=== PATIENT | male | born 1945 | race Caucasian/White ===

== ENCOUNTER 2016-11-16 17:42 | Inpatient (IN) | payer MEDICARE, BC ==
[~2016-11-16] VITALS: Ht 185.4 cm; Wt 127.5 kg
[~2016-11-16 17:42] MED LIST: ACET-73 PO; ALLO100T PO; ASPI81TA31 PO; ATOR10TA PO; BUME2TAB4 PO; CALC0.253 PO; CARV25TA2 PO; COLC0.6T69 PO; CYCL5TAB PO; DILT180C66 PO; DUTA0.5C PO; FLUT1DIS28 INH; FOLI0.8T2 PO; FOLI1TAB16 PO; GLIM2TAB2 PO; GLUC100017 PO; HYDR-548 PO; IPRATROPIUM 0.02% INH; METO2.5T2 PO; NAFT40GE TP; PANT40TA4 PO; POLY17PO4 PO; PRIM50TA PO; PROCRIT INJECTION INJ; TAMS0.4C34 PO; TUMERIC PO; UBID10CA4 PO; VIT1TABL46 PO; WARF5TAB77 PO; X VIATE 40% TOP; ZOLP10TA6 PO
[2016-11-16] MEDS ORDERED: SENN-92 PO (18:43)
[2016-11-16] MEDS ORDERED: DOXY-182 PO (18:43)
[2016-11-16] MEDS ORDERED: POTA8TAB8 PO (18:43)
[2016-11-16] MEDS ORDERED: HYDR473S4 PO (18:43)
[2016-11-16] MEDS ORDERED: ACET-1467 PO (18:43)
[2016-11-16] MEDS ORDERED: FUROSEMIDE 20 MG/2 ML VIAL IVP ONE (20:00)
[2016-11-16] MEDS ORDERED: IV NORMAL SALINE 500 ML BAG IV ONE (20:00)
--- NOTE | 2016-11-16 20:09 | NUR ---
Urine Spec. to lab
[2016-11-16] MEDS ORDERED: FUROSEMIDE 40 MG/4 ML VIAL ONE (20:31)
[2016-11-16 20:39] LABS: *BILIRUBIN,URIN NEGATIVE (NEGATIVE); *BLOOD, URINE NEGATIVE (NEGATIVE); *CLARITY,URINE CLEAR (CLEAR); *COLOR,URINE YELLOW (YELLOW); *KETONES,URINE NEGATIVE (NEGATIVE); *PROTEIN,URINE 2+ (NEGATIVE); *UROBILINOGEN,URINE 0.2 E.U./dl (NORMAL); LEUKOCYTE ESTERASE ,URINE NEGATIVE (NEGATIVE); NITRITE, URINE NEGATIVE (NEGATIVE); PH,URINE 5.5 (5.0-8.0); UGLUCOSE NEGATIVE (NEGATIVE)
[2016-11-16 20:41] LABS: BACTERIA,URINE NONE SEEN /HPF (NONE SEEN); RBC,URINE 0-3 /HPF (0-3); SQUAMOUS EPITHELIAL CELL,UR NONE SEEN /HPF (NONE SEEN); WBC,URINE 0-3 /HPF (0-3)
[2016-11-16 20:56] LABS: BASOPHILS # (AUTO) 0.1 K/uL (0.0-0.2); BASOPHILS % (AUTO) 0.7 % (0.0-2.0); EOSINOPHILS # (AUTO) 0.2 K/uL (0.0-0.7); EOSINOPHILS % (AUTO) 1.9 % (0.0-7.0); MEAN CORPUSCULAR HEMOGLOBIN 34.2 uug (27.0-31.0); MEAN CORPUSCULAR HGB CONC 34 g/dL (32.0-37.0); MEAN CORPUSCULAR VOLUME 99.9 fL (82.0-92.0); MONOCYTES # (AUTO) 1.1 K/uL (0.1-1.30); MONOCYTES % (AUTO) 9.3 % (0.0-11.0); NEUTROPHILS # (AUTO) 9.8 K/uL (1.8-8.9); NEUTROPHILS % (AUTO) 80.1 % (38.5-71.5); PLATELET COUNT (AUTO) 207 K/uL (150-450); RED CELL DISTRIBUTION WIDTH 15.5 % (11.5-14.5); WHITE BLOOD COUNT (AUTO) 12.2 K/uL (4.0-11.2)
[2016-11-16 21:08] LABS: TROPONIN I < 0.017 ng/mL (0.00-0.056)
[2016-11-16 21:11] LABS: LACTIC ACID 1.3 mmol/L (0.4-2.0)
[2016-11-16 21:13] LABS: ALBUMIN 3.2 g/dL (3.4-5.0); BILIRUBIN,DIRECT 0.3 mg/dL (0.0-0.2); BILIRUBIN,TOTAL 0.6 mg/dL (0.2-1.0); CALCIUM 10.3 mg/dL (8.5-10.1); POTASSIUM 3.4 mmol/L (3.5-5.1); TOTAL PROTEIN, SERUM 8.5 g/dL (6.4-8.2)
[2016-11-16] MEDS ORDERED: NITROGLYCERIN OINT 1 GM PACKET TP ONE ×2 (21:45→21:47)
--- NOTE | 2016-11-16 22:00 | NUR ---
Pt. admitted to TELE, under care of Dr. Patel. Belongs List completed.
[2016-11-16 22:30] VITALS: BP 134/87
[2016-11-17] MEDS ORDERED: ZOLPIDEM 5 MG TABLET ONE (00:50)
[2016-11-17] MEDS: ZOLPIDEM 5 MG TABLET PO PRN (01:31)
[2016-11-17 04:00] VITALS: BP 133/74
[2016-11-17 06:53] LABS: BASOPHILS % (AUTO) 0.3 % (0.0-2.0); EOSINOPHILS # (AUTO) 0.3 K/uL (0.0-0.7); EOSINOPHILS % (AUTO) 2.6 % (0.0-7.0); HEMATOCRIT 33.3 % (40.0-50.0); HEMOGLOBIN 11.1 g/dL (14.0-18.0); LYMPHOCYTES # (AUTO) 1.3 K/uL (0.8-4.8); LYMPHOCYTES % (AUTO) 10.3 % (20.5-51.5); MEAN CORPUSCULAR HEMOGLOBIN 32.3 uug (27.0-31.0); MEAN CORPUSCULAR HGB CONC 33 g/dL (32.0-37.0); MEAN CORPUSCULAR VOLUME 97.5 fL (82.0-92.0); MONOCYTES % (AUTO) 7.8 % (0.0-11.0); NEUTROPHILS # (AUTO) 10.3 K/uL (1.8-8.9); PLATELET COUNT (AUTO) 213 K/uL (150-450); RED BLOOD CELL COUNT(AUTO) 3.42 MIL/uL (4.70-6.10); RED CELL DISTRIBUTION WIDTH 15.4 % (11.5-14.5); WHITE BLOOD COUNT (AUTO) 12.9 K/uL (4.0-11.2)
[2016-11-17 07:04] LABS: CALCIUM 10.5 mg/dL (8.5-10.1)
[2016-11-17 07:19] LABS: CREATININE 3.7 mg/dL (0.6-1.3)
[2016-11-17 08:12] LABS: MAGNESIUM 2.2 mg/dL (1.8-2.4); PHOSPHOROUS 3.2 mg/dL (2.5-4.9)
[2016-11-17 11:56] VITALS: BP 124/73
[2016-11-17 15:57] VITALS: BP 128/75
[2016-11-17] MEDS ORDERED: GUAIFENESIN/DEXTROMETHORPHAN 5 ML UDC PO PRN (16:45)
[2016-11-17] MEDS ORDERED: SENNOSIDES/DOCUSATE SODIUM TABLET PO SCH (17:00)
[2016-11-17] MEDS ORDERED: MISCELLANEOUS MED XX PRN ×2 (17:00)
[2016-11-17] MEDS ORDERED: ACETAMINOPHEN ES 500 MG TABLET PO PRN (17:00)
[2016-11-17] MEDS ORDERED: ZOLPIDEM 5 MG TABLET PO PRN (17:00)
[2016-11-17] MEDS ORDERED: HYDROCODONE BIT/HOMATROPINE 5 ML UDC PO PRN (17:00)
[2016-11-17] MEDS: FOLIC ACID 1 MG TABLET PO SCH (18:16)
[2016-11-17] MEDS: BUMETANIDE 1 MG TABLET PO SCH (18:16)
[2016-11-17] MEDS: GLIMEPIRIDE 2 MG TABLET PO SCH (18:16)
[2016-11-17] MEDS: METOLAZONE 5 MG TABLET PO SCH (18:36)
[2016-11-17] MEDS ORDERED: DOCU-25 PO (18:47)
[2016-11-17 19:00] VITALS: BP 103/63
[2016-11-17] MEDS ORDERED: DILTIAZEM 90 MG ×2 (19:01→19:03)
[2016-11-17] MEDS ORDERED: DILT90TA10 PO (19:06)
[2016-11-17] MEDS: DOXYCYCLINE HYCLATE 100 MG TABLET PO SCH (21:18)
[2016-11-17] MEDS: DOCUSATE SODIUM 100 MG CAPSULE PO SCH (21:19)
[2016-11-17] MEDS: TAMSULOSIN HCL 0.4 MG CAP.SR.24H PO SCH (21:19)
[2016-11-17] MEDS: ATORVASTATIN 10 MG TABLET PO SCH (21:19)
[2016-11-17] MEDS: PRIMIDONE 50 MG TABLET PO SCH (21:19)
[2016-11-17] MEDS: DUTASTERIDE 0.5 MG CAPSULE PO SCH (21:20)
[2016-11-17] MEDS: NUTRISOURCE FIBER 4 GM PACKET PO SCH (21:25)
[2016-11-17 23:40] VITALS: BP 103/71
[2016-11-18 04:00] VITALS: BP 120/73
--- NOTE | 2016-11-18 07:45 | NUR ---
Awake, alert, oriented x 3, on moderate high back rest, Bipap removed. Noted urine incontinence. Assisted to commode, with large soft BM. Sponge bath given. Transferred to chair, breakfast served
[2016-11-18] MEDS: BUMETANIDE 1 MG TABLET PO SCH ×2 (08:58→17:16)
[2016-11-18] MEDS: GLIMEPIRIDE 2 MG TABLET PO SCH ×2 (08:58→17:16)
[2016-11-18] MEDS: DOCUSATE SODIUM 100 MG CAPSULE PO SCH ×2 (08:59→20:44)
[2016-11-18] MEDS: FOLIC ACID 1 MG TABLET PO SCH ×2 (08:59→17:16)
[2016-11-18] MEDS: POTASSIUM CHLORIDE 8 MEQ CAPSULE.SA PO SCH ×3 (08:59→17:16)
[2016-11-18] MEDS: FOLIC ACID/VITAMIN B COMP W-C TABLET PO SCH (08:59)
[2016-11-18] MEDS: MIRALAX 17 GM POWD.PACK PO SCH (08:59)
[2016-11-18] MEDS: PANTOPRAZOLE SODIUM 40 MG TABLET.DR PO SCH (09:00)
[2016-11-18] MEDS ORDERED: METOLAZONE 2.5 MG TABLET PO SCH (09:00)
[2016-11-18] MEDS ORDERED: DOCUSATE SODIUM 100 MG CAPSULE PO SCH (09:00)
[2016-11-18] MEDS: NUTRISOURCE FIBER 4 GM PACKET PO SCH ×2 (09:00→20:46)
[2016-11-18] MEDS ORDERED: WARFARIN SODIUM 5 MG TABLET PO SCH (09:00)
[2016-11-18] MEDS: DOXYCYCLINE HYCLATE 100 MG TABLET PO SCH ×2 (09:01→20:45)
[2016-11-18] MEDS: ALLOPURINOL 100 MG TABLET PO SCH (09:02)
[2016-11-18 09:24] LABS: BASOPHILS % (AUTO) 0.3 % (0.0-2.0); EOSINOPHILS # (AUTO) 0.6 K/uL (0.0-0.7); EOSINOPHILS % (AUTO) 4.8 % (0.0-7.0); HEMATOCRIT 30.2 % (40.0-50.0); HEMOGLOBIN 10.6 g/dL (14.0-18.0); LYMPHOCYTES # (AUTO) 1.4 K/uL (0.8-4.8); LYMPHOCYTES % (AUTO) 11.4 % (20.5-51.5); MEAN CORPUSCULAR HEMOGLOBIN 35.5 uug (27.0-31.0); MEAN CORPUSCULAR HGB CONC 35 g/dL (32.0-37.0); MEAN CORPUSCULAR VOLUME 100.6 fL (82.0-92.0); MONOCYTES # (AUTO) 1.1 K/uL (0.1-1.30); MONOCYTES % (AUTO) 8.3 % (0.0-11.0); NEUTROPHILS # (AUTO) 9.6 K/uL (1.8-8.9); NEUTROPHILS % (AUTO) 75.2 % (38.5-71.5); PLATELET COUNT (AUTO) 216 K/uL (150-450); RED CELL DISTRIBUTION WIDTH 15.5 % (11.5-14.5); WHITE BLOOD COUNT (AUTO) 12.7 K/uL (4.0-11.2)
[2016-11-18 09:34] LABS: ALBUMIN 3.3 g/dL (3.4-5.0); BILIRUBIN,TOTAL 0.7 mg/dL (0.2-1.0); CALCIUM 10.2 mg/dL (8.5-10.1); MAGNESIUM 2.2 mg/dL (1.8-2.4); PHOSPHOROUS 4.3 mg/dL (2.5-4.9)
[2016-11-18 10:15] LABS: TOTAL PROTEIN, SERUM 9.3 g/dL (6.4-8.2)
[2016-11-18] MEDS: ACETAMINOPHEN/CODEINE 300-30 MG TABLET PO PRN ×2 (11:06→20:27)
--- NOTE | 2016-11-18 11:06 | NUR ---
Complained of bilateral knee pain. Tylenol #3 po given, with relief
[2016-11-18 11:22] LABS: ANISOCYTOSIS 1+; STOMATOCYTES 2+
[2016-11-18 11:24] VITALS: BP 125/66
[2016-11-18 15:37] VITALS: BP 123/66
--- NOTE | 2016-11-18 18:31 | NUR ---
Afebrile, not in distress, still sitting on the chair
[2016-11-18 19:00] VITALS: BP 109/59
--- NOTE | 2016-11-18 19:10 | NUR ---
PATIENT ALERT ORIENTED, NO SOB NO CHEST PAIN NOTED, COMPLAIN OF PAIN ON BOTH LOWER EXTREMITY AND SHOULDER, CALL LIGHT WITHIN REACH.
[2016-11-18] MEDS: ALBUTEROL SULFATE 1.25 MG/3 ML NEBU NEB PRN (19:42)
[2016-11-18] MEDS: BUMETANIDE 1 MG/4 ML VIAL IV SCH (20:25)
[2016-11-18] MEDS: DUTASTERIDE 0.5 MG CAPSULE PO SCH (20:28)
[2016-11-18] MEDS: DILTIAZEM HCL 90 MG TABLET PO SCH (20:43)
[2016-11-18] MEDS: ATORVASTATIN 10 MG TABLET PO SCH (20:44)
[2016-11-18] MEDS: TAMSULOSIN HCL 0.4 MG CAP.SR.24H PO SCH (20:53)
[2016-11-18] MEDS: PRIMIDONE 50 MG TABLET PO SCH (20:54)
--- NOTE | 2016-11-19 | NUR ---
OFFER TO PATIENT TO WEAR DVT PUMP BUT REFUSED, EXPLAINED THE PURPOSE OF THE DVT PUMP, STATED "i DONT NEED IT, MY CIRCULATION IS FINE." RESPECT PATIENT WISHES.
[2016-11-19] MEDS: ALBUTEROL SULFATE 1.25 MG/3 ML NEBU NEB PRN ×3 (00:41→16:04)
[2016-11-19] MEDS: ZOLPIDEM 5 MG TABLET PO PRN (01:08)
[2016-11-19 04:00] VITALS: BP 115/66
[2016-11-19 06:25] LABS: BASOPHILS % (AUTO) 0.2 % (0.0-2.0); EOSINOPHILS # (AUTO) 0.6 K/uL (0.0-0.7); EOSINOPHILS % (AUTO) 5.8 % (0.0-7.0); HEMATOCRIT 30.8 % (40.0-50.0); HEMOGLOBIN 10.3 g/dL (14.0-18.0); LYMPHOCYTES # (AUTO) 1.3 K/uL (0.8-4.8); LYMPHOCYTES % (AUTO) 12.1 % (20.5-51.5); MEAN CORPUSCULAR HEMOGLOBIN 33.5 uug (27.0-31.0); MEAN CORPUSCULAR HGB CONC 34 g/dL (32.0-37.0); MEAN CORPUSCULAR VOLUME 99.8 fL (82.0-92.0); MONOCYTES % (AUTO) 9.1 % (0.0-11.0); NEUTROPHILS # (AUTO) 7.6 K/uL (1.8-8.9); NEUTROPHILS % (AUTO) 72.8 % (38.5-71.5); PLATELET COUNT (AUTO) 200 K/uL (150-450); RED BLOOD CELL COUNT(AUTO) 3.08 MIL/uL (4.70-6.10); RED CELL DISTRIBUTION WIDTH 15.4 % (11.5-14.5); WHITE BLOOD COUNT (AUTO) 10.5 K/uL (4.0-11.2)
--- NOTE | 2016-11-19 06:45 | NUR ---
PATIENT SLEPT MOST OF THE NIGHT, BIPAP IN PLACE, NO SOB, NO CHEST PAIN NOTED, NO S/S OF DISTRESS.
[2016-11-19 07:33] LABS: BILIRUBIN,TOTAL 0.5 mg/dL (0.2-1.0); MAGNESIUM 1.9 mg/dL (1.8-2.4); PHOSPHOROUS 3.9 mg/dL (2.5-4.9); TOTAL PROTEIN, SERUM 8.3 g/dL (6.4-8.2)
[2016-11-19 07:44] LABS: CREATININE 3.7 mg/dL (0.6-1.3)
[2016-11-19 07:45] LABS: POTASSIUM 2.7 mmol/L (3.5-5.1)
[2016-11-19 08:06] LABS: VIT D, 25-HYDROXY 14.6 ng/mL (30.0-100.0)
[2016-11-19] MEDS ORDERED: POTASSIUM CHLORIDE 100 ML IV SCH ×2 (08:30)
[2016-11-19] MEDS: FOLIC ACID 1 MG TABLET PO SCH ×2 (08:54→16:56)
[2016-11-19] MEDS: DOCUSATE SODIUM 100 MG CAPSULE PO SCH (08:54)
[2016-11-19] MEDS: PANTOPRAZOLE SODIUM 40 MG TABLET.DR PO SCH (08:54)
[2016-11-19] MEDS: METOLAZONE 5 MG TABLET PO SCH (08:54)
[2016-11-19] MEDS: GLIMEPIRIDE 2 MG TABLET PO SCH ×2 (08:54→16:56)
[2016-11-19] MEDS: FOLIC ACID/VITAMIN B COMP W-C TABLET PO SCH (08:55)
[2016-11-19] MEDS: ALLOPURINOL 100 MG TABLET PO SCH (08:55)
[2016-11-19] MEDS: POTASSIUM CHLORIDE 8 MEQ CAPSULE.SA PO SCH ×3 (08:55→16:56)
[2016-11-19] MEDS: DOXYCYCLINE HYCLATE 100 MG TABLET PO SCH (08:55)
[2016-11-19] MEDS: MIRALAX 17 GM POWD.PACK PO SCH (08:57)
[2016-11-19] MEDS: BUMETANIDE 1 MG/4 ML VIAL IV SCH ×2 (08:57→16:57)
[2016-11-19] MEDS: NUTRISOURCE FIBER 4 GM PACKET PO SCH (08:57)
[2016-11-19] MEDS: DILTIAZEM HCL 90 MG TABLET PO SCH (08:59)
[2016-11-19] MEDS ORDERED: METOLAZONE 2.5 MG TABLET PO SCH (09:00)
[2016-11-19] MEDS: ACETAMINOPHEN/CODEINE 300-30 MG TABLET PO PRN (09:09)
[2016-11-19] MEDS ORDERED: POTASSIUM CHLORIDE 50 ML IV SCH (10:45)
[2016-11-19] MEDS ORDERED: POTASSIUM CHLORIDE 10 MEQ, LIDOCAINE-MPF 1% 1 ML in IV DEXTROSE 5% 100 ML IV SCH ×2 (10:45→12:30)
[2016-11-19 11:29] VITALS: BP 107/57
[2016-11-19] MEDS ORDERED: POTASSIUM CHLORIDE 20 MEQ TAB.PRT.SR PO ONE (12:30)
--- NOTE | 2016-11-19 16:08 | NUR ---
PATIENT BEEN DISCHARGE BY MD. NO S/S OF DISTRESS. C/O OF KNEE AND SHOULDER PAIN, MEDICATED ORDERED. K AND BUN VALUES WERE CRITICAL, DR. RUIZ NOTIFIED. ORDERED K REPLACEMENTS. DISCHARGE INSTRUCTIONS WERE EXPLAINED, SIGNED BY PATIENT. A COPY WAS PROVIDED. WILL CONTINUE MONITORING.
[2016-11-19 16:11] VITALS: BP 102/49
--- NOTE | 2016-11-19 16:32 | NUR ---
The patient will be discharged today back home [[address] [place] [address]] [address] Haines. The patient is aware and in agreement with his discharge plan. He arranged for his to pick him up via private car and he will follow-up with his PCP. His RN, Saba, is aware of his discharge plan.
--- NOTE | 2016-11-19 18:37 | NUR ---
Patient in the chair waiting for the to pick him up. No s/s of distress noted. Iv still intact. Safety and comfort provided during my shift. Report will be endorsed to next shift nurse.
--- NOTE | 2016-11-19 19:43 | NUR ---
PATIENT DISCHARGE TODAY, ACCOMPANIED BY VIA PRIVATE CAR.
== END 2016-11-19 19:45 | disposition home health service (06) | DRG 291 ==
LOC: ER 17:42 → TELE 21:52 → MED 11-18 19:45
PROVIDERS: ADMIT Internal Medicine; ATTEND Internal Medicine
PROC: 5A09457 Assistance with Respiratory Ventilation, 24-96 Consecutive Hours, Continuous Positive Airway Pressure (ICD-10-PCS; principal; 2016-11-17)
DX: I13.0 Hypertensive heart and chronic kidney disease with heart failure and stage 1 through stage 4 chronic kidney disease, or unspecified chronic kidney disease (principal); I50.41 Acute combined systolic (congestive) and diastolic (congestive) heart failure; J18.9 Pneumonia, unspecified organism; J96.01 Acute respiratory failure with hypoxia; J44.0 Chronic obstructive pulmonary disease with (acute) lower respiratory infection; J44.1 Chronic obstructive pulmonary disease with (acute) exacerbation; N18.4 Chronic kidney disease, stage 4 (severe); N17.9 Acute kidney failure, unspecified; I48.4 Atypical atrial flutter; I42.9 Cardiomyopathy, unspecified; I48.0 Paroxysmal atrial fibrillation; D64.9 Anemia, unspecified; Z86.010 Personal history of colon polyps; Z88.0 Allergy status to penicillin; Z88.1 Allergy status to other antibiotic agents; Z91.041 Radiographic dye allergy status; I48.2 Chronic atrial fibrillation; I35.0 Nonrheumatic aortic (valve) stenosis; G47.33 Obstructive sleep apnea (adult) (pediatric); Z82.3 Family history of stroke; Z82.49 Family history of ischemic heart disease and other diseases of the circulatory system; Z86.73 Personal history of transient ischemic attack (TIA), and cerebral infarction without residual deficits; Z87.891 Personal history of nicotine dependence; Z79.01 Long term (current) use of anticoagulants; Z79.84 Long term (current) use of oral hypoglycemic drugs; Z79.899 Other long term (current) drug therapy; J20.9 Acute bronchitis, unspecified; M10.9 Gout, unspecified; E11.22 Type 2 diabetes mellitus with diabetic chronic kidney disease; I27.2 Other secondary pulmonary hypertension; K21.9 Gastro-esophageal reflux disease without esophagitis; E78.5 Hyperlipidemia, unspecified; I34.0 Nonrheumatic mitral (valve) insufficiency
CPT/HCPCS: 36415; 70030-TC; 71010; 76770; 82306; 82652; 83605; 83735; 83970; 84100; 85025; 85610; 85730; 87040; 93005; 94640; 94664; A4663; J1940; J2001; J3480; J3490; J7040; J7060

== ENCOUNTER 2017-02-06 03:13 | Inpatient (IN) | payer MEDICARE, BC ==
[~2017-02-06] VITALS: Ht 185.4 cm; Wt 126.6 kg
[~2017-02-06 03:13] MED LIST changes: +ACET-1467 PO; -ASPI81TA31 PO; -CALC0.253 PO; -COLC0.6T69 PO; -CYCL5TAB PO; -DILT180C66 PO; +DILT90TA10 PO; +DOCU-141 PO; -GLUC100017 PO; -HYDR-548 PO; +HYDR473S4 PO; -IPRATROPIUM 0.02% INH; +POTA8TAB8 PO; -PROCRIT INJECTION INJ; -TUMERIC PO; -VIT1TABL46 PO; -WARF5TAB77 PO; -X VIATE 40% TOP
[2017-02-06] MEDS ORDERED: HYDR-548 PO (03:58)
[2017-02-06] MEDS ORDERED: VIT1TABL46 PO (03:58)
[2017-02-06] MEDS ORDERED: FLUT1DIS28 IH (03:58)
[2017-02-06] MEDS ORDERED: CALC0.253 PO (03:58)
[2017-02-06] MEDS ORDERED: METO2.5T2 PO (03:58)
[2017-02-06] MEDS ORDERED: CYCL5TAB PO (03:58)
[2017-02-06] MEDS ORDERED: WARF7.5T23 PO (04:04)
[2017-02-06 04:55] LABS: BASOPHILS % (AUTO) 0.3 % (0.0-2.0); EOSINOPHILS # (AUTO) 0.3 K/uL (0.0-0.7); EOSINOPHILS % (AUTO) 2.1 % (0.0-7.0); HEMATOCRIT 28.7 % (40-50); HEMOGLOBIN 9.6 G/DL (14.0-18.0); LYMPHOCYTES # (AUTO) 0.8 K/UL (0.8-4.8); LYMPHOCYTES % (AUTO) 7.1 % (20.5-51.5); MEAN CORPUSCULAR HEMOGLOBIN 33.5 UUG (27.0-31.0); MEAN CORPUSCULAR HGB CONC 33 g/dL (32.0-37.0); MEAN CORPUSCULAR VOLUME 100.4 FL (82.0-92.0); MONOCYTES # (AUTO) 0.7 K/UL (0.1-1.30); MONOCYTES % (AUTO) 6.2 % (0.0-11.0); NEUTROPHILS # (AUTO) 10.2 K/UL (1.8-8.9); NEUTROPHILS % (AUTO) 84.3 % (38.5-71.5); PLATELET COUNT (AUTO) 218 K/UL (150-450); RED BLOOD CELL COUNT(AUTO) 2.86 MIL/UL (4.7-6.1)
[2017-02-06 05:11] LABS: ALANINE AMINOTRANSFERASE 27 U/L (16-63); ALKALINE PHOSPHATASE 121 U/L (50-136); ASPARTATE AMINOTRANSFERASE 34 U/L (15-37); BILIRUBIN,DIRECT 0.1 mg/dL (0.0-0.2); BILIRUBIN,TOTAL 0.5 mg/dL (0.2-1.0); CARBON DIOXIDE 31 mmol/L (21-32); CHLORIDE 92 mmol/L (98-107); CREATININE 4.4 mg/dL (0.6-1.3); GLUCOSE 149 mg/dL (74-106); TOTAL PROTEIN, SERUM 8.4 g/dL (6.4-8.2)
[2017-02-06 05:14] LABS: UREA NITROGEN, BLOOD 105 mg/dL (7-18)
[2017-02-06 05:55] VITALS: BP 114/75
--- NOTE | 2017-02-06 05:55 | NUR ---
Pt. admitted to Telemetry , under care of Dr. Ron. Dx: CHF Belongs List completed
--- NOTE | 2017-02-06 07:00 | NUR ---
Admitted this 71 y/o male patient Dx. CHF. Placed on Telemetry- A-flutter on the monitor. Called Dr. Haines for admitting orders, received orders & carried out. Initial assessment done. Report given to NINA Smith
--- NOTE | 2017-02-06 07:10 | NUR ---
PATIENT RECEIVED IN ROOM RESTING WITH EYES CLOSED IN NO ACUTE DISTRESS. H.R. 107 ON [address]. PATIENT ON C-PAP AT THIS TIME. AT BEDSIDE.
--- NOTE | 2017-02-06 07:56 | NUR ---
PATIENT SEEN BY DR. RUIZ.
[2017-02-06] MEDS ORDERED: ACETAMINOPHEN ES 500 MG TABLET PO PRN (08:45)
[2017-02-06] MEDS ORDERED: HYDROCODONE BIT/HOMATROPINE 5 ML UDC PO PRN (08:45)
[2017-02-06] MEDS ORDERED: ACETAMINOPHEN/CODEINE 300-30 MG TABLET PO PRN (08:45)
[2017-02-06] MEDS ORDERED: HYDROCODONE/APAP 10-325 MG TABLET PO PRN (08:45)
[2017-02-06] MEDS ORDERED: CYCLOBENZAPRINE HCL 10 MG TABLET PO PRN (09:00)
[2017-02-06] MEDS ORDERED: DEXTROSE 50% 50 ML DISP.SYRIN IV PRN (09:00)
[2017-02-06] MEDS ORDERED: NORMAL SALINE FLUSH 10 ML DISP.SYRIN IV PRN (09:00)
[2017-02-06] MEDS: DOCUSATE SODIUM 100 MG CAPSULE PO SCH ×2 (09:48→17:01)
[2017-02-06] MEDS: DILTIAZEM HCL 90 MG TABLET PO SCH ×2 (09:48→21:04)
[2017-02-06] MEDS: GLIMEPIRIDE 2 MG TABLET PO SCH ×2 (09:48→17:02)
[2017-02-06] MEDS: CALCITRIOL 0.25 MCG CAPSULE PO SCH (09:48)
[2017-02-06] MEDS: FOLIC ACID/VITAMIN B COMP W-C TABLET PO SCH (09:48)
[2017-02-06] MEDS: ALLOPURINOL 100 MG TABLET PO SCH (09:48)
[2017-02-06] MEDS: MIRALAX 17 GM POWD.PACK PO SCH (09:48)
[2017-02-06] MEDS: BUMETANIDE 1 MG TABLET PO SCH ×2 (09:48→17:01)
[2017-02-06] MEDS: METOLAZONE 2.5 MG TABLET PO SCH (09:49)
[2017-02-06] MEDS: FOLIC ACID 1 MG TABLET PO SCH ×2 (09:49→17:02)
[2017-02-06] MEDS: POTASSIUM CHLORIDE 8 MEQ CAPSULE.SA PO SCH ×3 (09:49→17:02)
[2017-02-06] MEDS: PANTOPRAZOLE SODIUM 40 MG TABLET.DR PO SCH (09:54)
[2017-02-06] MEDS: FLUTICASONE/VILANTEROL 1 EACH BLST.W.DEV INH SCH (09:54)
[2017-02-06] MEDS ORDERED: BUMETANIDE INJ 4 MG in IV DEXTROSE 5% 24 ML IV ONE (10:00)
[2017-02-06] MEDS: BLOOD SUGAR DIAGNOSTIC 1 EACH STRIP VI SCH ×3 (12:28→21:08)
[2017-02-06] MEDS: INSULIN REGULAR, HUMAN 300 UNIT/3 ML VIAL SQ PRN ×3 (12:36→21:10)
[2017-02-06] MEDS: NORMAL SALINE FLUSH 10 ML DISP.SYRIN IV SCH ×2 (12:37→21:10)
[2017-02-06 12:57] VITALS: BP 110/69
[2017-02-06 15:48] VITALS: BP 112/63
[2017-02-06] MEDS ORDERED: WARFARIN SODIUM 2 MG TABLET PO SCH (17:00)
[2017-02-06] MEDS ORDERED: WARFARIN SODIUM 7.5 MG TABLET PO SCH (17:00)
--- NOTE | 2017-02-06 17:00 | NUR ---
UA COLLECTED AND SENT TO LAB.
[2017-02-06] MEDS: CARVEDILOL 25 MG TABLET PO SCH (17:10)
[2017-02-06 18:14] LABS: *CREATININE,URINE 26.7 mg/dL (30-125); *URINE TOTAL PROTEIN RANDOM 13.9 mg/dL (<150/24HR)
[2017-02-06 18:18] LABS: *BILIRUBIN,URIN NEGATIVE (NEGATIVE); *BLOOD, URINE NEGATIVE (NEGATIVE); *CLARITY,URINE CLEAR (CLEAR); *COLOR,URINE YELLOW (YELLOW); *KETONES,URINE NEGATIVE (NEGATIVE); *PROTEIN,URINE NEGATIVE (NEGATIVE); *UROBILINOGEN,URINE 0.2 E.U./dl (NORMAL); LEUKOCYTE ESTERASE ,URINE NEGATIVE (NEGATIVE); NITRITE, URINE NEGATIVE (NEGATIVE); UGLUCOSE NEGATIVE (NEGATIVE)
--- NOTE | 2017-02-06 18:28 | NUR ---
END OF SHIFT NOTE: PATIENT IN NO ACUTE DISTRESS THROUGHOUT SHIFT. DENIED PAIN. A. 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 NO COUGH OR SOB OBSERVED. RESPIRATIONS EVEN AND UNLABORED. CONTINENT OF B+B. NEEDS MET BY STAFF. CALL LIGHT AT REACH.
[2017-02-06 18:29] LABS: MUCUS,URINE FEW /LPF (0-FEW); RBC,URINE 0-3 /HPF (0-3); WBC,URINE NONE SEEN /HPF (0-3)
[2017-02-06 19:00] VITALS: BP 120/75
[2017-02-06 20:00] VITALS: BP 120/75
--- NOTE | 2017-02-06 20:00 | NUR ---
RN NOTES: PATIENT RECEIVED IN STABLE CONDITION, NO COMPLAINS OF PAIN OR DISTRESS NOTED. WILL CONTINUE TO MONITOR.
[2017-02-06] MEDS ORDERED: DUTASTERIDE 0.5 MG CAPSULE PO SCH (21:00)
[2017-02-06] MEDS ORDERED: TAMSULOSIN HCL 0.4 MG CAP.SR.24H PO SCH (21:00)
[2017-02-06] MEDS ORDERED: ZOLPIDEM 5 MG TABLET PO SCH (21:00)
[2017-02-06] MEDS ORDERED: ATORVASTATIN 10 MG TABLET PO SCH (21:00)
[2017-02-06] MEDS ORDERED: PRIMIDONE 50 MG TABLET PO SCH (21:00)
[2017-02-07 04:00] VITALS: BP 112/76
[2017-02-07] MEDS: NORMAL SALINE FLUSH 10 ML DISP.SYRIN IV SCH (06:29)
[2017-02-07] MEDS: PANTOPRAZOLE SODIUM 40 MG TABLET.DR PO SCH (06:29)
[2017-02-07 07:19] LABS: ALANINE AMINOTRANSFERASE 21 U/L (16-63); ALKALINE PHOSPHATASE 118 U/L (50-136); ASPARTATE AMINOTRANSFERASE 21 U/L (15-37); BILIRUBIN,TOTAL 0.4 mg/dL (0.2-1.0); CARBON DIOXIDE 34 mmol/L (21-32); CHLORIDE 96 mmol/L (98-107); CREATINE KINASE, TOTAL 33 U/L (39-308); CREATININE 4.2 mg/dL (0.6-1.3); GLUCOSE 74 mg/dL (74-106); PHOSPHOROUS 4.2 mg/dL (2.5-4.9); TOTAL PROTEIN, SERUM 7.7 g/dL (6.4-8.2)
[2017-02-07] MEDS: BLOOD SUGAR DIAGNOSTIC 1 EACH STRIP VI SCH ×2 (07:21→10:41)
[2017-02-07 07:31] LABS: UREA NITROGEN, BLOOD 106 mg/dL (7-18)
[2017-02-07 07:38] LABS: BASOPHILS % (AUTO) 0.3 % (0.0-2.0); EOSINOPHILS # (AUTO) 0.3 K/uL (0.0-0.7); EOSINOPHILS % (AUTO) 3.5 % (0.0-7.0); HEMATOCRIT 27.2 % (40-50); HEMOGLOBIN 9.5 G/DL (14.0-18.0); LYMPHOCYTES # (AUTO) 0.9 K/UL (0.8-4.8); LYMPHOCYTES % (AUTO) 9.7 % (20.5-51.5); MEAN CORPUSCULAR HEMOGLOBIN 35.6 UUG (27.0-31.0); MEAN CORPUSCULAR HGB CONC 35 g/dL (32.0-37.0); MEAN CORPUSCULAR VOLUME 102.1 FL (82.0-92.0); MONOCYTES # (AUTO) 0.7 K/UL (0.1-1.30); MONOCYTES % (AUTO) 7.4 % (0.0-11.0); NEUTROPHILS # (AUTO) 7.9 K/UL (1.8-8.9); NEUTROPHILS % (AUTO) 79.1 % (38.5-71.5); PLATELET COUNT (AUTO) 210 K/UL (150-450); RED BLOOD CELL COUNT(AUTO) 2.67 MIL/UL (4.7-6.1); WHITE BLOOD COUNT (AUTO) 9.8 K/UL (4.0-11.2)
[2017-02-07] MEDS: FOLIC ACID/VITAMIN B COMP W-C TABLET PO SCH (08:03)
[2017-02-07] MEDS: CALCITRIOL 0.25 MCG CAPSULE PO SCH (08:03)
[2017-02-07] MEDS: BUMETANIDE 1 MG TABLET PO SCH (08:03)
[2017-02-07] MEDS: FOLIC ACID 1 MG TABLET PO SCH (08:03)
[2017-02-07] MEDS: POTASSIUM CHLORIDE 8 MEQ CAPSULE.SA PO SCH ×2 (08:04→13:02)
[2017-02-07] MEDS: DILTIAZEM HCL 90 MG TABLET PO SCH (08:04)
[2017-02-07] MEDS: GLIMEPIRIDE 2 MG TABLET PO SCH (08:04)
[2017-02-07] MEDS: METOLAZONE 2.5 MG TABLET PO SCH (08:04)
[2017-02-07] MEDS: ALLOPURINOL 100 MG TABLET PO SCH (08:04)
[2017-02-07] MEDS: MIRALAX 17 GM POWD.PACK PO SCH (08:04)
[2017-02-07] MEDS: CARVEDILOL 25 MG TABLET PO SCH (08:04)
[2017-02-07] MEDS: DOCUSATE SODIUM 100 MG CAPSULE PO SCH (08:04)
[2017-02-07] MEDS: FLUTICASONE/VILANTEROL 1 EACH BLST.W.DEV INH SCH (08:14)
[2017-02-07] MEDS: INSULIN REGULAR, HUMAN 300 UNIT/3 ML VIAL SQ PRN (11:06)
[2017-02-07 12:13] VITALS: BP 110/63
--- NOTE | 2017-02-07 13:58 | NUR ---
D/C ORDERS RECEIVED NOTED AND CARRIED OUT.D/C [place] PER MD ORDERS.PT LEFT THE FACILITY VIA PRIVATE CAR WITH IN STABLE CONDITION.
[2017-02-10 07:08] LABS: A/G RATIO 0.8 (0.7-1.7); ALBUMIN 3.1 g/dL (2.9-4.4); ALPHA-1-GLOBULIN 0.3 g/dL (0.0-0.4); ALPHA-2-GLOBULIN 0.9 g/dL (0.4-1.0); BETA GLOBULIN 0.9 g/dL (0.7-1.3); GAMMA GLOBULIN 1.6 g/dL (0.4-1.8); GLOBULIN, TOTAL 3.7 g/dL (2.2-3.9); M-SPIKE 0.1 g/dL (Not Observed)
== END 2017-02-07 14:00 | disposition home or self-care (01) | DRG 291 ==
LOC: ER 03:15 → TELE 05:30 → MED 21:59
PROVIDERS: ADMIT Internal Medicine; ATTEND Internal Medicine
DX: I13.0 Hypertensive heart and chronic kidney disease with heart failure and stage 1 through stage 4 chronic kidney disease, or unspecified chronic kidney disease (principal); I50.43 Acute on chronic combined systolic (congestive) and diastolic (congestive) heart failure; N17.0 Acute kidney failure with tubular necrosis; J96.90 Respiratory failure, unspecified, unspecified whether with hypoxia or hypercapnia; E46 Unspecified protein-calorie malnutrition; I48.4 Atypical atrial flutter; I48.0 Paroxysmal atrial fibrillation; D63.8 Anemia in other chronic diseases classified elsewhere; G47.33 Obstructive sleep apnea (adult) (pediatric); Z95.818 Presence of other cardiac implants and grafts; Z82.49 Family history of ischemic heart disease and other diseases of the circulatory system; Z82.3 Family history of stroke; I08.0 Rheumatic disorders of both mitral and aortic valves; N18.9 Chronic kidney disease, unspecified; E11.22 Type 2 diabetes mellitus with diabetic chronic kidney disease; Z91.041 Radiographic dye allergy status; Z79.01 Long term (current) use of anticoagulants; Z88.0 Allergy status to penicillin; Z88.1 Allergy status to other antibiotic agents; Z79.899 Other long term (current) drug therapy; K21.9 Gastro-esophageal reflux disease without esophagitis; E21.3 Hyperparathyroidism, unspecified; E78.5 Hyperlipidemia, unspecified; Z68.36 Body mass index [BMI] 36.0-36.9, adult; I27.2 Other secondary pulmonary hypertension; Z86.73 Personal history of transient ischemic attack (TIA), and cerebral infarction without residual deficits; Z87.891 Personal history of nicotine dependence; Z87.11 Personal history of peptic ulcer disease; Z79.84 Long term (current) use of oral hypoglycemic drugs; M10.9 Gout, unspecified; D72.829 Elevated white blood cell count, unspecified
CPT/HCPCS: 36415; 70030-TC; 71010; 76770; 83605; 83735; 83970; 84100; 84155; 84156; 84165; 84300; 85025; 85730; 87040; 93005; A4663; J1815; J3490; J7040; J7060

== ENCOUNTER 2017-05-05 16:30 | Inpatient (IN) | payer MEDICARE, BC ==
[~2017-05-05] VITALS: Ht 185.4 cm; Wt 132.4 kg
[~2017-05-05 16:30] MED LIST changes: +CALC0.253 PO; +CYCL5TAB PO; +FLUT1DIS28 IH; -FOLI0.8T2 PO; +HYDR-548 PO; +VIT1TABL46 PO; +WARF7.5T23 PO
--- NOTE | 2017-05-05 17:04 | NUR ---
PT.WAS SEEN BY ,FAMILY AT BEDSIDE,SOB ON EXERTION NOTED,PT DENIES ANY PAIN.
[2017-05-05] MEDS ORDERED: IV NORMAL SALINE 500 ML BAG IV ONE (17:15)
[2017-05-05] MEDS ORDERED: FUROSEMIDE 20 MG/2 ML VIAL IV ONE (17:15)
[2017-05-05] MEDS ORDERED: CARV12.52 PO (17:28)
[2017-05-05] MEDS ORDERED: [UNRECOGNIZED DRUG - CODE] SL (17:28)
[2017-05-05] MEDS ORDERED: GLUC1CAP29 PO (17:28)
[2017-05-05] MEDS ORDERED: FISH12002 PO (17:28)
[2017-05-05] MEDS ORDERED: L.AC1CAP6 PO (17:28)
[2017-05-05] MEDS ORDERED: KRIL1CAP19 PO (17:28)
[2017-05-05] MEDS ORDERED: TUMERIC PO (17:28)
[2017-05-05] MEDS ORDERED: DOXY100C2 PO (17:28)
[2017-05-05] MEDS ORDERED: FUROSEMIDE 40 MG/4 ML VIAL ONE (17:50)
[2017-05-05 18:01] LABS: ALANINE AMINOTRANSFERASE 20 U/L (16-63); ALKALINE PHOSPHATASE 153 U/L (50-136); ASPARTATE AMINOTRANSFERASE 17 U/L (15-37); BILIRUBIN,DIRECT 0.1 mg/dL (0.0-0.2); BILIRUBIN,TOTAL 0.5 mg/dL (0.2-1.0); CARBON DIOXIDE 31 mmol/L (21-32); CHLORIDE 97 mmol/L (98-107); CREATININE 3.4 mg/dL (0.6-1.3); GLUCOSE 258 mg/dL (74-106); POTASSIUM 3.4 mmol/L (3.5-5.1); TOTAL PROTEIN, SERUM 8.8 g/dL (6.4-8.2)
[2017-05-05 18:03] LABS: UREA NITROGEN, BLOOD 87 mg/dL (7-18)
--- NOTE | 2017-05-05 18:07 | NUR ---
PT.WATCHING TV,NO S/S OF ACUTE DISTRESS, AT BEDSIDE.
--- NOTE | 2017-05-05 18:19 | NUR ---
CALL BACK:ORDERED TO ADMIT PT.TO TELE BED.
[2017-05-05 18:47] LABS: HEMOGLOBIN 8.4 G/DL (14.0-18.0); MEAN CORPUSCULAR HEMOGLOBIN 31.6 UUG (27.0-31.0); MEAN CORPUSCULAR HGB CONC 32 g/dL (32.0-37.0); PLATELET COUNT (AUTO) 202 K/UL (150-450); RED BLOOD CELL COUNT(AUTO) 2.65 MIL/UL (4.7-6.1); WHITE BLOOD COUNT (AUTO) 10.1 K/UL (4.0-11.2)
[2017-05-05 18:48] LABS: BASOPHILS % (AUTO) 0.2 % (0.0-2.0); EOSINOPHILS # (AUTO) 0.3 K/uL (0.0-0.7); EOSINOPHILS % (AUTO) 2.7 % (0.0-7.0); LYMPHOCYTES # (AUTO) 0.8 K/UL (0.8-4.8); LYMPHOCYTES % (AUTO) 8.2 % (20.5-51.5); MONOCYTES # (AUTO) 0.5 K/UL (0.1-1.30); NEUTROPHILS # (AUTO) 8.4 K/UL (1.8-8.9); NEUTROPHILS % (AUTO) 83.9 % (38.5-71.5)
[2017-05-05 19:16] LABS: *BILIRUBIN,URIN NEGATIVE (NEGATIVE); *BLOOD, URINE NEGATIVE (NEGATIVE); *CLARITY,URINE SLIGHTLY CLOUDY (CLEAR); *COLOR,URINE YELLOW (YELLOW); *KETONES,URINE NEGATIVE (NEGATIVE); *PROTEIN,URINE 2+ (NEGATIVE); *UROBILINOGEN,URINE 0.2 E.U./dl (NORMAL); LEUKOCYTE ESTERASE ,URINE NEGATIVE (NEGATIVE); NITRITE, URINE NEGATIVE (NEGATIVE); UGLUCOSE NEGATIVE (NEGATIVE)
[2017-05-05 19:23] LABS: BACTERIA,URINE NONE SEEN /HPF (NONE SEEN); RBC,URINE 0-3 /HPF (0-3); SQUAMOUS EPITHELIAL CELL,UR NONE SEEN /HPF (NONE SEEN); WBC,URINE 0-3 /HPF (0-3)
[2017-05-05] MEDS ORDERED: DILTIAZEM HCL 25 MG IV IV ONE (19:30)
[2017-05-05] MEDS ORDERED: DILTIAZEM HCL 25 MG IV ONE (19:49)
--- NOTE | 2017-05-05 20:10 | NUR ---
Received admission report from [facility].
--- NOTE | 2017-05-05 20:13 | NUR ---
Pt. admitted to TELE , under care of Dr. RUIZ Belongs List completed.
[2017-05-05 21:23] VITALS: BP 125/82
--- NOTE | 2017-05-05 22:50 | NUR ---
Bipap in used assisted by RT.
[2017-05-05] MEDS: ZOLPIDEM 5 MG TABLET PO SCH (22:57)
[2017-05-05] MEDS ORDERED: BUMETANIDE INJ 4 MG in IV DEXTROSE 5% 24 ML IV ONE (23:00)
[2017-05-05] MEDS ORDERED: ZOLPIDEM 5 MG TABLET ONE (23:09)
[2017-05-05] MEDS ORDERED: BUMETANIDE 1 MG/4 ML VIAL ONE (23:30)
[2017-05-06 00:04] VITALS: BP 130/83
[2017-05-06 04:00] VITALS: BP 125/80
--- NOTE | 2017-05-06 06:51 | NUR ---
Slept at short interval. Tolerated bipap well. No complaint of pain/discomforts presented. All needs attended and met. Continue care as planned.
[2017-05-06 07:26] LABS: ALANINE AMINOTRANSFERASE 16 U/L (16-63); ALKALINE PHOSPHATASE 121 U/L (50-136); ASPARTATE AMINOTRANSFERASE 19 U/L (15-37); BILIRUBIN,TOTAL 0.4 mg/dL (0.2-1.0); CARBON DIOXIDE 32 mmol/L (21-32); CHLORIDE 100 mmol/L (98-107); CHOLESTEROL 92 mg/dL (<200); CREATININE 3.5 mg/dL (0.6-1.3); GLUCOSE 146 mg/dL (74-106); HDL CHOLESTEROL 46 mg/dL (40-60); PHOSPHOROUS 3.9 mg/dL (2.5-4.9); POTASSIUM 3.2 mmol/L (3.5-5.1); TRIGLYCERIDES 57 MG/DL (30-150)
[2017-05-06 07:39] LABS: UREA NITROGEN, BLOOD 92 mg/dL (7-18)
--- NOTE | 2017-05-06 08:00 | NUR ---
NO SIGNS OF PAIN OR DISTRESS, RA SATURATING 95% ON BUMEX DRIP
[2017-05-06 08:09] LABS: WHITE BLOOD COUNT (AUTO) 10.8 K/UL (4.0-11.2)
[2017-05-06 08:10] LABS: LYMPHOCYTES % (AUTO) 8.5 % (20.5-51.5); MEAN CORPUSCULAR HEMOGLOBIN 33.3 UUG (27.0-31.0); MEAN CORPUSCULAR HGB CONC 34 g/dL (32.0-37.0); MEAN CORPUSCULAR VOLUME 97.7 FL (82.0-92.0); NEUTROPHILS % (AUTO) 81.2 % (38.5-71.5); PLATELET COUNT (AUTO) 190 K/UL (150-450)
[2017-05-06 08:11] LABS: BASOPHILS # (AUTO) 0.2 K/uL (0.0-8.0); BASOPHILS % (AUTO) 0.2 % (0.0-2.0); EOSINOPHILS # (AUTO) 3.7 K/uL (0.0-0.7); EOSINOPHILS % (AUTO) 3.7 % (0.0-7.0); LYMPHOCYTES # (AUTO) 8.5 K/UL (0.8-4.8); MONOCYTES # (AUTO) 6.4 K/UL (0.1-1.30); MONOCYTES % (AUTO) 6.4 % (0.0-11.0); NEUTROPHILS # (AUTO) 81.2 K/UL (1.8-8.9)
[2017-05-06] MEDS ORDERED: ACETAMINOPHEN ES 500 MG TABLET PO PRN (08:30)
[2017-05-06] MEDS ORDERED: METOLAZONE 2.5 MG TABLET PO PRN (08:30)
[2017-05-06] MEDS ORDERED: HYDROCODONE/APAP 10-325 MG TABLET PO SCH (08:30)
[2017-05-06] MEDS ORDERED: BUMETANIDE 1 MG/4 ML VIAL IV ONE ×2 (08:45→11:00)
[2017-05-06] MEDS ORDERED: DHA PO SCH (09:00)
[2017-05-06] MEDS ORDERED: CHONDROITIN SULFATE A PO SCH (09:00)
[2017-05-06] MEDS ORDERED: [UNRECOGNIZED DRUG - OTHER] PO SCH (09:00)
[2017-05-06] MEDS ORDERED: [UNRECOGNIZED DRUG - OTHER] XX PRN (09:00)
[2017-05-06] MEDS ORDERED: CYCLOBENZAPRINE HCL 10 MG TABLET PO PRN (09:00)
[2017-05-06] MEDS ORDERED: EPA PO SCH (09:00)
[2017-05-06] MEDS ORDERED: PHOSPHO PO SCH (09:00)
[2017-05-06] MEDS ORDERED: TUMERIC PO SCH (09:00)
[2017-05-06] MEDS ORDERED: Medication Not On Formulary EA (Fish Oil/Borage/Flax/Om3,6,9#1 (Omega 3-6-9 1,200 mg Sof PO SCH (09:00)
[2017-05-06] MEDS ORDERED: KRILL PO SCH (09:00)
[2017-05-06] MEDS ORDERED: ZOLPIDEM 5 MG TABLET PO PRN (09:00)
[2017-05-06] MEDS ORDERED: GLUC SU PO SCH (09:00)
[2017-05-06] MEDS ORDERED: Medication Not On Formulary EA (Ubidecarenone (Co Q-10) 300 MG) PO SCH (09:00)
[2017-05-06] MEDS ORDERED: AST PO SCH (09:00)
[2017-05-06] MEDS ORDERED: [UNRECOGNIZED DRUG - OTHER] PO SCH (09:00)
[2017-05-06] MEDS ORDERED: FLUTICASONE/SALMETEROL 250/50 INHALER IH SCH (09:00)
[2017-05-06] MEDS ORDERED: POTASSIUM CHLORIDE 20 MEQ TAB.PRT.SR PO ONE (09:34)
[2017-05-06] MEDS ORDERED: EPOETIN ALFA 20,000 UNIT/ML ML SQ ONE (09:41)
[2017-05-06] MEDS: MIRALAX 17 GM POWD.PACK PO SCH (10:27)
[2017-05-06] MEDS: CARVEDILOL 12.5 MG TABLET PO SCH ×2 (10:28→17:52)
[2017-05-06] MEDS: DILTIAZEM HCL 90 MG TABLET PO SCH ×3 (10:28→23:00)
[2017-05-06] MEDS: ALLOPURINOL 100 MG TABLET PO SCH (10:28)
[2017-05-06] MEDS: DOCUSATE SODIUM 100 MG CAPSULE PO SCH (10:28)
[2017-05-06] MEDS: FOLIC ACID 1 MG TABLET PO SCH ×2 (10:28→17:52)
[2017-05-06] MEDS: FOLIC ACID/VITAMIN B COMP W-C TABLET PO SCH (10:28)
[2017-05-06] MEDS: CALCITRIOL 0.25 MCG CAPSULE PO SCH (10:28)
[2017-05-06] MEDS: GLIMEPIRIDE 2 MG TABLET PO SCH ×2 (10:28→17:53)
--- NOTE | 2017-05-06 10:30 | NUR ---
CARDIZEM 90MG GIVEN AT 2228. PATIENT IN NO ACUTE DISTRESS.
[2017-05-06] MEDS: PANTOPRAZOLE SODIUM 40 MG TABLET.DR PO SCH (10:33)
[2017-05-06 11:13] VITALS: BP 129/80
--- NOTE | 2017-05-06 12:00 | NUR ---
UP ON CHAIR WITH MIN ASSIST NO SIGNS OF DISTRESS BUEX DRIP COMPLETED SEEN BY MD WITH ORDERS
[2017-05-06] MEDS: POTASSIUM CHLORIDE 8 MEQ CAPSULE.SA PO SCH ×2 (12:22→17:53)
[2017-05-06 15:07] VITALS: BP 108/62
[2017-05-06 15:07] LABS: *OCCULT BLOOD STOOL POSITIVE (NEGATIVE)
--- NOTE | 2017-05-06 16:34 | NUR ---
CONTINUE CURRENT TX PLAN ON BUMEX WITH GOOD URINE OUTPUT
[2017-05-06] MEDS ORDERED: ACIDOPH PO SCH (18:00)
[2017-05-06] MEDS ORDERED: PARACASEI B LACTIS PO SCH (18:00)
[2017-05-06 20:00] VITALS: BP 99/61
[2017-05-06] MEDS: DOXYCYCLINE HYCLATE 100 MG TABLET PO SCH (20:00)
[2017-05-06] MEDS: DUTASTERIDE 0.5 MG CAPSULE PO SCH (20:00)
[2017-05-06] MEDS: PRIMIDONE 50 MG TABLET PO SCH (20:01)
[2017-05-06] MEDS: HYDROCODONE/APAP 10-325 MG TABLET PO SCH (20:01)
[2017-05-06] MEDS: ATORVASTATIN 10 MG TABLET PO SCH (20:01)
[2017-05-06] MEDS: TAMSULOSIN HCL 0.4 MG CAP.SR.24H PO SCH (20:01)
[2017-05-06] MEDS ORDERED: MELATONIN 500 MCG PO SCH (21:00)
[2017-05-07] VITALS: BP 114/67
[2017-05-07 04:00] VITALS: BP 106/65
[2017-05-07] MEDS: PANTOPRAZOLE SODIUM 40 MG TABLET.DR PO SCH (06:02)
--- NOTE | 2017-05-07 06:30 | NUR ---
PT SLEPT WELL, IN NO ACUTE DISTRESS, NO SOB. PATIENT IS ON TELE - AFIB 98, NO C/O OF CHEST PAIN. SAFETY MEASURES IN PLACE, CALL LIGHT WITHIN REACH, WILL CONTINUE TO MONITOR.
[2017-05-07 07:16] LABS: ALANINE AMINOTRANSFERASE 18 U/L (16-63); ALKALINE PHOSPHATASE 129 U/L (50-136); ASPARTATE AMINOTRANSFERASE 18 U/L (15-37); BILIRUBIN,TOTAL 0.4 mg/dL (0.2-1.0); CARBON DIOXIDE 29 mmol/L (21-32); CHLORIDE 97 mmol/L (98-107); CREATININE 3.5 mg/dL (0.6-1.3); GLUCOSE 153 mg/dL (74-106); MAGNESIUM 1.6 mg/dL (1.8-2.4); PHOSPHOROUS 4.6 mg/dL (2.5-4.9); POTASSIUM 3.9 mmol/L (3.5-5.1); TOTAL PROTEIN, SERUM 7.5 g/dL (6.4-8.2)
[2017-05-07 07:40] LABS: UREA NITROGEN, BLOOD 89 mg/dL (7-18)
[2017-05-07 07:45] LABS: IRON, SERUM 43 ug/dL (50-175)
--- NOTE | 2017-05-07 08:25 | NUR ---
seen by dr orellana with orders Addendum: 05/07/17 at 1126 by DIVINE ABBOTT RN error
--- NOTE | 2017-05-07 08:25 | NUR ---
SEEN BY DR RUIZ , PT REMAINS STBLE WILL START BUMEX DRIP PER
[2017-05-07] MEDS: ALLOPURINOL 100 MG TABLET PO SCH (08:27)
[2017-05-07] MEDS: POTASSIUM CHLORIDE 8 MEQ CAPSULE.SA PO SCH ×3 (08:27→17:09)
[2017-05-07] MEDS: DOCUSATE SODIUM 100 MG CAPSULE PO SCH (08:27)
[2017-05-07] MEDS: GLIMEPIRIDE 2 MG TABLET PO SCH ×2 (08:28→17:09)
[2017-05-07] MEDS: DOXYCYCLINE HYCLATE 100 MG TABLET PO SCH ×2 (08:28→20:38)
[2017-05-07] MEDS: CALCITRIOL 0.25 MCG CAPSULE PO SCH (08:28)
[2017-05-07] MEDS: FOLIC ACID 1 MG TABLET PO SCH ×2 (08:28→17:08)
[2017-05-07] MEDS: FOLIC ACID/VITAMIN B COMP W-C TABLET PO SCH (08:28)
[2017-05-07] MEDS: MIRALAX 17 GM POWD.PACK PO SCH (08:28)
--- NOTE | 2017-05-07 08:30 | NUR ---
seen by dr hernandez spoke with son about plan of care possible discharge pending lab results Addendum: 05/07/17 at 1129 by DIVINE ABBOTT RN ERROR
[2017-05-07] MEDS: DILTIAZEM HCL 90 MG TABLET PO SCH ×3 (08:32→20:40)
[2017-05-07] MEDS: CARVEDILOL 12.5 MG TABLET PO SCH ×3 (08:33→17:09)
[2017-05-07] MEDS: FLUTICASONE/VILANTEROL 1 EACH BLST.W.DEV INH SCH (08:43)
[2017-05-07] MEDS ORDERED: EPOETIN ALFA 10,000 UNITS/ML VIAL SQ ONE (08:45)
[2017-05-07] MEDS ORDERED: BUMETANIDE INJ 4 MG in IV DEXTROSE 5% 24 ML IV ONE (09:00)
[2017-05-07 09:11] LABS: BASOPHILS % (AUTO) 0.5 % (0.0-2.0); EOSINOPHILS # (AUTO) 0.5 K/uL (0.0-0.7); HEMATOCRIT 25.7 % (40-50); HEMOGLOBIN 8.6 G/DL (14.0-18.0); MEAN CORPUSCULAR HEMOGLOBIN 32.8 UUG (27.0-31.0); MEAN CORPUSCULAR HGB CONC 33 g/dL (32.0-37.0); MEAN CORPUSCULAR VOLUME 98.6 FL (82.0-92.0); MONOCYTES # (AUTO) 0.5 K/UL (0.1-1.30); MONOCYTES % (AUTO) 5.4 % (0.0-11.0); NEUTROPHILS # (AUTO) 7.6 K/UL (1.8-8.9); NEUTROPHILS % (AUTO) 79.1 % (38.5-71.5); PLATELET COUNT (AUTO) 208 K/UL (150-450); RED BLOOD CELL COUNT(AUTO) 2.61 MIL/UL (4.7-6.1); WHITE BLOOD COUNT (AUTO) 9.6 K/UL (4.0-11.2)
[2017-05-07 11:18] VITALS: BP 114/65
--- NOTE | 2017-05-07 11:27 | NUR ---
RESTING COMFORTABLY NO SIGNS OF PAIN OR DISTRESS. TEMP 98.6
[2017-05-07 17:10] VITALS: BP 122/63
--- NOTE | 2017-05-07 17:48 | NUR ---
SEEN BY DR MCDANIELS SEE NOTES
--- NOTE | 2017-05-07 18:26 | NUR ---
PT TO CONTINUE ON BUMEX DRIP ORDERED
--- NOTE | 2017-05-07 19:00 | NUR ---
Received patient awake, sitting in the chair comfortable. On continues O2 at 3L via NC saturating 98% at this time. Denies any pain/discomforts/SOB/SOBOE at this time. Both pedal edema noted.Safety measures and afll precaution maintain. Continue current plan of care.
[2017-05-07 20:00] VITALS: BP 112/59
[2017-05-07] MEDS: DUTASTERIDE 0.5 MG CAPSULE PO SCH (20:38)
[2017-05-07] MEDS: PRIMIDONE 50 MG TABLET PO SCH (20:38)
[2017-05-07] MEDS: ZOLPIDEM 5 MG TABLET PO SCH (20:38)
[2017-05-07] MEDS: TAMSULOSIN HCL 0.4 MG CAP.SR.24H PO SCH (20:38)
[2017-05-07] MEDS: ATORVASTATIN 10 MG TABLET PO SCH (20:38)
[2017-05-07] MEDS: HYDROCODONE/APAP 10-325 MG TABLET PO SCH (20:39)
--- NOTE | 2017-05-07 20:48 | NUR ---
Back to bed with assist. repositioned for comfort.
--- NOTE | 2017-05-07 22:00 | NUR ---
Patient refused to sign consent for EGD for he wasnt been informed about the procedure nor have not seen the doctor yet. Charge nurse magali.
[2017-05-07 23:55] VITALS: BP 122/60
[2017-05-08] VITALS (7 sets, daily range): BP systolic 109–136; BP diastolic 54–79
--- NOTE | 2017-05-08 | NUR ---
NPO except med initiated as ordered.
[2017-05-08] MEDS: PANTOPRAZOLE SODIUM 40 MG TABLET.DR PO SCH ×3 (05:42→06:59)
[2017-05-08 06:23] LABS: BASOPHILS % (AUTO) 0.3 % (0.0-2.0); EOSINOPHILS # (AUTO) 0.5 K/uL (0.0-0.7); EOSINOPHILS % (AUTO) 5.3 % (0.0-7.0); HEMOGLOBIN 7.6 G/DL (14.0-18.0); LYMPHOCYTES # (AUTO) 0.9 K/UL (0.8-4.8); LYMPHOCYTES % (AUTO) 10.5 % (20.5-51.5); MEAN CORPUSCULAR HEMOGLOBIN 31.7 UUG (27.0-31.0); MEAN CORPUSCULAR HGB CONC 33 g/dL (32.0-37.0); MEAN CORPUSCULAR VOLUME 96.9 FL (82.0-92.0); MONOCYTES # (AUTO) 0.6 K/UL (0.1-1.30); MONOCYTES % (AUTO) 6.6 % (0.0-11.0); NEUTROPHILS % (AUTO) 77.3 % (38.5-71.5); PLATELET COUNT (AUTO) 186 K/UL (150-450)
[2017-05-08 06:35] LABS: HEMATOCRIT 23.1 % (40-50); RED BLOOD CELL COUNT(AUTO) 2.39 MIL/UL (4.7-6.1)
--- NOTE | 2017-05-08 06:54 | NUR ---
Critical value received (RBC 2.39, H/H 7.6/23.1) relayed to Dr. Hoffman with no new order noted. Charge nurse aware.
--- NOTE | 2017-05-08 07:30 | NUR ---
awake alert and oriented, kept NPO except for meds, for EGD today states willing to have it done but has to speak to MD first, explained why it is ordered. made aware of HGB/HCT results today which is lower from yesterday, positive for blood in stool, explained plan of care- verbalized understanding, call light within reach
[2017-05-08] MEDS ORDERED: BUMETANIDE INJ 4 MG in IV DEXTROSE 5% 24 ML IV ONE (08:00)
[2017-05-08] MEDS: GLIMEPIRIDE 2 MG TABLET PO SCH ×2 (08:00→17:30)
--- NOTE | 2017-05-08 08:00 | NUR ---
Kala WOOD from GI lab called and informed of pt's concern- will take him down at 10:30 for 11:00 schedule and MD will speak to him over in GI lab- pt agreed
[2017-05-08] MEDS: DILTIAZEM HCL 90 MG TABLET PO SCH ×2 (08:07→21:13)
[2017-05-08] MEDS: CARVEDILOL 12.5 MG TABLET PO SCH ×2 (08:08→17:30)
[2017-05-08] MEDS: FOLIC ACID 1 MG TABLET PO SCH ×2 (08:08→17:30)
[2017-05-08] MEDS: POTASSIUM CHLORIDE 8 MEQ CAPSULE.SA PO SCH ×3 (08:08→17:30)
[2017-05-08] MEDS: ALLOPURINOL 100 MG TABLET PO SCH (08:09)
[2017-05-08] MEDS: DOXYCYCLINE HYCLATE 100 MG TABLET PO SCH ×2 (08:10→21:13)
[2017-05-08] MEDS: FLUTICASONE/VILANTEROL 1 EACH BLST.W.DEV INH SCH (08:10)
[2017-05-08 08:25] LABS: IRON, SERUM 48 ug/dL (50-175)
[2017-05-08 08:37] LABS: ALANINE AMINOTRANSFERASE 18 U/L (16-63); ALKALINE PHOSPHATASE 123 U/L (50-136); ASPARTATE AMINOTRANSFERASE 17 U/L (15-37); BILIRUBIN,TOTAL 0.5 mg/dL (0.2-1.0); CARBON DIOXIDE 29 mmol/L (21-32); CHLORIDE 96 mmol/L (98-107); CREATININE 3.9 mg/dL (0.6-1.3); FERRITIN 139 ng/mL (26-388); GLUCOSE 205 mg/dL (74-106); MAGNESIUM 1.5 mg/dL (1.8-2.4); PHOSPHOROUS 4.8 mg/dL (2.5-4.9); POTASSIUM 3.4 mmol/L (3.5-5.1); TOTAL PROTEIN, SERUM 7.8 g/dL (6.4-8.2)
[2017-05-08 08:42] LABS: UREA NITROGEN, BLOOD 97 mg/dL (7-18)
--- NOTE | 2017-05-08 10:59 | NUR ---
To OR for EGD per bed
--- NOTE | 2017-05-08 12:50 | NUR ---
back from Recovery Room, awake alert and oriented, with pt, denies of pain, will order full liquids, vs taken, call light within reach, Dr Haines here- informed of Mg 1.5- will see pt
[2017-05-08] MEDS ORDERED: MAGNESIUM SULFATE/D5W 100 ML IV SCH (13:00)
[2017-05-08] MEDS: FOLIC ACID/VITAMIN B COMP W-C TABLET PO SCH (13:17)
[2017-05-08] MEDS: CALCITRIOL 0.25 MCG CAPSULE PO SCH (13:17)
[2017-05-08] MEDS: DOCUSATE SODIUM 100 MG CAPSULE PO SCH (13:18)
[2017-05-08] MEDS: MIRALAX 17 GM POWD.PACK PO SCH (13:19)
--- NOTE | 2017-05-08 13:40 | NUR ---
ASSISTED TO BEDSIDE COMMODE AND HAD A BOWEL MOVEMENT-
--- NOTE | 2017-05-08 14:38 | NUR ---
AMBULATED IN THE HALLWAY WITH PT- TOLERATED WELL
[2017-05-08] MEDS: SOD FERRIC GLUC COMPLX/SUCROSE 125 MG in IV NORMAL SALINE 100 ML IV SCH (15:08)
--- NOTE | 2017-05-08 18:00 | NUR ---
tolerated full liquid well, no nausea/vomiting, no bleeding noted, had a bowel movement this shift- no blood noted, on 2l/nc 02, denies of dyspnea, all needs attended and met, safety measures maintained
--- NOTE | 2017-05-08 19:30 | NUR ---
PT RECEIVED IN BED, AWAKE. A/OX4. ABLE TO MAKE NEEDS KNOWN. V/S STABLE. IN NO ACUTE DISTRESS. NO C.O PAIN AT THIS TIME. PT IV INTACT/ PATENT. ON 2L NC AND SATURATION 99% WNL. 108 A-FIB WITH A-FLUTTER ON THE TELE MONITOR. SAFETY MEASURES IMPLEMENTED. CALL LIGHT WITHIN REACH.
[2017-05-08] MEDS: ZOLPIDEM 5 MG TABLET PO SCH (21:12)
[2017-05-08] MEDS: HYDROCODONE/APAP 10-325 MG TABLET PO SCH (21:12)
[2017-05-08] MEDS: ATORVASTATIN 10 MG TABLET PO SCH (21:13)
[2017-05-08] MEDS: TAMSULOSIN HCL 0.4 MG CAP.SR.24H PO SCH (21:13)
[2017-05-08] MEDS: DUTASTERIDE 0.5 MG CAPSULE PO SCH (21:13)
[2017-05-08] MEDS: PRIMIDONE 50 MG TABLET PO SCH (21:13)
[2017-05-09] VITALS: BP 113/69
[2017-05-09 04:00] VITALS: BP 107/46
--- NOTE | 2017-05-09 05:47 | NUR ---
END OF SHIFT NOTES. PT SLEPT WELL THROUGHOUT SHIFT. IN STABLE CONDITION. AFIB, AFLUTTER WITH BUNDLE BRANCH BLOCK AT 84 ON TELE MONITOR. PT ON BIPAP MACHINE. ALL NEEDS ATTENDED. SAFETY MAINTAINED. CALL LIGHT WITHIN REACH.
[2017-05-09] MEDS ORDERED: PANTOPRAZOLE SODIUM 40 MG TABLET.DR PO ONE (06:18)
[2017-05-09] MEDS: PANTOPRAZOLE SODIUM 40 MG TABLET.DR PO SCH (06:39)
[2017-05-09 07:17] LABS: BASOPHILS # (AUTO) 0.1 K/uL (0.0-8.0); BASOPHILS % (AUTO) 0.7 % (0.0-2.0); EOSINOPHILS # (AUTO) 0.4 K/uL (0.0-0.7); EOSINOPHILS % (AUTO) 4.3 % (0.0-7.0); HEMATOCRIT 21.8 % (36.7-47.1); HEMOGLOBIN 7.5 g/dL (12.5-16.3); LYMPHOCYTES % (AUTO) 10.2 % (20.5-51.5); MEAN CORPUSCULAR HEMOGLOBIN 33.3 uug (23.8-33.4); MEAN CORPUSCULAR HGB CONC 34 g/dL (32.5-36.3); MONOCYTES # (AUTO) 0.7 K/uL (2.0-10.0); MONOCYTES % (AUTO) 7.4 % (0.0-11.0); NEUTROPHILS # (AUTO) 7.2 K/uL (1.8-8.9); NEUTROPHILS % (AUTO) 77.4 % (38.5-71.5); PLATELET COUNT (AUTO) 165 K/uL (152-348); WHITE BLOOD COUNT (AUTO) 9.3 K/uL (3.6-10.2)
[2017-05-09 07:22] LABS: RED BLOOD CELL COUNT(AUTO) 2.25 MIL/uL (4.06-5.63)
[2017-05-09 07:24] LABS: ALANINE AMINOTRANSFERASE 15 U/L (16-63); ALKALINE PHOSPHATASE 128 U/L (50-136); ASPARTATE AMINOTRANSFERASE 17 U/L (15-37); BILIRUBIN,TOTAL 0.4 mg/dL (0.2-1.0); CARBON DIOXIDE 32 mmol/L (21-32); CHLORIDE 98 mmol/L (98-107); CREATININE 3.8 mg/dL (0.6-1.3); GLUCOSE 95 mg/dL (74-106); MAGNESIUM 1.9 mg/dL (1.8-2.4); PHOSPHOROUS 4.5 mg/dL (2.5-4.9); POTASSIUM 3.6 mmol/L (3.5-5.1); TOTAL PROTEIN, SERUM 7.6 g/dL (6.4-8.2)
[2017-05-09 07:28] LABS: UREA NITROGEN, BLOOD 99 mg/dL (7-18)
[2017-05-09] MEDS: FOLIC ACID 1 MG TABLET PO SCH (08:32)
[2017-05-09] MEDS: DOXYCYCLINE HYCLATE 100 MG TABLET PO SCH (08:32)
[2017-05-09] MEDS: CALCITRIOL 0.25 MCG CAPSULE PO SCH (08:32)
[2017-05-09] MEDS: ALLOPURINOL 100 MG TABLET PO SCH (08:33)
[2017-05-09] MEDS: DILTIAZEM HCL 90 MG TABLET PO SCH (08:33)
[2017-05-09] MEDS: DOCUSATE SODIUM 100 MG CAPSULE PO SCH (08:33)
[2017-05-09] MEDS: GLIMEPIRIDE 2 MG TABLET PO SCH (08:33)
[2017-05-09] MEDS: MIRALAX 17 GM POWD.PACK PO SCH (08:33)
[2017-05-09] MEDS: CARVEDILOL 12.5 MG TABLET PO SCH (08:33)
[2017-05-09] MEDS: FOLIC ACID/VITAMIN B COMP W-C TABLET PO SCH (08:33)
[2017-05-09] MEDS: POTASSIUM CHLORIDE 8 MEQ CAPSULE.SA PO SCH ×2 (08:33→13:00)
[2017-05-09] MEDS: FLUTICASONE/VILANTEROL 1 EACH BLST.W.DEV INH SCH (08:34)
[2017-05-09] MEDS ORDERED: BUMETANIDE 1 MG TABLET PO SCH (09:00)
--- NOTE | 2017-05-09 09:00 | NUR ---
awake alert and oriented, denies of pain, on tele a fib 90's, on 2l/nc- no shortness of breath noted, states had a good night, no bleeding noted, call light within reach
--- NOTE | 2017-05-09 10:00 | NUR ---
seen by PT- see notes, up in chair, no bleeding noted
--- NOTE | 2017-05-09 11:00 | NUR ---
Dr Haines here- informed of H/H this am (7.5/21.8) and bun 99 and creat 3.8.
[2017-05-09 11:03] VITALS: BP 101/55
[2017-05-09] MEDS ORDERED: ZOLP5TAB8 PO (11:16)
[2017-05-09] MEDS ORDERED: FLUT1BLS INH (11:16)
--- NOTE | 2017-05-09 12:00 | NUR ---
seen by Dr Haines- with order for ARU- pt in agreement
[2017-05-09] MEDS: SOD FERRIC GLUC COMPLX/SUCROSE 125 MG in IV NORMAL SALINE 100 ML IV SCH (13:13)
[2017-05-09 14:58] VITALS: BP 105/57
--- NOTE | 2017-05-09 15:00 | NUR ---
report given to Chandan WOOD in ARU- pt going to Rm 106, here with pt and in agreement likewise
--- NOTE | 2017-05-09 15:20 | NUR ---
discharge instructions given to , requested for copey of medical records- consent signed, saline lock intact and patent.
[2017-05-09] MEDS ORDERED: EPHEDRINE SULFATE 50 MG/ML AMPUL MC ONE (15:59)
[2017-05-09] MEDS ORDERED: LIDOCAINE HCL 2% 20 ML VIAL MC ONE (15:59)
[2017-05-09] MEDS ORDERED: PROPOFOL 200 MG/20 ML BOTTLE IV ONE (15:59)
--- NOTE | 2017-05-09 16:00 | NUR ---
To ARU per w/c in stable condition with all belongings, with him
== END 2017-05-09 16:00 | DRG 291 ==
LOC: ER 16:31 → TELE 18:24
PROVIDERS: ADMIT Internal Medicine Nephrology; ATTEND Internal Medicine Nephrology
PROC: 0DB68ZX Excision of Stomach, Via Natural or Artificial Opening Endoscopic, Diagnostic (ICD-10-PCS; 2017-05-08)
PROC: 0DB68ZZ Excision of Stomach, Via Natural or Artificial Opening Endoscopic (ICD-10-PCS; principal; 2017-05-08 11:30)
DX: I13.0 Hypertensive heart and chronic kidney disease with heart failure and stage 1 through stage 4 chronic kidney disease, or unspecified chronic kidney disease (principal); I50.31 Acute diastolic (congestive) heart failure; J96.90 Respiratory failure, unspecified, unspecified whether with hypoxia or hypercapnia; N18.4 Chronic kidney disease, stage 4 (severe); N17.9 Acute kidney failure, unspecified; I27.2 Other secondary pulmonary hypertension; E11.22 Type 2 diabetes mellitus with diabetic chronic kidney disease; I48.4 Atypical atrial flutter; D64.9 Anemia, unspecified; Z79.899 Other long term (current) drug therapy; Z86.73 Personal history of transient ischemic attack (TIA), and cerebral infarction without residual deficits; Z87.891 Personal history of nicotine dependence; Z87.11 Personal history of peptic ulcer disease; I48.2 Chronic atrial fibrillation; J44.9 Chronic obstructive pulmonary disease, unspecified; K29.70 Gastritis, unspecified, without bleeding; E78.5 Hyperlipidemia, unspecified; G47.33 Obstructive sleep apnea (adult) (pediatric); Z88.0 Allergy status to penicillin; I35.0 Nonrheumatic aortic (valve) stenosis; I34.2 Nonrheumatic mitral (valve) stenosis; D50.0 Iron deficiency anemia secondary to blood loss (chronic); D63.1 Anemia in chronic kidney disease; I34.0 Nonrheumatic mitral (valve) insufficiency; M10.9 Gout, unspecified; E66.9 Obesity, unspecified; Z68.38 Body mass index [BMI] 38.0-38.9, adult
CPT/HCPCS: 36415; 70030-TC; 71010; 83550; 83735; 84100; 85025; 85730; 93005; 97116; 97530; A4217; A4663; J0885; J1940; J2916; J3475; J3490; J7050; J7060

== ENCOUNTER 2017-05-09 14:54 | Inpatient (IN) | payer MEDICARE, BC ==
[~2017-05-09] VITALS: Ht 185.4 cm; Wt 132.4 kg
[~2017-05-09 14:54] MED LIST changes: -ACET-1467 PO; -BUME2TAB4 PO; +CARV12.52 PO; -CARV25TA2 PO; +DOXY100C2 PO; +FISH12002 PO; +FLUT1BLS INH; -FLUT1DIS28 INH; +GLUC1CAP29 PO; -HYDR473S4 PO; +KRIL1CAP19 PO; +L.AC1CAP6 PO; +Medication Not On Formulary EA (Cyclobenzaprine Hcl 5 MG) PO SCH; +TUMERIC PO; -WARF7.5T23 PO; +ZOLP5TAB8 PO; +[UNRECOGNIZED DRUG - CODE] SL
[2017-05-09] MEDS ORDERED: Z GUARD REMEDY PASTE 57 GM TUBE TOP PRN (17:00)
[2017-05-09] MEDS ORDERED: ACETAMINOPHEN ES 500 MG TABLET PO PRN (18:15)
--- NOTE | 2017-05-09 18:55 | NUR ---
pt arrived at 1700. pt vitals taken. bp 107/39. hr 111 o2 sat 100 with 2l cannula. full code status. all pertinent assessments done and documented. nih score done. all belongings list reconciled. all meds reconciled. pt min assist on transfers. iv site changed and intact. wound pictures taken in chart. will endorse new orders to oyster washer nurse.
--- NOTE | 2017-05-09 19:00 | NUR ---
Received pt resting in bed. AAO X4. Family at bedside. Ambulated to the restroom using walker with minimal assist. No acute distress noted. Pt on O2 2L NC. IV site was removed, not patent. No c/o pain at this time. Safety measures maintained. Call light within reach. Will closely monitor patient.
[2017-05-09 19:45] VITALS: BP 105/69
[2017-05-09] MEDS: ATORVASTATIN 10 MG TABLET PO SCH (20:35)
[2017-05-09] MEDS: PRIMIDONE 50 MG TABLET PO SCH (20:35)
[2017-05-09] MEDS: TAMSULOSIN HCL 0.4 MG CAP.SR.24H PO SCH (20:35)
[2017-05-09] MEDS: HYDROCODONE/APAP 10-325 MG TABLET PO SCH (20:36)
[2017-05-09] MEDS: DUTASTERIDE 0.5 MG CAPSULE PO SCH (20:36)
[2017-05-09] MEDS: DOXYCYCLINE HYCLATE 100 MG TABLET PO SCH (20:36)
[2017-05-09] MEDS: ZOLPIDEM 5 MG TABLET PO SCH (20:37)
[2017-05-09] MEDS: DILTIAZEM HCL 90 MG TABLET PO SCH (20:44)
--- NOTE | 2017-05-09 20:45 | NUR ---
Held BP med due to BP being low 105/69. BP had been low since admission as per patient and family. Will continue to closely monitor VS.
--- NOTE | 2017-05-10 06:10 | NUR ---
Pt slept comfortably t/o the night. IV line inserted by NINA Sage from ICU. Right hand #22 gauge, patent and intact. No acute distress noted. No c/o of pain or discomfort at this time. All needs attended. Safety measures maintained. Continue to monitor the patient. New orders will be endorsed to day shift RN.
--- NOTE | 2017-05-10 07:45 | NUR ---
Received patient awake, alert and oriented. Assisted to chair with moderate assist. On room air O2 sat at 94%. No SOB noted. Not in any form of distress. No complaints of pain or discomfort.
[2017-05-10 08:00] VITALS: BP 103/63
[2017-05-10] MEDS: CARVEDILOL 12.5 MG TABLET PO SCH ×3 (08:00→17:10)
[2017-05-10] MEDS: GLIMEPIRIDE 2 MG TABLET PO SCH ×2 (08:54→17:10)
[2017-05-10] MEDS: FLUTICASONE/VILANTEROL 1 EACH BLST.W.DEV INH SCH (08:56)
[2017-05-10] MEDS: BUMETANIDE 1 MG TABLET PO SCH ×2 (08:56→17:09)
[2017-05-10] MEDS: DILTIAZEM HCL 90 MG TABLET PO SCH ×2 (08:56→20:30)
[2017-05-10] MEDS: FOLIC ACID/VITAMIN B COMP W-C TABLET PO SCH (08:57)
[2017-05-10] MEDS: DOCUSATE SODIUM 100 MG CAPSULE PO SCH (08:57)
[2017-05-10] MEDS: DOXYCYCLINE HYCLATE 100 MG TABLET PO SCH (08:57)
[2017-05-10] MEDS: PANTOPRAZOLE SODIUM 40 MG TABLET.DR PO SCH (08:57)
[2017-05-10] MEDS: POTASSIUM CHLORIDE 8 MEQ CAPSULE.SA PO SCH ×3 (08:57→17:10)
[2017-05-10] MEDS: CALCITRIOL 0.25 MCG CAPSULE PO SCH (08:57)
[2017-05-10] MEDS: ALLOPURINOL 100 MG TABLET PO SCH (08:57)
[2017-05-10] MEDS: MIRALAX 17 GM POWD.PACK PO SCH (08:57)
[2017-05-10] MEDS: FOLIC ACID 1 MG TABLET PO SCH ×2 (08:57→17:10)
[2017-05-10] MEDS ORDERED: Medication Not On Formulary EA (Potassium Chloride 8 MEQ) PO SCH (09:00)
[2017-05-10] MEDS ORDERED: Medication Not On Formulary EA (Vit B Cmplx 3/Fa/Vit C/Biotin (Rena-Vite Rx Tablet) 1 EA PO SCH (09:00)
[2017-05-10] MEDS ORDERED: Medication Not On Formulary EA (Doxycycline Hyclate 100 MG) PO SCH (09:00)
[2017-05-10] MEDS: CYCLOBENZAPRINE HCL 10 MG TABLET PO SCH (09:04)
--- NOTE | 2017-05-10 09:30 | NUR ---
BP 103/63 and NE 120-117. Informed Dr Haines, said not to with hold Sly and Miller. Will continue to monitor.
[2017-05-10] MEDS ORDERED: LACTULOSE 20 G/30 ML LIQUID UDC PO PRN (09:45)
--- NOTE | 2017-05-10 10:34 | NUR ---
Morning care done. Up with physical therapy for evaluation. Tolerated therapy well.
[2017-05-10] MEDS: SOD FERRIC GLUC COMPLX/SUCROSE 125 MG in IV NORMAL SALINE 100 ML IV SCH (14:05)
[2017-05-10 15:01] LABS: EOSINOPHILS # (AUTO) 0.3 K/uL (0.0-0.7); EOSINOPHILS % (AUTO) 2.8 % (0.0-7.0); HEMOGLOBIN 7.5 G/DL (14.0-18.0); LYMPHOCYTES # (AUTO) 0.6 K/UL (0.8-4.8); LYMPHOCYTES % (AUTO) 6.4 % (20.5-51.5); MEAN CORPUSCULAR HEMOGLOBIN 33.2 UUG (27.0-31.0); MEAN CORPUSCULAR HGB CONC 34 g/dL (32.0-37.0); MEAN CORPUSCULAR VOLUME 97.1 FL (82.0-92.0); MONOCYTES # (AUTO) 0.7 K/UL (0.1-1.30); MONOCYTES % (AUTO) 7.2 % (0.0-11.0); NEUTROPHILS # (AUTO) 7.7 K/UL (1.8-8.9); NEUTROPHILS % (AUTO) 83.6 % (38.5-71.5); PLATELET COUNT (AUTO) 222 K/UL (150-450); WHITE BLOOD COUNT (AUTO) 9.3 K/UL (4.0-11.2)
[2017-05-10 15:05] LABS: RED BLOOD CELL COUNT(AUTO) 2.26 MIL/UL (4.7-6.1)
[2017-05-10 15:06] LABS: HEMATOCRIT 21.9 % (40-50)
--- NOTE | 2017-05-10 15:30 | NUR ---
Seen and examined by Natacha Butterfield. CBC, HGb A1c and Echocardiogram ordered
--- NOTE | 2017-05-10 15:41 | NUR ---
Critical lab value for Hgb and Hct relayed to ALEX Butterfield. No new orders but SALES MANAGER [employer] will monitor.
--- NOTE | 2017-05-10 19:30 | NUR ---
PT ALERT AND ORIENTED IN BED. NO DISTRESS NOTED. HOB ELEVATED. NO SOB NOTED AT THIS TIME. IV INTACT. COMPLIANT WITH NURSING CARE. DVT PUMP APPLIED. SAFETY MAINTAINED. CALL LIGHT WITHIN REACH.
[2017-05-10 20:00] VITALS: BP 151/61
[2017-05-10] MEDS: ATORVASTATIN 10 MG TABLET PO SCH (20:30)
[2017-05-10] MEDS: PRIMIDONE 50 MG TABLET PO SCH (20:30)
[2017-05-10] MEDS: TAMSULOSIN HCL 0.4 MG CAP.SR.24H PO SCH (20:31)
[2017-05-10] MEDS: DUTASTERIDE 0.5 MG CAPSULE PO SCH (20:31)
[2017-05-10] MEDS: HYDROCODONE/APAP 10-325 MG TABLET PO SCH (20:32)
[2017-05-10] MEDS: ZOLPIDEM 5 MG TABLET PO SCH (20:32)
--- NOTE | 2017-05-11 06:46 | NUR ---
PT RESTING IN BED. NO DISTRESS NOTED. BIPAP IN PLACE. HOB ELEVATED. NO SIGNIFICANT CHANGES THROUGHOUT THE NIGHT. IV INTACT. SAFETY MAINTAINED. CALL LIGHT WITHIN REACH.
[2017-05-11 07:09] LABS: BASOPHILS # (AUTO) 0.1 K/uL (0.0-8.0); BASOPHILS % (AUTO) 0.7 % (0.0-2.0); EOSINOPHILS # (AUTO) 0.3 K/uL (0.0-0.7); EOSINOPHILS % (AUTO) 3.5 % (0.0-7.0); LYMPHOCYTES # (AUTO) 0.8 K/uL (20.0-40.0); LYMPHOCYTES % (AUTO) 8.8 % (20.5-51.5); MEAN CORPUSCULAR HGB CONC 34 g/dL (32.5-36.3); MEAN CORPUSCULAR VOLUME 99.4 fL (73.0-96.2); MONOCYTES # (AUTO) 0.7 K/uL (2.0-10.0); MONOCYTES % (AUTO) 7.6 % (0.0-11.0); NEUTROPHILS # (AUTO) 7.3 K/uL (1.8-8.9); NEUTROPHILS % (AUTO) 79.4 % (38.5-71.5); PLATELET COUNT (AUTO) 172 K/uL (152-348); WHITE BLOOD COUNT (AUTO) 9.2 K/uL (3.6-10.2)
[2017-05-11 07:22] LABS: ALANINE AMINOTRANSFERASE 17 U/L (16-63); ALKALINE PHOSPHATASE 122 U/L (50-136); ASPARTATE AMINOTRANSFERASE 16 U/L (15-37); BILIRUBIN,TOTAL 0.3 mg/dL (0.2-1.0); CARBON DIOXIDE 29 mmol/L (21-32); CHLORIDE 97 mmol/L (98-107); CREATININE 4.4 mg/dL (0.6-1.3); GLUCOSE 140 mg/dL (74-106); MAGNESIUM 1.8 mg/dL (1.8-2.4); PHOSPHOROUS 4.3 mg/dL (2.5-4.9); POTASSIUM 3.8 mmol/L (3.5-5.1); TOTAL PROTEIN, SERUM 7.6 g/dL (6.4-8.2)
[2017-05-11 07:23] LABS: UREA NITROGEN, BLOOD 113 mg/dL (7-18)
[2017-05-11 07:26] LABS: RED BLOOD CELL COUNT(AUTO) 2.16 MIL/uL (4.06-5.63)
[2017-05-11 07:27] LABS: HEMATOCRIT 21.5 % (36.7-47.1); HEMOGLOBIN 7.4 g/dL (12.5-16.3)
--- NOTE | 2017-05-11 07:33 | NUR ---
CRITICAL LABS REPORTED FROM [facility], CALLED DR SULLIVAN EMBEDDED CASE MANAGER, AWAITING CALL BACK FOR ORDERS. ENDORSED TO DAYSHIFT.
[2017-05-11 08:00] VITALS: BP 101/71
--- NOTE | 2017-05-11 08:05 | NUR ---
Dr. Haines called and notified him regarding Hgb result of 7.4 and per him no need for blood transfusion and that patient is on IV iron.
[2017-05-11] MEDS: DOCUSATE SODIUM 100 MG CAPSULE PO SCH (08:26)
[2017-05-11] MEDS: ALLOPURINOL 100 MG TABLET PO SCH (08:26)
[2017-05-11] MEDS: CARVEDILOL 12.5 MG TABLET PO SCH ×2 (08:27→17:50)
[2017-05-11] MEDS: PANTOPRAZOLE SODIUM 40 MG TABLET.DR PO SCH (08:28)
[2017-05-11] MEDS: FOLIC ACID/VITAMIN B COMP W-C TABLET PO SCH (08:28)
[2017-05-11] MEDS: DILTIAZEM HCL 90 MG TABLET PO SCH ×2 (08:28→20:37)
[2017-05-11] MEDS: POTASSIUM CHLORIDE 8 MEQ CAPSULE.SA PO SCH ×3 (08:28→17:46)
[2017-05-11] MEDS: BUMETANIDE 1 MG TABLET PO SCH ×2 (08:28→17:46)
[2017-05-11] MEDS: GLIMEPIRIDE 2 MG TABLET PO SCH ×2 (08:28→17:46)
[2017-05-11] MEDS: FOLIC ACID 1 MG TABLET PO SCH ×2 (08:28→17:46)
[2017-05-11] MEDS: CYCLOBENZAPRINE HCL 10 MG TABLET PO SCH (08:29)
[2017-05-11] MEDS: MIRALAX 17 GM POWD.PACK PO SCH (08:29)
[2017-05-11] MEDS: FLUTICASONE/VILANTEROL 1 EACH BLST.W.DEV INH SCH (08:30)
[2017-05-11] MEDS: CALCITRIOL 0.25 MCG CAPSULE PO SCH (09:00)
[2017-05-11] MEDS ORDERED: EPOETIN ALFA 10,000 UNITS/ML VIAL SQ ONE (11:30)
--- NOTE | 2017-05-11 12:18 | NUR ---
Patient seen and examined by Dr. Haines, notified him of BUN, crea and echo results with no new order.
[2017-05-11] MEDS: SOD FERRIC GLUC COMPLX/SUCROSE 125 MG in IV NORMAL SALINE 100 ML IV SCH (14:08)
[2017-05-11] MEDS: DUTASTERIDE 0.5 MG CAPSULE PO SCH (20:36)
[2017-05-11] MEDS: ZOLPIDEM 5 MG TABLET PO SCH (20:36)
[2017-05-11] MEDS: TAMSULOSIN HCL 0.4 MG CAP.SR.24H PO SCH (20:37)
[2017-05-11] MEDS: ATORVASTATIN 10 MG TABLET PO SCH (20:38)
[2017-05-11] MEDS: PRIMIDONE 50 MG TABLET PO SCH (20:38)
[2017-05-11] MEDS: HYDROCODONE/APAP 10-325 MG TABLET PO SCH (20:40)
[2017-05-11 20:50] VITALS: BP 120/71
[2017-05-11 20:55] VITALS: BP 120/71
--- NOTE | 2017-05-11 20:58 | NUR ---
RECEIVED PATIENT RESTING AT THE BEGINNING OF SHIFT. NEEDS ATTENDED. VITAL SIGNS TAKEN AND RECORDED. BP 120/71 PULSE 92 RESP 18 97% RA VOIDING IN URINAL. HAD GENERALIZED PAIN, SHOULDERS AND BACK, SCHEDULED NORCO 1 TAB GIVEN FOR PAIN. NO ACUTE DISTRESS NOTED. WILL MONITOR PATIENT.
--- NOTE | 2017-05-12 06:41 | NUR ---
slept well last night. Bipap on. Voiding well. Needs attended. No complaints presented during shift. No acute distress noted.
[2017-05-12 09:03] LABS: BASOPHILS # (AUTO) 0.1 K/uL (0.0-8.0); BASOPHILS % (AUTO) 1.5 % (0.0-2.0); EOSINOPHILS # (AUTO) 0.5 K/uL (0.0-0.7); EOSINOPHILS % (AUTO) 5.4 % (0.0-7.0); LYMPHOCYTES # (AUTO) 0.9 K/UL (0.8-4.8); LYMPHOCYTES % (AUTO) 9.1 % (20.5-51.5); MEAN CORPUSCULAR HGB CONC 34 g/dL (32.0-37.0); MEAN CORPUSCULAR VOLUME 98.3 FL (82.0-92.0); MONOCYTES # (AUTO) 0.7 K/UL (0.1-1.30); MONOCYTES % (AUTO) 7.1 % (0.0-11.0); NEUTROPHILS # (AUTO) 7.4 K/UL (1.8-8.9); NEUTROPHILS % (AUTO) 76.9 % (38.5-71.5); PLATELET COUNT (AUTO) 201 K/UL (150-450); WHITE BLOOD COUNT (AUTO) 9.6 K/UL (4.0-11.2)
[2017-05-12 09:16] LABS: HEMATOCRIT 23.4 % (40-50); HEMOGLOBIN 7.9 G/DL (14.0-18.0); RED BLOOD CELL COUNT(AUTO) 2.38 MIL/UL (4.7-6.1)
[2017-05-12 09:20] LABS: ALANINE AMINOTRANSFERASE 18 U/L (16-63); ALKALINE PHOSPHATASE 134 U/L (50-136); ASPARTATE AMINOTRANSFERASE 18 U/L (15-37); BILIRUBIN,TOTAL 0.4 mg/dL (0.2-1.0); CARBON DIOXIDE 30 mmol/L (21-32); CHLORIDE 95 mmol/L (98-107); CREATININE 4.3 mg/dL (0.6-1.3); GLUCOSE 131 mg/dL (74-106); MAGNESIUM 1.8 mg/dL (1.8-2.4); PHOSPHOROUS 4.8 mg/dL (2.5-4.9); POTASSIUM 3.7 mmol/L (3.5-5.1); TOTAL PROTEIN, SERUM 7.8 g/dL (6.4-8.2)
[2017-05-12 09:28] LABS: UREA NITROGEN, BLOOD 106 mg/dL (7-18)
[2017-05-12] MEDS: BUMETANIDE 1 MG TABLET PO SCH ×2 (09:51→17:55)
[2017-05-12] MEDS: CYCLOBENZAPRINE HCL 10 MG TABLET PO SCH (09:51)
[2017-05-12] MEDS: PANTOPRAZOLE SODIUM 40 MG TABLET.DR PO SCH (09:51)
[2017-05-12] MEDS: CALCITRIOL 0.25 MCG CAPSULE PO SCH (09:51)
[2017-05-12] MEDS: POTASSIUM CHLORIDE 8 MEQ CAPSULE.SA PO SCH ×3 (09:52→17:55)
[2017-05-12] MEDS: FOLIC ACID/VITAMIN B COMP W-C TABLET PO SCH (09:52)
[2017-05-12] MEDS: CARVEDILOL 12.5 MG TABLET PO SCH ×2 (09:52→17:57)
[2017-05-12] MEDS: ALLOPURINOL 100 MG TABLET PO SCH (09:52)
[2017-05-12] MEDS: FLUTICASONE/VILANTEROL 1 EACH BLST.W.DEV INH SCH (09:53)
[2017-05-12] MEDS: DILTIAZEM HCL 90 MG TABLET PO SCH ×2 (09:53→20:43)
[2017-05-12] MEDS: GLIMEPIRIDE 2 MG TABLET PO SCH ×2 (09:53→17:55)
[2017-05-12] MEDS: FOLIC ACID 1 MG TABLET PO SCH ×2 (09:54→17:55)
[2017-05-12] MEDS: MIRALAX 17 GM POWD.PACK PO SCH (09:54)
[2017-05-12] MEDS: DOCUSATE SODIUM 100 MG CAPSULE PO SCH (09:54)
[2017-05-12] MEDS: SOD FERRIC GLUC COMPLX/SUCROSE 125 MG in IV NORMAL SALINE 100 ML IV SCH (14:00)
[2017-05-12] MEDS ORDERED: SOD FERRIC GLUC COMPLX/SUCROSE 125 MG in IV NORMAL SALINE 100 ML IV SCH (14:00)
[2017-05-12 19:00] VITALS: BP 108/72
--- NOTE | 2017-05-12 19:00 | NUR ---
RECEIVED PATIENT FROM DAY SHIFT NURSE. SHIFT REPORT GIVEN AT BEDSIDE. PATIENT LYING IN BED WITH NO SIGNS OF PAIN OR DISTRESS. PATIENT A/O. PERTINENT ASSESSMENTS DONE. WILL CONTINUE TO MONITOR PATIENT THROUGH OUT SHIFT.
[2017-05-12] MEDS: HYDROCODONE/APAP 10-325 MG TABLET PO SCH (20:40)
[2017-05-12] MEDS: ZOLPIDEM 5 MG TABLET PO SCH (20:41)
[2017-05-12] MEDS: TAMSULOSIN HCL 0.4 MG CAP.SR.24H PO SCH (20:41)
[2017-05-12] MEDS: ATORVASTATIN 10 MG TABLET PO SCH (20:41)
[2017-05-12] MEDS: PRIMIDONE 50 MG TABLET PO SCH (20:42)
[2017-05-12] MEDS: DUTASTERIDE 0.5 MG CAPSULE PO SCH (20:42)
--- NOTE | 2017-05-13 06:14 | NUR ---
PATIENT SLEPT COMFORTABLY THROUGH OUT SHIFT. NO SINGS OF PAIN OR DISCOMFORT. PATIENT USING BIPAP DURING THE NIGHT. ALL MEDICATIONS ADMINISTERED ORDERED. ALL NEEDS ATTENDED. SHIFT REPORT TO BE GIVEN TO DAY SHIFT NURSE.
[2017-05-13 06:53] LABS: BASOPHILS % (AUTO) 0.4 % (0.0-2.0); EOSINOPHILS # (AUTO) 0.5 K/uL (0.0-0.7); HEMOGLOBIN 7.7 G/DL (14.0-18.0); LYMPHOCYTES # (AUTO) 1.9 K/UL (0.8-4.8); MEAN CORPUSCULAR HEMOGLOBIN 32.6 UUG (27.0-31.0); MEAN CORPUSCULAR HGB CONC 34 g/dL (32.0-37.0); MEAN CORPUSCULAR VOLUME 96.7 FL (82.0-92.0); MONOCYTES # (AUTO) 0.7 K/UL (0.1-1.30); MONOCYTES % (AUTO) 6.3 % (0.0-11.0); NEUTROPHILS # (AUTO) 7.9 K/UL (1.8-8.9); NEUTROPHILS % (AUTO) 71.3 % (38.5-71.5); PLATELET COUNT (AUTO) 171 K/UL (150-450)
[2017-05-13 07:13] LABS: ALANINE AMINOTRANSFERASE 17 U/L (16-63); ALKALINE PHOSPHATASE 131 U/L (50-136); ASPARTATE AMINOTRANSFERASE 27 U/L (15-37); BILIRUBIN,TOTAL 0.4 mg/dL (0.2-1.0); CARBON DIOXIDE 29 mmol/L (21-32); CHLORIDE 97 mmol/L (98-107); CREATININE 4.4 mg/dL (0.6-1.3); GLUCOSE 136 mg/dL (74-106); MAGNESIUM 1.9 mg/dL (1.8-2.4); PHOSPHOROUS 5.5 mg/dL (2.5-4.9); POTASSIUM 3.8 mmol/L (3.5-5.1); TOTAL PROTEIN, SERUM 7.2 g/dL (6.4-8.2)
[2017-05-13 07:14] LABS: UREA NITROGEN, BLOOD 112 mg/dL (7-18)
[2017-05-13 07:22] LABS: RED BLOOD CELL COUNT(AUTO) 2.37 MIL/UL (4.7-6.1)
--- NOTE | 2017-05-13 07:30 | NUR ---
PATIENT NOTED SLEEPING IN BED WITH LIGHTS OUT, BED LOCKED AND IN LOWEST POSITION, CALL LIGHT IN REACH, NO SIGNS OF DISTRESS AT THIS TIME, NO COMPLAINTS OF PAIN, BIPAP IN PLACE
[2017-05-13 09:18] LABS: IRON, SERUM 80 ug/dL (50-175)
[2017-05-13] MEDS: CALCITRIOL 0.25 MCG CAPSULE PO SCH (09:40)
[2017-05-13] MEDS: BUMETANIDE 1 MG TABLET PO SCH ×2 (09:40→17:23)
[2017-05-13] MEDS: FOLIC ACID/VITAMIN B COMP W-C TABLET PO SCH (09:40)
[2017-05-13] MEDS: FOLIC ACID 1 MG TABLET PO SCH ×2 (09:41→17:23)
[2017-05-13] MEDS: ALLOPURINOL 100 MG TABLET PO SCH (09:41)
[2017-05-13] MEDS: DOCUSATE SODIUM 100 MG CAPSULE PO SCH (09:41)
[2017-05-13] MEDS: GLIMEPIRIDE 2 MG TABLET PO SCH ×2 (09:41→17:23)
[2017-05-13] MEDS: POTASSIUM CHLORIDE 8 MEQ CAPSULE.SA PO SCH ×3 (09:41→17:23)
[2017-05-13] MEDS: MIRALAX 17 GM POWD.PACK PO SCH (09:44)
[2017-05-13 09:49] LABS: EOSINOPHILS % (MANUAL) 3 % (0-8); LYMPHOCYTES % (MANUAL) 10 % (20-40); MONOCYTES % (MANUAL) 6 % (2-10); NEUTROPHILS % (MANUAL) 81 % (42-75)
[2017-05-13] MEDS: PANTOPRAZOLE SODIUM 40 MG TABLET.DR PO SCH ×2 (11:10→17:23)
[2017-05-13] MEDS: FLUTICASONE/VILANTEROL 1 EACH BLST.W.DEV INH SCH (11:10)
[2017-05-13] MEDS: DILTIAZEM HCL 90 MG TABLET PO SCH ×2 (11:11→20:20)
[2017-05-13] MEDS: CARVEDILOL 12.5 MG TABLET PO SCH ×2 (11:11→17:24)
[2017-05-13] MEDS: CYCLOBENZAPRINE HCL 10 MG TABLET PO SCH (11:11)
[2017-05-13] MEDS: SOD FERRIC GLUC COMPLX/SUCROSE 125 MG in IV NORMAL SALINE 100 ML IV SCH (14:36)
--- NOTE | 2017-05-13 14:45 | NUR ---
BLOOD OCCULT STOOL SAMPLE RETRIEVED AND SENT TO LAB
[2017-05-13 16:29] LABS: *OCCULT BLOOD STOOL POSITIVE (NEGATIVE)
[2017-05-13 19:00] VITALS: BP 101/63
--- NOTE | 2017-05-13 19:30 | NUR ---
RECEIVED PATIENT FROM DAY SHIFT NURSE. SHIFT REPORT GIVEN AT BEDSIDE. PATIENT LYING IN BED SLEEPING COMFORTABLY WITH NO SIGNS OF PAIN OR DISTRESS. PERTINENT ASSESSMENTS DONE. CALL LIGHT PLACED WITHIN REACH OF PATIENT. WILL CONTINUE TO MONITOR PATIENT THROUGH OUT SHIFT.
[2017-05-13] MEDS: PRIMIDONE 50 MG TABLET PO SCH (20:17)
[2017-05-13] MEDS: TAMSULOSIN HCL 0.4 MG CAP.SR.24H PO SCH (20:17)
[2017-05-13] MEDS: ATORVASTATIN 10 MG TABLET PO SCH (20:18)
[2017-05-13] MEDS: DUTASTERIDE 0.5 MG CAPSULE PO SCH (20:18)
[2017-05-13] MEDS: ZOLPIDEM 5 MG TABLET PO SCH (20:23)
[2017-05-13] MEDS: HYDROCODONE/APAP 10-325 MG TABLET PO SCH (20:24)
--- NOTE | 2017-05-14 06:17 | NUR ---
PATIENT REFUSED DOSE OF BENTYL. PREFERS TO HAVE MED WITH BREAKFAST AND NOT AT THIS TIME. WILL ENDORSE TO DAY SHIFT NURSE TO ADMINISTER BENTYL WITH BREAKFAST.
[2017-05-14] MEDS: PANTOPRAZOLE SODIUM 40 MG TABLET.DR PO SCH ×2 (06:20→17:48)
--- NOTE | 2017-05-14 06:49 | NUR ---
PATIENT SLEPT INTERMITTENTLY THROUGH OUT SHIFT. ON BIPAP WHILE SLEEPING. NO SIGNS OF PAIN OR DISTRESS. MEDICATIONS ADMINISTERED ORDERED. ALL NEEDS ATTENDED TO. WILL REPORT TO DAY SHIFT NURSE AT BEDSIDE.
[2017-05-14] MEDS: FOLIC ACID/VITAMIN B COMP W-C TABLET PO SCH (09:11)
[2017-05-14] MEDS: POTASSIUM CHLORIDE 8 MEQ CAPSULE.SA PO SCH ×3 (09:11→17:48)
[2017-05-14] MEDS: CYCLOBENZAPRINE HCL 10 MG TABLET PO SCH (09:11)
[2017-05-14] MEDS: BUMETANIDE 1 MG TABLET PO SCH ×2 (09:11→17:48)
[2017-05-14] MEDS: FOLIC ACID 1 MG TABLET PO SCH ×2 (09:12→17:48)
[2017-05-14] MEDS: DOCUSATE SODIUM 100 MG CAPSULE PO SCH (09:12)
[2017-05-14] MEDS: FLUTICASONE/VILANTEROL 1 EACH BLST.W.DEV INH SCH (09:12)
[2017-05-14] MEDS: ALLOPURINOL 100 MG TABLET PO SCH (09:12)
[2017-05-14] MEDS: GLIMEPIRIDE 2 MG TABLET PO SCH ×2 (09:12→17:48)
[2017-05-14] MEDS: CALCITRIOL 0.25 MCG CAPSULE PO SCH (09:12)
[2017-05-14] MEDS: MIRALAX 17 GM POWD.PACK PO SCH (09:13)
[2017-05-14] MEDS: CARVEDILOL 12.5 MG TABLET PO SCH ×2 (09:13→17:49)
[2017-05-14] MEDS: DILTIAZEM HCL 90 MG TABLET PO SCH ×2 (09:13→21:00)
[2017-05-14 09:43] VITALS: BP 116/74
--- NOTE | 2017-05-14 09:50 | NUR ---
pt seen on rounding. pt has elevated hr. talked to md polanco about bp and positive occult blood. md aware. md ordered to give meds as prescribed and continue to monitor. pt took all meds as prescribed and ate breakfast. pt given stool softener as ordered. pt has improved circulation as evidenced by less discoloration on foot for probable venous insufficiency. pt assisted as needed. will continue to monitor.
[2017-05-14] MEDS: SOD FERRIC GLUC COMPLX/SUCROSE 125 MG in IV NORMAL SALINE 100 ML IV SCH (14:27)
--- NOTE | 2017-05-14 14:36 | NUR ---
Interdisciplinary Team Conference Summary
--- NOTE | 2017-05-14 18:14 | NUR ---
pt had decreased blood pressure while sitting. bp at 91/58 hr 114. pt asymptomatic. pt has history of a fib. held carvidelol. will continue to monitor.
--- NOTE | 2017-05-14 19:00 | NUR ---
Received pt sitting on a chair, resting and watching TV. On RA, tolerating well. Family at bedside. IV site noted at the right hand, intact and patent. No signs of acute distress noted. Safety measures observed. Call light within reach. Will continue to monitor.
--- NOTE | 2017-05-14 19:07 | NUR ---
pt stble throughout the day. pt had low bp at afternoon. pt had bm and voided throughout the day. pt took meds as prescribed and assisted as needed. iv site patent and was used for iron iv. pt rr wnl and 02 wnl. will endorse to shift superintendent nurse.
[2017-05-14 19:12] VITALS: BP 91/58
[2017-05-14] MEDS: TAMSULOSIN HCL 0.4 MG CAP.SR.24H PO SCH (20:43)
[2017-05-14] MEDS: PRIMIDONE 50 MG TABLET PO SCH (20:43)
[2017-05-14] MEDS: ZOLPIDEM 5 MG TABLET PO SCH (20:44)
[2017-05-14] MEDS: DUTASTERIDE 0.5 MG CAPSULE PO SCH (20:44)
[2017-05-14] MEDS: HYDROCODONE/APAP 10-325 MG TABLET PO SCH (20:44)
[2017-05-14] MEDS: ATORVASTATIN 10 MG TABLET PO SCH (20:44)
--- NOTE | 2017-05-14 22:00 | NUR ---
Noted some redness and scabs on patient's right inner ankle. No signs of infection. Patient and informed. No pain on the site. Kept clean and dry. Picture taken and placed in the chart. Will continue to monitor.
--- NOTE | 2017-05-15 05:51 | NUR ---
Pt slept comfortably t/o the night. On Bipap machine. No acute distress noted. No complaints of pain or discomfort at this time. No SOB. Uses urinal. Safety measures observed. Call light within reach. All needs attended. Continue to monitor. Will give shift report to day shift RN at bedside.
[2017-05-15] MEDS: PANTOPRAZOLE SODIUM 40 MG TABLET.DR PO SCH ×2 (06:38→17:51)
--- NOTE | 2017-05-15 07:23 | NUR ---
SBAR RECEIVED FROM COMMODITY BROKER NURSE, PATIENT NOTED ASLEEP IN BED, BIPAP IN USE, CALL LIGHT IN REACH, BED LOCKED AND IN LOWEST POSITION, NO SIGNS OF DISTRESS, NO FACIAL CUES OF PAIN NOTED AT THIS TIME.
[2017-05-15] MEDS: CARVEDILOL 12.5 MG TABLET PO SCH ×2 (08:00→11:52)
--- NOTE | 2017-05-15 08:00 | NUR ---
COREG AND CARDIZEM HELD DUE TO BLOOD PRESSURE OF 99/63 AND HEART RATE OF 129 BPM
[2017-05-15] MEDS: BUMETANIDE 1 MG TABLET PO SCH ×3 (08:16→17:51)
[2017-05-15] MEDS: CYCLOBENZAPRINE HCL 10 MG TABLET PO SCH (08:16)
[2017-05-15] MEDS: MIRALAX 17 GM POWD.PACK PO SCH (08:16)
[2017-05-15] MEDS: DOCUSATE SODIUM 100 MG CAPSULE PO SCH (08:16)
[2017-05-15] MEDS: POTASSIUM CHLORIDE 8 MEQ CAPSULE.SA PO SCH ×3 (08:17→17:51)
[2017-05-15] MEDS: FOLIC ACID 1 MG TABLET PO SCH ×2 (08:17→17:51)
[2017-05-15] MEDS: ALLOPURINOL 100 MG TABLET PO SCH (08:18)
[2017-05-15] MEDS: FOLIC ACID/VITAMIN B COMP W-C TABLET PO SCH (08:18)
[2017-05-15] MEDS: GLIMEPIRIDE 2 MG TABLET PO SCH ×2 (08:18→17:51)
[2017-05-15] MEDS: FLUTICASONE/VILANTEROL 1 EACH BLST.W.DEV INH SCH (08:26)
[2017-05-15] MEDS: EPOETIN ALFA 10,000 UNITS/ML VIAL SQ SCH (08:28)
[2017-05-15] MEDS: CALCITRIOL 0.25 MCG CAPSULE PO SCH (08:28)
[2017-05-15] MEDS: DILTIAZEM HCL 90 MG TABLET PO SCH ×2 (08:31→21:00)
--- NOTE | 2017-05-15 09:00 | NUR ---
BLOOD PRESSURE RECHECKED 95/59 AND HEART RATE 121 BPM
[2017-05-15 09:25] LABS: BASOPHILS # (AUTO) 0.1 K/uL (0.0-8.0); BASOPHILS % (AUTO) 1.1 % (0.0-2.0); EOSINOPHILS # (AUTO) 0.3 K/uL (0.0-0.7); EOSINOPHILS % (AUTO) 3.5 % (0.0-7.0); HEMATOCRIT 23.4 % (36.7-47.1); LYMPHOCYTES # (AUTO) 0.8 K/uL (20.0-40.0); LYMPHOCYTES % (AUTO) 9.6 % (20.5-51.5); MEAN CORPUSCULAR HEMOGLOBIN 33.8 uug (23.8-33.4); MEAN CORPUSCULAR HGB CONC 34 g/dL (32.5-36.3); MEAN CORPUSCULAR VOLUME 98.8 fL (73.0-96.2); MONOCYTES # (AUTO) 0.6 K/uL (2.0-10.0); MONOCYTES % (AUTO) 7.3 % (0.0-11.0); NEUTROPHILS # (AUTO) 6.6 K/uL (1.8-8.9); NEUTROPHILS % (AUTO) 78.5 % (38.5-71.5); PLATELET COUNT (AUTO) 188 K/uL (152-348); WHITE BLOOD COUNT (AUTO) 8.3 K/uL (3.6-10.2)
[2017-05-15 10:04] LABS: RED BLOOD CELL COUNT(AUTO) 2.37 MIL/uL (4.06-5.63)
[2017-05-15 10:22] LABS: ALANINE AMINOTRANSFERASE 16 U/L (16-63); ALKALINE PHOSPHATASE 133 U/L (50-136); BILIRUBIN,TOTAL 0.4 mg/dL (0.2-1.0); CARBON DIOXIDE 24 mmol/L (21-32); CHLORIDE 97 mmol/L (98-107); CREATININE 4.4 mg/dL (0.6-1.3); GLUCOSE 219 mg/dL (74-106); MAGNESIUM 1.7 mg/dL (1.8-2.4); POTASSIUM 3.9 mmol/L (3.5-5.1); TOTAL PROTEIN, SERUM 7.8 g/dL (6.4-8.2)
[2017-05-15 10:30] LABS: UREA NITROGEN, BLOOD 112 mg/dL (7-18)
[2017-05-15] MEDS ORDERED: IV NORMAL SALINE 500 ML IV ONE (10:30)
[2017-05-15 10:45] LABS: ASPARTATE AMINOTRANSFERASE 17 U/L (15-37)
--- NOTE | 2017-05-15 12:01 | NUR ---
MD ARRIETA NOTIFIED OF PATIENT'S CONSISTENT LOW BLOOD PRESSURE..ORDERS FOLLOWS 1) GIVE COREG NOW 2) HOLD NIGHT DOSE OF BUMEX 3) BOLUS 500 ML OF NORMAL SALINE NOW 4) CBC AND BMP TODAY.
--- NOTE | 2017-05-15 17:40 | NUR ---
Patient awake, alert and oriented sitting on the wheelchair at bedside while watching television with no s/sx of distress or discomforts. Seen and examined by Dr. Murry (Mule Tender) with new orders to DC Carvedilol order and change the medication to Metoprolol 25 mg 1 tab PO every 12 hours. Patient notified and agreed. Orders noted and carried out.
[2017-05-15 19:30] VITALS: BP 97/67
--- NOTE | 2017-05-15 19:35 | NUR ---
Received pt sitting up in wheelchair, comfortably. Alert and oriented, verbally responsive and able to make needs known. No acute distress noted. Denies any pain or discomfort at this time. All safety measures and fall precautions maintained. Call light within reach. Wheelchair locked.
[2017-05-15] MEDS: METOPROLOL TARTRATE 25 MG TABLET PO SCH (21:00)
[2017-05-15] MEDS: ATORVASTATIN 10 MG TABLET PO SCH (21:15)
[2017-05-15] MEDS: DUTASTERIDE 0.5 MG CAPSULE PO SCH (21:15)
[2017-05-15] MEDS: PRIMIDONE 50 MG TABLET PO SCH (21:15)
[2017-05-15] MEDS: TAMSULOSIN HCL 0.4 MG CAP.SR.24H PO SCH (21:15)
[2017-05-15] MEDS: ZOLPIDEM 5 MG TABLET PO SCH (21:16)
[2017-05-15] MEDS: HYDROCODONE/APAP 10-325 MG TABLET PO SCH (21:17)
--- NOTE | 2017-05-15 21:17 | NUR ---
BP medications held due to low BP. BP 95/55 HR 117. No acute distress noted. Breathing even and unlabored, denies SOB. Will continue to monitor.
[2017-05-16] MEDS: PANTOPRAZOLE SODIUM 40 MG TABLET.DR PO SCH ×2 (06:33→16:56)
--- NOTE | 2017-05-16 06:50 | NUR ---
Pt slept well most of the evening. No complaints of pain or discomfort at this time. BiPAP on. No acute distress noted. Denies SOB. Patient stable and no fluctuation in VS. Breathing even and unlabored. HOB elevated. All medications well tolerated. All safety measures and fall precautions maintained. Bed locked, in lowest position and side rails up x 2. Call light within reach.
--- NOTE | 2017-05-16 07:45 | NUR ---
Received patient asleep, on BIPAP. Call light within reach. Not in apparent distress.
[2017-05-16] MEDS: DILTIAZEM HCL 90 MG TABLET PO SCH ×2 (09:00→21:00)
--- NOTE | 2017-05-16 09:03 | NUR ---
Awake alert and oriented. Morning care done. Tolerated breakfast well. BP 99/70. DC 112. With held Cardizem with parameters. No complaints of chest pains, no SOB noted.
[2017-05-16] MEDS: MIRALAX 17 GM POWD.PACK PO SCH (09:07)
[2017-05-16] MEDS: FOLIC ACID/VITAMIN B COMP W-C TABLET PO SCH (09:07)
[2017-05-16] MEDS: BUMETANIDE 1 MG TABLET PO SCH ×2 (09:07→16:56)
[2017-05-16] MEDS: CYCLOBENZAPRINE HCL 10 MG TABLET PO SCH (09:08)
[2017-05-16] MEDS: GLIMEPIRIDE 2 MG TABLET PO SCH ×2 (09:09→18:27)
[2017-05-16] MEDS: ALLOPURINOL 100 MG TABLET PO SCH (09:09)
[2017-05-16] MEDS: CALCITRIOL 0.25 MCG CAPSULE PO SCH (09:09)
[2017-05-16] MEDS: FOLIC ACID 1 MG TABLET PO SCH ×2 (09:09→16:56)
[2017-05-16] MEDS: METOPROLOL TARTRATE 25 MG TABLET PO SCH ×2 (09:09→21:21)
[2017-05-16] MEDS: POTASSIUM CHLORIDE 8 MEQ CAPSULE.SA PO SCH ×3 (09:09→16:56)
[2017-05-16] MEDS: DOCUSATE SODIUM 100 MG CAPSULE PO SCH (09:10)
[2017-05-16] MEDS: FLUTICASONE/VILANTEROL 1 EACH BLST.W.DEV INH SCH (09:11)
[2017-05-16 10:26] VITALS: BP 99/70
--- NOTE | 2017-05-16 11:02 | NUR ---
Up with occupational therapy. Tolerating therapy well. Denies any pain.
--- NOTE | 2017-05-16 19:00 | NUR ---
Received pt sitting on the chair, watching TV. AAO x4. Tolerating RA. No SOB. No acute distress noted. Safety measures maintained. Call light within reach. Will continue to monitor.
[2017-05-16 20:00] VITALS: BP 99/54
[2017-05-16] MEDS: PRIMIDONE 50 MG TABLET PO SCH (21:20)
[2017-05-16] MEDS: ZOLPIDEM 5 MG TABLET PO SCH (21:20)
[2017-05-16] MEDS: HYDROCODONE/APAP 10-325 MG TABLET PO SCH (21:20)
[2017-05-16] MEDS: DUTASTERIDE 0.5 MG CAPSULE PO SCH (21:21)
[2017-05-16] MEDS: TAMSULOSIN HCL 0.4 MG CAP.SR.24H PO SCH (21:21)
[2017-05-16] MEDS: ATORVASTATIN 10 MG TABLET PO SCH (21:22)
--- NOTE | 2017-05-17 06:12 | NUR ---
Pt slept comfortably t/o the night using bipap. No c/o pain. No signs of acute distress noted. All needs attended to promptly. Safety measures maintained. Continue to monitor.
[2017-05-17] MEDS: PANTOPRAZOLE SODIUM 40 MG TABLET.DR PO SCH ×2 (06:33→17:15)
--- NOTE | 2017-05-17 09:10 | NUR ---
pt seen on rounding. pt has elevated hr. pt given bp meds along with other medications. pt showd no signs of complications. bp was low but continued to give meds as prescribed by . pt seen by doctor young. continued to monitor throughout the day.
[2017-05-17] MEDS: BUMETANIDE 1 MG TABLET PO SCH ×2 (09:31→17:15)
[2017-05-17] MEDS: FOLIC ACID 1 MG TABLET PO SCH ×2 (09:32→17:15)
[2017-05-17] MEDS: ALLOPURINOL 100 MG TABLET PO SCH (09:32)
[2017-05-17] MEDS: DOCUSATE SODIUM 100 MG CAPSULE PO SCH (09:32)
[2017-05-17] MEDS: GLIMEPIRIDE 2 MG TABLET PO SCH ×2 (09:32→17:15)
[2017-05-17] MEDS: FOLIC ACID/VITAMIN B COMP W-C TABLET PO SCH (09:32)
[2017-05-17] MEDS: CYCLOBENZAPRINE HCL 10 MG TABLET PO SCH (09:33)
[2017-05-17] MEDS: POTASSIUM CHLORIDE 8 MEQ CAPSULE.SA PO SCH ×3 (09:33→17:15)
[2017-05-17] MEDS: METOPROLOL TARTRATE 25 MG TABLET PO SCH ×2 (09:35→20:53)
[2017-05-17] MEDS: MIRALAX 17 GM POWD.PACK PO SCH (09:35)
[2017-05-17] MEDS: CALCITRIOL 0.25 MCG CAPSULE PO SCH (09:39)
[2017-05-17] MEDS: FLUTICASONE/VILANTEROL 1 EACH BLST.W.DEV INH SCH (09:39)
[2017-05-17] MEDS: DILTIAZEM HCL 90 MG TABLET PO SCH ×2 (09:40→20:54)
--- NOTE | 2017-05-17 18:31 | NUR ---
PT STABLE THROUGHOUT THE DAY. bp on the low side but asymptomatic. RA satting at 99%. pt used urinal to void. no bm. bumex dosage reduced to 1mg and md young stated to avoid nsaids. pt took meds as prescribed. participated in therapy. iv site patent and intact. no injuries noted. discoloration on legs starts to reduce. labs ordered for tomorrow. pt given epogen for decreased blood levels. will endorse new developments to shift production supervisor nurse.
[2017-05-17 19:51] VITALS: BP 97/64
[2017-05-17] MEDS: ATORVASTATIN 10 MG TABLET PO SCH (20:52)
[2017-05-17] MEDS: DUTASTERIDE 0.5 MG CAPSULE PO SCH (20:52)
[2017-05-17] MEDS: PRIMIDONE 50 MG TABLET PO SCH (20:52)
[2017-05-17] MEDS: TAMSULOSIN HCL 0.4 MG CAP.SR.24H PO SCH (20:52)
[2017-05-17] MEDS: ZOLPIDEM 5 MG TABLET PO SCH (20:55)
[2017-05-17] MEDS: HYDROCODONE/APAP 10-325 MG TABLET PO SCH (20:55)
--- NOTE | 2017-05-18 04:22 | NUR ---
AAOX4 OOB TO CHAIR AT BEGINNING OF SHIFT. VITAL SIGNS TAKEN AND RECORDED. BP 97/64 HR 115 RESP 18 TEMP 97.3 95% ON RA. TOLERATED PO MEDS WELL.NEEDS ATTENDED. VOIDING WELL. NO ACUTE DISTRESS NOTED. USES CPAP AT HS.
[2017-05-18] MEDS: PANTOPRAZOLE SODIUM 40 MG TABLET.DR PO SCH ×2 (06:05→16:43)
[2017-05-18 07:51] VITALS: BP 100/50
[2017-05-18 08:00] LABS: BASOPHILS % (AUTO) 0.5 % (0.0-2.0); EOSINOPHILS # (AUTO) 0.5 K/uL (0.0-0.7); EOSINOPHILS % (AUTO) 5.7 % (0.0-7.0); LYMPHOCYTES # (AUTO) 0.7 K/UL (0.8-4.8); LYMPHOCYTES % (AUTO) 8.7 % (20.5-51.5); MEAN CORPUSCULAR HEMOGLOBIN 32.4 UUG (27.0-31.0); MEAN CORPUSCULAR HGB CONC 33 g/dL (32.0-37.0); MEAN CORPUSCULAR VOLUME 98.6 FL (82.0-92.0); MONOCYTES # (AUTO) 0.5 K/UL (0.1-1.30); MONOCYTES % (AUTO) 5.6 % (0.0-11.0); NEUTROPHILS # (AUTO) 6.9 K/UL (1.8-8.9); NEUTROPHILS % (AUTO) 79.5 % (38.5-71.5); PLATELET COUNT (AUTO) 188 K/UL (150-450); WHITE BLOOD COUNT (AUTO) 8.6 K/UL (4.0-11.2)
[2017-05-18] MEDS: GLIMEPIRIDE 2 MG TABLET PO SCH ×2 (08:00→16:45)
[2017-05-18 08:06] LABS: ALANINE AMINOTRANSFERASE 16 U/L (16-63); ALKALINE PHOSPHATASE 120 U/L (50-136); ASPARTATE AMINOTRANSFERASE 19 U/L (15-37); BILIRUBIN,TOTAL 0.4 mg/dL (0.2-1.0); CARBON DIOXIDE 26 mmol/L (21-32); CHLORIDE 100 mmol/L (98-107); CREATININE 4.4 mg/dL (0.6-1.3); GLUCOSE 135 mg/dL (74-106); MAGNESIUM 1.7 mg/dL (1.8-2.4); PHOSPHOROUS 5.4 mg/dL (2.5-4.9); POTASSIUM 3.8 mmol/L (3.5-5.1); TOTAL PROTEIN, SERUM 7.4 g/dL (6.4-8.2)
[2017-05-18 08:08] LABS: HEMATOCRIT 23.9 % (40-50); HEMOGLOBIN 7.8 G/DL (14.0-18.0); RED BLOOD CELL COUNT(AUTO) 2.42 MIL/UL (4.7-6.1)
[2017-05-18 08:09] LABS: UREA NITROGEN, BLOOD 109 mg/dL (7-18)
[2017-05-18] MEDS: DILTIAZEM HCL 90 MG TABLET PO SCH ×2 (09:00→20:18)
[2017-05-18] MEDS: EPOETIN ALFA 10,000 UNITS/ML VIAL SQ SCH (09:00)
[2017-05-18] MEDS: CYCLOBENZAPRINE HCL 10 MG TABLET PO SCH (09:00)
[2017-05-18] MEDS: BUMETANIDE 1 MG TABLET PO SCH ×2 (09:00→16:43)
[2017-05-18] MEDS: DOCUSATE SODIUM 100 MG CAPSULE PO SCH (09:00)
[2017-05-18] MEDS: METOPROLOL TARTRATE 25 MG TABLET PO SCH ×2 (09:00→20:17)
--- NOTE | 2017-05-18 09:40 | NUR ---
DAILY NOTE CALLED MD NARANJO TO LET HIM KNOW RESULTS OF TODAYS H&H. RESULTS GIVEN TO MD ARRIETA HE STATES HE WILL BE IN.
[2017-05-18] MEDS: FLUTICASONE/VILANTEROL 1 EACH BLST.W.DEV INH SCH (10:57)
[2017-05-18] MEDS: FOLIC ACID/VITAMIN B COMP W-C TABLET PO SCH (10:58)
[2017-05-18] MEDS: POTASSIUM CHLORIDE 8 MEQ CAPSULE.SA PO SCH ×3 (10:58→16:43)
[2017-05-18] MEDS: MIRALAX 17 GM POWD.PACK PO SCH (10:58)
[2017-05-18] MEDS: CALCITRIOL 0.25 MCG CAPSULE PO SCH (10:59)
[2017-05-18] MEDS: FOLIC ACID 1 MG TABLET PO SCH ×2 (10:59→16:42)
[2017-05-18] MEDS: ALLOPURINOL 100 MG TABLET PO SCH (11:00)
[2017-05-18] MEDS ORDERED: ACETAMINOPHEN ES 500 MG TABLET PO PRN (16:00)
[2017-05-18] MEDS: HYDROCODONE/APAP 10-325 MG TABLET PO PRN ×3 (16:50→23:57)
[2017-05-18 19:56] VITALS: BP 98/69
--- NOTE | 2017-05-18 20:00 | NUR ---
PT ALERT AND ORIENTED IN WHEELCHAIR. NO DISTRESS NOTED. HELD CARDIZEM ORDERED DUE TO BP BEING LOW. CLEAN AND DRY. SAFETY MAINTAINED. CALL LIGHT WITHIN REACH.
[2017-05-18] MEDS: TAMSULOSIN HCL 0.4 MG CAP.SR.24H PO SCH (20:17)
[2017-05-18] MEDS: ATORVASTATIN 10 MG TABLET PO SCH (20:17)
[2017-05-18] MEDS: DUTASTERIDE 0.5 MG CAPSULE PO SCH (20:17)
[2017-05-18] MEDS: PRIMIDONE 50 MG TABLET PO SCH (20:18)
[2017-05-18] MEDS: ZOLPIDEM 5 MG TABLET PO SCH (20:18)
[2017-05-19] MEDS: PANTOPRAZOLE SODIUM 40 MG TABLET.DR PO SCH ×2 (06:13→17:19)
--- NOTE | 2017-05-19 06:30 | NUR ---
PT ALERT AND ORIENTED IN BED. NO DISTRESS NOTED. BIPAP MACHINE IN PLACE. NO SIGNIFICANT CHANGES THROUGHOUT THE NIGHT. CLEAN AND DRY. SAFETY MAINTAINED. CALL LIGHT WITHIN REACH.
[2017-05-19 07:25] VITALS: BP 114/66
[2017-05-19] MEDS: METOPROLOL TARTRATE 25 MG TABLET PO SCH ×2 (09:00→21:12)
[2017-05-19] MEDS: MIRALAX 17 GM POWD.PACK PO SCH (09:00)
[2017-05-19] MEDS: BUMETANIDE 1 MG TABLET PO SCH ×2 (09:48→17:19)
[2017-05-19] MEDS: FOLIC ACID/VITAMIN B COMP W-C TABLET PO SCH (09:48)
[2017-05-19] MEDS: DOCUSATE SODIUM 100 MG CAPSULE PO SCH (09:49)
[2017-05-19] MEDS: POTASSIUM CHLORIDE 8 MEQ CAPSULE.SA PO SCH ×3 (09:49→17:19)
[2017-05-19] MEDS: FLUTICASONE/VILANTEROL 1 EACH BLST.W.DEV INH SCH (09:50)
[2017-05-19] MEDS: GLIMEPIRIDE 2 MG TABLET PO SCH ×2 (09:51→17:19)
[2017-05-19] MEDS: CYCLOBENZAPRINE HCL 10 MG TABLET PO SCH (09:51)
[2017-05-19] MEDS: FOLIC ACID 1 MG TABLET PO SCH ×2 (09:54→17:19)
[2017-05-19] MEDS: DILTIAZEM HCL 90 MG TABLET PO SCH ×2 (09:55→21:12)
[2017-05-19] MEDS: CALCITRIOL 0.25 MCG CAPSULE PO SCH (09:55)
[2017-05-19] MEDS: ALLOPURINOL 100 MG TABLET PO SCH (09:56)
--- NOTE | 2017-05-19 11:43 | NUR ---
DAILY NOTE MD ARRIETA IN TO SEE HIM NO NEW ORDERS GIVEN
[2017-05-19] MEDS: HYDROCODONE/APAP 10-325 MG TABLET PO PRN ×2 (14:13→23:25)
--- NOTE | 2017-05-19 19:45 | NUR ---
Received pt sitting on a wheelchair. at bedside during this time. No acute distress noted. No complaints of pain or discomfort. Breathing even and unlabored with normal respirations. Call light within reach. All needs attended.
[2017-05-19 20:00] VITALS: BP 104/65
[2017-05-19] MEDS: DUTASTERIDE 0.5 MG CAPSULE PO SCH (21:11)
[2017-05-19] MEDS: ZOLPIDEM 5 MG TABLET PO SCH (21:11)
[2017-05-19] MEDS: ATORVASTATIN 10 MG TABLET PO SCH (21:12)
[2017-05-19] MEDS: TAMSULOSIN HCL 0.4 MG CAP.SR.24H PO SCH (21:12)
[2017-05-19] MEDS: PRIMIDONE 50 MG TABLET PO SCH (21:13)
--- NOTE | 2017-05-20 00:07 | NUR ---
Rash was noted at the back of the pt. Picture was taken and placed on chart. No pain, itching or any signs of infection was noted. Will continue to monitor.
--- NOTE | 2017-05-20 06:03 | NUR ---
Pt slept well during the shift, on BIPAP. No acute distress noted. Denies pain. Call light within reach. Safety precautions observed. All needs attended
[2017-05-20] MEDS: PANTOPRAZOLE SODIUM 40 MG TABLET.DR PO SCH ×2 (06:19→17:21)
[2017-05-20 07:18] VITALS: BP 102/54
--- NOTE | 2017-05-20 07:30 | NUR ---
Received pt in bed, A/O x4, With BIPAP in place. No acute distress noted. HOB elevated. Call light and personal belongings within reach. Bed kept low/locked position. Plan of care discussed
[2017-05-20] MEDS: FLUTICASONE/VILANTEROL 1 EACH BLST.W.DEV INH SCH (08:48)
[2017-05-20] MEDS: MIRALAX 17 GM POWD.PACK PO SCH (08:49)
[2017-05-20] MEDS: FOLIC ACID/VITAMIN B COMP W-C TABLET PO SCH (08:49)
[2017-05-20] MEDS: BUMETANIDE 1 MG TABLET PO SCH ×2 (08:49→17:21)
[2017-05-20] MEDS: GLIMEPIRIDE 2 MG TABLET PO SCH ×2 (08:49→17:21)
[2017-05-20] MEDS: CALCITRIOL 0.25 MCG CAPSULE PO SCH (08:49)
[2017-05-20] MEDS: DOCUSATE SODIUM 100 MG CAPSULE PO SCH (08:50)
[2017-05-20] MEDS: DILTIAZEM HCL 90 MG TABLET PO SCH ×2 (08:50→20:33)
[2017-05-20] MEDS: CYCLOBENZAPRINE HCL 10 MG TABLET PO SCH (08:50)
[2017-05-20] MEDS: FOLIC ACID 1 MG TABLET PO SCH ×2 (08:50→17:21)
[2017-05-20] MEDS: ALLOPURINOL 100 MG TABLET PO SCH (08:50)
[2017-05-20] MEDS: POTASSIUM CHLORIDE 8 MEQ CAPSULE.SA PO SCH ×3 (08:50→17:21)
[2017-05-20] MEDS: METOPROLOL TARTRATE 25 MG TABLET PO SCH ×2 (08:51→20:34)
--- NOTE | 2017-05-20 18:15 | NUR ---
Pt sitting on the chair, A/O x4, no acute distress noted. Pt able to participate with therapy today. Call light and personal belongings within reach. Pt encouraged to use the call light for assistance.
[2017-05-20 19:30] VITALS: BP 113/57
--- NOTE | 2017-05-20 19:30 | NUR ---
RECEIVED PATIENT FROM DAY SHIFT NURSE. SHIFT REPORT GIVEN AT BEDSIDE. PATIENT A/O X4, WITH NO SIGNS OF PAIN OR DISTRESS. FAMILY AT BEDSIDE. PERTINENT ASSESSMENTS DONE AT START OF SHIFT. CALL LIGHT PLACED WITHIN REACH. WILL CONTINUE TO MONITOR PATIENT THROUGH OUT SHIFT.
[2017-05-20] MEDS: PRIMIDONE 50 MG TABLET PO SCH (20:33)
[2017-05-20] MEDS: TAMSULOSIN HCL 0.4 MG CAP.SR.24H PO SCH (20:33)
[2017-05-20] MEDS: ATORVASTATIN 10 MG TABLET PO SCH (20:33)
[2017-05-20] MEDS: DUTASTERIDE 0.5 MG CAPSULE PO SCH (20:33)
[2017-05-20] MEDS: ZOLPIDEM 5 MG TABLET PO SCH (20:36)
--- NOTE | 2017-05-20 21:30 | NUR ---
PATIENT EXPECTING TO BE D/C HOME TOMORROW 05/21/17. PATIENT STATING THAT THERE WAS SUPPOSE TO BE D/C ORDER, HOWEVER, THERE IS NO D/C PLAN FOR PATIENT. SPOKE WITH DR. HERNANDEZ HE REFUSED D/C HOME FOR 05/21 UNLESS PATIENT WANTS TO GO AMA. PLAN IS FOR PATIENT TO BE DISCHARGED ON THE May. WILL ENDORSE TO DAY SHIFT NURSE TO F/U WITH FAUCETS ASSEMBLER & CLIENT CARE CONSULTANT FOR A D/C PLAN.
[2017-05-20] MEDS: HYDROCODONE/APAP 10-325 MG TABLET PO PRN (23:12)
[2017-05-21] VITALS (8 sets, daily range): BP systolic 89–110; BP diastolic 56–69
[2017-05-21] MEDS: PANTOPRAZOLE SODIUM 40 MG TABLET.DR PO SCH ×2 (06:15→17:36)
--- NOTE | 2017-05-21 06:52 | NUR ---
PATIENT SLEPT INTERMITTENTLY THROUGH OUT SHIFT. PATIENT ON BIPAP MASK WHILE ASLEEP. NO SIGNS OF PAIN OR DISCOMFORT. PATIENT IN STABLE CONDITION. ASSISTED PATIENT TO WHEEL CHAIR DURING THE NIGHT. MEDICATIONS ADMINISTERED ORDERED. ALL NEEDS ATTENDED TO.
[2017-05-21 07:43] LABS: BASOPHILS % (AUTO) 0.3 % (0.0-2.0); EOSINOPHILS # (AUTO) 0.5 K/uL (0.0-0.7); EOSINOPHILS % (AUTO) 4.5 % (0.0-7.0); LYMPHOCYTES # (AUTO) 0.8 K/UL (0.8-4.8); LYMPHOCYTES % (AUTO) 7.8 % (20.5-51.5); MEAN CORPUSCULAR HEMOGLOBIN 32.6 UUG (27.0-31.0); MEAN CORPUSCULAR HGB CONC 33 g/dL (32.0-37.0); MEAN CORPUSCULAR VOLUME 100.1 FL (82.0-92.0); MONOCYTES # (AUTO) 0.9 K/UL (0.1-1.30); MONOCYTES % (AUTO) 8.5 % (0.0-11.0); NEUTROPHILS # (AUTO) 8.5 K/UL (1.8-8.9); NEUTROPHILS % (AUTO) 78.9 % (38.5-71.5); PLATELET COUNT (AUTO) 173 K/UL (150-450); WHITE BLOOD COUNT (AUTO) 10.7 K/UL (4.0-11.2)
[2017-05-21 07:51] LABS: HEMATOCRIT 20.6 % (40-50); HEMOGLOBIN 6.7 G/DL (14.0-18.0); RED BLOOD CELL COUNT(AUTO) 2.06 MIL/UL (4.7-6.1)
[2017-05-21 07:54] LABS: ALANINE AMINOTRANSFERASE 15 U/L (16-63); ALKALINE PHOSPHATASE 100 U/L (50-136); ASPARTATE AMINOTRANSFERASE 14 U/L (15-37); BILIRUBIN,TOTAL 0.4 mg/dL (0.2-1.0); CARBON DIOXIDE 24 mmol/L (21-32); CHLORIDE 100 mmol/L (98-107); GLUCOSE 87 mg/dL (74-106); MAGNESIUM 1.5 mg/dL (1.8-2.4); POTASSIUM 4.6 mmol/L (3.5-5.1); TOTAL PROTEIN, SERUM 6.8 g/dL (6.4-8.2)
[2017-05-21 07:58] LABS: UREA NITROGEN, BLOOD 130 mg/dL (7-18)
--- NOTE | 2017-05-21 08:06 | NUR ---
Received patient awake, up on the chair, alert, verbally responsive, coherent, not in any form of acute distress. He denies any pain or discomfort at this time. Call light placed within reach. Assisted to his needs.
[2017-05-21] MEDS: FOLIC ACID 1 MG TABLET PO SCH ×2 (08:53→17:36)
[2017-05-21] MEDS: FOLIC ACID/VITAMIN B COMP W-C TABLET PO SCH (08:53)
[2017-05-21] MEDS: ALLOPURINOL 100 MG TABLET PO SCH (08:53)
[2017-05-21] MEDS: DOCUSATE SODIUM 100 MG CAPSULE PO SCH (08:53)
[2017-05-21] MEDS: POTASSIUM CHLORIDE 8 MEQ CAPSULE.SA PO SCH ×3 (08:53→17:36)
[2017-05-21] MEDS: MIRALAX 17 GM POWD.PACK PO SCH (08:54)
[2017-05-21] MEDS: CYCLOBENZAPRINE HCL 10 MG TABLET PO SCH (08:54)
[2017-05-21] MEDS: CALCITRIOL 0.25 MCG CAPSULE PO SCH (08:54)
[2017-05-21] MEDS: BUMETANIDE 1 MG TABLET PO SCH ×2 (09:00→17:36)
[2017-05-21] MEDS: METOPROLOL TARTRATE 25 MG TABLET PO SCH ×2 (09:00→20:39)
[2017-05-21] MEDS: DILTIAZEM HCL 90 MG TABLET PO SCH ×2 (09:00→20:42)
--- NOTE | 2017-05-21 09:00 | NUR ---
Paged Dr. Haines for hgb and hct results and low BP, awaiting for his call back.
[2017-05-21] MEDS: FLUTICASONE/VILANTEROL 1 EACH BLST.W.DEV INH SCH (09:29)
[2017-05-21] MEDS: GLIMEPIRIDE 2 MG TABLET PO SCH ×2 (09:29→17:36)
--- NOTE | 2017-05-21 09:38 | NUR ---
Dr. Haines came to see patient. Notified MD regarding hgb and hct results and said will check into the lab results. Informed him of the low BP and stated ok to hold Diltiazem, metoprolol and bumex. Patient aware.
--- NOTE | 2017-05-21 13:59 | NUR ---
Interdisciplinary Meeting Summary
--- NOTE | 2017-05-21 18:50 | NUR ---
Received a call back from Dr. Haines with orders to give 1 unit PRBC, type and screen, secure consent for blood transfusion, and test stool for OB x 3. Order carried out. Patient made aware and agreeable.
--- NOTE | 2017-05-21 19:30 | NUR ---
RECEIVED PATIENT FROM DAY SHIFT NURSE. REPORT GIVEN AT BEDSIDE. FAMILY AT BEDSIDE. PATIENT A/O X4 WITH NO SIGNS OF PAIN OR DISTRESS. PERTINENT ASSESSMENTS DONE. CALL LIGHT PLACED WITHIN REACH OF PATIENT. WILL CONTINUE TO MONITOR PATIENT THROUGH OUT SHIFT.
--- NOTE | 2017-05-21 20:00 | NUR ---
PATIENT HAS A NEW ORDER FOR BLOOD TRANSFUSION 1 UNIT PRBC'S DUE TO HGB LEVEL OF 6.7. WAITING ON LAB FOR BLOOD. CONSENT FORM SIGNED. PATIENT IN STABLE CONDITION. WILL START TRANSFUSION SOON BLOOD IS READY.
[2017-05-21] MEDS: PRIMIDONE 50 MG TABLET PO SCH (20:38)
[2017-05-21] MEDS: TAMSULOSIN HCL 0.4 MG CAP.SR.24H PO SCH (20:38)
[2017-05-21] MEDS: DUTASTERIDE 0.5 MG CAPSULE PO SCH (20:39)
[2017-05-21] MEDS: ATORVASTATIN 10 MG TABLET PO SCH (20:39)
[2017-05-21] MEDS: ZOLPIDEM 5 MG TABLET PO SCH (20:42)
--- NOTE | 2017-05-21 22:04 | NUR ---
BLOOD PICKED UP FROM LAB 2144. IV SITE LEFT HAND 22G. PATENT, CLEAN, DRY WITH NO SIGNS OF INFILTRATION. VERIFIED BLOOD AT BEDSIDE WITH ANOTHER RN. VITAL SIGNS ARE STABLE. PATIENT A/O X4, ABLE TO MAKE NEEDS KNOWN. INFUSION STARTED. NO S/S OF ALLERGIC RXNS. NO COMPLAINTS OF PAIN OR ACUTE DISCOMFORT. NO SOB. ON O2 2L VIA NASAL CANULA. OF PATIENT AT BEDSIDE. ALL NEEDS ATTENDED TO. CALL LIGHT WITHIN REACH OF PATIENT. WILL CONTINUE TO MONITOR PER FACILITY PROTOCOL.
[2017-05-22 00:25] VITALS: BP 104/67
[2017-05-22 00:34] VITALS: BP 104/67
[2017-05-22] MEDS: HYDROCODONE/APAP 10-325 MG TABLET PO PRN ×2 (01:33→09:02)
[2017-05-22 01:39] VITALS: BP 99/59
--- NOTE | 2017-05-22 01:39 | NUR ---
BLOOD TRANSFUSION COMPLETED AT 0139. TOTAL OF 1 UNIT PRBC'S INFUSED. DURATION OF 3 HOURS AND 35 MINS. PATIENT A/O X4, NO SIGNS OF PAIN OR DISCOMFORT. NO SOB NOTED. NO ALLERGIC RXNS THROUGH OUT TRANSFUSION OF BLOOD. VITAL SIGNS STABLE THROUGH OUT TRANSFUSION & AT ENDING OF TRANSFUSION. ALL NEEDS ATTENDED TO. CALL LIGHT PLACED WITHIN REACH OF PATIENT. WILL CONTINUE TO MONITOR PATIENT THROUGH OUT SHIFT.
[2017-05-22] MEDS: PANTOPRAZOLE SODIUM 40 MG TABLET.DR PO SCH ×2 (06:17→17:07)
--- NOTE | 2017-05-22 06:42 | NUR ---
PATIENT STABLE AND SLEPT COMFORTABLY DURING THE NIGHT. NO SIGNS OF PAIN OR DISTRESS. ALL NEEDS ATTENDED TO & ALL MEDS ADMINISTERED ORDERED. NO SIGNS OF SOB. SLEPT WITH BIPAP MASK DURING THE NIGHT. SHIFT REPORT TO BE GIVEN AT BEDSIDE.
[2017-05-22] MEDS: GLIMEPIRIDE 2 MG TABLET PO SCH ×2 (08:01→17:48)
[2017-05-22] MEDS: FLUTICASONE/VILANTEROL 1 EACH BLST.W.DEV INH SCH (08:03)
--- NOTE | 2017-05-22 08:03 | NUR ---
PT REPORT RECEIVED NEAR BEDSIDE, ROOM BOARD UPDATED. PT ASSESSED, NO ACUTE DISTRESS OR PAIN NOTED, PT DENIES SOB ON 2 L O2 VIA NC. V/S REASSESSED 103/69, WITH A PULSE RATE OF 135, PT STATES NORMALLY HAVING AN ELEVATED PULSE. PT STATES NOT HAVING SLEPT WELL LAST NIGHT. PT COMPLIANT WITH ROUTINE ADMINISTRATION OF MORNING MEDICATIONS. PLAN FOR THE DAY DISCUSSED AND REVIEWED WITH PT. NO S/S OF BLEEDING EVIDENT. ALL COMFORT AND SAFETY MEASURES IMPLEMENTED. WILL CONTINUE TO MONITOR.
[2017-05-22] MEDS: FOLIC ACID 1 MG TABLET PO SCH ×2 (08:04→17:07)
[2017-05-22] MEDS: BUMETANIDE 1 MG TABLET PO SCH ×2 (08:04→17:07)
[2017-05-22] MEDS: ALLOPURINOL 100 MG TABLET PO SCH (08:06)
[2017-05-22] MEDS: CYCLOBENZAPRINE HCL 10 MG TABLET PO SCH (08:06)
[2017-05-22] MEDS: DILTIAZEM HCL 90 MG TABLET PO SCH ×2 (08:06→21:11)
[2017-05-22] MEDS: FOLIC ACID/VITAMIN B COMP W-C TABLET PO SCH (08:06)
[2017-05-22] MEDS: POTASSIUM CHLORIDE 8 MEQ CAPSULE.SA PO SCH ×3 (08:07→17:07)
[2017-05-22] MEDS: METOPROLOL TARTRATE 25 MG TABLET PO SCH ×2 (08:07→21:11)
[2017-05-22] MEDS: CALCITRIOL 0.25 MCG CAPSULE PO SCH (08:13)
[2017-05-22] MEDS: DOCUSATE SODIUM 100 MG CAPSULE PO SCH (08:14)
[2017-05-22] MEDS ORDERED: EPOETIN ALFA 10,000 UNITS/ML VIAL SQ SCH (09:00)
[2017-05-22] MEDS: MIRALAX 17 GM POWD.PACK PO SCH ×2 (09:00→10:18)
[2017-05-22 10:14] VITALS: BP 103/69
--- NOTE | 2017-05-22 11:33 | NUR ---
Pt FIRST OUT OF THREE ORDERED STOOL SAMPLE COLLECTED AND DELIVERED TO LAB. Pt RETURNED FROM WORKING WITH PT, EXERCISE ACTIVITIES WELL TOLERATED. NO S/S OF DISTRESS AT THIS TIME.
--- NOTE | 2017-05-22 13:30 | NUR ---
PT SECOND STOOL SAMPLE COLLECTED AND SENT TO LAB ORDERED. PT REPORTS NO PAIN OR DIZZINESS AT THIS TIME. NO S/S OF BLEEDING PRESENT. WILL CONTINUE TO MONITOR PROGRESS.
[2017-05-22 13:53] LABS: *OCCULT BLOOD STOOL POSITIVE (NEGATIVE)
--- NOTE | 2017-05-22 18:56 | NUR ---
PT SITTING UP COMFORTABLY IN WHEELCHAIR NEAR BED, PERSONAL ITEMS AND CALL LIGHT WITHIN REACH. PT IS VISITING BEDSIDE AT THIS TIME. PT DENIES PAIN WITH NO S/S OF DISTRESS. PT COMPLIANT WITH ROUTINE MEDICATION ADMINISTRATION AND 3RD STOOL SAMPLE COLLECTED AND SENT TO LAB. WILL CONTINUE TO MONITOR AND ENDORSE EDITORIAL SPECIALIST OF PENDING ORDERS.
--- NOTE | 2017-05-22 20:00 | NUR ---
Received pt on bed, alert, awake and oriented x4. Able to make needs known. at bedside during this time. No complaints of pain. Breathing even and unlabored with normal respirations. rash noted on lower abdomen and groin, pictures taken and placed on chart. MD made aware, nystatin cream BID for 7days was ordered. Order carried out and done. Kept clean, dry and comfortable. call light within reach. All needs attended. Will continue to monitor.
[2017-05-22 20:19] VITALS: BP 100/63
[2017-05-22] MEDS: NYSTATIN CREAM 30 GM TUBE TOP SCH (21:09)
[2017-05-22] MEDS: TAMSULOSIN HCL 0.4 MG CAP.SR.24H PO SCH (21:10)
[2017-05-22] MEDS: DUTASTERIDE 0.5 MG CAPSULE PO SCH (21:10)
[2017-05-22] MEDS: ATORVASTATIN 10 MG TABLET PO SCH (21:10)
[2017-05-22] MEDS: PRIMIDONE 50 MG TABLET PO SCH (21:11)
[2017-05-22] MEDS ORDERED: ZOLPIDEM 5 MG TABLET PO PRN (21:45)
--- NOTE | 2017-05-23 05:00 | NUR ---
Pt had an episode of nausea and vomiting x1. Vital signs BP 106/61, HR 133, Temp 97.4, RR 18, O2 sat 98%. MD made aware. MD ordered zofran 4mg IV q6hrs PRN for nausea and vomiting. Order carried out and done. IV on Left hand intact and patent, med given as ordered and well tolerated. No complaints of pain. No SOB noted. Pt verbalized relief. Will continue to monitor.
[2017-05-23] MEDS ORDERED: ONDANSETRON 4 MG/2 ML VIAL IV PRN (05:15)
[2017-05-23] MEDS ORDERED: ONDANSETRON 4 MG/2 ML VIAL ONE (05:35)
[2017-05-23] MEDS: PANTOPRAZOLE SODIUM 40 MG TABLET.DR PO SCH (06:13)
--- NOTE | 2017-05-23 06:54 | NUR ---
Patient lying comfortably in bed. No complaints of pain. Vital signs stable. all needs attended. Will endorse new orders to day shift nurse
[2017-05-23 07:41] LABS: BASOPHILS % (AUTO) 0.3 % (0.0-2.0); EOSINOPHILS # (AUTO) 0.1 K/uL (0.0-0.7); EOSINOPHILS % (AUTO) 3.4 % (0.0-7.0); HEMATOCRIT 22.2 % (36.7-47.1); HEMOGLOBIN 7.6 g/dL (12.5-16.3); LYMPHOCYTES # (AUTO) 0.2 K/uL (20.0-40.0); LYMPHOCYTES % (AUTO) 4.1 % (20.5-51.5); MEAN CORPUSCULAR HEMOGLOBIN 35.4 uug (23.8-33.4); MEAN CORPUSCULAR HGB CONC 34 g/dL (32.5-36.3); MEAN CORPUSCULAR VOLUME 103.5 fL (73.0-96.2); MONOCYTES # (AUTO) 0.2 K/uL (2.0-10.0); MONOCYTES % (AUTO) 4.9 % (0.0-11.0); NEUTROPHILS # (AUTO) 3.3 K/uL (1.8-8.9); NEUTROPHILS % (AUTO) 87.3 % (38.5-71.5); PLATELET COUNT (AUTO) 177 K/uL (152-348)
[2017-05-23 07:44] LABS: ALANINE AMINOTRANSFERASE 16 U/L (16-63); ALKALINE PHOSPHATASE 106 U/L (50-136); ASPARTATE AMINOTRANSFERASE 18 U/L (15-37); BILIRUBIN,TOTAL 0.5 mg/dL (0.2-1.0); CARBON DIOXIDE 22 mmol/L (21-32); CHLORIDE 102 mmol/L (98-107); CREATININE 4.2 mg/dL (0.6-1.3); GLUCOSE 162 mg/dL (74-106); MAGNESIUM 1.6 mg/dL (1.8-2.4); PHOSPHOROUS 4.7 mg/dL (2.5-4.9); POTASSIUM 4.2 mmol/L (3.5-5.1); TOTAL PROTEIN, SERUM 7.1 g/dL (6.4-8.2)
[2017-05-23 07:52] LABS: RED BLOOD CELL COUNT(AUTO) 2.14 MIL/uL (4.06-5.63); WHITE BLOOD COUNT (AUTO) 3.8 K/uL (3.6-10.2)
[2017-05-23 07:56] LABS: UREA NITROGEN, BLOOD 133 mg/dL (7-18)
[2017-05-23 08:30] VITALS: BP 113/65
[2017-05-23] MEDS: BUMETANIDE 1 MG TABLET PO SCH (09:06)
[2017-05-23] MEDS: DOCUSATE SODIUM 100 MG CAPSULE PO SCH (09:06)
[2017-05-23] MEDS: GLIMEPIRIDE 2 MG TABLET PO SCH (09:06)
[2017-05-23] MEDS: FOLIC ACID 1 MG TABLET PO SCH (09:06)
[2017-05-23] MEDS: FOLIC ACID/VITAMIN B COMP W-C TABLET PO SCH (09:06)
[2017-05-23] MEDS: ALLOPURINOL 100 MG TABLET PO SCH (09:06)
[2017-05-23 09:07] VITALS: BP 113/65
[2017-05-23] MEDS: POTASSIUM CHLORIDE 8 MEQ CAPSULE.SA PO SCH ×2 (09:07→13:56)
[2017-05-23] MEDS: CYCLOBENZAPRINE HCL 10 MG TABLET PO SCH (09:07)
[2017-05-23] MEDS: DILTIAZEM HCL 90 MG TABLET PO SCH (09:07)
[2017-05-23] MEDS: METOPROLOL TARTRATE 25 MG TABLET PO SCH (09:07)
[2017-05-23] MEDS: FLUTICASONE/VILANTEROL 1 EACH BLST.W.DEV INH SCH (09:08)
[2017-05-23] MEDS: CALCITRIOL 0.25 MCG CAPSULE PO SCH (09:08)
[2017-05-23] MEDS: NYSTATIN CREAM 30 GM TUBE TOP SCH (09:13)
--- NOTE | 2017-05-23 10:21 | NUR ---
pt seen on rounding. pt seen to be on nc instead of bibap at night. pt satting within normal limits. vitals stable. pt afebrile. pt seen to be shivering and states taht he is cold possibly due to low blood counts. pt given meds. pt has home meds to be taken to the pharmacy. pt used urinal to void. pt vitals reassesed and became elevated to 130s. will continue to monitor.
--- NOTE | 2017-05-23 13:00 | NUR ---
PT seen on rounding. pt had labored breathing. reassesed vitals. pt blood pressure dropped 80s and fluctuated. o2 sat fluctuated. hr went 150s called max supervisor money room. pt put on non rebreather mask at 15 L. pt satted wnl after. blood kept dropping and going up to 130s. pt had a huge bowel movement and voided. called dr nusrat polanco and michael. nusrat responded later and stated to order what ever is needed. dr polanco answered and said hes on his way. pt put on ekg. pt has right bundle branch block with widened qrs. labs came and bun at critical level of 133. other labs wnl. dr polanco ordered to have pt on tele monitoring. pt continued to have a steady heart rate on 140s. continued to monitor patient. reduced o2 and changed to ns at 3 l. pt satting at 96. pt continued to labored breathing. pt given potassium. will continue to monitor.
[2017-05-23 13:27] LABS: BAND % (MANUAL) 41 % (0-10); EOSINOPHILS % (MANUAL) 4 % (0-8); LYMPHOCYTES % (MANUAL) 4 % (20-40); METAMYELOCYTES % 2 % (0-1); MONOCYTES % (MANUAL) 7 % (2-10); NEUTROPHILS % (MANUAL) 42 % (42-75)
--- NOTE | 2017-05-23 15:43 | NUR ---
pt discharged to telemetry
== END 2017-05-23 15:50 | disposition short-term general hospital (02) | DRG 291 ==
LOC: UNDOADMIN 14:54
PROVIDERS: ADMIT Physical Medicine & Rehabilitation Pain Medicine; ATTEND Physical Medicine & Rehabilitation Pain Medicine
PROC: 5A09357 Assistance with Respiratory Ventilation, Less than 24 Consecutive Hours, Continuous Positive Airway Pressure (ICD-10-PCS; 2017-05-19)
PROC: 30233N1 Transfusion of Nonautologous Red Blood Cells into Peripheral Vein, Percutaneous Approach (ICD-10-PCS; principal; 2017-05-21)
DX: I13.0 Hypertensive heart and chronic kidney disease with heart failure and stage 1 through stage 4 chronic kidney disease, or unspecified chronic kidney disease (principal); I50.33 Acute on chronic diastolic (congestive) heart failure; E11.22 Type 2 diabetes mellitus with diabetic chronic kidney disease; E11.65 Type 2 diabetes mellitus with hyperglycemia; N18.4 Chronic kidney disease, stage 4 (severe); I48.4 Atypical atrial flutter; E66.01 Morbid (severe) obesity due to excess calories; I48.2 Chronic atrial fibrillation; R26.9 Unspecified abnormalities of gait and mobility; Z68.38 Body mass index [BMI] 38.0-38.9, adult; G47.33 Obstructive sleep apnea (adult) (pediatric); J44.9 Chronic obstructive pulmonary disease, unspecified; M10.9 Gout, unspecified; N40.0 Benign prostatic hyperplasia without lower urinary tract symptoms; Z87.891 Personal history of nicotine dependence; M19.90 Unspecified osteoarthritis, unspecified site; I27.20 Pulmonary hypertension, unspecified; D50.0 Iron deficiency anemia secondary to blood loss (chronic); E78.5 Hyperlipidemia, unspecified; I08.0 Rheumatic disorders of both mitral and aortic valves; K29.70 Gastritis, unspecified, without bleeding; Z86.73 Personal history of transient ischemic attack (TIA), and cerebral infarction without residual deficits; R00.0 Tachycardia, unspecified; Z88.1 Allergy status to other antibiotic agents; Z88.0 Allergy status to penicillin; Z88.8 Allergy status to other drugs, medicaments and biological substances; D63.1 Anemia in chronic kidney disease; R53.1 Weakness
CPT/HCPCS: 36415; 82747; 83550; 83735; 84100; 85014; 85025; 86850; 86900; 86901; 86920; 92526; 92610; 93005; 93307; 97110; 97112; 97116; 97530; 97535; A4663; J0885; J2405; J2916; J3490; J7040; J7050; P9016-BL; P9021

== ENCOUNTER 2017-05-23 16:26 | Inpatient (IN) | payer MEDICARE, BC ==
[~2017-05-23] VITALS: Ht 185.4 cm; Wt 108.2 kg
[2017-05-23 15:55] VITALS: BP 84/52
--- NOTE | 2017-05-23 16:05 | NUR ---
RECEIVED PT UNSTABLE, PLACED ON TELE MONITOR AND VITAL SIGNS TAKEN. OMARIAN WAS PAGED RE-GUARDING PT CONDITION, TEMP 99.4 HR 136 BP 84/52. ORDERS RECEIVED, WILL FOLLOW THROUGH AND CLOSELY MONITOR
[~2017-05-23 16:26] MED LIST changes: -Medication Not On Formulary EA (Cyclobenzaprine Hcl 5 MG) PO SCH
[2017-05-23] MEDS: ACETAMINOPHEN ES 500 MG TABLET PO PRN (17:27)
--- NOTE | 2017-05-23 17:34 | NUR ---
TYLENOL GIVEN, WILL RE CHECK TEMP
[2017-05-23] MEDS ORDERED: ACETAMINOPHEN ES 500 MG TABLET PO PRN (18:30)
[2017-05-23 18:41] LABS: EOSINOPHILS % (AUTO) 0.1 % (0.0-7.0); HEMOGLOBIN 7.3 G/DL (14.0-18.0); LYMPHOCYTES # (AUTO) 0.2 K/UL (0.8-4.8); LYMPHOCYTES % (AUTO) 2.9 % (20.5-51.5); MEAN CORPUSCULAR HEMOGLOBIN 32.8 UUG (27.0-31.0); MEAN CORPUSCULAR HGB CONC 33 g/dL (32.0-37.0); MEAN CORPUSCULAR VOLUME 99.4 FL (82.0-92.0); MONOCYTES # (AUTO) 0.6 K/UL (0.1-1.30); MONOCYTES % (AUTO) 10.7 % (0.0-11.0); NEUTROPHILS # (AUTO) 4.5 K/UL (1.8-8.9); NEUTROPHILS % (AUTO) 86.3 % (38.5-71.5); PLATELET COUNT (AUTO) 207 K/UL (150-450); WHITE BLOOD COUNT (AUTO) 5.3 K/UL (4.0-11.2)
[2017-05-23 18:47] LABS: RED BLOOD CELL COUNT(AUTO) 2.22 MIL/UL (4.7-6.1)
[2017-05-23 18:49] LABS: ALANINE AMINOTRANSFERASE 15 U/L (16-63); ALKALINE PHOSPHATASE 87 U/L (50-136); ASPARTATE AMINOTRANSFERASE 18 U/L (15-37); BILIRUBIN,TOTAL 0.4 mg/dL (0.2-1.0); CARBON DIOXIDE 20 mmol/L (21-32); CHLORIDE 102 mmol/L (98-107); CREATININE 4.1 mg/dL (0.6-1.3); GLUCOSE 185 mg/dL (74-106); POTASSIUM 4.5 mmol/L (3.5-5.1); TOTAL PROTEIN, SERUM 6.5 g/dL (6.4-8.2)
--- NOTE | 2017-05-23 18:54 | NUR ---
TEMP 98.6 BP 100/56. PT AWAKE IN BED DENIES PAIN OR SOB. VERY THIRSTY, WATER GIVEN. ABGS DONE WNL, CXR DONE CALL LIGHT IN REACH
[2017-05-23 19:03] LABS: THYROID STIMULATING HORMONE 0.886 mIU/mL (0.358-3.740)
[2017-05-23] MEDS ORDERED: AMIODARONE HCL IV 150 MG in IV DEXTROSE 5% 100 ML IV ONE (19:15)
[2017-05-23] MEDS ORDERED: AMIODARONE HCL IV 900 MG in IV DEXTROSE 5% 482 ML IV PRN (19:15)
[2017-05-23 19:17] LABS: UREA NITROGEN, BLOOD 136 mg/dL (7-18)
[2017-05-23 19:18] LABS: BAND % (MANUAL) 53 % (0-10); LYMPHOCYTES % (MANUAL) 4 % (20-40); METAMYELOCYTES % 1 % (0-1); MONOCYTES % (MANUAL) 8 % (2-10); NEUTROPHILS % (MANUAL) 34 % (42-75)
[2017-05-23 20:00] VITALS: BP 96/51
--- NOTE | 2017-05-23 20:00 | NUR ---
RECEIVED PATIENT AWAKE,ALERT,ORIENTED,LETHARGY,FAMILY AT BEDSIDE,BP 96/51,HR 132,AFLUTTER ON MONITORO2 SAT 95% ON O2 AT 2L/M VIA NASAL CANNULA.
[2017-05-23 20:19] LABS: *BILIRUBIN,URIN NEGATIVE (NEGATIVE); *BLOOD, URINE NEGATIVE (NEGATIVE); *CLARITY,URINE CLEAR (CLEAR); *COLOR,URINE YELLOW (YELLOW); *KETONES,URINE NEGATIVE (NEGATIVE); *PROTEIN,URINE NEGATIVE (NEGATIVE); *UROBILINOGEN,URINE 0.2 E.U./dl (NORMAL); LEUKOCYTE ESTERASE ,URINE NEGATIVE (NEGATIVE); NITRITE, URINE NEGATIVE (NEGATIVE); UGLUCOSE NEGATIVE (NEGATIVE)
[2017-05-23] MEDS: BUMETANIDE 1 MG/4 ML VIAL IV SCH (20:22)
[2017-05-23 20:33] LABS: MUCUS,URINE FEW /LPF (0-FEW); SQUAMOUS EPITHELIAL CELL,UR FEW /HPF (NONE SEEN); WBC,URINE 0-3 /HPF (0-3)
[2017-05-23 20:37] LABS: ABG BASE EXCESS -3.8 mmol/L; ABG HCO3 19.9 mmol/L; ABG PCO2 30.2 mmHg (35.0-45.0); ABG PH 7.437 (7.350-7.450); ABG PO2 85.5 mmHg (75.0-100.0); ABG SITE RIGHT RADIAL; ABG TOTAL HEMOGLOBIN 7.4 G/dL (13.5-18.0); COHb 1.4 % (0.5-1.5); MetHb 0.5 % (0.0-1.5); O2Hb 94.4 % (94.0-97.0); VENT MODE Nasal Cannula
[2017-05-23] MEDS: DUTASTERIDE 0.5 MG CAPSULE PO SCH (20:47)
[2017-05-23] MEDS: HYDROCODONE/APAP 10-325 MG TABLET PO SCH (20:47)
[2017-05-23] MEDS: ATORVASTATIN 10 MG TABLET PO SCH (20:48)
[2017-05-23] MEDS: TAMSULOSIN HCL 0.4 MG CAP.SR.24H PO SCH (20:48)
[2017-05-23] MEDS: PRIMIDONE 50 MG TABLET PO SCH (20:51)
[2017-05-23] MEDS: DILTIAZEM HCL 90 MG TABLET PO SCH (20:52)
[2017-05-23] MEDS: ZOLPIDEM 5 MG TABLET PO SCH (21:00)
--- NOTE | 2017-05-23 21:00 | NUR ---
CORDARONE 150 MG IV BOLUS GIVEN,FOLLOW BY CORDARONE DRIP AT 1MG/MIN{33.3ML/HR) PER PROTOCOL,HOLD CARDIZEM BP LOW 96/51 AND HOLD AMBIEN DUE TO PATIENT LETHARGY,CONTINUE CLOSELY MONITOR.
--- NOTE | 2017-05-23 23:30 | NUR ---
BP 88/50, HR 130-132,DR. CHAVEZ NOTIFIED ,MADE AWARE OF HGB 7.3/HCT 22, ORDER 1UNIT OF BLOOD TRANSFUSION.
[2017-05-24] VITALS (10 sets, daily range): BP systolic 81–100; BP diastolic 52–62
--- NOTE | 2017-05-24 02:10 | NUR ---
STARTED 1 UNIT OF PRBC ,TEMP 97.7,HR 129,R 19, O2 SAT 95% ON 2L/M VIA NASAL CANNULA.CONTINUE CLOSELY MONITOR.
--- NOTE | 2017-05-24 02:25 | NUR ---
PATIENT TOLERATED BLOOD TRANSFUSION WELL, NO IMMEDIATE ADVERSE REACTION NOTED, VITAL SIGNS REMAINS STABLE.
[2017-05-24] MEDS: ACETAMINOPHEN ES 500 MG TABLET PO PRN (02:27)
--- NOTE | 2017-05-24 05:30 | NUR ---
BLOOD TRANSFUSION COMPLETED,NO REACTION, PATIENT ASLEEP ON BIPAP, HR REMAINS 130'S A FLUTTER,DAY HAUL OR FARM CHARTER BUS DRIVER DR. MCDANIELS NOTIFIED,TO CONTINUE CORDARONE DRIP PER PROTOCOL,BP 100/61, O2 SAT 97% .
[2017-05-24 07:33] LABS: BASOPHILS % (AUTO) 0.1 % (0.0-2.0); EOSINOPHILS # (AUTO) 0.1 K/uL (0.0-0.7); EOSINOPHILS % (AUTO) 1.1 % (0.0-7.0); HEMOGLOBIN 7.8 G/DL (14.0-18.0); LYMPHOCYTES # (AUTO) 0.5 K/UL (0.8-4.8); LYMPHOCYTES % (AUTO) 6.7 % (20.5-51.5); MEAN CORPUSCULAR HEMOGLOBIN 33.1 UUG (27.0-31.0); MEAN CORPUSCULAR HGB CONC 34 g/dL (32.0-37.0); MEAN CORPUSCULAR VOLUME 96.7 FL (82.0-92.0); MONOCYTES # (AUTO) 0.8 K/UL (0.1-1.30); MONOCYTES % (AUTO) 11.4 % (0.0-11.0); NEUTROPHILS # (AUTO) 5.6 K/UL (1.8-8.9); NEUTROPHILS % (AUTO) 80.7 % (38.5-71.5); PLATELET COUNT (AUTO) 206 K/UL (150-450)
[2017-05-24 07:37] LABS: HEMATOCRIT 22.7 % (40-50); RED BLOOD CELL COUNT(AUTO) 2.35 MIL/UL (4.7-6.1)
[2017-05-24 07:47] LABS: ALANINE AMINOTRANSFERASE 15 U/L (16-63); ALKALINE PHOSPHATASE 80 U/L (50-136); ASPARTATE AMINOTRANSFERASE 13 U/L (15-37); BILIRUBIN,TOTAL 0.6 mg/dL (0.2-1.0); CARBON DIOXIDE 19 mmol/L (21-32); CHLORIDE 101 mmol/L (98-107); CREATININE 4.2 mg/dL (0.6-1.3); GLUCOSE 116 mg/dL (74-106); POTASSIUM 4.1 mmol/L (3.5-5.1); TOTAL PROTEIN, SERUM 6.5 g/dL (6.4-8.2)
[2017-05-24 07:53] LABS: UREA NITROGEN, BLOOD 136 mg/dL (7-18)
[2017-05-24] MEDS: CYCLOBENZAPRINE HCL 10 MG TABLET PO SCH (08:35)
[2017-05-24] MEDS: GLIMEPIRIDE 2 MG TABLET PO SCH ×2 (08:35→17:06)
[2017-05-24] MEDS: CALCITRIOL 0.25 MCG CAPSULE PO SCH (08:35)
[2017-05-24] MEDS: PANTOPRAZOLE SODIUM 40 MG TABLET.DR PO SCH (08:35)
[2017-05-24] MEDS: FLUTICASONE/VILANTEROL 1 EACH BLST.W.DEV INH SCH (08:35)
[2017-05-24] MEDS: DOCUSATE SODIUM 100 MG CAPSULE PO SCH (08:35)
[2017-05-24] MEDS: POTASSIUM CHLORIDE 8 MEQ CAPSULE.SA PO SCH ×3 (08:35→16:40)
[2017-05-24] MEDS: ALLOPURINOL 100 MG TABLET PO SCH (08:35)
[2017-05-24] MEDS: MIRALAX 17 GM POWD.PACK PO SCH (08:35)
[2017-05-24] MEDS: FOLIC ACID 1 MG TABLET PO SCH ×2 (08:35→16:40)
[2017-05-24] MEDS: DILTIAZEM HCL 90 MG TABLET PO SCH ×2 (08:50→21:00)
[2017-05-24] MEDS: BUMETANIDE 1 MG/4 ML VIAL IV SCH ×2 (08:50→17:00)
[2017-05-24 09:50] LABS: BAND % (MANUAL) 54 % (0-10); LYMPHOCYTES % (MANUAL) 8 % (20-40); MONOCYTES % (MANUAL) 14 % (2-10); NEUTROPHILS % (MANUAL) 24 % (42-75)
--- NOTE | 2017-05-24 10:18 | NUR ---
Spoke with Dr. Haines regarding pt's low H/H and stated that no blood transfusion is needed at this time.
--- NOTE | 2017-05-24 18:53 | NUR ---
End of shift: Pt resting and dozing off in bed with fall precautions and safety measures maintained. Call light within reach and all needs met. IV amiodarone drip infusing as ordered. Pt on 2L nc. Pt stable and nad noted.
--- NOTE | 2017-05-24 19:30 | NUR ---
RECEIVED PT IN BED AWAKE. PLAN OF CARE DISCUSSED PT UNDERSTOOD.
[2017-05-24] MEDS: ZOLPIDEM 5 MG TABLET PO SCH (21:00)
[2017-05-24] MEDS: TAMSULOSIN HCL 0.4 MG CAP.SR.24H PO SCH (21:48)
[2017-05-24] MEDS: DUTASTERIDE 0.5 MG CAPSULE PO SCH (21:48)
[2017-05-24] MEDS: PRIMIDONE 50 MG TABLET PO SCH (21:48)
[2017-05-24] MEDS: ATORVASTATIN 10 MG TABLET PO SCH (21:48)
[2017-05-24] MEDS: HYDROCODONE/APAP 10-325 MG TABLET PO SCH (21:50)
[2017-05-25 00:26] VITALS: BP 99/65
[2017-05-25 04:00] VITALS: BP 111/74
--- NOTE | 2017-05-25 06:00 | NUR ---
CALL PLACED TO DR. RUIZ REGARDING LOW BLOOD SUGAR. ORDERED TO CHANGE AMERYL TO 1MG DAILY AND ACCU AC&HS WITH MILD COVERAGE.
--- NOTE | 2017-05-25 07:30 | NUR ---
BLOOD SUGAR 46 AT THIS TIME , D50 GIVEN ORDERED. AT BEDSIDE. AWAITING BREAKFAST.
[2017-05-25] MEDS: DEXTROSE 50% 50 ML DISP.SYRIN IV PRN ×2 (07:41→11:38)
[2017-05-25] MEDS: BLOOD SUGAR DIAGNOSTIC 1 EACH STRIP VI SCH ×7 (07:42→21:00)
[2017-05-25 07:54] VITALS: BP 98/66
--- NOTE | 2017-05-25 07:59 | NUR ---
AMARYL NOT GIVEN BS 48
[2017-05-25] MEDS ORDERED: GLIMEPIRIDE 2 MG TABLET PO SCH (08:00)
[2017-05-25 08:28] LABS: BASOPHILS % (AUTO) 0.4 % (0.0-2.0); EOSINOPHILS # (AUTO) 0.5 K/uL (0.0-0.7); EOSINOPHILS % (AUTO) 5.5 % (0.0-7.0); HEMATOCRIT 24.2 % (40-50); HEMOGLOBIN 8.3 G/DL (14.0-18.0); LYMPHOCYTES # (AUTO) 0.5 K/UL (0.8-4.8); LYMPHOCYTES % (AUTO) 6.4 % (20.5-51.5); MEAN CORPUSCULAR HEMOGLOBIN 33.2 UUG (27.0-31.0); MEAN CORPUSCULAR HGB CONC 34 g/dL (32.0-37.0); MEAN CORPUSCULAR VOLUME 96.9 FL (82.0-92.0); MONOCYTES # (AUTO) 0.9 K/UL (0.1-1.30); MONOCYTES % (AUTO) 10.5 % (0.0-11.0); NEUTROPHILS # (AUTO) 6.6 K/UL (1.8-8.9); NEUTROPHILS % (AUTO) 77.2 % (38.5-71.5); PLATELET COUNT (AUTO) 241 K/UL (150-450); WHITE BLOOD COUNT (AUTO) 8.5 K/UL (4.0-11.2)
[2017-05-25] MEDS: DOCUSATE SODIUM 100 MG CAPSULE PO SCH (08:33)
[2017-05-25] MEDS: CALCITRIOL 0.25 MCG CAPSULE PO SCH (08:33)
[2017-05-25] MEDS: POTASSIUM CHLORIDE 8 MEQ CAPSULE.SA PO SCH ×3 (08:33→16:59)
[2017-05-25] MEDS: CYCLOBENZAPRINE HCL 10 MG TABLET PO SCH (08:33)
[2017-05-25] MEDS: ALLOPURINOL 100 MG TABLET PO SCH (08:33)
[2017-05-25] MEDS: FOLIC ACID 1 MG TABLET PO SCH ×2 (08:33→16:59)
[2017-05-25] MEDS: DILTIAZEM HCL 90 MG TABLET PO SCH ×2 (08:34→20:55)
[2017-05-25] MEDS: BUMETANIDE 1 MG/4 ML VIAL IV SCH (08:34)
[2017-05-25] MEDS: PANTOPRAZOLE SODIUM 40 MG TABLET.DR PO SCH (08:35)
[2017-05-25] MEDS: MIRALAX 17 GM POWD.PACK PO SCH (08:37)
[2017-05-25] MEDS: FLUTICASONE/VILANTEROL 1 EACH BLST.W.DEV INH SCH (08:39)
[2017-05-25 09:11] LABS: ALANINE AMINOTRANSFERASE 16 U/L (16-63); ALKALINE PHOSPHATASE 84 U/L (50-136); ASPARTATE AMINOTRANSFERASE 19 U/L (15-37); BILIRUBIN,TOTAL 0.4 mg/dL (0.2-1.0); CARBON DIOXIDE 20 mmol/L (21-32); CHLORIDE 103 mmol/L (98-107); CREATININE 4.3 mg/dL (0.6-1.3); GLUCOSE 51 mg/dL (74-106); MAGNESIUM 1.7 mg/dL (1.8-2.4); PHOSPHOROUS 4.9 mg/dL (2.5-4.9); POTASSIUM 3.9 mmol/L (3.5-5.1); TOTAL PROTEIN, SERUM 6.8 g/dL (6.4-8.2)
[2017-05-25 09:22] LABS: UREA NITROGEN, BLOOD 142 mg/dL (7-18)
[2017-05-25 11:39] VITALS: BP 100/59
[2017-05-25] MEDS: ONDANSETRON 4 MG/2 ML VIAL IV PRN (11:39)
--- NOTE | 2017-05-25 11:40 | NUR ---
BS 68 UNABLE TO TOLERATE ORANGE JUICE VERY LETHARGIC. DEXTROSE 50 GIVEN IVP. CLOSELY MONITORED
[2017-05-25 13:24] LABS: BAND % (MANUAL) 35 % (0-10); EOSINOPHILS % (MANUAL) 6 % (0-8); LYMPHOCYTES % (MANUAL) 7 % (20-40); MONOCYTES % (MANUAL) 9 % (2-10); NEUTROPHILS % (MANUAL) 43 % (42-75)
[2017-05-25 15:14] VITALS: BP 104/59
--- NOTE | 2017-05-25 17:16 | NUR ---
DR OVALLE NOTIFIED OF HR 134-148 SUSTAINING BUT ASSYMPTOMATIC WITH ORDER TO STOP AMIODARONE DRIP AND POSSIBLE CARDIOVERSION IN AM
[2017-05-25] MEDS ORDERED: BUMETANIDE INJ 2 MG in IV DEXTROSE 5% 32 ML IV SCH (18:00)
[2017-05-25 20:00] VITALS: BP 97/66
[2017-05-25] MEDS: DUTASTERIDE 0.5 MG CAPSULE PO SCH (20:54)
[2017-05-25] MEDS: PRIMIDONE 50 MG TABLET PO SCH (20:54)
[2017-05-25] MEDS: TAMSULOSIN HCL 0.4 MG CAP.SR.24H PO SCH (20:55)
[2017-05-25] MEDS: ZOLPIDEM 5 MG TABLET PO SCH (20:56)
[2017-05-25] MEDS: ATORVASTATIN 10 MG TABLET PO SCH (20:56)
[2017-05-25] MEDS: HYDROCODONE/APAP 10-325 MG TABLET PO SCH (20:56)
[2017-05-25] MEDS ORDERED: SUCRALFATE 1 G/10 ML LIQUID UDC ONE (23:06)
[2017-05-26] VITALS (7 sets, daily range): BP systolic 84–112; BP diastolic 59–70
[2017-05-26] MEDS ORDERED: SUCRALFATE 1 G/10 ML LIQUID UDC ONE (05:19)
[2017-05-26] MEDS: SUCRALFATE 1 G/10 ML LIQUID UDC GT SCH ×3 (05:55→21:56)
[2017-05-26 06:59] LABS: EOSINOPHILS # (AUTO) 0.6 K/uL (0.0-0.7); EOSINOPHILS % (AUTO) 4.6 % (0.0-7.0); HEMOGLOBIN 8.1 G/DL (14.0-18.0); LYMPHOCYTES # (AUTO) 0.6 K/UL (0.8-4.8); LYMPHOCYTES % (AUTO) 5.1 % (20.5-51.5); MEAN CORPUSCULAR HEMOGLOBIN 34.5 UUG (27.0-31.0); MEAN CORPUSCULAR HGB CONC 34 g/dL (32.0-37.0); MEAN CORPUSCULAR VOLUME 100.8 FL (82.0-92.0); MONOCYTES # (AUTO) 1.1 K/UL (0.1-1.30); MONOCYTES % (AUTO) 8.3 % (0.0-11.0); NEUTROPHILS # (AUTO) 10.4 K/UL (1.8-8.9); PLATELET COUNT (AUTO) 229 K/UL (150-450); WHITE BLOOD COUNT (AUTO) 12.7 K/UL (4.0-11.2)
[2017-05-26 07:10] LABS: HEMATOCRIT 23.6 % (40-50); RED BLOOD CELL COUNT(AUTO) 2.35 MIL/UL (4.7-6.1)
[2017-05-26 07:11] LABS: ALANINE AMINOTRANSFERASE 17 U/L (16-63); ALKALINE PHOSPHATASE 103 U/L (50-136); ASPARTATE AMINOTRANSFERASE 17 U/L (15-37); BILIRUBIN,TOTAL 0.4 mg/dL (0.2-1.0); CARBON DIOXIDE 21 mmol/L (21-32); CHLORIDE 105 mmol/L (98-107); CREATININE 4.1 mg/dL (0.6-1.3); MAGNESIUM 1.7 mg/dL (1.8-2.4); PHOSPHOROUS 4.5 mg/dL (2.5-4.9); TOTAL PROTEIN, SERUM 6.9 g/dL (6.4-8.2)
[2017-05-26 07:27] LABS: GLUCOSE 48 mg/dL (74-106); UREA NITROGEN, BLOOD 121 mg/dL (7-18)
[2017-05-26] MEDS: BLOOD SUGAR DIAGNOSTIC 1 EACH STRIP VI SCH ×4 (07:38→21:56)
[2017-05-26] MEDS: DEXTROSE 50% 50 ML DISP.SYRIN IV PRN (07:40)
--- NOTE | 2017-05-26 08:11 | NUR ---
730 - BS Critical received rechecked bs resulted to 48 again. Pt was awake alertx2 at bedside. PT was able to take a sip of oj. then gave d50 as ordered. Pt was "slow to respond per " but pt was able to follow directions when checking is bs. . 811 Critical labs notified to Dr Cochran re: RBC 2.35, Hg 8.1/23.6, BS 48. Gave D50 as ordered. Recheck BS 126. Current B/P 94/64- hr 145 aflutter - resp 20, 98.6. DR Cochran D/C amaryl. No further orders received. Dr claros here to see pt new orders re: estelita martinez received awaiting meds from pharmacy.
[2017-05-26] MEDS: CALCITRIOL 0.25 MCG CAPSULE PO SCH (08:43)
[2017-05-26] MEDS: ALLOPURINOL 100 MG TABLET PO SCH (08:44)
[2017-05-26] MEDS: PANTOPRAZOLE SODIUM 40 MG TABLET.DR PO SCH (08:44)
[2017-05-26] MEDS: FOLIC ACID 1 MG TABLET PO SCH ×2 (08:44→15:48)
[2017-05-26] MEDS: CYCLOBENZAPRINE HCL 10 MG TABLET PO SCH (08:44)
[2017-05-26] MEDS: DILTIAZEM HCL 90 MG TABLET PO SCH ×2 (08:44→21:55)
[2017-05-26] MEDS: POTASSIUM CHLORIDE 8 MEQ CAPSULE.SA PO SCH ×3 (08:44→15:48)
[2017-05-26] MEDS: FLUTICASONE/VILANTEROL 1 EACH BLST.W.DEV INH SCH (08:45)
[2017-05-26] MEDS: DOCUSATE SODIUM 100 MG CAPSULE PO SCH (08:45)
[2017-05-26] MEDS: MIRALAX 17 GM POWD.PACK PO SCH (08:49)
[2017-05-26] MEDS: AMIODARONE HCL IV 900 MG in IV DEXTROSE 5% 482 ML IV PRN (08:59)
[2017-05-26] MEDS ORDERED: BUMETANIDE 1 MG/4 ML VIAL IV SCH (09:00)
--- NOTE | 2017-05-26 09:00 | NUR ---
Noted coughing during feed from pt. DR Zaki carney for [facility]. later on today.
--- NOTE | 2017-05-26 14:00 | NUR ---
Pt was seen by ST- recommends puree diet. Will attempt to have puree for dinner.
--- NOTE | 2017-05-26 16:00 | NUR ---
Dr claros aware that amiodorone drip has no effect on pt's rhythm - remains aflutter @140's no new order received. Questionable plan for cardioversion tomorrow but no official order received.
--- NOTE | 2017-05-26 18:00 | NUR ---
Pt had good appetite for dinner. Pt ate about 75% of his meals. Pt is in no acute distress. TELE remains @140's uncontrolled a flutter. Awaiting for DR GARCIA to see pt. Addendum: 05/26/17 at 1824 by GIOVANNA SCHMIDT RN NO S/s of hypoglycemia.
--- NOTE | 2017-05-26 18:57 | NUR ---
Noted increased congestion. Will notify next shift. Checked o2 sat @ 94% on 2 liters. Resp 22.
--- NOTE | 2017-05-26 21:00 | NUR ---
RECEIVED PATIENT AWAKE, ALERT AND ORIENTED X4. NC 2 L O2 SATS 94% EASILY GETS SOB WHEN TALKING. NOTED GENERALIZED EDEMA. ATRIAL FLUTTER ON TELE HR AT 140'S. VITAL SIGNS ARE STABLE. ON AMIODARONE DRIP.
[2017-05-26] MEDS: TAMSULOSIN HCL 0.4 MG CAP.SR.24H PO SCH (21:53)
[2017-05-26] MEDS: DUTASTERIDE 0.5 MG CAPSULE PO SCH (21:54)
[2017-05-26] MEDS: PRIMIDONE 50 MG TABLET PO SCH (21:55)
[2017-05-26] MEDS: ATORVASTATIN 10 MG TABLET PO SCH (21:55)
[2017-05-26] MEDS: HYDROCODONE/APAP 10-325 MG TABLET PO SCH (21:57)
[2017-05-26] MEDS: ZOLPIDEM 5 MG TABLET PO SCH (21:57)
[2017-05-27] VITALS (50 sets, daily range): BP systolic 74–125; BP diastolic 32–81
[2017-05-27] MEDS ORDERED: BUMETANIDE 1 MG/4 ML VIAL IV ONE
--- NOTE | 2017-05-27 00:02 | NUR ---
PATIENT IS MORE SOB, AND CONGESTION NOTED TO FORM TAMPER DR. ARRIETA ORDERED 2 MG IV BUMEX.
[2017-05-27] MEDS ORDERED: AMIODARONE HCL 150 MG/3 ML VIAL IV ONE (02:01)
[2017-05-27] MEDS: SUCRALFATE 1 G/10 ML LIQUID UDC GT SCH ×3 (05:50→21:27)
--- NOTE | 2017-05-27 06:39 | NUR ---
CONGESTION WAS RELIEVED, PATIENT WAS ABLE TO SLEEP USING HIS OWN CPAP UNTIL THIS MORNING WHEN HE WOKE UP. HE IS CONFUSE OF WHERE HE IS AND REFUSED DIAPER CHANGE, REORIENTED PATIENT. CONSENT FOR CARDIOVERSION SIGNED BY AT BEDSIDE. OTHERWISE STILL A. FLUTTER ON TELE HR AT 140'S BP NOT COMPROMISED. CALL LIGHT WITHIN REACH.
[2017-05-27] MEDS: BLOOD SUGAR DIAGNOSTIC 1 EACH STRIP VI SCH ×3 (07:30→16:56)
[2017-05-27] MEDS: BUMETANIDE INJ 2 MG in IV DEXTROSE 5% 32 ML IV SCH ×3 (08:00→21:27)
--- NOTE | 2017-05-27 08:15 | NUR ---
Kala WOOD from surgery here to pecan picker pt for cardioversion. Consent signed by . Pt if confused.
[2017-05-27] MEDS ORDERED: SUCCINYLCHOLINE CHLORIDE 200 MG/10 ML VIAL ONE (08:49)
[2017-05-27] MEDS ORDERED: FENTANYL CITRATE 100 MCG/2 ML AMPUL ONE ×3 (08:49→11:16)
[2017-05-27] MEDS ORDERED: MIDAZOLAM HCL 2 MG/2 ML VIAL ONE ×3 (08:49→11:17)
[2017-05-27] MEDS ORDERED: ROCURONIUM BROMIDE 50 MG/5 ML VIAL ONE (08:49)
[2017-05-27] MEDS: CYCLOBENZAPRINE HCL 10 MG TABLET PO SCH (09:00)
[2017-05-27] MEDS: DOCUSATE SODIUM 100 MG CAPSULE PO SCH (09:00)
[2017-05-27] MEDS: MIRALAX 17 GM POWD.PACK PO SCH (09:00)
[2017-05-27] MEDS: DILTIAZEM HCL 90 MG TABLET PO SCH ×2 (09:00→20:33)
[2017-05-27] MEDS: FOLIC ACID 1 MG TABLET PO SCH ×2 (09:00→16:51)
[2017-05-27] MEDS: POTASSIUM CHLORIDE 8 MEQ CAPSULE.SA PO SCH (09:00)
[2017-05-27] MEDS: CALCITRIOL 0.25 MCG CAPSULE PO SCH (09:00)
[2017-05-27] MEDS: PANTOPRAZOLE SODIUM 40 MG TABLET.DR PO SCH (09:00)
[2017-05-27] MEDS: ALLOPURINOL 100 MG TABLET PO SCH (09:00)
[2017-05-27] MEDS: FLUTICASONE/VILANTEROL 1 EACH BLST.W.DEV INH SCH (09:00)
--- NOTE | 2017-05-27 09:00 | NUR ---
Unable to give 800-900 MEDs due to pt is at surgery for cardioversion.
[2017-05-27] MEDS ORDERED: PROPOFOL 100 ML ONE (09:23)
[2017-05-27] MEDS ORDERED: PHENYLEPHRINE IV 20 MG in IV DEXTROSE 5% 250 ML IV PRN (10:00)
[2017-05-27] MEDS ORDERED: HEPARIN/NS 500 ML ONE (10:04)
[2017-05-27] MEDS ORDERED: FENTANYL CITRAT IV 1,250 MCG in IV NORMAL SALINE 225 ML IV PRN (10:45)
[2017-05-27] MEDS ORDERED: MIDAZOLAM HCL 100 MG in IV DEXTROSE 5% 80 ML IV PRN (10:45)
--- NOTE | 2017-05-27 11:45 | NUR ---
Patient in to ICU bed 3 at around this time. Intubated via own bed with ventilator A/C 18, tv 650, 80% adn peep of 7. Arterial line patent and working. running with heparinized bag which was changed as per protocol to normal saline 500cc bag. vitals: 98.6, hr of 116, sbp of 99/58. Neosynephrine runing at 150 mcg/min and amiodarone running at 1mcg/min.
--- NOTE | 2017-05-27 11:52 | NUR ---
PT TRANSPORTED TO CCU BED 3 VIA AMBU BAG WITH NO INCIDENT NOTED. NO COMPLICATIONS. VENT ALARMS ON AND AUDIBLE. VENT IS PLUGGED IN THE RED OUTLET. SIZE 8.5 ETT, 24 CM AT THE LIP. SUCTIONED SMALL AMOUNTS OF THICK YELLOW SECRETIONS. PT DOING FINE ON CURRENT VENT SETTINGS.
[2017-05-27 12:10] LABS: ABG BASE EXCESS -6.6 mmol/L; ABG HCO3 20.5 mmol/L; ABG PCO2 48.6 mmHg (35.0-45.0); ABG PH 7.243 (7.350-7.450); ABG PO2 294.1 mmHg (75.0-100.0); ABG SITE RIGHT RADIAL; ABG TOTAL HEMOGLOBIN 8.8 G/dL (13.5-18.0); COHb 0.9 % (0.5-1.5); MetHb 0.6 % (0.0-1.5); O2Hb 98.2 % (94.0-97.0); VENT MODE VENT - A/C; VT, ABG 700 mL
[2017-05-27] MEDS ORDERED: IV NORMAL SALINE 1000 ML BAG IV ONE (12:16)
[2017-05-27] MEDS ORDERED: SEVOFLURANE 250 ML BOTTLE IH ONE (12:16)
[2017-05-27] MEDS ORDERED: PROPOFOL 200 MG/20 ML BOTTLE IV ONE (12:16)
[2017-05-27] MEDS ORDERED: LIDOCAINE HCL 1% 20 ML VIAL MC ONE (12:16)
[2017-05-27] MEDS: PROPOFOL 100 ML IV PRN ×2 (12:43→19:38)
--- NOTE | 2017-05-27 12:45 | NUR ---
Dr. Melchor in the unit to examine patient; full report given see orders.
[2017-05-27] MEDS: INSULIN REGULAR, HUMAN 300 UNIT/3 ML VIAL SQ PRN ×2 (13:35→17:00)
--- NOTE | 2017-05-27 13:37 | NUR ---
PT BS 233. Administered sliding scale Insulin per protocol
[2017-05-27] MEDS: PHENYLEPHRINE IV 80 MG in IV DEXTROSE 5% 250 ML IV PRN ×2 (14:17→19:21)
[2017-05-27] MEDS: AMIODARONE HCL IV 900 MG in IV DEXTROSE 5% 482 ML IV PRN (14:24)
[2017-05-27] MEDS ORDERED: BLOOD SUGAR DIAGNOSTIC 1 EACH STRIP VI SCH (15:30)
[2017-05-27] MEDS: POTASSIUM CHLORIDE 20 MEQ POWDER PACKET NG SCH (16:51)
--- NOTE | 2017-05-27 17:34 | NUR ---
PATIENT IS TRANSFERRED TO ICU ,INTUBATED AND ON VENT POST SURGERY FOR CARDIOVERSION LABS: 05/26 WBC-12.7(H),RBC-2.35(L),HGB/HCT-8.1/23.6(L/L),POC-206(H),BUN-121/4.1(H/H),GLUCOSE 48(L) CURRENTLY NPO, WILL F/U WITH NUTRITION THERAPY PRIOR TO SURGERY/NPO STATUS PATIENT WAS ON RENAL STANDARD DIET AND WAS EATING 50-100% OF MEALS NUTRITION DIAGNOSIS: INADEQUATE ENERGY/KCAL INTAKE RELATED TO SURGERY,NEED TO BE NPO/INTUBATED EVIDENCED BY NPO STATUS WILL F/U WITH NUTRITION THERAPY Addendum: 05/27/17 at [address] Amended: Links added.
--- NOTE | 2017-05-27 19:25 | NUR ---
RECEIVED PT ON CONTINUOUS VENT AC 18 VT 650 PEEP 7 FIO2 80% . ETT 8.5 SECURED AT 24 CM LIP LINE VIA ANCHOR FAST. PT SEDATED AT THIS TIME. BS COARSE. SUCTION LAVAGE MODERATE AMOUNT THICK YELLOW SECRETIONS. VENT CHECKED, ALARMS WORKING WELL AND AUDIBLE. NO VENT CHANGES MADE AT THIS TIME. WILL CONTINUE TO MONITOR.
[2017-05-27] MEDS ORDERED: NOREPINEPHRINE BITARTRATE 16 MG in IV DEXTROSE 5% 500 ML IV PRN (19:30)
[2017-05-27] MEDS: ZOLPIDEM 5 MG TABLET PO SCH (20:32)
[2017-05-27] MEDS: HYDROCODONE/APAP 10-325 MG TABLET PO SCH (20:37)
[2017-05-27] MEDS: DUTASTERIDE 0.5 MG CAPSULE PO SCH (21:00)
--- NOTE | 2017-05-27 21:00 | NUR ---
Adovart dose held. Cannot crush pill, only orogastric tube access. Juancarlos and jason held for low BP Addendum: 05/28/17 at 0311 by VLAD VINSON RN Adovart label comment states "DO NOT CRUSH- CONTENTS OF CAPSULE MUCOUSAL IRRITANT" Patient has recent GI history per H&P
--- NOTE | 2017-05-27 21:07 | NUR ---
Spoke with Dr. Reyna via telephone regarding Insulin coverage for Accu-check and NPO status with no IVF. New orders received, see order history.
[2017-05-27] MEDS ORDERED: DEXTROSE 50% 50 ML DISP.SYRIN IV PRN (21:15)
[2017-05-27] MEDS: IV D5W-0.45% NS 1000 ML BAG IV PRN (21:27)
[2017-05-27] MEDS: TAMSULOSIN HCL 0.4 MG CAP.SR.24H PO SCH (21:27)
[2017-05-27] MEDS: ATORVASTATIN 10 MG TABLET PO SCH (21:40)
[2017-05-27] MEDS: PRIMIDONE 50 MG TABLET PO SCH (21:50)
[2017-05-28] VITALS (95 sets, daily range): BP systolic 76–151; BP diastolic 32–71
[2017-05-28] MEDS: BLOOD SUGAR DIAGNOSTIC 1 EACH STRIP VI SCH ×4 (00:07→18:20)
[2017-05-28] MEDS: INSULIN REGULAR, HUMAN 300 UNIT/3 ML VIAL SQ PRN ×4 (00:08→18:28)
[2017-05-28] MEDS ORDERED: INSULIN REGULAR, HUMAN 300 UNIT/3 ML VIAL ONE (00:16)
[2017-05-28] MEDS: PHENYLEPHRINE IV 80 MG in IV DEXTROSE 5% 250 ML IV PRN (01:31)
[2017-05-28] MEDS: PROPOFOL 100 ML IV PRN ×4 (01:32→20:27)
[2017-05-28 05:17] LABS: ALANINE AMINOTRANSFERASE 20 U/L (16-63); ALKALINE PHOSPHATASE 116 U/L (50-136); ASPARTATE AMINOTRANSFERASE 15 U/L (15-37); BILIRUBIN,TOTAL 0.4 mg/dL (0.2-1.0); CARBON DIOXIDE 22 mmol/L (21-32); CHLORIDE 102 mmol/L (98-107); CREATININE 4.8 mg/dL (0.6-1.3); GLUCOSE 174 mg/dL (74-106); MAGNESIUM 1.8 mg/dL (1.8-2.4); PHOSPHOROUS 5.5 mg/dL (2.5-4.9); POTASSIUM 4.3 mmol/L (3.5-5.1); TOTAL PROTEIN, SERUM 6.8 g/dL (6.4-8.2)
[2017-05-28 05:20] LABS: UREA NITROGEN, BLOOD 120 mg/dL (7-18)
[2017-05-28] MEDS: BUMETANIDE INJ 2 MG in IV DEXTROSE 5% 32 ML IV SCH ×3 (06:03→22:13)
[2017-05-28] MEDS: SUCRALFATE 1 G/10 ML LIQUID UDC GT SCH ×3 (06:05→22:13)
[2017-05-28 06:20] LABS: BASOPHILS % (AUTO) 0.1 % (0.0-2.0); EOSINOPHILS # (AUTO) 0.4 K/uL (0.0-0.7); EOSINOPHILS % (AUTO) 2.8 % (0.0-7.0); HEMATOCRIT 24.9 % (36.7-47.1); HEMOGLOBIN 8.3 g/dL (12.5-16.3); LYMPHOCYTES # (AUTO) 0.6 K/uL (20.0-40.0); LYMPHOCYTES % (AUTO) 4.3 % (20.5-51.5); MEAN CORPUSCULAR HEMOGLOBIN 32.9 uug (23.8-33.4); MEAN CORPUSCULAR HGB CONC 33 g/dL (32.5-36.3); MEAN CORPUSCULAR VOLUME 99.2 fL (73.0-96.2); MONOCYTES % (AUTO) 6.6 % (0.0-11.0); NEUTROPHILS # (AUTO) 12.9 K/uL (1.8-8.9); NEUTROPHILS % (AUTO) 86.2 % (38.5-71.5); PLATELET COUNT (AUTO) 252 K/uL (152-348); RED BLOOD CELL COUNT(AUTO) 2.51 MIL/uL (4.06-5.63); WHITE BLOOD COUNT (AUTO) 14.9 K/uL (3.6-10.2)
--- NOTE | 2017-05-28 07:53 | NUR ---
RECEIVED PATIENT INTUBATED WITH ETT TUBE SIZE 8.5CM, TAPED AT APPROXIMATELY 24 CM AT LIP, ON VENT RIVERA WITH SETTINGS OF AC 18, VT 650, FI02 50% AND PEEP 5. PATIENT IS SEDATED AND NON RESPONSIVE AT THIS TIME. SUCTIONED FOR LARGE AMOUNT OF THICK PALE YELLOW SECRETIONS. ORAL CARE GIVEN. WEANING PROTOCOLS TO FOLLOW AT 0830.
--- NOTE | 2017-05-28 08:55 | NUR ---
Dr. Haines here to assess pt report given on patients condition and toleration of sedation vacation and vent cpap mode and labs. orders received. SK
[2017-05-28] MEDS: FLUTICASONE/VILANTEROL 1 EACH BLST.W.DEV INH SCH (09:00)
[2017-05-28 09:14] LABS: ABG BASE EXCESS -5.4 mmol/L; ABG HCO3 19.9 mmol/L; ABG PCO2 37.9 mmHg (35.0-45.0); ABG PH 7.337 (7.350-7.450); ABG PO2 81.3 mmHg (75.0-100.0); ABG SITE RIGHT RADIAL; ABG TOTAL HEMOGLOBIN 10.9 G/dL (13.5-18.0); MetHb 0.3 % (0.0-1.5); O2Hb 94.4 % (94.0-97.0); VENT MODE VENT - CPAP; VT, ABG 433 mL
--- NOTE | 2017-05-28 09:15 | NUR ---
Dr. Munoz called AB's reported and toleration of Wean and sedation vacation, no orders received stated will come and see patient in an hour.
[2017-05-28] MEDS: CYCLOBENZAPRINE HCL 10 MG TABLET PO SCH (10:03)
[2017-05-28] MEDS: CALCITRIOL 0.25 MCG CAPSULE PO SCH (10:03)
[2017-05-28 10:09] LABS: BAND % (MANUAL) 3 % (0-10); EOSINOPHILS % (MANUAL) 5 % (0-8); LYMPHOCYTES % (MANUAL) 8 % (20-40); MONOCYTES % (MANUAL) 11 % (2-10); NEUTROPHILS % (MANUAL) 73 % (42-75)
[2017-05-28] MEDS: POTASSIUM CHLORIDE 20 MEQ POWDER PACKET NG SCH ×3 (10:10→16:21)
[2017-05-28] MEDS: DILTIAZEM HCL 90 MG TABLET PO SCH (10:10)
[2017-05-28] MEDS: DOCUSATE SODIUM 100 MG CAPSULE PO SCH (10:10)
[2017-05-28] MEDS: FOLIC ACID 1 MG TABLET PO SCH ×2 (10:10→16:21)
[2017-05-28] MEDS: MIRALAX 17 GM POWD.PACK PO SCH (10:11)
[2017-05-28] MEDS: ALLOPURINOL 100 MG TABLET PO SCH (10:13)
[2017-05-28] MEDS: PANTOPRAZOLE ORAL SUSPENSION 40 MG SUSPDR.PKT GT SCH (10:21)
[2017-05-28] MEDS ORDERED: MEROPENEM 1 G in IV NORMAL SALINE 100 ML IV SCH (11:30)
[2017-05-28] MEDS ORDERED: PHENYLEPHRINE 10 MG/1 ML VIAL MC ONE (12:19)
[2017-05-28] MEDS: MEROPENEM 500 MG in IV NORMAL SALINE 50 ML IV SCH (13:04)
[2017-05-28] MEDS ORDERED: BUMETANIDE 1 MG/4 ML VIAL ONE (13:26)
[2017-05-28] MEDS: IV D5W-0.45% NS 1000 ML BAG IV PRN (13:26)
[2017-05-28] MEDS: AMIODARONE HCL IV 900 MG in IV DEXTROSE 5% 482 ML IV PRN (16:20)
--- NOTE | 2017-05-28 19:20 | NUR ---
RECEIVED PT ON CONTINUOUS VENT AC 18 VT 650 PEEP 7 FIO2 40% . ETT 8.5 SECURED AT 24 CM LIP LINE VIA ANCHOR FAST. BS DIMINISHED BUT CLEAR. SUCTION LAVAGE PRN. ORAL CARE DONE. NO VENT CHANGES MADE AT THIS TIME. WILL CONTINUE TO MONITOR .
--- NOTE | 2017-05-28 19:56 | NUR ---
Continues on ventilator, no acute distress noted, continues on multiple gtts.
[2017-05-28] MEDS: ATORVASTATIN 10 MG TABLET PO SCH (20:27)
[2017-05-28] MEDS: PRIMIDONE 50 MG TABLET PO SCH (20:27)
[2017-05-28] MEDS: DUTASTERIDE 0.5 MG CAPSULE PO SCH (20:27)
[2017-05-28] MEDS: TAMSULOSIN HCL 0.4 MG CAP.SR.24H PO SCH (20:27)
[2017-05-28] MEDS: ZOLPIDEM 5 MG TABLET PO SCH (20:28)
[2017-05-28] MEDS: HYDROCODONE/APAP 10-325 MG TABLET PO SCH (21:00)
[2017-05-29] VITALS (95 sets, daily range): BP systolic 75–152; BP diastolic 35–63
[2017-05-29] MEDS: BLOOD SUGAR DIAGNOSTIC 1 EACH STRIP VI SCH ×4 (00:18→17:40)
[2017-05-29] MEDS: INSULIN REGULAR, HUMAN 300 UNIT/3 ML VIAL SQ PRN (00:20)
[2017-05-29] MEDS: PROPOFOL 100 ML IV PRN ×3 (03:55→19:02)
[2017-05-29] MEDS: PHENYLEPHRINE IV 80 MG in IV DEXTROSE 5% 250 ML IV PRN ×2 (03:56→19:58)
[2017-05-29] MEDS ORDERED: BUMETANIDE 1 MG/4 ML VIAL ONE (04:56)
--- NOTE | 2017-05-29 05:00 | NUR ---
Bumex 1 mg x2 vials stock overriden from [facility] at 0457 for 0600 dose; ready mixed med not provided by Pharmacy.
[2017-05-29 05:30] LABS: BASOPHILS % (AUTO) 0.2 % (0.0-2.0); EOSINOPHILS # (AUTO) 0.4 K/uL (0.0-0.7); EOSINOPHILS % (AUTO) 2.8 % (0.0-7.0); HEMOGLOBIN 7.6 g/dL (12.5-16.3); LYMPHOCYTES # (AUTO) 0.6 K/uL (20.0-40.0); LYMPHOCYTES % (AUTO) 3.6 % (20.5-51.5); MEAN CORPUSCULAR HEMOGLOBIN 32.5 uug (23.8-33.4); MEAN CORPUSCULAR HGB CONC 33 g/dL (32.5-36.3); MONOCYTES # (AUTO) 1.1 K/uL (2.0-10.0); MONOCYTES % (AUTO) 6.5 % (0.0-11.0); NEUTROPHILS # (AUTO) 14.1 K/uL (1.8-8.9); NEUTROPHILS % (AUTO) 86.9 % (38.5-71.5); PLATELET COUNT (AUTO) 232 K/uL (152-348); WHITE BLOOD COUNT (AUTO) 16.3 K/uL (3.6-10.2)
[2017-05-29 05:32] LABS: RED BLOOD CELL COUNT(AUTO) 2.34 MIL/uL (4.06-5.63)
[2017-05-29 05:50] LABS: CARBON DIOXIDE 21 mmol/L (21-32); CHLORIDE 103 mmol/L (98-107); CREATININE 4.6 mg/dL (0.6-1.3); GLUCOSE 137 mg/dL (74-106); MAGNESIUM 1.7 mg/dL (1.8-2.4); PHOSPHOROUS 4.8 mg/dL (2.5-4.9); POTASSIUM 4.5 mmol/L (3.5-5.1)
[2017-05-29] MEDS: SUCRALFATE 1 G/10 ML LIQUID UDC GT SCH ×3 (05:53→20:45)
[2017-05-29 05:54] LABS: UREA NITROGEN, BLOOD 119 mg/dL (7-18)
[2017-05-29] MEDS: BUMETANIDE INJ 2 MG in IV DEXTROSE 5% 32 ML IV SCH ×3 (05:54→21:50)
[2017-05-29] MEDS: PANTOPRAZOLE ORAL SUSPENSION 40 MG SUSPDR.PKT GT SCH (06:06)
--- NOTE | 2017-05-29 06:44 | NUR ---
Continues on ventilator, sat > 99 %. continues to need pressors for b/p.
[2017-05-29] MEDS: MIRALAX 17 GM POWD.PACK PO SCH (08:08)
[2017-05-29] MEDS: FOLIC ACID 1 MG TABLET PO SCH ×2 (08:08→17:35)
[2017-05-29] MEDS: POTASSIUM CHLORIDE 20 MEQ POWDER PACKET NG SCH ×3 (08:08→17:35)
[2017-05-29] MEDS: DOCUSATE SODIUM 100 MG CAPSULE PO SCH (08:08)
[2017-05-29] MEDS: CALCITRIOL 0.25 MCG CAPSULE PO SCH (08:09)
[2017-05-29] MEDS: CYCLOBENZAPRINE HCL 10 MG TABLET PO SCH (08:09)
[2017-05-29] MEDS: ALLOPURINOL 100 MG TABLET PO SCH (08:12)
[2017-05-29] MEDS: FLUTICASONE/VILANTEROL 1 EACH BLST.W.DEV INH SCH (08:25)
[2017-05-29] MEDS: MEROPENEM 500 MG in IV NORMAL SALINE 50 ML IV SCH (08:25)
[2017-05-29 10:31] LABS: ABG BASE EXCESS -8.1 mmol/L; ABG PH 7.186 (7.350-7.450); ABG PO2 53.4 mmHg (75.0-100.0); ABG SITE RIGHT BRACHIAL; COHb 1.1 % (0.5-1.5); CPAP,BG 8 cmH20; MetHb 0.5 % (0.0-1.5); O2Hb 77.9 % (94.0-97.0); VENT MODE CPAP
[2017-05-29] MEDS: IV D5W-0.45% NS 1000 ML BAG IV PRN (11:09)
--- NOTE | 2017-05-29 11:43 | NUR ---
[address] ELIZABETH VERBAL ORDER. PT PLACED BACK ON AC MODE. PT DID NOT TOLERATE CPAP WELL. PT BECAME TACHYCARDIC, TACHYPNEIC, AND SHOWED ACCESSORY MUSCLE USAGE. PT IS MORE COMFORTABLE ON AC SEDATED . WILL CONTINUE TO CLOSELY MONITOR
[2017-05-29] MEDS ORDERED: METOLAZONE 5 MG TABLET PO ONE (11:45)
[2017-05-29] MEDS: MAGNESIUM SULFATE/D5W 100 ML IV SCH ×2 (12:05→13:23)
--- NOTE | 2017-05-29 15:43 | NUR ---
PT REMAINS ON MECHANICAL VENTILATION, DOING WELL ON CURRENT SETTINGS. AC 18, Vt 650, +7, 35% FIO2. 8.5 ETT IS PATENT AND SECURED WITH ANCHOR FAST. HAS MODERATE AMOUNT OF YELLOW, THICK, BLOOD TINGED SECRETIONS. ALARMS ARE ON AND AUDIBLE, BVM AT BEDSIDE. WILL CONTINUE TO MONITOR.
[2017-05-29] MEDS: AMIODARONE HCL IV 900 MG in IV DEXTROSE 5% 482 ML IV PRN (17:36)
[2017-05-29] MEDS: DUTASTERIDE 0.5 MG CAPSULE PO SCH (20:44)
[2017-05-29] MEDS: TAMSULOSIN HCL 0.4 MG CAP.SR.24H PO SCH (20:44)
[2017-05-29] MEDS: PRIMIDONE 50 MG TABLET PO SCH (20:45)
[2017-05-29] MEDS: ZOLPIDEM 5 MG TABLET PO SCH (20:45)
[2017-05-29] MEDS: ATORVASTATIN 10 MG TABLET PO SCH (20:45)
[2017-05-29] MEDS: HYDROCODONE/APAP 10-325 MG TABLET PO SCH (20:45)
--- NOTE | 2017-05-29 20:54 | NUR ---
PATIENT RECEIVED ON A MECHANICAL VENTILATOR W/ THE FOLLOWING SETTINGS: AC 18, VT 650, PEEP +7, 35% FIO2. ETT IS ON THE RIGHT SIDE OF THE LIP. ORAL CARE DONE. PATIENT IS INTUBATED WITH A SIZE 8.5 ETT WHICH IS SECURED AT THE 24 CM LIP LINE. IT IS SECURED WITH AN ANCHOR FAST. HME CHANGED. SUCTIONED SMALL AMOUNTS OF THICK YELLOW SECRETIONS. AMBU BAG IS BY BEDSIDE. VENT ALARMS ARE ON AND LOUD. NO VENT CHANGES AT THIS TIME. WILL CONTINUE TO MONITOR.
[2017-05-30] VITALS (93 sets, daily range): BP systolic 58–141; BP diastolic 35–71
[2017-05-30] MEDS: BLOOD SUGAR DIAGNOSTIC 1 EACH STRIP VI SCH ×4 (00:13→17:22)
[2017-05-30] MEDS: PROPOFOL 100 ML IV PRN ×2 (02:23→12:19)
[2017-05-30 05:07] LABS: EOSINOPHILS # (AUTO) 0.5 K/uL (0.0-0.7); EOSINOPHILS % (AUTO) 2.8 % (0.0-7.0); HEMATOCRIT 25.9 % (40-50); HEMOGLOBIN 8.7 G/DL (14.0-18.0); LYMPHOCYTES # (AUTO) 0.4 K/UL (0.8-4.8); LYMPHOCYTES % (AUTO) 2.4 % (20.5-51.5); MEAN CORPUSCULAR HEMOGLOBIN 32.8 UUG (27.0-31.0); MEAN CORPUSCULAR HGB CONC 34 g/dL (32.0-37.0); MEAN CORPUSCULAR VOLUME 97.8 FL (82.0-92.0); MONOCYTES # (AUTO) 0.5 K/UL (0.1-1.30); MONOCYTES % (AUTO) 2.6 % (0.0-11.0); NEUTROPHILS % (AUTO) 92.2 % (38.5-71.5); PLATELET COUNT (AUTO) 256 K/UL (150-450); RED BLOOD CELL COUNT(AUTO) 2.65 MIL/UL (4.7-6.1); WHITE BLOOD COUNT (AUTO) 17.4 K/UL (4.0-11.2)
[2017-05-30 05:20] LABS: CARBON DIOXIDE 21 mmol/L (21-32); CHLORIDE 102 mmol/L (98-107); CREATININE 4.5 mg/dL (0.6-1.3); DIGOXIN < 0.2 ng/mL (0.9-2.0); GLUCOSE 89 mg/dL (74-106); MAGNESIUM 2.1 mg/dL (1.8-2.4); POTASSIUM 3.9 mmol/L (3.5-5.1)
[2017-05-30 05:40] LABS: UREA NITROGEN, BLOOD 114 mg/dL (7-18)
[2017-05-30] MEDS: SUCRALFATE 1 G/10 ML LIQUID UDC GT SCH ×3 (06:31→21:41)
[2017-05-30] MEDS: BUMETANIDE INJ 2 MG in IV DEXTROSE 5% 32 ML IV SCH ×3 (06:31→21:41)
[2017-05-30] MEDS: PANTOPRAZOLE ORAL SUSPENSION 40 MG SUSPDR.PKT GT SCH (06:31)
[2017-05-30] MEDS: POTASSIUM CHLORIDE 20 MEQ POWDER PACKET NG SCH ×3 (08:10→17:19)
[2017-05-30] MEDS: ALLOPURINOL 100 MG TABLET PO SCH (08:10)
[2017-05-30] MEDS: FOLIC ACID 1 MG TABLET PO SCH ×2 (08:10→17:19)
[2017-05-30] MEDS: MIRALAX 17 GM POWD.PACK PO SCH (08:10)
[2017-05-30] MEDS: DOCUSATE SODIUM 100 MG CAPSULE PO SCH (08:12)
[2017-05-30] MEDS: CALCITRIOL 0.25 MCG CAPSULE PO SCH (08:17)
[2017-05-30] MEDS: CYCLOBENZAPRINE HCL 10 MG TABLET PO SCH (08:18)
[2017-05-30] MEDS: FLUTICASONE/VILANTEROL 1 EACH BLST.W.DEV INH SCH (09:00)
[2017-05-30] MEDS: MEROPENEM 500 MG in IV NORMAL SALINE 50 ML IV SCH ×2 (09:09→20:46)
[2017-05-30 09:57] LABS: ABG BASE EXCESS -5.9 mmol/L; ABG HCO3 18.5 mmol/L; ABG PCO2 32.7 mmHg (35.0-45.0); ABG PH 7.371 (7.350-7.450); ABG PO2 91.4 mmHg (75.0-100.0); ABG SITE RIGHT RADIAL; MetHb 0.2 % (0.0-1.5); O2Hb 95.7 % (94.0-97.0); VENT MODE VENT - PSUPPORT; VT, ABG 552 mL
[2017-05-30] MEDS ORDERED: METOLAZONE 5 MG TABLET PO ONE (11:45)
[2017-05-30] MEDS: AMIODARONE HCL 200 MG TABLET PO SCH ×2 (12:20→20:47)
--- NOTE | 2017-05-30 16:00 | NUR ---
patient respond to bumex dripx,urine output adequate Addendum: 05/30/17 at 1601 by NEYDA PARRISH RN Amended: Links added. Addendum: 05/30/17 at 1604 by NEYDA PARRISH RN Amended: Links added. Addendum: 05/30/17 at 1623 by NEYDA PARRISH RN Amended: Links added. Addendum: 05/30/17 at 1623 by NEYDA PARRISH RN Amended: Links added. Addendum: 05/30/17 at 1624 by NEYDA PARRISH RN Amended: Links added. Addendum: 05/30/17 at 1624 by NEYDA PARRISH RN Amended: Links added. Addendum: 05/30/17 at 1625 by NEYDA PARRISH RN Amended: Links added. Addendum: 05/30/17 at 1626 by NEYDA PARRISH RN Amended: Links added.
--- NOTE | 2017-05-30 16:22 | NUR ---
luis placed on Cpap mode ,noted increased HR while weaning patient , was at the bedside during weaning,aware of ABG result ,unable to tolerate weaning .Patient back to AC mode Addendum: 05/30/17 at 162 by NEYDA PARRISH RN Amended: Links added. Addendum: 05/30/17 at 162 by NEYDA PARRISH RN Amended: Links added. Addendum: 05/30/17 at 1624 by NEYDA FRANCOIS RN Amended: Links added. Addendum: 05/30/17 at 1624 mahsa PARRISH RN Amended: Links added. Addendum: 05/30/17 at 1625 by NEYDA PARRISH RN Amended: Links added. Addendum: 05/30/17 at 1626 by NEYDA PARRISH RN Amended: Links added.
--- NOTE | 2017-05-30 16:35 | NUR ---
luis placed on Cpap mode ,noted increased HR while weaning patient , was at the bedside during weaning,aware of ABG result ,unable to tolerate weaning .Patient back to AC mode Addendum: 05/30/17 at 1635 by NEYDA PARRISH RN
[2017-05-30] MEDS: INSULIN REGULAR, HUMAN 300 UNIT/3 ML VIAL SQ PRN (17:26)
--- NOTE | 2017-05-30 18:00 | NUR ---
RESUMED CARE POST AM REPORT. PATIENT IS MORE AWAKE AND RESPONSIVE DURING THE WEANING PROCEDURE. ABG DRAWN WITH RESULT GIVEN TO DR. ELIZABETH. NO EXTUBATION TODAY REQUESTED BY THE SEXUAL ASSAULT COUNSELLOR. PUT BACK TO AC MODE AT AROUND NOONTIME ORDERED BY THE SEXUAL ASSAULT COUNSELLOR DUE TO ELEVATED HR AND BP. SUCTIONED FOR LARGE AMOUNT OF THICK SECRETIONS ORALLY AND FROM THE TRACH. NO OTHER CHANGES WAS ORDERED.
[2017-05-30] MEDS: PHENYLEPHRINE IV 80 MG in IV DEXTROSE 5% 250 ML IV PRN (20:19)
[2017-05-30] MEDS: ZOLPIDEM 5 MG TABLET PO SCH (20:29)
[2017-05-30] MEDS: HYDROCODONE/APAP 10-325 MG TABLET PO SCH (20:31)
[2017-05-30] MEDS: PRIMIDONE 50 MG TABLET PO SCH (20:46)
[2017-05-30] MEDS: TAMSULOSIN HCL 0.4 MG CAP.SR.24H PO SCH (20:46)
[2017-05-30] MEDS: ATORVASTATIN 10 MG TABLET PO SCH (20:47)
[2017-05-30] MEDS: DUTASTERIDE 0.5 MG CAPSULE PO SCH (20:47)
--- NOTE | 2017-05-30 21:55 | NUR ---
PT ON CONT RIVERA VENT WITH 8.5 ET/TUBE IN PLACE AND 24 LIP LINE, PT DOES ASSIST AT TIMES, WITH GOOD COUGH EFFORT, VENT SETTINGS, A/C 18, VT 650ML, PEEP 7, 35%, NO VENT CHANGES MADE AT THIS TIME, SUCTION MOUTH WITH YANKAUER, SUCTIONED PINKISH TINGE AND PALE YELL TINGE SECRETIONS FROM ET/TUBE, PT IS SEDATED , WEANIG IN AM AROUND 0900 TRIAL ON CPAP,ABG 10AM ORDERED. Edda HERNÁNDEZ RCP Addendum: 05/30/17 at 2159 by GREGORIA GILMORE Amended: Links added. Addendum: 05/31/17 at 0526 by GREGORIA GILMORE END OF SUMMARY, PT WITH MOSTLY CONTROLLED VENTILATION, PT IS SEDATED , SUCTIONED pinkish AND pale yell tinge secretions, change hme, weaning on pt in am on day shift, trial on CPAP, oral care done, moved et/tube to left side of mouth, no vent changes made till day shift, pt does have A/ELLA . Edda HERNÁNDEZ RCP
[2017-05-31] VITALS (81 sets, daily range): BP systolic 79–157; BP diastolic 39–80
[2017-05-31] MEDS: BLOOD SUGAR DIAGNOSTIC 1 EACH STRIP VI SCH ×4 (00:04→17:15)
[2017-05-31] MEDS: INSULIN REGULAR, HUMAN 300 UNIT/3 ML VIAL SQ PRN ×2 (00:05→05:24)
[2017-05-31] MEDS: PROPOFOL 100 ML IV PRN ×4 (00:48→22:13)
[2017-05-31] MEDS: PHENYLEPHRINE IV 80 MG in IV DEXTROSE 5% 250 ML IV PRN (03:36)
[2017-05-31] MEDS: PANTOPRAZOLE ORAL SUSPENSION 40 MG SUSPDR.PKT GT SCH (05:15)
[2017-05-31] MEDS: SUCRALFATE 1 G/10 ML LIQUID UDC GT SCH ×3 (05:15→21:35)
[2017-05-31] MEDS: BUMETANIDE INJ 2 MG in IV DEXTROSE 5% 32 ML IV SCH ×3 (05:16→21:38)
[2017-05-31 05:44] LABS: BASOPHILS % (AUTO) 0.1 % (0.0-2.0); EOSINOPHILS # (AUTO) 0.1 K/uL (0.0-0.7); HEMATOCRIT 50.3 % (40-50); HEMOGLOBIN 16.5 G/DL (14.0-18.0); LYMPHOCYTES # (AUTO) 0.2 K/UL (0.8-4.8); LYMPHOCYTES % (AUTO) 1.9 % (20.5-51.5); MEAN CORPUSCULAR HEMOGLOBIN 31.3 UUG (27.0-31.0); MEAN CORPUSCULAR HGB CONC 33 g/dL (32.0-37.0); MEAN CORPUSCULAR VOLUME 95.4 FL (82.0-92.0); MONOCYTES # (AUTO) 0.4 K/UL (0.1-1.30); MONOCYTES % (AUTO) 3.6 % (0.0-11.0); NEUTROPHILS # (AUTO) 9.1 K/UL (1.8-8.9); NEUTROPHILS % (AUTO) 93.4 % (38.5-71.5); PLATELET COUNT (AUTO) 151 K/UL (150-450); RED BLOOD CELL COUNT(AUTO) 5.28 MIL/UL (4.7-6.1); WHITE BLOOD COUNT (AUTO) 9.8 K/UL (4.0-11.2)
[2017-05-31 05:49] LABS: CARBON DIOXIDE 20 mmol/L (21-32); CHLORIDE 101 mmol/L (98-107); CREATININE 4.5 mg/dL (0.6-1.3); GLUCOSE 156 mg/dL (74-106); MAGNESIUM 2.2 mg/dL (1.8-2.4); PHOSPHOROUS 6.9 mg/dL (2.5-4.9)
[2017-05-31 05:58] LABS: UREA NITROGEN, BLOOD 117 mg/dL (7-18)
--- NOTE | 2017-05-31 07:00 | NUR ---
pt was on Diprivan at 30 mcg when the nurse came in to assess the patient
--- NOTE | 2017-05-31 07:15 | NUR ---
Per Dr. Isabella Lackey: hold weaning today, until patient seen by Dr Melchor / Dr. Geovanni Montes spoke to RN yesterday; also, his MD notes preferred not to continue with weaning.
[2017-05-31] MEDS: DOCUSATE SODIUM 100 MG CAPSULE PO SCH (09:00)
[2017-05-31] MEDS: FLUTICASONE/VILANTEROL 1 EACH BLST.W.DEV INH SCH (09:00)
--- NOTE | 2017-05-31 09:21 | NUR ---
patient is intubated, therefore cannot receive inhaler. Held colace, pt is unable to swallow the capsule.
[2017-05-31] MEDS: CYCLOBENZAPRINE HCL 10 MG TABLET PO SCH (09:30)
[2017-05-31] MEDS: CALCITRIOL 0.25 MCG CAPSULE PO SCH (09:30)
[2017-05-31] MEDS: MIRALAX 17 GM POWD.PACK PO SCH (09:30)
[2017-05-31] MEDS: POTASSIUM CHLORIDE 20 MEQ POWDER PACKET NG SCH ×3 (09:31→16:11)
[2017-05-31] MEDS: MEROPENEM 500 MG in IV NORMAL SALINE 50 ML IV SCH ×2 (09:31→21:34)
[2017-05-31] MEDS: AMIODARONE HCL 200 MG TABLET PO SCH ×2 (09:32→21:35)
[2017-05-31] MEDS: ALLOPURINOL 100 MG TABLET PO SCH (09:32)
[2017-05-31] MEDS: FOLIC ACID 1 MG TABLET PO SCH ×2 (09:32→16:11)
--- NOTE | 2017-05-31 09:45 | NUR ---
Dr. Melchor seen pt, report is given to Dr. Melchor
[2017-05-31 10:08] LABS: ABG BASE EXCESS -3.9 mmol/L; ABG HCO3 18.5 mmol/L; ABG PCO2 25.2 mmHg (35.0-45.0); ABG PH 7.484 (7.350-7.450); ABG PO2 113.7 mmHg (75.0-100.0); ABG SITE RIGHT RADIAL; ABG TOTAL HEMOGLOBIN 9.4 G/dL (13.5-18.0); COHb 0.5 % (0.5-1.5); MetHb 0.2 % (0.0-1.5); O2Hb 97.6 % (94.0-97.0); VENT MODE VENT - A/C; VT, ABG 650 mL
--- NOTE | 2017-05-31 11:00 | NUR ---
Pt remains slightly sedated on Diprivan at 30 mcg/kg/min.Responsive to touch.No SOB noted.ABG result reported to with new orders received.SR on monitor.Pt off Neosenephrine gtt.Arterial line BP WNL.Will continue to monitor.
--- NOTE | 2017-05-31 12:43 | NUR ---
Sedation vacation given to pt ,Diprivan gtt down to 10 mcg/kg.Pt remains responsive,able to follow simple commands,denies pain,discomfort.
--- NOTE | 2017-05-31 16:29 | NUR ---
patient placed on Cpap mode ,noted increased HR while weaning patient , was at the bedside during weaning,aware of ABG result ,unable to tolerate weaning .Patient back to AC mode Addendum: 05/30/17 at 1629 by NEYDA PARRISH RN
--- NOTE | 2017-05-31 16:32 | NUR ---
ent placed on Cpap mode ,noted increased HR while weaning patient , was at the bedside during weaning,aware of ABG result ,unable to tolerate weaning .Patient back to AC mode Addendum: 05/30/17 at 1632 by NEYDA PARRISH RN
--- NOTE | 2017-05-31 16:36 | NUR ---
Patient was received on AC 18, vt650, +7peep, 35%. He is intubated with a 8.5 Ettube/24cm lipline. No signs of respiratory distress noted at this time. Suctioned small amounts of brown tinged with yellow secretions through ettube at start of shift. No pinkish/reddish secretions suctioned noted currently. Weaning orders held Per Dr. Isabella Lackey: hold weaning today, until patient seen by Dr Melchor. Weaning orders will continue on 06/01. Peep decreased to +5 per ABG results. No complications noted after change. RN aware. Ettube location changed through shift. BMV at bedside. Alarms are on and audible. Will continue to monitor.
--- NOTE | 2017-05-31 16:36 | NUR ---
Seen ,examined by employment coordinator with new orders.Pt remains off Neosenephrine.Per cardiology the [place] BP more reliable than cuff pressure.
--- NOTE | 2017-05-31 20:00 | NUR ---
Pt rec'd on Hall settings AC 18, VT 650, PEEP+5 and FIO2-35%. No resp. distress noted at this time. 8.5 ETT is at approx. 24 cm at the lip. No resp. distress noted at this time. Pt to be monitored throughout the shift and PRN SX. Hall alarm parameters have been checked and remain audible.
[2017-05-31] MEDS: ZOLPIDEM 5 MG TABLET PO SCH (21:35)
[2017-05-31] MEDS: TAMSULOSIN HCL 0.4 MG CAP.SR.24H PO SCH (21:35)
[2017-05-31] MEDS: PRIMIDONE 50 MG TABLET PO SCH (21:36)
[2017-05-31] MEDS: DUTASTERIDE 0.5 MG CAPSULE PO SCH (21:36)
[2017-05-31] MEDS: ATORVASTATIN 10 MG TABLET PO SCH (21:36)
[2017-05-31] MEDS: HYDROCODONE/APAP 10-325 MG TABLET PO SCH (21:38)
[2017-06-01] VITALS (89 sets, daily range): BP systolic 77–145; BP diastolic 35–70
[2017-06-01] MEDS: BLOOD SUGAR DIAGNOSTIC 1 EACH STRIP VI SCH ×5 (00:17→23:41)
[2017-06-01 05:08] LABS: EOSINOPHILS # (AUTO) 0.7 K/uL (0.0-0.7); EOSINOPHILS % (AUTO) 4.6 % (0.0-7.0); HEMOGLOBIN 8.8 G/DL (14.0-18.0); LYMPHOCYTES # (AUTO) 0.6 K/UL (0.8-4.8); LYMPHOCYTES % (AUTO) 3.7 % (20.5-51.5); MEAN CORPUSCULAR HEMOGLOBIN 32.3 UUG (27.0-31.0); MEAN CORPUSCULAR HGB CONC 34 g/dL (32.0-37.0); MEAN CORPUSCULAR VOLUME 95.1 FL (82.0-92.0); MONOCYTES # (AUTO) 0.7 K/UL (0.1-1.30); MONOCYTES % (AUTO) 4.3 % (0.0-11.0); NEUTROPHILS # (AUTO) 13.9 K/UL (1.8-8.9); NEUTROPHILS % (AUTO) 87.4 % (38.5-71.5); PLATELET COUNT (AUTO) 292 K/UL (150-450); RED BLOOD CELL COUNT(AUTO) 2.74 MIL/UL (4.7-6.1); WHITE BLOOD COUNT (AUTO) 15.9 K/UL (4.0-11.2)
[2017-06-01] MEDS: PROPOFOL 100 ML IV PRN (05:23)
[2017-06-01] MEDS: SUCRALFATE 1 G/10 ML LIQUID UDC GT SCH ×3 (05:24→21:23)
[2017-06-01] MEDS: PANTOPRAZOLE ORAL SUSPENSION 40 MG SUSPDR.PKT GT SCH (05:24)
[2017-06-01 05:25] LABS: CARBON DIOXIDE 23 mmol/L (21-32); CHLORIDE 102 mmol/L (98-107); CREATININE 4.4 mg/dL (0.6-1.3); GLUCOSE 74 mg/dL (74-106); PHOSPHOROUS 6.3 mg/dL (2.5-4.9); POTASSIUM 3.6 mmol/L (3.5-5.1)
[2017-06-01 05:26] LABS: UREA NITROGEN, BLOOD 114 mg/dL (7-18)
--- NOTE | 2017-06-01 05:46 | NUR ---
Pt remains on Hall with no changes made to the ventilator settings. No resp. distress noted throughout the shift. 8.5 ETT remains patent and secure at approx. 24cm at the lip. Pt routinely had ETT repositioned and SX'd throughout the shift. BVM at bedside. Hall alarm parameters have been checked and remain audible.
[2017-06-01] MEDS: PHENYLEPHRINE IV 80 MG in IV DEXTROSE 5% 250 ML IV PRN (05:54)
[2017-06-01] MEDS: BUMETANIDE INJ 2 MG in IV DEXTROSE 5% 32 ML IV SCH ×2 (05:55→17:02)
[2017-06-01] MEDS: AMIODARONE HCL 200 MG TABLET PO SCH (08:04)
[2017-06-01] MEDS: POTASSIUM CHLORIDE 20 MEQ POWDER PACKET NG SCH ×3 (08:04→17:00)
[2017-06-01] MEDS: MIRALAX 17 GM POWD.PACK PO SCH (08:04)
[2017-06-01] MEDS: FOLIC ACID 1 MG TABLET PO SCH ×2 (08:05→17:00)
[2017-06-01] MEDS: DOCUSATE SODIUM 100 MG CAPSULE PO SCH (08:05)
[2017-06-01] MEDS: ALLOPURINOL 100 MG TABLET PO SCH (08:05)
[2017-06-01] MEDS: CYCLOBENZAPRINE HCL 10 MG TABLET PO SCH (08:07)
[2017-06-01] MEDS: CALCITRIOL 0.25 MCG CAPSULE PO SCH (08:07)
[2017-06-01] MEDS: MEROPENEM 500 MG in IV NORMAL SALINE 50 ML IV SCH ×2 (08:08→21:15)
--- NOTE | 2017-06-01 08:10 | NUR ---
0800 PER MD ELIZABETH, PT PLACED ON CPAP WITH PRESSURE SUPPORT OF 8. RN TITI AWARE AND NOTIFIED. SEDATION OFF. PT AWAKE ALERT RESPONSIVE AND APPEARS TO BE TOLERATING WEANING FINE WITH NO EVIDENCE OF RESPIRATORY DISTRESS. WILL CONTINUE TO CLOSELY MONITOR.
[2017-06-01 09:00] LABS: ABG BASE EXCESS -3.4 mmol/L; ABG HCO3 19.5 mmol/L; ABG PCO2 28.1 mmHg (35.0-45.0); ABG PH 7.459 (7.350-7.450); ABG PO2 94.9 mmHg (75.0-100.0); ABG SITE RIGHT BRACHIAL; COHb 0.6 % (0.5-1.5); CPAP,BG 8 cmH20; MetHb 0.2 % (0.0-1.5); O2Hb 96.3 % (94.0-97.0); VENT MODE CPAP
[2017-06-01] MEDS ORDERED: DC PROPOFOL ONCE EXTUBATED XX PRN (09:40)
--- NOTE | 2017-06-01 10:05 | NUR ---
0948 PT EXTUBATED PER MD ELIZABETH ORDER. NO COMPLICATION DURING EXTUBATION. NO STRIDOR OR ANY SORT OF RESPIRATORY DISTRESS. PT HAS A GOOD STRONG COUGH. PT APPEARS COMFORTABLE ON 4LPM NASAL CANULA. ORAL CARE DONE.
[2017-06-01] MEDS ORDERED: IV NORMAL SALINE 250 ML BAG IV ONE (11:30)
[2017-06-01] MEDS: FLUTICASONE/VILANTEROL 1 EACH BLST.W.DEV INH SCH (12:34)
[2017-06-01] MEDS ORDERED: AMIODARONE HCL IV 150 MG in IV DEXTROSE 5% 100 ML IV ONE (13:00)
[2017-06-01] MEDS: AMIODARONE HCL IV 900 MG in IV DEXTROSE 5% 482 ML IV PRN (14:29)
[2017-06-01] MEDS: HYDROCODONE/APAP 10-325 MG TABLET PO SCH (21:00)
[2017-06-01] MEDS: ZOLPIDEM 5 MG TABLET PO SCH (21:00)
[2017-06-01] MEDS: DUTASTERIDE 0.5 MG CAPSULE PO SCH (21:22)
[2017-06-01] MEDS: ATORVASTATIN 10 MG TABLET PO SCH (21:22)
[2017-06-01] MEDS: PRIMIDONE 50 MG TABLET PO SCH (21:23)
[2017-06-02] VITALS (69 sets, daily range): BP systolic 87–152; BP diastolic 34–67
[2017-06-02] MEDS: PHENYLEPHRINE IV 80 MG in IV DEXTROSE 5% 250 ML IV PRN (03:51)
[2017-06-02 05:17] LABS: EOSINOPHILS # (AUTO) 0.7 K/uL (0.0-0.7); EOSINOPHILS % (AUTO) 3.9 % (0.0-7.0); HEMATOCRIT 26.7 % (40-50); HEMOGLOBIN 9.1 G/DL (14.0-18.0); LYMPHOCYTES # (AUTO) 0.5 K/UL (0.8-4.8); LYMPHOCYTES % (AUTO) 2.9 % (20.5-51.5); MEAN CORPUSCULAR HEMOGLOBIN 32.7 UUG (27.0-31.0); MEAN CORPUSCULAR HGB CONC 34 g/dL (32.0-37.0); MEAN CORPUSCULAR VOLUME 96.3 FL (82.0-92.0); MONOCYTES # (AUTO) 0.9 K/UL (0.1-1.30); MONOCYTES % (AUTO) 5.1 % (0.0-11.0); NEUTROPHILS # (AUTO) 14.6 K/UL (1.8-8.9); NEUTROPHILS % (AUTO) 88.1 % (38.5-71.5); PLATELET COUNT (AUTO) 322 K/UL (150-450); RED BLOOD CELL COUNT(AUTO) 2.77 MIL/UL (4.7-6.1); WHITE BLOOD COUNT (AUTO) 16.7 K/UL (4.0-11.2)
[2017-06-02 05:22] LABS: ALANINE AMINOTRANSFERASE 23 U/L (16-63); ALKALINE PHOSPHATASE 197 U/L (50-136); ASPARTATE AMINOTRANSFERASE 28 U/L (15-37); BILIRUBIN,TOTAL 0.5 mg/dL (0.2-1.0); CARBON DIOXIDE 23 mmol/L (21-32); CHLORIDE 104 mmol/L (98-107); CREATININE 4.6 mg/dL (0.6-1.3); GLUCOSE 99 mg/dL (74-106); MAGNESIUM 2.1 mg/dL (1.8-2.4); PHOSPHOROUS 7.5 mg/dL (2.5-4.9); POTASSIUM 3.7 mmol/L (3.5-5.1); TOTAL PROTEIN, SERUM 6.9 g/dL (6.4-8.2)
[2017-06-02 05:34] LABS: UREA NITROGEN, BLOOD 115 mg/dL (7-18)
[2017-06-02] MEDS: BLOOD SUGAR DIAGNOSTIC 1 EACH STRIP VI SCH ×4 (07:01→23:55)
[2017-06-02] MEDS: PANTOPRAZOLE ORAL SUSPENSION 40 MG SUSPDR.PKT GT SCH (07:04)
[2017-06-02] MEDS: SUCRALFATE 1 G/10 ML LIQUID UDC GT SCH ×3 (07:04→23:19)
[2017-06-02 07:19] LABS: ABG HCO3 20.9 mmol/L; ABG PCO2 37.4 mmHg (35.0-45.0); ABG PH 7.365 (7.350-7.450); ABG PO2 110.3 mmHg (75.0-100.0); ABG SITE LEFT RADIAL; COHb 0.9 % (0.5-1.5); MetHb 0.1 % (0.0-1.5); O2Hb 96.9 % (94.0-97.0); VENT MODE Nasal Cannula
[2017-06-02] MEDS: CALCITRIOL 0.25 MCG CAPSULE PO SCH (08:27)
[2017-06-02] MEDS: MIRALAX 17 GM POWD.PACK PO SCH (08:27)
[2017-06-02] MEDS: FOLIC ACID 1 MG TABLET PO SCH ×2 (08:27→17:50)
[2017-06-02] MEDS: POTASSIUM CHLORIDE 20 MEQ POWDER PACKET NG SCH ×3 (08:27→17:50)
[2017-06-02] MEDS: DOCUSATE SODIUM 100 MG CAPSULE PO SCH (08:28)
[2017-06-02] MEDS: CYCLOBENZAPRINE HCL 10 MG TABLET PO SCH (08:28)
[2017-06-02] MEDS: FLUTICASONE/VILANTEROL 1 EACH BLST.W.DEV INH SCH (08:28)
[2017-06-02] MEDS: BUMETANIDE INJ 2 MG in IV DEXTROSE 5% 32 ML IV SCH ×2 (08:29→17:50)
[2017-06-02] MEDS: ALLOPURINOL 100 MG TABLET PO SCH (08:30)
[2017-06-02] MEDS: MEROPENEM 500 MG in IV NORMAL SALINE 50 ML IV SCH ×2 (10:30→21:18)
--- NOTE | 2017-06-02 11:30 | NUR ---
Physical therapist treat and eval, patient sit at the bedsie ,performed therapeutic exercise,patient tolerated
[2017-06-02] MEDS: AMIODARONE HCL IV 900 MG in IV DEXTROSE 5% 482 ML IV PRN (12:00)
[2017-06-02] MEDS: AMIODARONE HCL 200 MG TABLET PO SCH ×2 (14:59→21:19)
--- NOTE | 2017-06-02 19:15 | NUR ---
pt schedule fot tracheostomy today by Dr. Coffey ,consent signed by ,palced call to foloow up the tracheostomy palcement ,report give to next shift
[2017-06-02] MEDS: ZOLPIDEM 5 MG TABLET PO SCH (21:00)
[2017-06-02] MEDS: HYDROCODONE/APAP 10-325 MG TABLET PO SCH (21:00)
[2017-06-02] MEDS: DUTASTERIDE 0.5 MG CAPSULE PO SCH (21:19)
[2017-06-02] MEDS: ATORVASTATIN 10 MG TABLET PO SCH (21:20)
[2017-06-02] MEDS: PRIMIDONE 50 MG TABLET PO SCH (21:20)
[2017-06-03] VITALS (24 sets, daily range): BP systolic 82–148; BP diastolic 39–65
[2017-06-03 05:11] LABS: BASOPHILS % (AUTO) 0.2 % (0.0-2.0); EOSINOPHILS # (AUTO) 0.6 K/uL (0.0-0.7); EOSINOPHILS % (AUTO) 3.9 % (0.0-7.0); HEMATOCRIT 27.8 % (40-50); LYMPHOCYTES # (AUTO) 0.6 K/UL (0.8-4.8); LYMPHOCYTES % (AUTO) 3.6 % (20.5-51.5); MEAN CORPUSCULAR HEMOGLOBIN 31.2 UUG (27.0-31.0); MEAN CORPUSCULAR HGB CONC 32 g/dL (32.0-37.0); MEAN CORPUSCULAR VOLUME 96.7 FL (82.0-92.0); MONOCYTES # (AUTO) 0.9 K/UL (0.1-1.30); MONOCYTES % (AUTO) 6.1 % (0.0-11.0); NEUTROPHILS # (AUTO) 13.2 K/UL (1.8-8.9); NEUTROPHILS % (AUTO) 86.2 % (38.5-71.5); PLATELET COUNT (AUTO) 333 K/UL (150-450); RED BLOOD CELL COUNT(AUTO) 2.87 MIL/UL (4.7-6.1); WHITE BLOOD COUNT (AUTO) 15.3 K/UL (4.0-11.2)
[2017-06-03 05:24] LABS: ALANINE AMINOTRANSFERASE 21 U/L (16-63); ALKALINE PHOSPHATASE 215 U/L (50-136); ASPARTATE AMINOTRANSFERASE 27 U/L (15-37); BILIRUBIN,TOTAL 0.5 mg/dL (0.2-1.0); CARBON DIOXIDE 24 mmol/L (21-32); CHLORIDE 106 mmol/L (98-107); CREATININE 4.6 mg/dL (0.6-1.3); GLUCOSE 93 mg/dL (74-106); MAGNESIUM 2.2 mg/dL (1.8-2.4); PHOSPHOROUS 7.6 mg/dL (2.5-4.9); POTASSIUM 4.1 mmol/L (3.5-5.1); TOTAL PROTEIN, SERUM 7.2 g/dL (6.4-8.2)
[2017-06-03 05:47] LABS: UREA NITROGEN, BLOOD 109 mg/dL (7-18)
--- NOTE | 2017-06-03 06:00 | NUR ---
pt with large brown soft tolu like bm - tolerates cleaning uneventfully - all sites same
[2017-06-03] MEDS: BLOOD SUGAR DIAGNOSTIC 1 EACH STRIP VI SCH ×4 (06:10→23:51)
[2017-06-03] MEDS: SUCRALFATE 1 G/10 ML LIQUID UDC GT SCH ×3 (06:12→21:18)
[2017-06-03] MEDS: PANTOPRAZOLE ORAL SUSPENSION 40 MG SUSPDR.PKT GT SCH (06:57)
[2017-06-03] MEDS: IV NORMAL SALINE 250 ML IV PRN (06:59)
--- NOTE | 2017-06-03 08:00 | NUR ---
Pt received this am with nasal cannula at 2L. monitor and storage bin tender and alarms working properly wnl. Fall precautions and safety measures maintained. IV TKO as ordered. Pt's arterial line is working properly. No bleeding noted/ pt is able to wiggle his fingers. Pt hemodynamicly stable and nad noted. Manzano catheter is intact/draining. Addendum: 06/03/17 at 1831 by ROSA VILLEDA RN *Orienting NINA Jennings. All charting and assessment notes reviewed by Preceptor NINA Villeda.
[2017-06-03] MEDS: POTASSIUM CHLORIDE 20 MEQ POWDER PACKET NG SCH ×3 (09:11→16:56)
[2017-06-03] MEDS: DOCUSATE SODIUM 100 MG CAPSULE PO SCH (09:11)
[2017-06-03] MEDS: MIRALAX 17 GM POWD.PACK PO SCH (09:11)
[2017-06-03] MEDS: BUMETANIDE INJ 2 MG in IV DEXTROSE 5% 32 ML IV SCH ×2 (09:12→17:34)
[2017-06-03] MEDS: AMIODARONE HCL 200 MG TABLET PO SCH ×2 (09:12→21:17)
[2017-06-03] MEDS: FOLIC ACID 1 MG TABLET PO SCH ×2 (09:12→16:56)
[2017-06-03] MEDS: ALLOPURINOL 100 MG TABLET PO SCH (09:12)
[2017-06-03] MEDS: MEROPENEM 500 MG in IV NORMAL SALINE 50 ML IV SCH ×2 (09:12→20:43)
[2017-06-03] MEDS: CYCLOBENZAPRINE HCL 10 MG TABLET PO SCH (09:13)
[2017-06-03] MEDS: CALCITRIOL 0.25 MCG CAPSULE PO SCH (09:13)
[2017-06-03] MEDS: FLUTICASONE/VILANTEROL 1 EACH BLST.W.DEV INH SCH (09:13)
--- NOTE | 2017-06-03 13:15 | NUR ---
SPEECH THERAPIST SEEN THE PT, PER THERAPIST'S EVALUATION PUREED DIET RECOMMEND"
--- NOTE | 2017-06-03 13:35 | NUR ---
DR. OVALLE IS HERE TO SEE THE PATIENT, PER "PT IS OK TO BE DOWNGRADED TO [facility] IF NEEDED".
--- NOTE | 2017-06-03 18:56 | NUR ---
Pt with nasal cannula at 2L. bolt man and alarms working properly wnl. Fall precautions and safety measures maintained. IV TKO as ordered. Pt's arterial line is working properly. No bleeding noted/ pt is able to wiggle his fingers. Pt hemodynamicly stable and nad noted. Manzano catheter is intact/draining.
[2017-06-03] MEDS: ZOLPIDEM 5 MG TABLET PO SCH (21:00)
[2017-06-03] MEDS: HYDROCODONE/APAP 10-325 MG TABLET PO SCH (21:00)
[2017-06-03] MEDS: PRIMIDONE 50 MG TABLET PO SCH (21:17)
[2017-06-03] MEDS: ATORVASTATIN 10 MG TABLET PO SCH (21:17)
[2017-06-03] MEDS: DUTASTERIDE 0.5 MG CAPSULE PO SCH (21:17)
[2017-06-03] MEDS: INSULIN REGULAR, HUMAN 300 UNIT/3 ML VIAL SQ PRN (23:53)
[2017-06-04] VITALS (24 sets, daily range): BP systolic 100–144; BP diastolic 41–75
[2017-06-04 04:54] LABS: BASOPHILS # (AUTO) 0.1 K/uL (0.0-8.0); BASOPHILS % (AUTO) 0.4 % (0.0-2.0); EOSINOPHILS # (AUTO) 0.7 K/uL (0.0-0.7); EOSINOPHILS % (AUTO) 4.3 % (0.0-7.0); HEMATOCRIT 28.4 % (40-50); HEMOGLOBIN 9.2 G/DL (14.0-18.0); LYMPHOCYTES # (AUTO) 0.6 K/UL (0.8-4.8); LYMPHOCYTES % (AUTO) 3.9 % (20.5-51.5); MEAN CORPUSCULAR HEMOGLOBIN 30.9 UUG (27.0-31.0); MEAN CORPUSCULAR HGB CONC 32 g/dL (32.0-37.0); MEAN CORPUSCULAR VOLUME 95.3 FL (82.0-92.0); MONOCYTES % (AUTO) 6.6 % (0.0-11.0); NEUTROPHILS % (AUTO) 84.8 % (38.5-71.5); PLATELET COUNT (AUTO) 360 K/UL (150-450); RED BLOOD CELL COUNT(AUTO) 2.98 MIL/UL (4.7-6.1); WHITE BLOOD COUNT (AUTO) 15.4 K/UL (4.0-11.2)
[2017-06-04 05:06] LABS: CARBON DIOXIDE 23 mmol/L (21-32); CHLORIDE 107 mmol/L (98-107); CREATININE 4.6 mg/dL (0.6-1.3); GLUCOSE 122 mg/dL (74-106); MAGNESIUM 2.3 mg/dL (1.8-2.4)
[2017-06-04 05:19] LABS: UREA NITROGEN, BLOOD 109 mg/dL (7-18)
[2017-06-04] MEDS: BLOOD SUGAR DIAGNOSTIC 1 EACH STRIP VI SCH ×4 (05:38→23:49)
[2017-06-04] MEDS: SUCRALFATE 1 G/10 ML LIQUID UDC GT SCH ×3 (06:05→21:13)
[2017-06-04] MEDS: PANTOPRAZOLE ORAL SUSPENSION 40 MG SUSPDR.PKT GT SCH (06:05)
--- NOTE | 2017-06-04 07:00 | NUR ---
Pt with nasal cannula at 2L. probation officer and alarms working properly wnl. Fall precautions and safety measures maintained. IV TKO as ordered. Pt's arterial line is working properly. No bleeding noted/ pt is able to wiggle his fingers. Pt hemodynamicly stable and nad noted. Manzano catheter is intact/draining tea color urine Addendum: 06/04/17 at 1312 by ROSA VILLEDA RN NINA Jennings under orientation. All charts and assessment notes reviewed by NINA Villeda.
--- NOTE | 2017-06-04 08:30 | NUR ---
DR CHIRINOS IS HERE TO SEE THE PATIENT. REPORT IS GIVEN TO THE DRMine ON THE PATIENT. PER / JOSEPH "OK TO DOWNGRADE THE PT TO [facility]". PT NOTED TO HAVE LARGE AMOUNTS OF SECRETIONS, URINE IS NOTED TO BE TEA COLOR, HEART RATE IS IN 120 - 140. IS AWARE.
[2017-06-04] MEDS: CYCLOBENZAPRINE HCL 10 MG TABLET PO SCH (08:52)
[2017-06-04] MEDS: POTASSIUM CHLORIDE 20 MEQ POWDER PACKET NG SCH ×3 (08:53→17:01)
[2017-06-04] MEDS: ALLOPURINOL 100 MG TABLET PO SCH (08:53)
[2017-06-04] MEDS: CALCITRIOL 0.25 MCG CAPSULE PO SCH (08:54)
[2017-06-04] MEDS: AMIODARONE HCL 200 MG TABLET PO SCH ×2 (08:54→21:13)
[2017-06-04] MEDS: MIRALAX 17 GM POWD.PACK PO SCH (08:54)
[2017-06-04] MEDS: DOCUSATE SODIUM 100 MG CAPSULE PO SCH (08:54)
[2017-06-04] MEDS: MEROPENEM 500 MG in IV NORMAL SALINE 50 ML IV SCH ×2 (08:54→20:20)
[2017-06-04] MEDS: FOLIC ACID 1 MG TABLET PO SCH ×2 (08:54→17:01)
[2017-06-04] MEDS: FLUTICASONE/VILANTEROL 1 EACH BLST.W.DEV INH SCH (08:56)
[2017-06-04] MEDS: BUMETANIDE INJ 2 MG in IV DEXTROSE 5% 32 ML IV SCH ×2 (09:52→17:00)
[2017-06-04 09:58] LABS: ABG BASE EXCESS -3.6 mmol/L; ABG HCO3 20.7 mmol/L; ABG PCO2 33.7 mmHg (35.0-45.0); ABG PH 7.407 (7.350-7.450); ABG PO2 100.2 mmHg (75.0-100.0); ABG SITE LEFT RADIAL; ABG TOTAL HEMOGLOBIN 6.1 G/dL (13.5-18.0); COHb 1.6 % (0.5-1.5); MetHb 0.5 % (0.0-1.5); O2Hb 95.6 % (94.0-97.0); VENT MODE Nasal Cannula
[2017-06-04] MEDS: ACETAMINOPHEN ES 500 MG TABLET PO PRN ×2 (12:08→21:12)
--- NOTE | 2017-06-04 12:28 | NUR ---
CALLED DR ISSA IN REGARDS OF THE DR. RUIZ WANTING TO DOWNGRADE THE PT TO [facility]. PT REPORT WAS GIVEN TO DR. RUIZ IN REGARDS OF PT'S HEART RATE IN 120 -150 A-FLUTTER SUSTAINING, PT SOUNDS CONGESTED AND HAS MODERATE SECRETIONS, URINE IS STILL TEACOLOR. PER DR. OVALLE "OK TO TRANSFER TO [facility]". NURSE AUDIO PRODUCTION MANAGER IS AWARE
--- NOTE | 2017-06-04 17:23 | NUR ---
DR. OVALLE IS HERE Addendum: 06/04/17 at 1730 by CHANO ISBELL RN DR. OVALLE IS HERE TO SEE AND TALK TO THE PATIENT. PER LIDA, TRANSFER THE PATIENT BACK TO CCU. GAVE REPORT TO DR. OVALLE., IS AWARE OF HR AND RHYTHM, AND PT'S CONGESTION. Addendum: 06/04/17 at 1731 by CHANO ISBELL RN MD TO CONTACT DR GARCIA FOR CONSULTATION.
--- NOTE | 2017-06-04 18:30 | NUR ---
ADVISED ALEX FITZGERALD ABOUT PATIENT SPIKING TEMPERATURE. PER LIA, VICKE DR. RUIZ.
[2017-06-04] MEDS: INSULIN REGULAR, HUMAN 300 UNIT/3 ML VIAL SQ PRN ×2 (18:44→23:50)
--- NOTE | 2017-06-04 18:52 | NUR ---
COOLING MEASURES ARE AT PLACE
--- NOTE | 2017-06-04 19:02 | NUR ---
Pt with nasal cannula at 2L. playground monitor and alarms working properly wnl. Fall precautions and safety measures maintained. IV TKO as ordered. Pt's arterial line is working properly. No bleeding noted/ pt is able to wiggle his fingers. Pt hemodynamicly stable and nad noted. Manzano catheter is intact/draining tea color urine. Paged Nephrology group, Dr. Daniel is instrumentation supervisor in regards of the pt's spiking temperature.
--- NOTE | 2017-06-04 20:00 | NUR ---
Resting in bed, appears tired but denies pain/discomfort. Monitor remains AF with HR 120's to 140's/min and MDs aware. A-line intact, zeroed/aisha with good waveform; BP readings per Fina. Off vasopressors and BP stable. Resp. easy and regular. Requires suctioning and reminder to cough and deep breathe. Sats adequate on NC 2L/min. Pt turning/positioning by motion of BariMaxxII bed. Safety and fall precautions observed at all times. Please see CCU flowsheet for full assessment and clinical data.
[2017-06-04] MEDS: IV NORMAL SALINE 250 ML IV PRN (20:33)
[2017-06-04] MEDS: HYDROCODONE/APAP 10-325 MG TABLET PO SCH (21:00)
[2017-06-04] MEDS: ZOLPIDEM 5 MG TABLET PO SCH (21:00)
[2017-06-04] MEDS: PRIMIDONE 50 MG TABLET PO SCH (21:13)
[2017-06-04] MEDS: ATORVASTATIN 10 MG TABLET PO SCH (21:13)
[2017-06-04] MEDS: DUTASTERIDE 0.5 MG CAPSULE PO SCH (21:13)
[2017-06-05] VITALS (23 sets, daily range): BP systolic 92–158; BP diastolic 45–90
--- NOTE | 2017-06-05 00:01 | NUR ---
Skin warm to touch, has low grade temp. Cultures sent during day. Cooling measures observed.
[2017-06-05 04:51] LABS: BASOPHILS # (AUTO) 0.2 K/uL (0.0-8.0); BASOPHILS % (AUTO) 1.1 % (0.0-2.0); EOSINOPHILS # (AUTO) 0.1 K/uL (0.0-0.7); EOSINOPHILS % (AUTO) 0.7 % (0.0-7.0); HEMATOCRIT 30.4 % (40-50); HEMOGLOBIN 9.9 G/DL (14.0-18.0); LYMPHOCYTES # (AUTO) 0.7 K/UL (0.8-4.8); LYMPHOCYTES % (AUTO) 3.9 % (20.5-51.5); MEAN CORPUSCULAR HEMOGLOBIN 31.3 UUG (27.0-31.0); MEAN CORPUSCULAR HGB CONC 32 g/dL (32.0-37.0); MEAN CORPUSCULAR VOLUME 96.7 FL (82.0-92.0); MONOCYTES # (AUTO) 1.2 K/UL (0.1-1.30); MONOCYTES % (AUTO) 6.8 % (0.0-11.0); NEUTROPHILS # (AUTO) 15.2 K/UL (1.8-8.9); NEUTROPHILS % (AUTO) 87.5 % (38.5-71.5); PLATELET COUNT (AUTO) 366 K/UL (150-450); RED BLOOD CELL COUNT(AUTO) 3.14 MIL/UL (4.7-6.1); WHITE BLOOD COUNT (AUTO) 17.4 K/UL (4.0-11.2)
[2017-06-05 05:25] LABS: ALANINE AMINOTRANSFERASE 24 U/L (16-63); ALKALINE PHOSPHATASE 199 U/L (50-136); ASPARTATE AMINOTRANSFERASE 31 U/L (15-37); BILIRUBIN,TOTAL 0.6 mg/dL (0.2-1.0); CARBON DIOXIDE 25 mmol/L (21-32); CHLORIDE 109 mmol/L (98-107); CREATININE 4.6 mg/dL (0.6-1.3); GLUCOSE 151 mg/dL (74-106); MAGNESIUM 2.3 mg/dL (1.8-2.4); PHOSPHOROUS 6.8 mg/dL (2.5-4.9); POTASSIUM 4.4 mmol/L (3.5-5.1); TOTAL PROTEIN, SERUM 8.3 g/dL (6.4-8.2)
[2017-06-05 05:28] LABS: UREA NITROGEN, BLOOD 108 mg/dL (7-18)
--- NOTE | 2017-06-05 06:00 | NUR ---
Uneventful night. Temp. trending down. Remains AFlutter with high rate. Noted yesterday's weight error documentation. Please see CCU flowsheet for trends and clinical data.
[2017-06-05] MEDS: BLOOD SUGAR DIAGNOSTIC 1 EACH STRIP VI SCH ×4 (06:19→21:19)
[2017-06-05] MEDS: INSULIN REGULAR, HUMAN 300 UNIT/3 ML VIAL SQ PRN ×3 (06:20→21:21)
[2017-06-05] MEDS: SUCRALFATE 1 G/10 ML LIQUID UDC GT SCH ×3 (06:28→21:12)
[2017-06-05] MEDS: PANTOPRAZOLE ORAL SUSPENSION 40 MG SUSPDR.PKT GT SCH (06:30)
--- NOTE | 2017-06-05 06:30 | NUR ---
called in for update; very appreciative of care and information.
--- NOTE | 2017-06-05 07:15 | NUR ---
Pt with nasal cannula at 2L. monitoring specialist and alarms working properly wnl. Fall precautions and safety measures maintained. IV TKO as ordered. Pt's arterial line is working properly. No bleeding noted/ pt is able to wiggle his fingers. Pt hemodynamicly stable and nad noted. Manzano catheter is intact/draining tea color urine.
[2017-06-05] MEDS: MEROPENEM 500 MG in IV NORMAL SALINE 50 ML IV SCH ×2 (09:06→20:36)
[2017-06-05] MEDS: ALLOPURINOL 100 MG TABLET PO SCH (09:06)
[2017-06-05] MEDS: POTASSIUM CHLORIDE 20 MEQ POWDER PACKET NG SCH ×3 (09:06→17:16)
[2017-06-05] MEDS: DOCUSATE SODIUM 100 MG CAPSULE PO SCH (09:06)
[2017-06-05] MEDS: FOLIC ACID 1 MG TABLET PO SCH ×2 (09:06→17:16)
[2017-06-05] MEDS: AMIODARONE HCL 200 MG TABLET PO SCH ×2 (09:06→21:12)
[2017-06-05] MEDS: CALCITRIOL 0.25 MCG CAPSULE PO SCH (09:07)
[2017-06-05] MEDS: CYCLOBENZAPRINE HCL 10 MG TABLET PO SCH (09:07)
[2017-06-05] MEDS: FLUTICASONE/VILANTEROL 1 EACH BLST.W.DEV INH SCH (09:08)
[2017-06-05] MEDS: MIRALAX 17 GM POWD.PACK PO SCH (09:23)
[2017-06-05] MEDS: BUMETANIDE INJ 2 MG in IV DEXTROSE 5% 32 ML IV SCH (09:23)
--- NOTE | 2017-06-05 10:30 | NUR ---
dr brown is here to see the pt, report is given to .
--- NOTE | 2017-06-05 11:45 | NUR ---
SEEN AND EXAMINED BY DR BARRIGA WITH NEW ORDERS. PT REFUSED TO EAT AT THIS TIME.
[2017-06-05] MEDS ORDERED: DEXTROSE 50% 50 ML DISP.SYRIN IV PRN (13:00)
[2017-06-05] MEDS ORDERED: IV NORMAL SALINE 250 ML IV ONE (13:00)
--- NOTE | 2017-06-05 13:00 | NUR ---
DR BARRIGA OKEYED TO DISCONTINUE THE ARTERIAL LINE.
[2017-06-05] MEDS: ACETAMINOPHEN ES 500 MG TABLET PO PRN (15:29)
[2017-06-05] MEDS: DILTIAZEM HCL 30 MG TABLET PO SCH ×2 (18:43→23:12)
--- NOTE | 2017-06-05 20:00 | NUR ---
Easily awakens,no distress noted,
[2017-06-05] MEDS: ATORVASTATIN 10 MG TABLET PO SCH (21:12)
[2017-06-05] MEDS: PRIMIDONE 50 MG TABLET PO SCH (21:12)
[2017-06-05] MEDS: DUTASTERIDE 0.5 MG CAPSULE PO SCH (21:12)
[2017-06-06] VITALS (20 sets, daily range): BP systolic 89–130; BP diastolic 47–82
[2017-06-06] MEDS ORDERED: NOREPINEPHRINE BITARTRATE 4 MG/4 ML VIAL IV ONE (04:13)
[2017-06-06] MEDS: SUCRALFATE 1 G/10 ML LIQUID UDC GT SCH ×3 (06:00→22:44)
[2017-06-06] MEDS: DILTIAZEM HCL 30 MG TABLET PO SCH ×4 (06:00→23:29)
[2017-06-06] MEDS: PANTOPRAZOLE ORAL SUSPENSION 40 MG SUSPDR.PKT GT SCH (07:00)
[2017-06-06 08:10] LABS: ABG BASE EXCESS -0.3 mmol/L; ABG HCO3 24.6 mmol/L; ABG PCO2 41.1 mmHg (35.0-45.0); ABG PH 7.395 (7.350-7.450); ABG PO2 85.1 mmHg (75.0-100.0); ABG SITE RIGHT RADIAL; ABG TOTAL HEMOGLOBIN 13.5 G/dL (13.5-18.0); COHb 1.4 % (0.5-1.5); MetHb 0.1 % (0.0-1.5); O2Hb 94.6 % (94.0-97.0); VENT MODE Nasal Cannula
[2017-06-06] MEDS: AMIODARONE HCL 200 MG TABLET PO SCH ×2 (09:00→21:07)
[2017-06-06 09:44] LABS: CARBON DIOXIDE 26 mmol/L (21-32); CHLORIDE 112 mmol/L (98-107); CREATININE 4.2 mg/dL (0.6-1.3); GLUCOSE 128 mg/dL (74-106); MAGNESIUM 2.1 mg/dL (1.8-2.4); PHOSPHOROUS 4.9 mg/dL (2.5-4.9); POTASSIUM 4.5 mmol/L (3.5-5.1)
[2017-06-06] MEDS: POTASSIUM CHLORIDE 20 MEQ POWDER PACKET NG SCH ×3 (10:00→16:39)
[2017-06-06] MEDS: MEROPENEM 500 MG in IV NORMAL SALINE 50 ML IV SCH ×2 (10:42→21:06)
[2017-06-06] MEDS: MIRALAX 17 GM POWD.PACK PO SCH (10:57)
[2017-06-06] MEDS: DOCUSATE SODIUM 100 MG CAPSULE PO SCH (10:59)
[2017-06-06] MEDS: FOLIC ACID 1 MG TABLET PO SCH ×2 (10:59→16:38)
[2017-06-06] MEDS: CALCITRIOL 0.25 MCG CAPSULE PO SCH ×3 (11:08→11:15)
[2017-06-06] MEDS: ALLOPURINOL 100 MG TABLET PO SCH (11:10)
[2017-06-06] MEDS: CYCLOBENZAPRINE HCL 10 MG TABLET PO SCH (11:16)
[2017-06-06] MEDS: FLUTICASONE/VILANTEROL 1 EACH BLST.W.DEV INH SCH (11:38)
[2017-06-06 11:43] LABS: BASOPHILS # (AUTO) 0.1 K/uL (0.0-8.0); BASOPHILS % (AUTO) 0.7 % (0.0-2.0); EOSINOPHILS # (AUTO) 0.4 K/uL (0.0-0.7); HEMATOCRIT 30.8 % (40-50); HEMOGLOBIN 9.7 G/DL (14.0-18.0); LYMPHOCYTES # (AUTO) 0.7 K/UL (0.8-4.8); LYMPHOCYTES % (AUTO) 3.8 % (20.5-51.5); MEAN CORPUSCULAR HEMOGLOBIN 30.9 UUG (27.0-31.0); MEAN CORPUSCULAR HGB CONC 32 g/dL (32.0-37.0); MONOCYTES # (AUTO) 1.1 K/UL (0.1-1.30); MONOCYTES % (AUTO) 6.3 % (0.0-11.0); NEUTROPHILS # (AUTO) 15.2 K/UL (1.8-8.9); NEUTROPHILS % (AUTO) 87.2 % (38.5-71.5); PLATELET COUNT (AUTO) 345 K/UL (150-450); RED BLOOD CELL COUNT(AUTO) 3.15 MIL/UL (4.7-6.1); WHITE BLOOD COUNT (AUTO) 17.5 K/UL (4.0-11.2)
[2017-06-06] MEDS: BLOOD SUGAR DIAGNOSTIC 1 EACH STRIP VI SCH ×3 (11:45→22:45)
--- NOTE | 2017-06-06 13:20 | NUR ---
Charge nurse made aware of blood cx results of gram positive cocci preliminary. She stated that Doctor will round on patient.
[2017-06-06 14:05] LABS: LYMPHOCYTES % (MANUAL) 2 % (20-40); MONOCYTES % (MANUAL) 6 % (2-10); NEUTROPHILS % (MANUAL) 92 % (42-75)
[2017-06-06 14:51] LABS: UREA NITROGEN, BLOOD 103 mg/dL (7-18)
--- NOTE | 2017-06-06 17:30 | NUR ---
Dr. Hoffman is waste elimination and results of Blood culture gram positive cocci clusters prelimary given as ordered. Vancomycin per pharmacy dosing is the order and to discontinue right IJ triple lumen catheter.
[2017-06-06] MEDS ORDERED: NOREPINEPHRINE BITARTRATE 16 MG in IV DEXTROSE 5% 500 ML IV PRN (17:45)
--- NOTE | 2017-06-06 18:00 | NUR ---
Three attempts to start IV. Twice by NINA Simmons and once by NINA Manning. Unsuccesful at this time.
--- NOTE | 2017-06-06 18:29 | NUR ---
CLINICAL PHARMACY NOTE:VANCOMYCIN DOSING Request for vancomycin dosing on 72 y/o male 6'1" 227lbs for pneumonia Temp 98.5 BUN 103 SCr 4.2 WBC 17.5 also on Merrem Give vancomyc 1500mg ivpb x1 will dose by levels due to decreased renal function. Order random vancomycin level for tomorrow evening.
--- NOTE | 2017-06-06 19:45 | NUR ---
Easily awakens, sats > 96%. no distress noted or voiced.
[2017-06-06] MEDS ORDERED: VANCOMYCIN IV 1,500 MG in IV DEXTROSE 5% 500 ML IV ONE (20:00)
[2017-06-06] MEDS: DUTASTERIDE 0.5 MG CAPSULE PO SCH (21:07)
[2017-06-06] MEDS: ATORVASTATIN 10 MG TABLET PO SCH (21:07)
[2017-06-06] MEDS: PRIMIDONE 50 MG TABLET PO SCH (21:07)
[2017-06-06] MEDS: INSULIN REGULAR, HUMAN 300 UNIT/3 ML VIAL SQ PRN (22:46)
[2017-06-07] VITALS (24 sets, daily range): BP systolic 85–149; BP diastolic 50–93
[2017-06-07] MEDS: PANTOPRAZOLE ORAL SUSPENSION 40 MG SUSPDR.PKT GT SCH (06:15)
[2017-06-07] MEDS: SUCRALFATE 1 G/10 ML LIQUID UDC GT SCH ×3 (06:16→20:48)
[2017-06-07] MEDS: DILTIAZEM HCL 30 MG TABLET PO SCH ×4 (06:16→17:07)
[2017-06-07 07:18] LABS: BASOPHILS # (AUTO) 0.1 K/uL (0.0-8.0); BASOPHILS % (AUTO) 0.9 % (0.0-2.0); EOSINOPHILS # (AUTO) 0.6 K/uL (0.0-0.7); EOSINOPHILS % (AUTO) 4.8 % (0.0-7.0); HEMATOCRIT 28.2 % (36.7-47.1); HEMOGLOBIN 9.2 g/dL (12.5-16.3); LYMPHOCYTES # (AUTO) 0.8 K/uL (20.0-40.0); LYMPHOCYTES % (AUTO) 6.9 % (20.5-51.5); MEAN CORPUSCULAR HEMOGLOBIN 32.4 uug (23.8-33.4); MEAN CORPUSCULAR HGB CONC 33 g/dL (32.5-36.3); MEAN CORPUSCULAR VOLUME 98.7 fL (73.0-96.2); MONOCYTES # (AUTO) 0.8 K/uL (2.0-10.0); MONOCYTES % (AUTO) 6.3 % (0.0-11.0); NEUTROPHILS # (AUTO) 9.9 K/uL (1.8-8.9); NEUTROPHILS % (AUTO) 81.1 % (38.5-71.5); PLATELET COUNT (AUTO) 268 K/uL (152-348); RED BLOOD CELL COUNT(AUTO) 2.85 MIL/uL (4.06-5.63)
[2017-06-07 07:25] LABS: ALANINE AMINOTRANSFERASE 18 U/L (16-63); ALKALINE PHOSPHATASE 141 U/L (50-136); ASPARTATE AMINOTRANSFERASE 20 U/L (15-37); BILIRUBIN,TOTAL 0.5 mg/dL (0.2-1.0); CARBON DIOXIDE 27 mmol/L (21-32); CHLORIDE 111 mmol/L (98-107); CREATININE 3.9 mg/dL (0.6-1.3); GLUCOSE 99 mg/dL (74-106); MAGNESIUM 2.1 mg/dL (1.8-2.4); PHOSPHOROUS 4.6 mg/dL (2.5-4.9); TOTAL PROTEIN, SERUM 7.5 g/dL (6.4-8.2)
--- NOTE | 2017-06-07 07:26 | NUR ---
Slept off and on. sats > 96%. no acute distress noted or voiced
[2017-06-07 07:28] LABS: WHITE BLOOD COUNT (AUTO) 12.2 K/uL (3.6-10.2)
[2017-06-07 07:30] LABS: UREA NITROGEN, BLOOD 98 mg/dL (7-18)
[2017-06-07] MEDS: BLOOD SUGAR DIAGNOSTIC 1 EACH STRIP VI SCH ×4 (07:47→21:02)
[2017-06-07] MEDS: ALLOPURINOL 100 MG TABLET PO SCH (07:53)
[2017-06-07] MEDS: FOLIC ACID 1 MG TABLET PO SCH ×2 (07:53→17:06)
[2017-06-07] MEDS: POTASSIUM CHLORIDE 20 MEQ POWDER PACKET NG SCH ×3 (07:53→17:06)
[2017-06-07] MEDS: DOCUSATE SODIUM 100 MG CAPSULE PO SCH (07:53)
[2017-06-07] MEDS: AMIODARONE HCL 200 MG TABLET PO SCH ×2 (07:54→20:49)
[2017-06-07] MEDS: MIRALAX 17 GM POWD.PACK PO SCH (07:54)
[2017-06-07] MEDS: BUMETANIDE 1 MG/4 ML VIAL IV SCH ×2 (07:54→17:07)
[2017-06-07] MEDS: CYCLOBENZAPRINE HCL 10 MG TABLET PO SCH (07:57)
[2017-06-07] MEDS: CALCITRIOL 0.25 MCG CAPSULE PO SCH (07:57)
[2017-06-07] MEDS: FLUTICASONE/VILANTEROL 1 EACH BLST.W.DEV INH SCH (07:58)
--- NOTE | 2017-06-07 08:00 | NUR ---
Pt received awake and alert on continuous motion bed. Fall precautions and safety measures maintained. ceramic coater machine and alarms working properly wnl. IV tko RIJ PICC. Pt on 2L nc. Manzano catheter intact and draining tea-colored urine. DVT pumps on bilaterally. Pt stable and nad noted.
[2017-06-07] MEDS: MEROPENEM 500 MG in IV NORMAL SALINE 50 ML IV SCH ×2 (09:09→20:33)
--- NOTE | 2017-06-07 10:13 | NUR ---
Koby Wilson here to see pt. Full report given. New orders received.
--- NOTE | 2017-06-07 10:21 | NUR ---
Spoke with Shlomo (PICC Line RN) and RN to be here in the afternoon for midline insertion.
[2017-06-07] MEDS ORDERED: METOLAZONE 5 MG TABLET PO ONE (10:30)
[2017-06-07] MEDS ORDERED: EPOETIN ALFA 10,000 UNITS/ML VIAL SQ ONE (10:30)
--- NOTE | 2017-06-07 12:22 | NUR ---
CLINICAL PHARMACY NOTE:VANCOMYCIN DOSING Subjective To continue vancomycin dosing on 72 y/o male 6'1" 227lbs for pneumonia Objective Temp 99 BUN 98 SCr 3.9 (not on HD currently) WBC 12.2 Random level: today at 1700 Assessment/plan Was given vancomyc 1500mg ivpb x1 yesterday evening d/t reduced renal fxn. Random level ordered and due tonight at 1700. Will check level and re-dose as needed. Will follow Addendum: 06/07/17 at 1856 by GREGORIA MARLEY RANDOM VANCOMYCIN LEVEL 20.4 NO VANCOMYCIN TODAY. REPEAT RANDOM LEVEL IN AM
--- NOTE | 2017-06-07 12:49 | NUR ---
Shlomo (PICC Line RN) here at the bedside to insert midline.
[2017-06-07] MEDS ORDERED: DIGOXIN 500 MCG/2 ML AMP IV ONE (13:30)
--- NOTE | 2017-06-07 18:56 | NUR ---
End of shift: Pt resting in bed with fall precautions and safety measures maintained. quality assurance monitor body and alarms working properly wnl. IV tko infusing. DVT pumps on bilaterally. at the bedside. Pt on 2L nc. Manzano catheter intact and draining tea-colored urine. Pt stable and nad noted.
[2017-06-07] MEDS: DUTASTERIDE 0.5 MG CAPSULE PO SCH (20:55)
[2017-06-07] MEDS: PRIMIDONE 50 MG TABLET PO SCH (20:55)
[2017-06-07] MEDS: ATORVASTATIN 10 MG TABLET PO SCH (20:55)
[2017-06-08] VITALS (26 sets, daily range): BP systolic 103–143; BP diastolic 0–93
[2017-06-08] MEDS: DILTIAZEM HCL 30 MG TABLET PO SCH ×5 (00:01→23:53)
--- NOTE | 2017-06-08 00:01 | NUR ---
Responds appropriately. Scant appitite. Sign above bed: no B/P, needle sticks left arm. Continues uncontrolled atrial flutter / telemetry monitor. See ICU flowsheet.
[2017-06-08 05:09] LABS: BASOPHILS % (AUTO) 0.1 % (0.0-2.0); EOSINOPHILS # (AUTO) 0.3 K/uL (0.0-0.7); EOSINOPHILS % (AUTO) 2.8 % (0.0-7.0); HEMATOCRIT 29.7 % (40-50); HEMOGLOBIN 9.6 G/DL (14.0-18.0); LYMPHOCYTES # (AUTO) 0.6 K/UL (0.8-4.8); LYMPHOCYTES % (AUTO) 4.8 % (20.5-51.5); MEAN CORPUSCULAR HEMOGLOBIN 31.3 UUG (27.0-31.0); MEAN CORPUSCULAR HGB CONC 32 g/dL (32.0-37.0); MEAN CORPUSCULAR VOLUME 96.7 FL (82.0-92.0); MONOCYTES # (AUTO) 0.6 K/UL (0.1-1.30); MONOCYTES % (AUTO) 4.9 % (0.0-11.0); NEUTROPHILS # (AUTO) 10.9 K/UL (1.8-8.9); NEUTROPHILS % (AUTO) 87.4 % (38.5-71.5); PLATELET COUNT (AUTO) 303 K/UL (150-450); RED BLOOD CELL COUNT(AUTO) 3.07 MIL/UL (4.7-6.1); WHITE BLOOD COUNT (AUTO) 12.4 K/UL (4.0-11.2)
[2017-06-08 05:21] LABS: CARBON DIOXIDE 27 mmol/L (21-32); CHLORIDE 114 mmol/L (98-107); CREATININE 3.8 mg/dL (0.6-1.3); GLUCOSE 130 mg/dL (74-106); MAGNESIUM 2.1 mg/dL (1.8-2.4); PHOSPHOROUS 4.4 mg/dL (2.5-4.9); POTASSIUM 4.6 mmol/L (3.5-5.1); VANCOMYCIN,RANDOM 16.6 ug/mL (18.0-26.0)
[2017-06-08 05:24] LABS: UREA NITROGEN, BLOOD 97 mg/dL (7-18)
[2017-06-08] MEDS: BLOOD SUGAR DIAGNOSTIC 1 EACH STRIP VI SCH ×4 (06:20→21:05)
[2017-06-08] MEDS: PANTOPRAZOLE ORAL SUSPENSION 40 MG SUSPDR.PKT GT SCH (06:20)
[2017-06-08] MEDS: SUCRALFATE 1 G/10 ML LIQUID UDC GT SCH ×3 (06:21→21:01)
[2017-06-08] MEDS: IV NORMAL SALINE 250 ML IV PRN (06:37)
[2017-06-08] MEDS: MIRALAX 17 GM POWD.PACK PO SCH (09:00)
[2017-06-08] MEDS: DOCUSATE SODIUM 100 MG CAPSULE PO SCH (09:00)
[2017-06-08 09:06] LABS: ABG BASE EXCESS 1.2 mmol/L; ABG HCO3 25.4 mmol/L; ABG PH 7.432 (7.350-7.450); ABG PO2 81.2 mmHg (75.0-100.0); ABG SITE RIGHT RADIAL; ABG TOTAL HEMOGLOBIN 10.9 G/dL (13.5-18.0); COHb 1.1 % (0.5-1.5); MetHb 0.2 % (0.0-1.5); O2Hb 95.1 % (94.0-97.0); VENT MODE Nasal Cannula
[2017-06-08] MEDS: BUMETANIDE 1 MG/4 ML VIAL IV SCH ×2 (09:37→16:50)
[2017-06-08] MEDS: MEROPENEM 500 MG in IV NORMAL SALINE 50 ML IV SCH ×2 (09:38→20:59)
[2017-06-08] MEDS: POTASSIUM CHLORIDE 20 MEQ POWDER PACKET NG SCH ×3 (09:39→16:51)
[2017-06-08] MEDS: AMIODARONE HCL 200 MG TABLET PO SCH ×2 (09:40→21:00)
[2017-06-08] MEDS: FOLIC ACID 1 MG TABLET PO SCH ×2 (09:40→16:52)
[2017-06-08] MEDS: ALLOPURINOL 100 MG TABLET PO SCH (09:41)
[2017-06-08] MEDS: FLUTICASONE/VILANTEROL 1 EACH BLST.W.DEV INH SCH (10:31)
[2017-06-08] MEDS: CYCLOBENZAPRINE HCL 10 MG TABLET PO SCH (10:32)
[2017-06-08] MEDS: CALCITRIOL 0.25 MCG CAPSULE PO SCH (10:33)
[2017-06-08] MEDS ORDERED: VANCOMYCIN IV 1,500 MG in IV DEXTROSE 5% 500 ML IV ONE (10:45)
[2017-06-08] MEDS ORDERED: DIGOXIN 500 MCG/2 ML AMP IV ONE (11:45)
[2017-06-08] MEDS: INSULIN REGULAR, HUMAN 300 UNIT/3 ML VIAL SQ PRN (13:04)
[2017-06-08] MEDS: ONDANSETRON 4 MG/2 ML VIAL IV PRN (14:20)
--- NOTE | 2017-06-08 16:26 | NUR ---
CLINICAL PHARMACY NOTE:VANCOMYCIN DOSING Subjective To continue vancomycin dosing on 72 y/o male 6'1" 227lbs for pneumonia Objective Temp 98.2 BUN 97 SCr 3.8 (not on HD currently) WBC 12.4 Random level: 16.6 with am labs Assessment/plan Gave one dose of 1500mg this am per random level at 1100. Random level ordered for tomorrow at 1700. Will check level and re-dose as needed. Will follow
[2017-06-08] MEDS: ACETAMINOPHEN ES 500 MG TABLET PO PRN (16:55)
--- NOTE | 2017-06-08 19:30 | NUR ---
tolerating oxygen at 2 liter/min . no respiratory distress noted rr 23 saturation 95%.oral care done suction patient via mouth and via nares with minimal thick whitish yellowish secretion . . hob up . patient with strong cough and gag. Addendum: 06/08/17 at 2210 by RONEL STANFORD RN Amended: Links added.
[2017-06-08] MEDS: ATORVASTATIN 10 MG TABLET PO SCH (21:00)
[2017-06-08] MEDS: LACTOBACILLUS RHAMNOSUS GG 1 EACH CAPSULE PO SCH (21:00)
[2017-06-08] MEDS: DUTASTERIDE 0.5 MG CAPSULE PO SCH (21:00)
[2017-06-08] MEDS: PRIMIDONE 50 MG TABLET PO SCH (21:01)
[2017-06-09] VITALS (17 sets, daily range): BP systolic 109–139; BP diastolic 55–92
[2017-06-09 05:10] LABS: BASOPHILS # (AUTO) 0.1 K/uL (0.0-8.0); EOSINOPHILS # (AUTO) 0.8 K/uL (0.0-0.7); EOSINOPHILS % (AUTO) 5.6 % (0.0-7.0); HEMOGLOBIN 10.1 G/DL (14.0-18.0); LYMPHOCYTES # (AUTO) 0.5 K/UL (0.8-4.8); LYMPHOCYTES % (AUTO) 3.5 % (20.5-51.5); MEAN CORPUSCULAR HEMOGLOBIN 32.2 UUG (27.0-31.0); MEAN CORPUSCULAR HGB CONC 33 g/dL (32.0-37.0); MEAN CORPUSCULAR VOLUME 98.4 FL (82.0-92.0); MONOCYTES # (AUTO) 0.9 K/UL (0.1-1.30); MONOCYTES % (AUTO) 5.9 % (0.0-11.0); NEUTROPHILS # (AUTO) 12.4 K/UL (1.8-8.9); PLATELET COUNT (AUTO) 273 K/UL (150-450); RED BLOOD CELL COUNT(AUTO) 3.15 MIL/UL (4.7-6.1); WHITE BLOOD COUNT (AUTO) 14.8 K/UL (4.0-11.2)
[2017-06-09 05:54] LABS: CARBON DIOXIDE 27 mmol/L (21-32); CHLORIDE 118 mmol/L (98-107); CREATININE 3.9 mg/dL (0.6-1.3); GLUCOSE 147 mg/dL (74-106); PHOSPHOROUS 3.6 mg/dL (2.5-4.9); POTASSIUM 4.9 mmol/L (3.5-5.1)
[2017-06-09 05:58] LABS: UREA NITROGEN, BLOOD 102 mg/dL (7-18)
[2017-06-09] MEDS: DILTIAZEM HCL 30 MG TABLET PO SCH ×2 (06:03→13:35)
[2017-06-09] MEDS: SUCRALFATE 1 G/10 ML LIQUID UDC GT SCH ×3 (06:03→21:23)
[2017-06-09] MEDS: PANTOPRAZOLE ORAL SUSPENSION 40 MG SUSPDR.PKT GT SCH (06:03)
[2017-06-09] MEDS: BLOOD SUGAR DIAGNOSTIC 1 EACH STRIP VI SCH ×4 (07:30→21:07)
[2017-06-09] MEDS: MEROPENEM 500 MG in IV NORMAL SALINE 50 ML IV SCH ×2 (08:07→21:20)
[2017-06-09] MEDS: BUMETANIDE 1 MG/4 ML VIAL IV SCH ×2 (08:07→17:08)
[2017-06-09] MEDS: LACTOBACILLUS RHAMNOSUS GG 1 EACH CAPSULE PO SCH ×2 (08:08→21:00)
[2017-06-09] MEDS: DOCUSATE SODIUM 100 MG CAPSULE PO SCH (08:08)
[2017-06-09] MEDS: AMIODARONE HCL 200 MG TABLET PO SCH ×2 (08:08→21:00)
[2017-06-09] MEDS: ALLOPURINOL 100 MG TABLET PO SCH (08:11)
[2017-06-09] MEDS: FOLIC ACID 1 MG TABLET PO SCH ×2 (08:12→17:09)
[2017-06-09] MEDS: ACETAMINOPHEN ES 500 MG TABLET PO PRN ×2 (08:12→23:49)
[2017-06-09] MEDS: POTASSIUM CHLORIDE 20 MEQ POWDER PACKET NG SCH ×3 (08:32→17:10)
[2017-06-09] MEDS: MIRALAX 17 GM POWD.PACK PO SCH (08:53)
[2017-06-09] MEDS: CYCLOBENZAPRINE HCL 10 MG TABLET PO SCH ×2 (09:00→09:25)
[2017-06-09] MEDS: CALCITRIOL 0.25 MCG CAPSULE PO SCH (09:25)
[2017-06-09] MEDS: FLUTICASONE/VILANTEROL 1 EACH BLST.W.DEV INH SCH (09:25)
--- NOTE | 2017-06-09 12:36 | NUR ---
CLINICAL PHARMACY NOTE:VANCOMYCIN DOSING Subjective To continue vancomycin dosing on 72 y/o male 6'1" 227lbs for pneumonia Objective Temp 98 BUN 102 SCr 3.9 (not on HD currently) WBC 12.8 Random level: pending today at 1700 Assessment/plan Gave one dose of 1500mg yesterday 1100. Random level pending today for 1700. Will check level and re-dose as needed. Will follow Addendum: 06/09/17 at 1748 by BRENDA NEWMAN ADM VANCOMYCIN LEVEL WAS BACK @ 26.9 WILL HOLD VANCOMYCIN DOSE FOR NOW WILL ORDER ANOTHER VANCOMYCIN LEVEL TOMORROW @0600 WITH OTHER AM LAB AND ADJUST THE DOSE ACCORDINGLY . WILL FOLLOW UP
--- NOTE | 2017-06-09 16:00 | NUR ---
pt. moved out via bariatric bed to room 203 with o2 via n/c. and ekg monitor. ` ............................. pt. was transferred to room 203 via bariatric bed. at 1600 p.m. o2 via n/c was on pt. at 2/liters per minute. no distress. ekg monitor was placed on pt. prior to transfer. i called and left message of pts. transfer to new room at 1620 p.m. phone number is : [phone]. pt. was settled into room and given t.v. control and call light. all four bed rails were placed in the up position. no belongings with pt. ..
--- NOTE | 2017-06-09 16:05 | NUR ---
received lethargic, with mouth open, on 2l/nc, tele afib 120's, on barrimax with turning mattress in use, right upper arm midline patent, head of bed elevated, aspiration precaution observed, will continue to monitor closely
[2017-06-09] MEDS: DILTIAZEM HCL 60 MG TABLET PO SCH ×2 (17:09→23:38)
[2017-06-09] MEDS ORDERED: DILTIAZEM HCL 30 MG TABLET PO SCH (18:00)
--- NOTE | 2017-06-09 19:04 | NUR ---
no distress noted, lethargic but follows commands, repositioned q 2h with heels off loaded wisth pillows, suctioned orally and oral care done, Tele a flutter 120's, all needs attended
--- NOTE | 2017-06-09 19:10 | NUR ---
Appears sleeping during initial rounds. No s/s of respiratory distress noted. HOB elevated. Tolerating O2 at 2L via NC. Good oral care rendered. Will continue to monitor.
[2017-06-09] MEDS: PRIMIDONE 50 MG TABLET PO SCH (21:00)
[2017-06-09] MEDS: ATORVASTATIN 10 MG TABLET PO SCH (21:00)
[2017-06-09] MEDS: DUTASTERIDE 0.5 MG CAPSULE PO SCH (21:00)
[2017-06-10] VITALS (7 sets, daily range): BP systolic 104–147; BP diastolic 52–75
--- NOTE | 2017-06-10 | NUR ---
Midnight temp 100 axcillary, Tylenol 1000mg given as ordered and needed. Cooling measures initiated. Will monitor.
--- NOTE | 2017-06-10 06:00 | NUR ---
Temp down to 99. 6. Complete bed bath given, fairly tolerated. Very stiff. requires 3 people assist in turning and repositioning. All needs attended and met. Continue current plan of care.
[2017-06-10] MEDS: BLOOD SUGAR DIAGNOSTIC 1 EACH STRIP VI SCH ×4 (06:14→23:15)
[2017-06-10] MEDS: SUCRALFATE 1 G/10 ML LIQUID UDC GT SCH ×3 (06:53→20:03)
[2017-06-10] MEDS: DILTIAZEM HCL 60 MG TABLET PO SCH ×4 (06:53→23:16)
[2017-06-10] MEDS: PANTOPRAZOLE ORAL SUSPENSION 40 MG SUSPDR.PKT GT SCH (06:54)
[2017-06-10 06:59] LABS: BASOPHILS # (AUTO) 0.1 K/uL (0.0-8.0); BASOPHILS % (AUTO) 0.9 % (0.0-2.0); EOSINOPHILS # (AUTO) 0.3 K/uL (0.0-0.7); EOSINOPHILS % (AUTO) 1.9 % (0.0-7.0); HEMOGLOBIN 10.7 g/dL (12.5-16.3); LYMPHOCYTES # (AUTO) 0.5 K/uL (20.0-40.0); MEAN CORPUSCULAR HEMOGLOBIN 30.8 uug (23.8-33.4); MEAN CORPUSCULAR HGB CONC 31 g/dL (32.5-36.3); MEAN CORPUSCULAR VOLUME 97.9 fL (73.0-96.2); MONOCYTES # (AUTO) 0.9 K/uL (2.0-10.0); MONOCYTES % (AUTO) 6.3 % (0.0-11.0); NEUTROPHILS # (AUTO) 13.2 K/uL (1.8-8.9); NEUTROPHILS % (AUTO) 87.9 % (38.5-71.5); PLATELET COUNT (AUTO) 289 K/uL (152-348); RED BLOOD CELL COUNT(AUTO) 3.47 MIL/uL (4.06-5.63)
[2017-06-10 07:02] LABS: ALANINE AMINOTRANSFERASE 19 U/L (16-63); ALKALINE PHOSPHATASE 150 U/L (50-136); ASPARTATE AMINOTRANSFERASE 27 U/L (15-37); BILIRUBIN,TOTAL 0.4 mg/dL (0.2-1.0); CARBON DIOXIDE 26 mmol/L (21-32); CHLORIDE 121 mmol/L (98-107); CREATININE 4.4 mg/dL (0.6-1.3); GLUCOSE 162 mg/dL (74-106); MAGNESIUM 2.1 mg/dL (1.8-2.4); TOTAL PROTEIN, SERUM 8.6 g/dL (6.4-8.2); VANCOMYCIN,RANDOM 24.9 ug/mL (18.0-26.0)
[2017-06-10 07:08] LABS: UREA NITROGEN, BLOOD 105 mg/dL (7-18)
--- NOTE | 2017-06-10 07:10 | NUR ---
Received critical lab result of NA =105 and NA 159. Will endorse to oncoming nurse.
[2017-06-10] MEDS: MIRALAX 17 GM POWD.PACK PO SCH (09:00)
[2017-06-10] MEDS: FOLIC ACID 1 MG TABLET PO SCH ×2 (09:00→16:45)
[2017-06-10] MEDS: CYCLOBENZAPRINE HCL 10 MG TABLET PO SCH (09:00)
[2017-06-10] MEDS: ALLOPURINOL 100 MG TABLET PO SCH (09:00)
[2017-06-10] MEDS: AMIODARONE HCL 200 MG TABLET PO SCH ×2 (09:00→20:03)
[2017-06-10] MEDS: CALCITRIOL 0.25 MCG CAPSULE PO SCH (09:00)
[2017-06-10] MEDS: DOCUSATE SODIUM 100 MG CAPSULE PO SCH (09:00)
[2017-06-10] MEDS: LACTOBACILLUS RHAMNOSUS GG 1 EACH CAPSULE PO SCH ×2 (09:00→20:04)
[2017-06-10] MEDS: POTASSIUM CHLORIDE 20 MEQ POWDER PACKET NG SCH ×3 (09:00→16:29)
--- NOTE | 2017-06-10 09:44 | NUR ---
CLINICAL PHARMACY NOTE:VANCOMYCIN DOSING Subjective To continue vancomycin dosing on 72 y/o male 6'1" 227lbs for pneumonia Objective Temp 99.6 BUN 105 SCr 4.4 (not on HD currently) WBC 15 Random level: 24.9 (with am labs) Assessment/plan Since vanco random level with am labs is above 20 mcg/ml, no vancomycin dose shall be given today. Plan to check vanco random level with am labs tomorrow. Will check level and re-dose as needed. Will follow
--- NOTE | 2017-06-10 10:30 | NUR ---
DR banegas was in unit earlier and made him aware that pt is not able to swallow and that he has critical labls bun 105, K+ 5.0, now he was called to let him know that pt is unable to swallow his meds left message awaiting for call back.
[2017-06-10] MEDS: FLUTICASONE/VILANTEROL 1 EACH BLST.W.DEV INH SCH (11:11)
[2017-06-10] MEDS: MEROPENEM 500 MG in IV NORMAL SALINE 50 ML IV SCH ×2 (11:11→20:05)
--- NOTE | 2017-06-10 14:21 | NUR ---
Pt is not able to swallow, DR Esqueda was called at 1250 and have not called yet, pt was seen by Dr Light planishing hammer operator and made him aware about pt not able to swallow pills he stated "Ill place orders for NGT" but there no orders yet, awaiting for MDS call or give orders for ngt so pt can have his pos meds via NGT.
--- NOTE | 2017-06-10 14:47 | NUR ---
DR Reyna called back orders received to insert NGT for meds orders carried out, family aware.
[2017-06-10 15:28] LABS: ABG BASE EXCESS 1.8 mmol/L; ABG HCO3 27.1 mmol/L; ABG PCO2 45.4 mmHg (35.0-45.0); ABG PH 7.394 (7.350-7.450); ABG PO2 61.2 mmHg (75.0-100.0); ABG SITE RIGHT RADIAL; COHb 1.3 % (0.5-1.5); MetHb 0.2 % (0.0-1.5); O2Hb 89.4 % (94.0-97.0); VENT MODE Nasal Cannula
--- NOTE | 2017-06-10 15:30 | NUR ---
NGT was placed and x-ray was orders for placement verification.
--- NOTE | 2017-06-10 16:45 | NUR ---
X-ray done and verification of placement done and is in place, meds were started via NGT.
[2017-06-10] MEDS: IV 1/2NS 1000 ML 1,000 ML IV PRN (19:51)
[2017-06-10] MEDS: PRIMIDONE 50 MG TABLET PO SCH (20:03)
[2017-06-10] MEDS: DUTASTERIDE 0.5 MG CAPSULE PO SCH (20:03)
[2017-06-10] MEDS: ATORVASTATIN 10 MG TABLET PO SCH (20:04)
[2017-06-10] MEDS: ACETAMINOPHEN ES 500 MG TABLET PO PRN (20:04)
--- NOTE | 2017-06-10 21:00 | NUR ---
Received patient on B[employer]erm[employer] bed w/ turning mattress in use. Lethargicness noted with mouth open, on 2 L in use nasally w/ O2Sat 93%. Audible rhonchi noted, appears congested & coughing productively. Deep suctioned done by RT, thick yellow secretions noted. Clamped NGT in place & patent. Aspiration precaution observed, kept head of bed elevated, Routine night meds administered via NG tube. Patient is diabetic & not eating, continuos IVF 1/2 NS given as ordered. Abnormal labs noted w/ BUN 105 & Creatinine 4.4 Patient has hemodialysis order today, awaiting for Dr. Castellanos for insertion of HD access. A-flutter 120's on the monitor.
--- NOTE | 2017-06-10 22:37 | NUR ---
Procedure for Insertion of Dialysis catheter still pending, Dr. Castellanos not here yet. Dr. Reyna notified & aware.
[2017-06-11] MEDS: Z GUARD REMEDY PASTE 57 GM TUBE TOP PRN ×5 (00:17→23:45)
--- NOTE | 2017-06-11 01:00 | NUR ---
Sponge bath provided, turned & repositioned. Slightly [id number] F, Tylenol 1000mg given via NGt. Cooling measures applied. Gross catheter in place w/ small dark tea urine output. Noted dark brown clots near catheter port, cath irrigation initiated noted clots draining down to gross bag. Will continue to monitor. A-flutter on the monitor.
[2017-06-11 04:00] VITALS: BP 133/74
--- NOTE | 2017-06-11 05:34 | NUR ---
Turned & repositioned thru [facility] bed. Continuos ice pack provided, patient current temp 99.5F. Generalized ecchymosis noted, see current pictures in chart. Manzano catheter draining well.
[2017-06-11] MEDS: ACETAMINOPHEN ES 500 MG TABLET PO PRN ×3 (05:50→21:06)
[2017-06-11] MEDS: DILTIAZEM HCL 60 MG TABLET PO SCH ×4 (05:50→23:39)
[2017-06-11] MEDS: PANTOPRAZOLE ORAL SUSPENSION 40 MG SUSPDR.PKT GT SCH (05:50)
[2017-06-11] MEDS: SUCRALFATE 1 G/10 ML LIQUID UDC GT SCH ×3 (05:50→21:05)
[2017-06-11] MEDS: BLOOD SUGAR DIAGNOSTIC 1 EACH STRIP VI SCH ×4 (06:44→21:58)
[2017-06-11 06:58] LABS: EOSINOPHILS # (AUTO) 0.2 K/uL (0.0-0.7); HEMATOCRIT 31.2 % (40-50); HEMOGLOBIN 10.5 G/DL (14.0-18.0); LYMPHOCYTES # (AUTO) 0.7 K/UL (0.8-4.8); LYMPHOCYTES % (AUTO) 3.9 % (20.5-51.5); MEAN CORPUSCULAR HEMOGLOBIN 33.4 UUG (27.0-31.0); MEAN CORPUSCULAR HGB CONC 34 g/dL (32.0-37.0); MEAN CORPUSCULAR VOLUME 99.4 FL (82.0-92.0); MONOCYTES # (AUTO) 1.1 K/UL (0.1-1.30); MONOCYTES % (AUTO) 5.8 % (0.0-11.0); NEUTROPHILS # (AUTO) 16.4 K/UL (1.8-8.9); NEUTROPHILS % (AUTO) 89.3 % (38.5-71.5); PLATELET COUNT (AUTO) 279 K/UL (150-450); RED BLOOD CELL COUNT(AUTO) 3.14 MIL/UL (4.7-6.1); WHITE BLOOD COUNT (AUTO) 18.4 K/UL (4.0-11.2)
[2017-06-11 07:03] LABS: VANCOMYCIN,RANDOM 20.9 ug/mL (18.0-26.0)
[2017-06-11 07:20] LABS: ALANINE AMINOTRANSFERASE 16 U/L (16-63); ALKALINE PHOSPHATASE 122 U/L (50-136); ASPARTATE AMINOTRANSFERASE 21 U/L (15-37); BILIRUBIN,TOTAL 0.5 mg/dL (0.2-1.0); CARBON DIOXIDE 28 mmol/L (21-32); GLUCOSE 151 mg/dL (74-106); MAGNESIUM 2.4 mg/dL (1.8-2.4); PHOSPHOROUS 3.9 mg/dL (2.5-4.9); POTASSIUM 4.5 mmol/L (3.5-5.1); TOTAL PROTEIN, SERUM 8.3 g/dL (6.4-8.2)
[2017-06-11 07:41] LABS: CHLORIDE 126 mmol/L (98-107)
[2017-06-11 07:42] LABS: UREA NITROGEN, BLOOD 123 mg/dL (7-18)
[2017-06-11 07:43] VITALS: BP 125/66
[2017-06-11 08:45] LABS: ABG BASE EXCESS 0.1 mmol/L; ABG HCO3 25.5 mmol/L; ABG PCO2 44.7 mmHg (35.0-45.0); ABG PH 7.374 (7.350-7.450); ABG PO2 67.5 mmHg (75.0-100.0); ABG SITE LEFT RADIAL; ABG TOTAL HEMOGLOBIN 11.1 G/dL (13.5-18.0); COHb 1.3 % (0.5-1.5); MetHb 0.1 % (0.0-1.5); O2Hb 91.8 % (94.0-97.0)
[2017-06-11] MEDS: FLUTICASONE/VILANTEROL 1 EACH BLST.W.DEV INH SCH (09:00)
[2017-06-11] MEDS: ALLOPURINOL 100 MG TABLET PO SCH (10:14)
[2017-06-11] MEDS: POTASSIUM CHLORIDE 20 MEQ POWDER PACKET NG SCH ×3 (10:14→17:00)
[2017-06-11] MEDS: MIRALAX 17 GM POWD.PACK PO SCH (10:14)
[2017-06-11] MEDS: DOCUSATE SODIUM 100 MG CAPSULE PO SCH (10:14)
[2017-06-11] MEDS: CYCLOBENZAPRINE HCL 10 MG TABLET PO SCH (10:14)
[2017-06-11] MEDS: FOLIC ACID 1 MG TABLET PO SCH ×2 (10:14→17:17)
[2017-06-11] MEDS: LACTOBACILLUS RHAMNOSUS GG 1 EACH CAPSULE PO SCH ×2 (10:14→21:05)
[2017-06-11] MEDS: CALCITRIOL 0.25 MCG CAPSULE PO SCH (10:15)
[2017-06-11] MEDS: MEROPENEM 500 MG in IV NORMAL SALINE 50 ML IV SCH ×2 (10:15→20:24)
[2017-06-11] MEDS: AMIODARONE HCL 200 MG TABLET PO SCH ×2 (10:15→21:06)
--- NOTE | 2017-06-11 10:26 | NUR ---
CLINICAL PHARMACY NOTE:VANCOMYCIN DOSING Subjective To continue vancomycin dosing on 72 y/o male 6'1" 227lbs for pneumonia Objective Temp 100.6 BUN 123 SCr 5 (on HD now) WBC 18.4 Random level: 20.9 (pre-HD level) Assessment/plan Since patient is on HD now (HD scheduled for today), will dose as per protocol. Since pre-HD vanco random level is above 20 mcg/ml, no vanco dose shall be given today post HD. Will continue to order & dose as per pre-HD level (not yet ordered). will continue to follow
[2017-06-11 11:34] LABS: LYMPHOCYTES % (MANUAL) 6 % (20-40); MONOCYTES % (MANUAL) 5 % (2-10); NEUTROPHILS % (MANUAL) 89 % (42-75)
[2017-06-11 11:46] VITALS: BP 126/70
[2017-06-11] MEDS ORDERED: ALBUMIN HUMAN 25% (12.5 GM/50 ML ) BOTTLE ONE (12:00)
--- NOTE | 2017-06-11 14:36 | NUR ---
WOUND CARE CONSULT: PT SEEN ON REQUEST OF NURSING STAFF FOR GLUTEAL CREASE AREA. PT PRESENTS WITH SKIN TAG TO RT HIP AREA AND RASH WITH PEELING SKIN TO PERINEUM, GLUTEAL CREASE. PT ON BARIMAX ETS AIR BED. ALL SKIN PROTECTION MEASURES IN PLACE AND DISCUSSED WITH NURSING STAFF. WILL SEE PRN. GARDINER IN AGREEMENT WITH PLAN OF CARE. Addendum: 06/11/17 at 1437 by MALLORY COHEN RN Amended: Links added.
[2017-06-11 15:35] VITALS: BP 114/60
--- NOTE | 2017-06-11 16:07 | NUR ---
Noted, excoriation and moisture associated skin breakdown on pt hadley and sacral area. Asked wound nurse to see pt for recommendations. Orders entered by wound nurse. Paged Dr. Haines to clarify orders. Held inhaler this AM due to pt lethargy. Held KCl due to patient's renal function. Pt with fever today. Given tylenol via NG tube. Will continue to monitor. Pt oxygen saturation 90 on 4L. Increased O2 to 5L, O2 sat 92%. Will make RT aware. Have paged to make aware/clarify orders. Spoke with Dr Eduardo, estimates dialysis line insertion around 1800 this evening. Addendum: 06/11/17 at 1710 by JESUSITA VARGAS RN Kd GILMORE, at patient's bedside. After suctioning patient, oxygen remains low, as low as 77% on 5L. Pt placed on Bipap. paged again.
--- NOTE | 2017-06-11 16:45 | NUR ---
NOTED RESP DISTRESS AT THIS TIME. PT PLACED TO BiPAP WITH PRN ORDERS NOTED.
[2017-06-11] MEDS: CLOTRIMAZOLE 1% CREAM 30 GM TUBE TOP SCH (17:17)
[2017-06-11] MEDS: Z GUARD REMEDY PASTE 57 GM TUBE TOP SCH (17:21)
--- NOTE | 2017-06-11 19:35 | NUR ---
Received patient on [facility] bed, still lethargic. BIPAP in use w/ setting 15/5, RR 15 & O2 titrate >92%. S/P insertion of temporary Hemodialysis access on left upper chest. Patient is now on Hemodialysis, no signs of distress noted.
[2017-06-11] MEDS ORDERED: ALBUMIN HUMAN 25% 100 ML IV ONE (20:15)
[2017-06-11] MEDS: MICAFUNGIN SODIUM 100 MG in IV NORMAL SALINE 100 ML IV SCH (20:23)
[2017-06-11 20:45] VITALS: BP 99/52
--- NOTE | 2017-06-11 20:50 | NUR ---
Hemodialysis completed, vital signs WNL. Mycamine IVPB adm.
[2017-06-11] MEDS: DUTASTERIDE 0.5 MG CAPSULE PO SCH (21:06)
[2017-06-11] MEDS: PRIMIDONE 50 MG TABLET PO SCH (21:06)
[2017-06-11] MEDS: ATORVASTATIN 10 MG TABLET PO SCH (21:06)
[2017-06-11] MEDS: IV 1/2NS 1000 ML 1,000 ML IV PRN (21:20)
--- NOTE | 2017-06-11 22:00 | NUR ---
Merrem IVPB adm., right upper arm midline intact & patent. Repositioned in bed, routine night meds adm via NGT. Gross catheter draining scant amount of dark brown urine, flushed & irrigated gross for patency, but no blockage noted. Remain A-flutter w/ HR 108 on the monitor.
[2017-06-11 23:50] VITALS: BP 101/47
[2017-06-12] VITALS (12 sets, daily range): BP systolic 83–115; BP diastolic 37–59
[2017-06-12] MEDS: SUCRALFATE 1 G/10 ML LIQUID UDC GT SCH ×3 (05:40→21:41)
[2017-06-12] MEDS: PANTOPRAZOLE ORAL SUSPENSION 40 MG SUSPDR.PKT GT SCH (05:40)
[2017-06-12] MEDS: DILTIAZEM HCL 60 MG TABLET PO SCH ×3 (05:41→18:00)
[2017-06-12] MEDS: ACETAMINOPHEN ES 500 MG TABLET PO PRN (05:41)
[2017-06-12] MEDS: BLOOD SUGAR DIAGNOSTIC 1 EACH STRIP VI SCH ×4 (06:15→21:53)
[2017-06-12 06:36] LABS: BASOPHILS % (AUTO) 0.1 % (0.0-2.0); EOSINOPHILS # (AUTO) 0.3 K/uL (0.0-0.7); EOSINOPHILS % (AUTO) 1.6 % (0.0-7.0); HEMATOCRIT 28.4 % (40-50); HEMOGLOBIN 9.8 G/DL (14.0-18.0); LYMPHOCYTES # (AUTO) 0.9 K/UL (0.8-4.8); LYMPHOCYTES % (AUTO) 4.7 % (20.5-51.5); MEAN CORPUSCULAR HEMOGLOBIN 35.3 UUG (27.0-31.0); MEAN CORPUSCULAR HGB CONC 35 g/dL (32.0-37.0); MEAN CORPUSCULAR VOLUME 102.3 FL (82.0-92.0); MONOCYTES % (AUTO) 5.5 % (0.0-11.0); NEUTROPHILS # (AUTO) 16.2 K/UL (1.8-8.9); NEUTROPHILS % (AUTO) 88.1 % (38.5-71.5); PLATELET COUNT (AUTO) 230 K/UL (150-450); RED BLOOD CELL COUNT(AUTO) 2.77 MIL/UL (4.7-6.1); WHITE BLOOD COUNT (AUTO) 18.5 K/UL (4.0-11.2)
--- NOTE | 2017-06-12 07:00 | NUR ---
Febrile today w/ T=99.5 F, Tylenol 1000 mg given via NGT. Ice pack applied on nape & groin area. Still on continuos BIPAP, patient tolerated. Awaiting for blood culture result. A-flutter on the monitor. Will continue to monitor.
--- NOTE | 2017-06-12 08:00 | NUR ---
Lethargic. On Bipap at 40% Fio2 with O2 sa tof 99%. Clarified diet with Dr. Reyna. NPO except meds per NGT. Tele AF 91.
[2017-06-12] MEDS: DOCUSATE SODIUM 100 MG CAPSULE PO SCH (09:00)
[2017-06-12] MEDS: FLUTICASONE/VILANTEROL 1 EACH BLST.W.DEV INH SCH ×2 (09:00→12:32)
[2017-06-12] MEDS: MIRALAX 17 GM POWD.PACK PO SCH (09:00)
--- NOTE | 2017-06-12 09:00 | NUR ---
Due medications not yet given, hemodialysis started.
[2017-06-12 09:34] LABS: CARBON DIOXIDE 28 mmol/L (21-32); CHLORIDE 118 mmol/L (98-107); CREATININE 5.8 mg/dL (0.6-1.3); GLUCOSE 142 mg/dL (74-106); MAGNESIUM 2.2 mg/dL (1.8-2.4); PHOSPHOROUS 6.2 mg/dL (2.5-4.9)
[2017-06-12 09:37] LABS: UREA NITROGEN, BLOOD 107 mg/dL (7-18)
--- NOTE | 2017-06-12 12:30 | NUR ---
Hemodialysis done with 400 ml output. BP 83/37. Albumin given during HD. Bipap FI02 increased to 80% during HD and decreased o 50% after HD. ABG's done. On continuous Bipap. Dr. Melchor seen patient with orders to transfer to CCU.
[2017-06-12] MEDS: LACTOBACILLUS RHAMNOSUS GG 1 EACH CAPSULE PO SCH ×2 (12:32→21:41)
[2017-06-12] MEDS: POTASSIUM CHLORIDE 20 MEQ POWDER PACKET NG SCH ×3 (12:32→16:38)
[2017-06-12] MEDS: ALLOPURINOL 100 MG TABLET PO SCH (12:33)
[2017-06-12] MEDS: FOLIC ACID 1 MG TABLET PO SCH ×2 (12:33→16:38)
[2017-06-12] MEDS: CYCLOBENZAPRINE HCL 10 MG TABLET PO SCH (12:33)
[2017-06-12] MEDS: CALCITRIOL 0.25 MCG CAPSULE PO SCH (12:33)
[2017-06-12] MEDS: AMIODARONE HCL 200 MG TABLET PO SCH ×2 (12:34→21:42)
[2017-06-12] MEDS: Z GUARD REMEDY PASTE 57 GM TUBE TOP SCH ×2 (12:35→16:39)
[2017-06-12] MEDS: CLOTRIMAZOLE 1% CREAM 30 GM TUBE TOP SCH ×2 (12:35→16:41)
[2017-06-12] MEDS: IV D5W 1000ML 1,000 ML IV PRN (12:38)
[2017-06-12] MEDS: MEROPENEM 500 MG in IV NORMAL SALINE 50 ML IV SCH ×2 (12:38→20:12)
--- NOTE | 2017-06-12 12:42 | NUR ---
CLINICAL PHARMACY NOTE:VANCOMYCIN DOSING Subjective To continue vancomycin dosing on 72 y/o male 6'1" 227lbs for pneumonia Objective Temp 98.1 BUN 107 SCr 5.8 (on HD now) WBC 18.5 Assessment/plan No HD scheduled for today. No vanco dose shall be given today. Will continue to order & dose as per pre-HD level (not yet ordered). will continue to follow
[2017-06-12 13:00] LABS: ABG BASE EXCESS -0.7 mmol/L; ABG HCO3 24.8 mmol/L; ABG PCO2 44.6 mmHg (35.0-45.0); ABG PH 7.363 (7.350-7.450); ABG PO2 87.7 mmHg (75.0-100.0); ABG SITE RIGHT RADIAL; ABG TOTAL HEMOGLOBIN 10.3 G/dL (13.5-18.0); COHb 0.9 % (0.5-1.5); MetHb 0.2 % (0.0-1.5); O2Hb 95.6 % (94.0-97.0); VENT MODE BIPAP
--- NOTE | 2017-06-12 13:40 | NUR ---
Transferred to CCU by bed. Report given to
--- NOTE | 2017-06-12 14:01 | NUR ---
PT MOVED TO CCU REMAINS ON BIPAP 15\5 R15, 50% FIO2. PT TAKEN OFF BIPAP FOR BRIEF MOMENT, BECAME AGITATED WITH SOB VERY QUICKLY. DOING WELL ON BIPAP, TOLERATING SETTINGS WELL. SUCTIONED LARGE AMOUNTS OF THICK YELLOW SECRETIONS. BVM AT BEDSIDE. ALARMS ARE ON AUDIBLE.
--- NOTE | 2017-06-12 14:30 | NUR ---
RECIEVED PT FROM [facility] TO CCU2 VIA BED. A 72YO SLIGHLY OBESED MALE WITH A C/O SOB. LETHARGIC BUT RESPONSIVE, GENERALLY WEAK.
--- NOTE | 2017-06-12 15:00 | NUR ---
NPO. HOB [id number]. NGT LEFT NARES. NPO.
--- NOTE | 2017-06-12 18:00 | NUR ---
SBP ON THE LOW SIDE. CARDIZEM HELD. HIS K IS 5. KLOR NOT GIVEN.
[2017-06-12] MEDS: MICAFUNGIN SODIUM 100 MG in IV NORMAL SALINE 100 ML IV SCH (18:46)
--- NOTE | 2017-06-12 19:00 | NUR ---
NO APPARENT DISTRESS NOTED.
--- NOTE | 2017-06-12 20:00 | NUR ---
Lethargic, arousable. In no apparent distress. Tolerating BiPap well, excellent sats up to 100%. Stable AFlutter rate 80's with variable AV block. NG clamped, for meds only. Hypernatremic, D5W infusing at 100 ml/hr via midline R upper arm. Nursing comfort measures observed at all times. Please see CCU flowsheet for full assessment and clinical data.
--- NOTE | 2017-06-12 20:45 | NUR ---
here for brief visit. Updated with care plans. very appreciative of care and info.
[2017-06-12] MEDS: DUTASTERIDE 0.5 MG CAPSULE PO SCH (21:42)
[2017-06-12] MEDS: ATORVASTATIN 10 MG TABLET PO SCH (21:42)
[2017-06-12] MEDS: PRIMIDONE 50 MG TABLET PO SCH (21:43)
--- NOTE | 2017-06-12 22:21 | NUR ---
RECEIVED PATIENT IN CCU ON BIPAP WITH SETTINGS: 15\5 R15, 40% FIO2. SUCTIONED MODERATE AMOUNTS OF THICK YELLOW SECRETIONS. AMBU BAG IS BY BEDSIDE. PATIENT IS DOING WELL ON BIPAP. TOLERATING SETTINGS WELL. ALARMS CHECKED AND THEY ARE ON AND AUDIBLE. WILL CONTINUE TO MONITOR.
[2017-06-13] VITALS (12 sets, daily range): BP systolic 91–116; BP diastolic 46–60
[2017-06-13] MEDS: DILTIAZEM HCL 60 MG TABLET PO SCH ×4 (00:14→17:17)
[2017-06-13] MEDS: IV D5W 1000ML 1,000 ML IV PRN ×2 (02:24→12:29)
[2017-06-13 05:18] LABS: ALANINE AMINOTRANSFERASE 15 U/L (16-63); ALKALINE PHOSPHATASE 98 U/L (50-136); ASPARTATE AMINOTRANSFERASE 22 U/L (15-37); BILIRUBIN,TOTAL 0.5 mg/dL (0.2-1.0); CARBON DIOXIDE 30 mmol/L (21-32); CHLORIDE 108 mmol/L (98-107); CREATININE 5.1 mg/dL (0.6-1.3); GLUCOSE 125 mg/dL (74-106); PHOSPHOROUS 3.5 mg/dL (2.5-4.9); POTASSIUM 4.2 mmol/L (3.5-5.1); TOTAL PROTEIN, SERUM 7.5 g/dL (6.4-8.2)
[2017-06-13 05:20] LABS: BASOPHILS # (AUTO) 0.1 K/uL (0.0-8.0); BASOPHILS % (AUTO) 0.4 % (0.0-2.0); EOSINOPHILS # (AUTO) 1.2 K/uL (0.0-0.7); EOSINOPHILS % (AUTO) 9.1 % (0.0-7.0); HEMATOCRIT 27.3 % (40-50); HEMOGLOBIN 9.5 G/DL (14.0-18.0); LYMPHOCYTES # (AUTO) 0.8 K/UL (0.8-4.8); LYMPHOCYTES % (AUTO) 6.1 % (20.5-51.5); MEAN CORPUSCULAR HEMOGLOBIN 34.9 UUG (27.0-31.0); MEAN CORPUSCULAR HGB CONC 35 g/dL (32.0-37.0); MONOCYTES # (AUTO) 0.6 K/UL (0.1-1.30); MONOCYTES % (AUTO) 4.7 % (0.0-11.0); NEUTROPHILS # (AUTO) 10.3 K/UL (1.8-8.9); NEUTROPHILS % (AUTO) 79.7 % (38.5-71.5); PLATELET COUNT (AUTO) 204 K/UL (150-450); RED BLOOD CELL COUNT(AUTO) 2.73 MIL/UL (4.7-6.1)
[2017-06-13 05:22] LABS: UREA NITROGEN, BLOOD 87 mg/dL (7-18)
[2017-06-13] MEDS: SUCRALFATE 1 G/10 ML LIQUID UDC GT SCH ×3 (05:42→22:42)
[2017-06-13] MEDS: Z GUARD REMEDY PASTE 57 GM TUBE TOP PRN (05:42)
--- NOTE | 2017-06-13 06:00 | NUR ---
General condition unchanged. Continues to tolerate BiPap well. Stable night. Please see CCU flowsheet for full assessment and clinical data.
[2017-06-13] MEDS: PANTOPRAZOLE ORAL SUSPENSION 40 MG SUSPDR.PKT GT SCH (06:19)
[2017-06-13] MEDS: BLOOD SUGAR DIAGNOSTIC 1 EACH STRIP VI SCH ×4 (07:30→21:00)
--- NOTE | 2017-06-13 07:35 | NUR ---
Pt received on BIPAP with ordered settings of 15/5, Rate 15, FIO2-40%. Pt tolerating BIPAP well. No signs or symptoms of respiratory distress noted. Pt using mepelex instead of Protecta-gel. Good skin integrity noted on area of mask application to face. Minimal leak achieved. BIPAP alarms checked, on and audible. BIPAP plugged into red emergency red outlet. Will continue to monitor.
[2017-06-13] MEDS: AMIODARONE HCL 200 MG TABLET PO SCH ×2 (08:48→21:00)
[2017-06-13] MEDS: POTASSIUM CHLORIDE 20 MEQ POWDER PACKET NG SCH ×3 (08:50→16:41)
[2017-06-13] MEDS: CYCLOBENZAPRINE HCL 10 MG TABLET PO SCH (08:50)
[2017-06-13] MEDS: CALCITRIOL 0.25 MCG CAPSULE PO SCH (08:53)
[2017-06-13] MEDS: FLUTICASONE/VILANTEROL 1 EACH BLST.W.DEV INH SCH (08:53)
[2017-06-13] MEDS: MIRALAX 17 GM POWD.PACK PO SCH (08:54)
[2017-06-13] MEDS: ALLOPURINOL 100 MG TABLET PO SCH (08:55)
[2017-06-13] MEDS: LACTOBACILLUS RHAMNOSUS GG 1 EACH CAPSULE PO SCH ×2 (08:55→21:00)
[2017-06-13] MEDS: Z GUARD REMEDY PASTE 57 GM TUBE TOP SCH ×2 (08:55→16:42)
[2017-06-13] MEDS: DOCUSATE SODIUM 100 MG CAPSULE PO SCH (08:56)
[2017-06-13] MEDS: FOLIC ACID 1 MG TABLET PO SCH ×2 (08:56→16:41)
[2017-06-13] MEDS: MEROPENEM 500 MG in IV NORMAL SALINE 50 ML IV SCH ×2 (09:00→21:00)
[2017-06-13] MEDS: CLOTRIMAZOLE 1% CREAM 30 GM TUBE TOP SCH ×2 (09:01→16:41)
--- NOTE | 2017-06-13 09:19 | NUR ---
garden tractor mechanic here to see pt for dialysis treatment at the bedside.
[2017-06-13 09:20] LABS: ABG BASE EXCESS 0.7 mmol/L; ABG HCO3 25.9 mmol/L; ABG PCO2 43.8 mmHg (35.0-45.0); ABG PH 7.389 (7.350-7.450); ABG PO2 146.7 mmHg (75.0-100.0); ABG SITE LEFT RADIAL; ABG TOTAL HEMOGLOBIN 9.4 G/dL (13.5-18.0); COHb 1.1 % (0.5-1.5); MetHb 0.3 % (0.0-1.5); O2Hb 97.7 % (94.0-97.0); VENT MODE BIPAP
[2017-06-13] MEDS ORDERED: ALBUMIN HUMAN 25% 100 ML IV ONE (10:00)
--- NOTE | 2017-06-13 10:49 | NUR ---
Dr. Melchor here to see pt. Full report given. New orders received.
--- NOTE | 2017-06-13 11:45 | NUR ---
Dialysis completed. 3L of hemodialysis fluid removed. Pt stable and nad noted upon completion of dialysis treatment.
--- NOTE | 2017-06-13 11:45 | NUR ---
Pt taken off BIPAP and placed on 10LPM via Simple Mask. Tolerating well. SpO2-98% Sxn'd nasally for small to moderate amounts of yellowish secretions. Will continue to monitor.
[2017-06-13] MEDS ORDERED: ALBUMIN HUMAN 25% (12.5 GM/50 ML ) BOTTLE ONE (12:00)
--- NOTE | 2017-06-13 12:32 | NUR ---
Spoke with Dr. Haines. Full report given. New orders received. stated that it was okay to downgrade pt back to [facility] status.
--- NOTE | 2017-06-13 14:27 | NUR ---
CLINICAL PHARMACY NOTE:VANCOMYCIN DOSING Subjective To continue vancomycin dosing on 72 y/o male 6'1" 227lbs for pneumonia Objective Temp 98.3 BUN 87 SCr 5.1 (on HD now) WBC 13.0 Assessment/plan Patient was dialyzed today. Vancomycin level(pre-HD level) is on order on am labs. Will follow the level for further dosing. Will continue to dose by pre-HD random level. Addendum: 06/13/17 at 1722 by SURESH BATEMAN ADM VANCOMYCIN LEVEL IS 14.2. WILL ADMINISTER 1 GRAM X1 TODAY AND CONTINUE TO MONITOR
[2017-06-13] MEDS: NOVASOURCE RENAL 1000 ML LIQUID GT PRN (16:56)
[2017-06-13] MEDS ORDERED: VANCOMYCIN IV 1 G in PREMIXED 0 EACH IV ONE (17:15)
[2017-06-13] MEDS: MICAFUNGIN SODIUM 100 MG in IV NORMAL SALINE 100 ML IV SCH (17:43)
[2017-06-13] MEDS ORDERED: VANCOMYCIN IV 1,500 MG in IV DEXTROSE 5% 500 ML IV ONE (18:00)
[2017-06-13] MEDS: PRIMIDONE 50 MG TABLET PO SCH (21:00)
[2017-06-13] MEDS: DUTASTERIDE 0.5 MG CAPSULE PO SCH (21:00)
[2017-06-13] MEDS: ATORVASTATIN 10 MG TABLET PO SCH (21:00)
[2017-06-14] VITALS (7 sets, daily range): BP systolic 94–133; BP diastolic 42–55
[2017-06-14] MEDS: IV D5W 1000ML 1,000 ML IV PRN (02:29)
[2017-06-14 05:21] LABS: BASOPHILS # (AUTO) 0.1 K/uL (0.0-8.0); BASOPHILS % (AUTO) 0.9 % (0.0-2.0); EOSINOPHILS # (AUTO) 0.9 K/uL (0.0-0.7); EOSINOPHILS % (AUTO) 7.6 % (0.0-7.0); HEMATOCRIT 28.7 % (40-50); HEMOGLOBIN 9.2 G/DL (14.0-18.0); LYMPHOCYTES # (AUTO) 0.5 K/UL (0.8-4.8); LYMPHOCYTES % (AUTO) 4.7 % (20.5-51.5); MEAN CORPUSCULAR HEMOGLOBIN 30.7 UUG (27.0-31.0); MEAN CORPUSCULAR HGB CONC 32 g/dL (32.0-37.0); MEAN CORPUSCULAR VOLUME 95.4 FL (82.0-92.0); MONOCYTES # (AUTO) 0.7 K/UL (0.1-1.30); MONOCYTES % (AUTO) 5.9 % (0.0-11.0); NEUTROPHILS # (AUTO) 9.1 K/UL (1.8-8.9); NEUTROPHILS % (AUTO) 80.9 % (38.5-71.5); PLATELET COUNT (AUTO) 168 K/UL (150-450); RED BLOOD CELL COUNT(AUTO) 3.01 MIL/UL (4.7-6.1); WHITE BLOOD COUNT (AUTO) 11.3 K/UL (4.0-11.2)
[2017-06-14] MEDS: DILTIAZEM HCL 60 MG TABLET PO SCH ×5 (06:00→23:29)
[2017-06-14] MEDS: SUCRALFATE 1 G/10 ML LIQUID UDC GT SCH ×3 (06:00→21:11)
[2017-06-14] MEDS: PANTOPRAZOLE ORAL SUSPENSION 40 MG SUSPDR.PKT GT SCH (06:46)
[2017-06-14] MEDS: BLOOD SUGAR DIAGNOSTIC 1 EACH STRIP VI SCH ×4 (06:46→23:30)
[2017-06-14 06:56] LABS: ALANINE AMINOTRANSFERASE 17 U/L (16-63); ALKALINE PHOSPHATASE 117 U/L (50-136); ASPARTATE AMINOTRANSFERASE 24 U/L (15-37); BILIRUBIN,TOTAL 0.8 mg/dL (0.2-1.0); CARBON DIOXIDE 30 mmol/L (21-32); CHLORIDE 97 mmol/L (98-107); CREATININE 4.8 mg/dL (0.6-1.3); GLUCOSE 171 mg/dL (74-106); MAGNESIUM 1.6 mg/dL (1.8-2.4); PHOSPHOROUS 3.7 mg/dL (2.5-4.9); POTASSIUM 4.4 mmol/L (3.5-5.1); TOTAL PROTEIN, SERUM 7.8 g/dL (6.4-8.2); UREA NITROGEN, BLOOD 63 mg/dL (7-18)
--- NOTE | 2017-06-14 07:10 | NUR ---
RT WAS CALLED TO PT ROOM PER NINA MADDEN, PT AT THIS TIME NEEDED TO BE SUCTION RT SUCTION PT VIA NPA AND OBTAIN SMALL THICK SECRETIONS. PT REMAINS ON 6LPM VIA SIMPLE MASK WILL CONTINUE TO MONITOR PT.
--- NOTE | 2017-06-14 07:30 | NUR ---
RECIEVED PT ON SEMI FOWLERS. OBTUNDED BUT OPENS EYES ON DEEP STIMULATION. VERY SKINNY, SKIN, DRY AND WARM TO TOUCH. VPACED ON THE MONITOR. PERMACATH ON THE RIGHT UPPER CHEST INTACT. TRACHEOSTOMY SHILEY#8 , VENT SETTING AC-20, VT-450, FIO2-40%, PEEP-5. SATURATING AT 100%. VERY MINIMAL SECRETIONS. AFEBRILE.
--- NOTE | 2017-06-14 07:30 | NUR ---
RECIEVED PT ON SEMII FOWLERS, LETHARGIC BUT VERBALLY AROUSABLE. GENERALIZED WEAKNESS IN ALL EXTREMETIES, BUT FOLLOWS COMMANDS. VERBALLY RESPONSIVE BUT WORDS ARE NOT TOO CLEAR. ORIENTED TO HER NAME. HR-IN THE 80'S CONTROLLED AFIB. SBP IS BORDERLINE IN THE LOW 100. AFEBRILE. LUNGS SOUNDS CONGESTED AND RATTLING. PT ON SIMPLE MASK AT 6L, O2SAT OF 98-100%. NASAL TRUMPET IN PLACE ON THE RIGHT NOSTRIL. SUCTION SECRETIONS DEEPLY VIA THE NASAL TRUMPET, LARGE AMOUNT OF THICK BROWNISH SECRETIONS BY RT.
--- NOTE | 2017-06-14 07:44 | NUR ---
ADDENDUM:SECOND NOTES MADE AT 0730 UP TO 1030 WAS AN ERROR. INTENDED FOR MY PT IN CCU1, John MAGDALENO WHO [place] TRANSFFERED TO RM 215 AT 1130AM. LINWOOD WOOD
--- NOTE | 2017-06-14 08:00 | NUR ---
CISCO UPPER RIGHT CHEST CDI FOR HD ACCESS. MIDLINE IV ACCESS ON THE RIGHT UPPER ARM, WITH IVF INFUSING D5W AT 100ML/HR. TUBE FEEDING ON HOLD AT THIS TIME, OBTAINED HIGH RESIDUALS VIA NGT. ABDOMEN IS BIG, HYPOACTIVE BS, NO DIARRHEA NOTED.
--- NOTE | 2017-06-14 08:00 | NUR ---
GTUBE CDI. TUBE FEEDING RESTARTED AT 0800, NOVASOURCE RENAL AT 45ML/HR GOAL RATE. NO RESIDUALS NOTED. NO BM, ABDOMEN IS SOFT.
[2017-06-14 08:43] LABS: ABG BASE EXCESS 1.9 mmol/L; ABG HCO3 27.4 mmol/L; ABG PCO2 46.9 mmHg (35.0-45.0); ABG PH 7.384 (7.350-7.450); ABG PO2 127.5 mmHg (75.0-100.0); ABG SITE RIGHT RADIAL; ABG TOTAL HEMOGLOBIN 9.9 G/dL (13.5-18.0); COHb 0.9 % (0.5-1.5); MetHb 0.1 % (0.0-1.5); O2Hb 97.7 % (94.0-97.0)
[2017-06-14] MEDS: LACTOBACILLUS RHAMNOSUS GG 1 EACH CAPSULE PO SCH ×2 (08:56→20:35)
[2017-06-14] MEDS: FOLIC ACID 1 MG TABLET PO SCH ×2 (08:56→16:55)
[2017-06-14] MEDS: AMIODARONE HCL 200 MG TABLET PO SCH ×2 (08:57→21:58)
[2017-06-14] MEDS: DOCUSATE SODIUM 100 MG CAPSULE PO SCH (08:57)
[2017-06-14] MEDS: MIRALAX 17 GM POWD.PACK PO SCH (08:58)
[2017-06-14] MEDS: Z GUARD REMEDY PASTE 57 GM TUBE TOP SCH ×2 (08:59→16:56)
[2017-06-14] MEDS: CALCITRIOL 0.25 MCG CAPSULE PO SCH (09:00)
[2017-06-14] MEDS: FLUTICASONE/VILANTEROL 1 EACH BLST.W.DEV INH SCH (09:00)
[2017-06-14] MEDS: POTASSIUM CHLORIDE 20 MEQ POWDER PACKET NG SCH (09:00)
--- NOTE | 2017-06-14 09:00 | NUR ---
REPOSITION SUPINELY, SLEEPING SOUNDLY. FOLEYCATHETER INTACT, TEA COLORED URINE VERY SCANT AMOUNT. NOTED SLIGHT REDNESS ON THE BUTTOCKS AREA. PT IS A JARRETT STATUS.
[2017-06-14] MEDS: CLOTRIMAZOLE 1% CREAM 30 GM TUBE TOP SCH ×2 (09:01→16:57)
[2017-06-14] MEDS: ALLOPURINOL 100 MG TABLET PO SCH (09:04)
[2017-06-14] MEDS: CYCLOBENZAPRINE HCL 10 MG TABLET PO SCH (09:05)
[2017-06-14] MEDS: MEROPENEM 500 MG in IV NORMAL SALINE 50 ML IV SCH ×2 (09:22→20:43)
--- NOTE | 2017-06-14 09:30 | NUR ---
SEEN AND EXAMINED BY DR ELIZABETH AND DR RUIZ WITH NEW ORDERS.
--- NOTE | 2017-06-14 10:30 | NUR ---
SEEN AND EXAMINED BY DR ELIZABETH AND DR RUIZ WITH NEW ORDERS. IVF DISCONTINUED.
--- NOTE | 2017-06-14 11:30 | NUR ---
PT TRANSFERRED TO 215 VIA BED, FAMILY WITH THE PATIENT. REPORT GIVEN TO EDWAR WOOD. CONDITION IS STABLE.
--- NOTE | 2017-06-14 11:44 | NUR ---
PT WAS SUCTION BY RT AT THIS TIME NO DISTRESS NOTED PT SPO2 99% ON 6LPM VIA S/M.
--- NOTE | 2017-06-14 12:00 | NUR ---
FRQUENT NASAL SUCTIONING IMPROVED HIS O2 SATURATION.
[2017-06-14] MEDS: INSULIN REGULAR, HUMAN 300 UNIT/3 ML VIAL SQ PRN (12:54)
--- NOTE | 2017-06-14 14:33 | NUR ---
CLINICAL PHARMACY NOTE:VANCOMYCIN DOSING Subjective To continue vancomycin dosing on 72 y/o male 6'1" 227lbs for pneumonia Objective Temp 98.5 BUN 63 SCr 4.8 (on HD now) WBC 11 Assessment/plan Patient will be dialyzed today. Vancomycin level(pre-HD level) is on order on am labs today. Will follow the level for further dosing. Addendum: 06/14/17 at 1517 by SURESH MARLEY VANCOMYCIN LEVEL IS 24.4. NO DOSE WILL BE GIVEN. CONTINUE TO MONITOR.
--- NOTE | 2017-06-14 16:00 | NUR ---
PM CARE AND BED BATH DONE. SUCTION SECRETIONS NASALLY AT FREQUENT INTERVALS.
[2017-06-14] MEDS: NOVASOURCE RENAL 1000 ML LIQUID GT PRN (18:17)
[2017-06-14] MEDS: MICAFUNGIN SODIUM 100 MG in IV NORMAL SALINE 100 ML IV SCH (19:09)
[2017-06-14] MEDS: DUTASTERIDE 0.5 MG CAPSULE PO SCH (20:35)
[2017-06-14] MEDS: PRIMIDONE 50 MG TABLET PO SCH (20:36)
[2017-06-14] MEDS: ATORVASTATIN 10 MG TABLET PO SCH (20:37)
[2017-06-15] VITALS: BP 108/62
[2017-06-15 04:00] VITALS: BP 99/50
[2017-06-15] MEDS: SUCRALFATE 1 G/10 ML LIQUID UDC GT SCH ×3 (05:41→21:10)
[2017-06-15] MEDS: DILTIAZEM HCL 60 MG TABLET PO SCH ×3 (05:42→18:00)
[2017-06-15] MEDS: BLOOD SUGAR DIAGNOSTIC 1 EACH STRIP VI SCH ×4 (05:42→23:58)
--- NOTE | 2017-06-15 05:43 | NUR ---
Glucose elevated, see labs. Insulin held, tube feeding to be off at [id number].
[2017-06-15 06:41] LABS: BASOPHILS % (AUTO) 0.1 % (0.0-2.0); EOSINOPHILS # (AUTO) 0.2 K/uL (0.0-0.7); EOSINOPHILS % (AUTO) 1.7 % (0.0-7.0); HEMATOCRIT 30.5 % (40-50); HEMOGLOBIN 10.3 G/DL (14.0-18.0); LYMPHOCYTES # (AUTO) 0.4 K/UL (0.8-4.8); LYMPHOCYTES % (AUTO) 2.9 % (20.5-51.5); MEAN CORPUSCULAR HEMOGLOBIN 31.8 UUG (27.0-31.0); MEAN CORPUSCULAR HGB CONC 34 g/dL (32.0-37.0); MEAN CORPUSCULAR VOLUME 94.6 FL (82.0-92.0); MONOCYTES # (AUTO) 0.7 K/UL (0.1-1.30); MONOCYTES % (AUTO) 5.4 % (0.0-11.0); NEUTROPHILS % (AUTO) 89.9 % (38.5-71.5); PLATELET COUNT (AUTO) 210 K/UL (150-450); RED BLOOD CELL COUNT(AUTO) 3.23 MIL/UL (4.7-6.1); WHITE BLOOD COUNT (AUTO) 12.3 K/UL (4.0-11.2)
[2017-06-15] MEDS: PANTOPRAZOLE ORAL SUSPENSION 40 MG SUSPDR.PKT GT SCH (06:42)
[2017-06-15 06:55] LABS: CARBON DIOXIDE 26 mmol/L (21-32); CHLORIDE 94 mmol/L (98-107); CREATININE 5.8 mg/dL (0.6-1.3); GLUCOSE 173 mg/dL (74-106); MAGNESIUM 1.7 mg/dL (1.8-2.4); PHOSPHOROUS 4.8 mg/dL (2.5-4.9); POTASSIUM 4.5 mmol/L (3.5-5.1); UREA NITROGEN, BLOOD 77 mg/dL (7-18)
[2017-06-15] MEDS ORDERED: BLOOD SUGAR DIAGNOSTIC 1 EACH STRIP VI SCH (06:59)
--- NOTE | 2017-06-15 07:00 | NUR ---
HEMODIALYSIS JUSTED STARTED IN THE ROOM. PT IS LYING IN BED WITH HOB UP AT 35DEGREES. LETHARGIC BUT OPENS EYES TO CALL.
[2017-06-15 08:00] VITALS: BP 107/49
[2017-06-15] MEDS: MIRALAX 17 GM POWD.PACK PO SCH (09:00)
[2017-06-15] MEDS: DOCUSATE SODIUM 100 MG CAPSULE PO SCH (09:00)
--- NOTE | 2017-06-15 10:00 | NUR ---
HEMODIALYSIS IS FINISHED. FLUID PULLED OUT IS 3L. SEEN AND EXAMINED BY DR ELIZABETH WITH NEW ORDERS. PT IS MORE ALERT AND RESPONSIVE AT THIS TIME. RESTARTED TUBE FEEDING AT THIS TIME. SUCTIONED SECRETIONS THOROUGHLY AND OBTAINED LARGE AMOUNT OF THICK YELLOW PHLEGM.
[2017-06-15] MEDS: MEROPENEM 500 MG in IV NORMAL SALINE 50 ML IV SCH ×2 (10:15→21:08)
[2017-06-15] MEDS: LACTOBACILLUS RHAMNOSUS GG 1 EACH CAPSULE PO SCH ×2 (10:16→21:09)
[2017-06-15] MEDS: ALLOPURINOL 100 MG TABLET PO SCH (10:16)
[2017-06-15] MEDS: CALCITRIOL 0.25 MCG CAPSULE PO SCH (10:16)
[2017-06-15] MEDS: FOLIC ACID 1 MG TABLET PO SCH ×2 (10:16→17:25)
[2017-06-15] MEDS: CYCLOBENZAPRINE HCL 10 MG TABLET PO SCH (10:16)
[2017-06-15] MEDS: AMIODARONE HCL 200 MG TABLET PO SCH ×2 (10:17→21:09)
[2017-06-15] MEDS: CLOTRIMAZOLE 1% CREAM 30 GM TUBE TOP SCH ×2 (10:19→17:25)
[2017-06-15] MEDS: Z GUARD REMEDY PASTE 57 GM TUBE TOP SCH ×2 (10:20→17:26)
[2017-06-15 10:24] LABS: ABG BASE EXCESS 1.6 mmol/L; ABG HCO3 23.6 mmol/L; ABG PCO2 29.3 mmHg (35.0-45.0); ABG PH 7.524 (7.350-7.450); ABG PO2 63.1 mmHg (75.0-100.0); ABG SITE RIGHT BRACHIAL; ABG TOTAL HEMOGLOBIN 12.4 G/dL (13.5-18.0); COHb 0.9 % (0.5-1.5); O2Hb 93.1 % (94.0-97.0)
--- NOTE | 2017-06-15 10:48 | NUR ---
CLINICAL PHARMACY NOTE:VANCOMYCIN DOSING Subjective To continue vancomycin dosing on 72 y/o male 6'1" 227lbs for pneumonia Objective Temp 98.5 BUN 63 SCr 4.8 (on HD now) WBC 11 Pre-HD level: 21.6 today with am labs Assessment/plan Patient dialyzed this am. Based on pre-HD level, no dose shall be given today. Will follow the HD schedule for further dosing.
[2017-06-15 12:00] VITALS: BP 107/49
[2017-06-15 16:00] VITALS: BP 90/31
--- NOTE | 2017-06-15 18:00 | NUR ---
ADMIT PT TO CCU1 FROM THE ER VIA GURNEY. CHIEF C/O OF ALLERGIC REACTION , SEVERE ANGIO EDEMA, ANAPHYLAXIS. PT IS AWAKE, ALERT AND ORIENTEDX3. VEY SWOLLEN LIPS AND BITH CHEEKS. PT DENIES ANY PAIN AROUND THE AREA. CLAIMED IT FEELS NUMB.
--- NOTE | 2017-06-15 18:00 | NUR ---
ADDENDUM: LAST NOTES FROM 1800 IS INTENDED FOR MY NEW ADMIT IN CCU MRS AQUINO..YOAN
[2017-06-15] MEDS: INSULIN REGULAR, HUMAN 300 UNIT/3 ML VIAL SQ PRN (18:08)
[2017-06-15] MEDS: MICAFUNGIN SODIUM 100 MG in IV NORMAL SALINE 100 ML IV SCH (19:38)
[2017-06-15] MEDS: NOVASOURCE RENAL 1000 ML LIQUID GT PRN (19:55)
--- NOTE | 2017-06-15 20:10 | NUR ---
RECEIVED PATIENT TRANSFER FROM CCU , PATIENT AWAKE,LETHARGIC, NOT IN ANY RESPIRATORY DISTRESS,ON O2 VIA SIMPLE MASK AT 6L/M, ABDOMEN SLIGHTLY DISTENDED, BOWEL SOUND INTACT,REQUIRED FREQUENTLY SUCTION,CPT DONE BY RT ,PATIENT TOLERATED NG TUBE FEEDING AT 30 ML/HR NO RESIDUAL INCREASE TO 40 ML/HR NOW , HOB ELEVATED, ASPIRATION PRECAUTIONS, REY CATH INTACT, VERY SMALL AMOUNT OF CONCENTRATED TEA COLOR URINE,
[2017-06-15 20:32] VITALS: BP 101/47
[2017-06-15] MEDS: DUTASTERIDE 0.5 MG CAPSULE PO SCH (21:09)
[2017-06-15] MEDS: ATORVASTATIN 10 MG TABLET PO SCH (21:09)
[2017-06-15] MEDS: PRIMIDONE 50 MG TABLET PO SCH (21:10)
[2017-06-16] VITALS (7 sets, daily range): BP systolic 96–115; BP diastolic 34–50
[2017-06-16] MEDS: SUCRALFATE 1 G/10 ML LIQUID UDC GT SCH ×3 (05:55→21:23)
[2017-06-16] MEDS: PANTOPRAZOLE ORAL SUSPENSION 40 MG SUSPDR.PKT GT SCH (05:56)
[2017-06-16] MEDS: DILTIAZEM HCL 60 MG TABLET PO SCH ×5 (05:57→17:09)
[2017-06-16] MEDS: BLOOD SUGAR DIAGNOSTIC 1 EACH STRIP VI SCH ×3 (06:00→17:15)
[2017-06-16 06:29] LABS: BASOPHILS # (AUTO) 0.1 K/uL (0.0-8.0); BASOPHILS % (AUTO) 0.5 % (0.0-2.0); EOSINOPHILS # (AUTO) 0.6 K/uL (0.0-0.7); EOSINOPHILS % (AUTO) 5.1 % (0.0-7.0); HEMATOCRIT 33.2 % (36.7-47.1); HEMOGLOBIN 11.1 g/dL (12.5-16.3); LYMPHOCYTES # (AUTO) 0.5 K/uL (20.0-40.0); LYMPHOCYTES % (AUTO) 3.6 % (20.5-51.5); MEAN CORPUSCULAR HEMOGLOBIN 31.1 uug (23.8-33.4); MEAN CORPUSCULAR HGB CONC 33 g/dL (32.5-36.3); MEAN CORPUSCULAR VOLUME 93.4 fL (73.0-96.2); MONOCYTES % (AUTO) 8.1 % (0.0-11.0); NEUTROPHILS # (AUTO) 10.5 K/uL (1.8-8.9); NEUTROPHILS % (AUTO) 82.7 % (38.5-71.5); PLATELET COUNT (AUTO) 246 K/uL (152-348); RED BLOOD CELL COUNT(AUTO) 3.55 MIL/uL (4.06-5.63); WHITE BLOOD COUNT (AUTO) 12.7 K/uL (3.6-10.2)
[2017-06-16 06:32] LABS: CARBON DIOXIDE 29 mmol/L (21-32); CHLORIDE 95 mmol/L (98-107); CREATININE 4.9 mg/dL (0.6-1.3); GLUCOSE 157 mg/dL (74-106); MAGNESIUM 1.9 mg/dL (1.8-2.4); PHOSPHOROUS 4.7 mg/dL (2.5-4.9); POTASSIUM 3.9 mmol/L (3.5-5.1); UREA NITROGEN, BLOOD 57 mg/dL (7-18)
[2017-06-16] MEDS: INSULIN REGULAR, HUMAN 300 UNIT/3 ML VIAL SQ PRN ×4 (06:49→17:18)
[2017-06-16 07:45] LABS: ABG BASE EXCESS 0.2 mmol/L; ABG HCO3 24.6 mmol/L; ABG PCO2 39.1 mmHg (35.0-45.0); ABG PH 7.416 (7.350-7.450); ABG PO2 80.7 mmHg (75.0-100.0); ABG SITE LEFT RADIAL; COHb 0.9 % (0.5-1.5); MetHb 0.2 % (0.0-1.5); O2Hb 94.9 % (94.0-97.0)
--- NOTE | 2017-06-16 08:00 | NUR ---
pt seen by RT, CPT performed to anterior/lateral segments, NT sxn'd.
--- NOTE | 2017-06-16 08:00 | NUR ---
Pt awake and alert but to weak to communicate. PT follows simple commands. Pt on aspiration precaution. NGT in placed in stomach. HOB elevated. Call light is within reach. MIDLINE ON RIGHT Brachial intact. F/c draining dark brown tea color. Suctioned pt by RT using inplaced trumpet on right nostril and left nostril has NGT. Pt denies any c/o pain. Tele rate of 90's.
[2017-06-16] MEDS: FOLIC ACID 1 MG TABLET PO SCH ×2 (08:38→17:08)
[2017-06-16] MEDS: CALCITRIOL 0.25 MCG CAPSULE PO SCH (08:38)
[2017-06-16] MEDS: DOCUSATE SODIUM 100 MG CAPSULE PO SCH (08:38)
[2017-06-16] MEDS: ALLOPURINOL 100 MG TABLET PO SCH (08:38)
[2017-06-16] MEDS: LACTOBACILLUS RHAMNOSUS GG 1 EACH CAPSULE PO SCH ×2 (08:38→21:20)
[2017-06-16] MEDS: AMIODARONE HCL 200 MG TABLET PO SCH ×2 (08:39→21:20)
[2017-06-16] MEDS: MIRALAX 17 GM POWD.PACK PO SCH (08:39)
[2017-06-16] MEDS: CYCLOBENZAPRINE HCL 10 MG TABLET PO SCH (08:39)
[2017-06-16] MEDS: MEROPENEM 500 MG in IV NORMAL SALINE 50 ML IV SCH ×2 (08:44→21:20)
[2017-06-16] MEDS: CLOTRIMAZOLE 1% CREAM 30 GM TUBE TOP SCH ×2 (08:45→17:11)
[2017-06-16] MEDS: Z GUARD REMEDY PASTE 57 GM TUBE TOP SCH ×2 (08:46→17:11)
--- NOTE | 2017-06-16 09:00 | NUR ---
Dr Reyna and Dr brown here. Dr brown aware of ABG. Pt is in no acute distress. Suctioned pt again. Call light is within reach.
--- NOTE | 2017-06-16 10:00 | NUR ---
Residual checked noted 800cc. Spoke with dieticians recommendations- start Feeding @ 400 with 10cc/hr on NG tube. Increase to 10cc/hr q8hrs to goal rate of 50cc/hr. Will continue to monitor pt. Call light is within reach.
--- NOTE | 2017-06-16 12:06 | NUR ---
called Dr Haines in regards of the pt's residual
--- NOTE | 2017-06-16 12:28 | NUR ---
CLINICAL PHARMACY NOTE:VANCOMYCIN DOSING Subjective To continue vancomycin dosing on 72 y/o male 6'1" 227lbs for pneumonia Objective Temp 98.8 BUN 57 SCr 4.9 WBC 12.7 Assessment/plan Patient is not dialyzed today; scheduled for tomorrow. Ordered level tomorrow am , will give a dose depending on pre-HD level, no dose shall be given today. Will follow up for further dosing.
--- NOTE | 2017-06-16 13:20 | NUR ---
[facility]YSON TO GIVE DILTIAZAM PER DR. OVALLE. NO PARAMETERS FOR DBP Addendum: 06/16/17 at 1336 by CHANO ISBELL RN OK PER DR OVALLE, RECHECKED BP IS 98/48. HELD DILTIAZEM
--- NOTE | 2017-06-16 13:57 | NUR ---
called Dr. Haines in regards of the pt's GI residual
--- NOTE | 2017-06-16 14:07 | NUR ---
per dr banegas "Give Reglan 500ml IV q8h, put chest xray stat". Addendum: 06/16/17 at 1501 by CHANO ISBELL RN called pharmacy, per pharmacist 500 ml of reglan does not exist. Called Dr. Banegas back, awaiting for call back
--- NOTE | 2017-06-16 14:56 | NUR ---
CXR eduardo as ordered. Awaiting order clarification from DR Cochran re: reglan ordered earlier - reglan 500mg iv q8 hrs...per pharmacy no such dose exist.
--- NOTE | 2017-06-16 16:00 | NUR ---
Ngt feeding started as recommended at 10cc/hr. No residual when started. Will monitor pt.
--- NOTE | 2017-06-16 16:35 | NUR ---
called [facility] second time in regards of Brandon
--- NOTE | 2017-06-16 17:05 | NUR ---
per dr. banegas "Reglan 5mg q8hr", no duration of the order
[2017-06-16] MEDS: METOCLOPRAMIDE HCL 10 MG/2 ML VIAL IV SCH ×2 (17:29→21:23)
[2017-06-16] MEDS: MICAFUNGIN SODIUM 100 MG in IV NORMAL SALINE 100 ML IV SCH (17:30)
[2017-06-16] MEDS ORDERED: DILTIAZEM HCL 60 MG TABLET PO SCH (18:00)
[2017-06-16] MEDS: DILTIAZEM HCL 30 MG TABLET PO SCH ×2 (18:00→23:54)
--- NOTE | 2017-06-16 18:00 | NUR ---
Spoke with RD notified of feeding without any residual and recommends to increase feeding from 10cc/hr to 20cc/hr @1999 and monitor patient if pt continues to tolerate ngt feeding may increase feeding to 30cc/hr in 8 hrs. Suctioned pt more got thick brownish mucus. F/C not much urine output. Pt is in no acute distress. PT attempts to talk but unable to. PT able to communicate with simple yes and no questions. Pt denies any c/o pain. Call light is within reach.
--- NOTE | 2017-06-16 18:57 | NUR ---
PT IS LAYING IN BED COMFORTABLY. NO S/S OF RESPIRATORY DISTRESS NOTED. NO PAIN NOTED. O2 SAT IS WNL. ALL SAFETY NEEDS ARE MET. NO RESIDUAL NOTED. PT IS ON MASK.
--- NOTE | 2017-06-16 20:00 | NUR ---
RECEIVED PATIENT ALERT,TRY TO TALK,FOLLOW SIMPLE COMMAND, O2 SAT 99% ON SIMPLE MASK 6L/M, NO SOB NOTED,ELEVATED HEAD OF BED,SUCTION THRU RT NOSTRIL TRUMPET, OBTAINS MODERATED THICK,PALE, YELLOW SECRETION,NG TUBE FEEING ,RESIDUAL ONLY 3ML NOTED, INCREASED TO 20 ML/HR.CONT CLOSELY MONITOR.
[2017-06-16] MEDS: DUTASTERIDE 0.5 MG CAPSULE PO SCH (21:20)
[2017-06-16] MEDS: ATORVASTATIN 10 MG TABLET PO SCH (21:20)
[2017-06-16] MEDS: PRIMIDONE 50 MG TABLET PO SCH (21:23)
--- NOTE | 2017-06-17 | NUR ---
NG TUBE RESIDUAL CHECK 50 ML NOTED,HELD TUBE FEEDING.PATIENT HAS LARGE SOFT STOOL X 1,TURN ,SPONGE BATH GIVEN,SUCTION OBTAINED LARGE AMOUNT OF PALE, YELLOWISH THICK SECRETION, SENT TO LAB FOR CULTURE ORDERED.
[2017-06-17] MEDS: Z GUARD REMEDY PASTE 57 GM TUBE TOP SCH ×2 (01:10→16:09)
[2017-06-17] MEDS: BLOOD SUGAR DIAGNOSTIC 1 EACH STRIP VI SCH ×4 (01:11→17:41)
[2017-06-17] MEDS: INSULIN REGULAR, HUMAN 300 UNIT/3 ML VIAL SQ PRN ×3 (01:13→17:46)
--- NOTE | 2017-06-17 03:00 | NUR ---
Sponge bath provided. Friday wound/skin picture done, see photos in chart.
[2017-06-17 04:00] VITALS: BP 100/55
[2017-06-17] MEDS: DILTIAZEM HCL 30 MG TABLET PO SCH ×3 (06:00→17:33)
--- NOTE | 2017-06-17 06:00 | NUR ---
no respiratory distress noted,stable on o2 6l/m via mask,HOB elevated, continue held tube feeding, Cardizem also not admin due to low BP. blood sugar 156,Insulin held. ,report given to on coming RN.
[2017-06-17] MEDS: METOCLOPRAMIDE HCL 10 MG/2 ML VIAL IV SCH ×3 (06:21→19:55)
[2017-06-17] MEDS: PANTOPRAZOLE ORAL SUSPENSION 40 MG SUSPDR.PKT GT SCH (06:21)
[2017-06-17] MEDS: SUCRALFATE 1 G/10 ML LIQUID UDC GT SCH ×3 (06:21→20:01)
--- NOTE | 2017-06-17 08:00 | NUR ---
Pt awake and answers to yes or no questions. Right nostril has trumpet for suctioning. NGT on left nare awaiting KUB for NGT PLACEMENT due to pt has been trying to talk and questionable movement on NGT markings. Will monitor pts residual from ngt. Pt currently have ngt feeding off. Awaiting recommendations from dietary. Plan of care for pt today Aspiration precaution implemented , Frequent suctioning to keep airway patent, oral care, frequent turning, monitor residual.
[2017-06-17 08:07] VITALS: BP 101/43
[2017-06-17] MEDS: LACTOBACILLUS RHAMNOSUS GG 1 EACH CAPSULE PO SCH ×2 (08:38→19:55)
[2017-06-17] MEDS: CALCITRIOL 0.25 MCG CAPSULE PO SCH (08:39)
[2017-06-17] MEDS: CYCLOBENZAPRINE HCL 10 MG TABLET PO SCH (08:40)
[2017-06-17] MEDS: FOLIC ACID 1 MG TABLET PO SCH ×2 (08:40→16:07)
[2017-06-17] MEDS: MIRALAX 17 GM POWD.PACK PO SCH (08:43)
[2017-06-17] MEDS: AMIODARONE HCL 200 MG TABLET PO SCH ×2 (08:43→20:01)
[2017-06-17] MEDS: ALLOPURINOL 100 MG TABLET PO SCH (08:44)
[2017-06-17] MEDS: DOCUSATE SODIUM 100 MG CAPSULE PO SCH (08:44)
[2017-06-17] MEDS: CLOTRIMAZOLE 1% CREAM 30 GM TUBE TOP SCH ×2 (08:44→16:08)
[2017-06-17] MEDS: MEROPENEM 500 MG in IV NORMAL SALINE 50 ML IV SCH ×2 (08:53→19:54)
--- NOTE | 2017-06-17 10:00 | NUR ---
Started tube feeding again at 10cc/hr no residual noted. Following recommendations from dietary . Will monitor residual.
[2017-06-17 11:16] VITALS: BP 87/48
[2017-06-17 12:00] VITALS: BP 101/44
--- NOTE | 2017-06-17 13:00 | NUR ---
Pt is in no acute distress. D/C F/C as ordered per Dr Cochran. Call light is within reach. Pt has been anuric.
--- NOTE | 2017-06-17 14:54 | NUR ---
CLINICAL PHARMACY NOTE:VANCOMYCIN DOSING Subjective To continue vancomycin dosing on 72 y/o male 6'1" 227lbs for pneumonia Objective Temp 98.6 BUN 57(06/16) SCr 4.9(06/16) WBC 12.7(06/16) Assessment/plan Patient is not dialyzed today . No dose shall be given today. Will continue to dose pre-HD level. Will follow daily.
[2017-06-17 15:39] VITALS: BP 114/60
--- NOTE | 2017-06-17 16:00 | NUR ---
Spoke with dietary RD. Pt is tolerating feeding. will leave feeding rate at 10cc/hr and increase at 1000 pm tonight at 20cc and monitor pt's tolerance of feeding till am as recommended by dietitian.
[2017-06-17] MEDS: MICAFUNGIN SODIUM 100 MG in IV NORMAL SALINE 100 ML IV SCH (17:44)
--- NOTE | 2017-06-17 18:00 | NUR ---
Plan of care effective. PT comfortable, airway patent, no residual noted. Pt denies any c/o pain. Call light is within reach.
[2017-06-17] MEDS: ATORVASTATIN 10 MG TABLET PO SCH (19:55)
[2017-06-17] MEDS: DUTASTERIDE 0.5 MG CAPSULE PO SCH (19:55)
[2017-06-17] MEDS: PRIMIDONE 50 MG TABLET PO SCH (19:55)
[2017-06-17] MEDS: ACETAMINOPHEN ES 500 MG TABLET PO PRN (19:55)
[2017-06-17] MEDS: Z GUARD REMEDY PASTE 57 GM TUBE TOP PRN (19:56)
[2017-06-17 20:26] VITALS: BP 117/51
--- NOTE | 2017-06-17 21:00 | NUR ---
Received this patient awake not in distress able to follow simple command. Cont pulse ox at bedside O2sat 92% in O2 6LMask. Coughing productively, stridorous breathing noted, RT in room deep suctioning this patient, thick brownish white secretions noted. NGT intact, Novasource continuos feeding at 10ml/hr tolerating no residual noted. Right upper arm midline patent, kept site clean & secured. Routine night meds. administerd via NGT. A-flutter on the monitor.
[2017-06-18] VITALS: BP 115/48
[2017-06-18] MEDS: DILTIAZEM HCL 30 MG TABLET PO SCH ×4 (00:08→17:21)
[2017-06-18] MEDS: BLOOD SUGAR DIAGNOSTIC 1 EACH STRIP VI SCH ×4 (00:14→17:28)
[2017-06-18] MEDS: INSULIN REGULAR, HUMAN 300 UNIT/3 ML VIAL SQ PRN ×4 (00:16→17:30)
--- NOTE | 2017-06-18 03:30 | NUR ---
Sponge bath provided. Friday wound/skin picture done, see photos in chart.
[2017-06-18 04:00] VITALS: BP 104/46
[2017-06-18] MEDS: NOVASOURCE RENAL 1000 ML LIQUID GT PRN (06:04)
[2017-06-18] MEDS: ACETAMINOPHEN ES 500 MG TABLET PO PRN ×2 (06:14→19:41)
[2017-06-18] MEDS: SUCRALFATE 1 G/10 ML LIQUID UDC GT SCH ×3 (06:14→20:26)
[2017-06-18] MEDS: PANTOPRAZOLE ORAL SUSPENSION 40 MG SUSPDR.PKT GT SCH (06:15)
[2017-06-18] MEDS: METOCLOPRAMIDE HCL 10 MG/2 ML VIAL IV SCH ×3 (06:15→20:27)
[2017-06-18] MEDS: Z GUARD REMEDY PASTE 57 GM TUBE TOP PRN ×2 (06:15→19:40)
[2017-06-18 06:35] LABS: BASOPHILS % (AUTO) 0.1 % (0.0-2.0); EOSINOPHILS # (AUTO) 0.9 K/uL (0.0-0.7); EOSINOPHILS % (AUTO) 5.6 % (0.0-7.0); HEMATOCRIT 32.6 % (40-50); HEMOGLOBIN 10.6 G/DL (14.0-18.0); LYMPHOCYTES # (AUTO) 0.7 K/UL (0.8-4.8); LYMPHOCYTES % (AUTO) 4.9 % (20.5-51.5); MEAN CORPUSCULAR HGB CONC 32 g/dL (32.0-37.0); MEAN CORPUSCULAR VOLUME 95.8 FL (82.0-92.0); MONOCYTES # (AUTO) 1.2 K/UL (0.1-1.30); MONOCYTES % (AUTO) 7.6 % (0.0-11.0); NEUTROPHILS # (AUTO) 12.4 K/UL (1.8-8.9); NEUTROPHILS % (AUTO) 81.8 % (38.5-71.5); PLATELET COUNT (AUTO) 361 K/UL (150-450); WHITE BLOOD COUNT (AUTO) 15.2 K/UL (4.0-11.2)
[2017-06-18 06:44] LABS: CARBON DIOXIDE 24 mmol/L (21-32); CHLORIDE 99 mmol/L (98-107); GLUCOSE 151 mg/dL (74-106); MAGNESIUM 2.2 mg/dL (1.8-2.4); PHOSPHOROUS 6.2 mg/dL (2.5-4.9); POTASSIUM 4.1 mmol/L (3.5-5.1)
[2017-06-18 06:57] LABS: CREATININE 8.4 mg/dL (0.6-1.3); UREA NITROGEN, BLOOD 102 mg/dL (7-18)
[2017-06-18 07:55] VITALS: BP 101/50
--- NOTE | 2017-06-18 08:00 | NUR ---
received awake, able to answer simple questions with yes/no, on 6l/mask, suctioned via trumpet on the right nostril of thick brownish/whitish secretions, NGT on the left nare in place, clamped at this time, feeding due at 1000 as per schedule, kept head of elevated, midline on the right upper arm patent, Tele a-flutter 90's, no distress noted
[2017-06-18 08:43] LABS: ABG BASE EXCESS -1.1 mmol/L; ABG PCO2 41.6 mmHg (35.0-45.0); ABG PH 7.379 (7.350-7.450); ABG PO2 83.4 mmHg (75.0-100.0); ABG SITE RIGHT RADIAL; ABG TOTAL HEMOGLOBIN 13.5 G/dL (13.5-18.0); COHb 1.1 % (0.5-1.5); MetHb 0.2 % (0.0-1.5); O2Hb 94.3 % (94.0-97.0)
--- NOTE | 2017-06-18 09:00 | NUR ---
HD nurse here, here at bedside, continue plan of care, close JARRETT monitoring observed
[2017-06-18] MEDS: AMIODARONE HCL 200 MG TABLET PO SCH ×2 (09:05→20:26)
[2017-06-18] MEDS: ALLOPURINOL 100 MG TABLET PO SCH (09:05)
[2017-06-18] MEDS: MIRALAX 17 GM POWD.PACK PO SCH (09:05)
[2017-06-18] MEDS: CYCLOBENZAPRINE HCL 10 MG TABLET PO SCH (09:05)
[2017-06-18] MEDS: FOLIC ACID 1 MG TABLET PO SCH ×2 (09:05→17:16)
[2017-06-18] MEDS: CALCITRIOL 0.25 MCG CAPSULE PO SCH (09:05)
[2017-06-18] MEDS: Z GUARD REMEDY PASTE 57 GM TUBE TOP SCH ×2 (09:06→17:17)
[2017-06-18] MEDS: CLOTRIMAZOLE 1% CREAM 30 GM TUBE TOP SCH ×2 (09:06→17:17)
[2017-06-18] MEDS: LACTOBACILLUS RHAMNOSUS GG 1 EACH CAPSULE PO SCH ×2 (09:06→20:26)
[2017-06-18] MEDS: DOCUSATE SODIUM 100 MG CAPSULE PO SCH (09:21)
--- NOTE | 2017-06-18 10:00 | NUR ---
resumed tube fdg at 10ml/hr, NGT in place and patent, no residual noted, required suctioning frequently.
[2017-06-18] MEDS: ALBUMIN HUMAN 25% 100 ML IV PRN ×2 (10:01→10:16)
--- NOTE | 2017-06-18 12:00 | NUR ---
dialysis completed, no distress noted, 2 liters removed by HD nurse
--- NOTE | 2017-06-18 16:00 | NUR ---
tolerating tube fdg, increased rate to 30ml/hr, aspiration precautions observed, suctioned as needed, at bedside, all needs attended and met, no distress noted
[2017-06-18 16:06] VITALS: BP 94/55
[2017-06-18] MEDS: MICAFUNGIN SODIUM 100 MG in IV NORMAL SALINE 100 ML IV SCH (17:34)
--- NOTE | 2017-06-18 18:29 | NUR ---
no distress noted, head of bed elevated, sat at 100%, repositioned q 2h with heel off loaded with pillows, tube fdg at 30ml/hr- no residual noted
[2017-06-18 20:00] VITALS: BP 97/45
[2017-06-18] MEDS: ATORVASTATIN 10 MG TABLET PO SCH (20:26)
[2017-06-18] MEDS: PRIMIDONE 50 MG TABLET PO SCH (20:26)
[2017-06-18] MEDS: DUTASTERIDE 0.5 MG CAPSULE PO SCH (20:26)
--- NOTE | 2017-06-18 20:30 | NUR ---
Received patient awake not in distress able to follow simple command. Cont pulse ox at bedside O2sat 92% in O2 6LMask. RT in room deep suctioning this patient, minimal thick brownish white secretions noted. NGT intact, Novasource continuos feeding at 30ml/hr tolerating no residual noted. Right upper arm midline patent, kept site clean & secured. Routine night meds. administerd via NGT. A-flutter on the monitor.
[2017-06-19] VITALS (8 sets, daily range): BP systolic 87–111; BP diastolic 46–54
--- NOTE | 2017-06-19 | NUR ---
Tolerating 30 ml/hr continuos feeding, drip rate increased to 40ml/hr as ordered (increase 10 ml/hr every 8hrs, target rate 55ml/hr). Will continue to monitor.
--- NOTE | 2017-06-19 01:44 | NUR ---
disregard above noted, wrong entry
[2017-06-19] MEDS: SUCRALFATE 1 G/10 ML LIQUID UDC GT SCH ×3 (06:48→19:52)
[2017-06-19] MEDS: METOCLOPRAMIDE HCL 10 MG/2 ML VIAL IV SCH ×3 (06:48→19:52)
[2017-06-19] MEDS: DILTIAZEM HCL 30 MG TABLET PO SCH ×4 (06:48→17:27)
[2017-06-19] MEDS: PANTOPRAZOLE ORAL SUSPENSION 40 MG SUSPDR.PKT GT SCH (06:49)
[2017-06-19] MEDS: BLOOD SUGAR DIAGNOSTIC 1 EACH STRIP VI SCH ×4 (06:49→17:21)
[2017-06-19] MEDS: Z GUARD REMEDY PASTE 57 GM TUBE TOP PRN (06:49)
[2017-06-19] MEDS: NOVASOURCE RENAL 1000 ML LIQUID GT PRN (06:49)
[2017-06-19] MEDS: ACETAMINOPHEN ES 500 MG TABLET PO PRN ×2 (06:51→19:48)
[2017-06-19] MEDS: INSULIN REGULAR, HUMAN 300 UNIT/3 ML VIAL SQ PRN ×3 (06:53→17:24)
--- NOTE | 2017-06-19 07:00 | NUR ---
Patient tolerated 40 ml/hr continuos feeding. Sponge bath provided today. Frequent nasopharyngeal suctioning needed, RT aware. Trumpet & NGT in place. Patient c/o left knee discomfort, swelling noted. Report given to NINA Horowitz.
--- NOTE | 2017-06-19 08:00 | NUR ---
lethargic, head of bed elevated, on 6l/mask sat at 100%, NGT on the left nostril clamped at this time, tele aflutter 90's-100's, suctioned via trumpet on the right nostril- obtained light brownish phlegm, repositioned for comfort with heels off loaded with pillows, continue plan of care
--- NOTE | 2017-06-19 08:30 | NUR ---
seen by Dr Melchor and Dr Reyna with orders
[2017-06-19] MEDS: DOCUSATE SODIUM 100 MG CAPSULE PO SCH (08:57)
[2017-06-19] MEDS: ALLOPURINOL 100 MG TABLET PO SCH (08:57)
[2017-06-19] MEDS: FOLIC ACID 1 MG TABLET PO SCH ×2 (08:57→17:19)
[2017-06-19] MEDS: CYCLOBENZAPRINE HCL 10 MG TABLET PO SCH (08:57)
[2017-06-19] MEDS: LACTOBACILLUS RHAMNOSUS GG 1 EACH CAPSULE PO SCH ×2 (08:57→19:52)
[2017-06-19] MEDS: CALCITRIOL 0.25 MCG CAPSULE PO SCH (08:57)
[2017-06-19] MEDS: AMIODARONE HCL 200 MG TABLET PO SCH ×2 (08:58→19:56)
[2017-06-19] MEDS: MIRALAX 17 GM POWD.PACK PO SCH (08:58)
[2017-06-19] MEDS: CLOTRIMAZOLE 1% CREAM 30 GM TUBE TOP SCH ×2 (08:59→17:26)
[2017-06-19] MEDS: Z GUARD REMEDY PASTE 57 GM TUBE TOP SCH ×2 (08:59→17:26)
--- NOTE | 2017-06-19 10:00 | NUR ---
placed to aerosol 40% by RT- will continue to monitor, continuous pulse oximetry at bedside- sat at 99%,suctioned by RT via trumpet
--- NOTE | 2017-06-19 11:00 | NUR ---
trumpet removed by RT- no sores noted on the right nostril
--- NOTE | 2017-06-19 14:00 | NUR ---
aerosol decreased to 30% per RT, trumpet replaced by RT, here visiting earlier
--- NOTE | 2017-06-19 14:30 | NUR ---
tube fdg increased to 50ml/hr- no residual noted, no vomiting noted, no diarrhea, kept head of bed elevated at all times
[2017-06-19 14:51] LABS: ABG BASE EXCESS -2.5 mmol/L; ABG HCO3 23.2 mmol/L; ABG PCO2 43.9 mmHg (35.0-45.0); ABG PH 7.341 (7.350-7.450); ABG PO2 83.7 mmHg (75.0-100.0); ABG SITE RIGHT RADIAL; ABG TOTAL HEMOGLOBIN 11.9 G/dL (13.5-18.0); MetHb 0.2 % (0.0-1.5); O2Hb 95.1 % (94.0-97.0); VENT MODE COOL AEROSOL
--- NOTE | 2017-06-19 15:00 | NUR ---
seen by Dr Montes with orders- saw ABG results done- no new orders
--- NOTE | 2017-06-19 18:11 | NUR ---
no distress noted, remains on aerosol at 30%, sat at 98%, suctioned prn, no residual noted on tube feeding, NGT in place and patent, kept head of bed elevated, aspiration precautions observed, continue to monitor on JARRETT status
[2017-06-19] MEDS: ATORVASTATIN 10 MG TABLET PO SCH (19:52)
[2017-06-19] MEDS: DUTASTERIDE 0.5 MG CAPSULE PO SCH (19:52)
[2017-06-19] MEDS: PRIMIDONE 50 MG TABLET PO SCH (19:52)
--- NOTE | 2017-06-19 21:00 | NUR ---
Patient in bed less responsive, no verbal response. On Aerosol at 30%, O2sat 98%. NGT inplace, tolerating continuos feeding at 50 ml/hr, 20 ml residual noted. RT in room. Current temp 100.1F. Tylenol 1000 mg adm via NGT, cooling measures applied. A-flutter on the monitor w/ HR 103 bpm. Spouse at bedside.
--- NOTE | 2017-06-19 23:06 | NUR ---
Audible rhonchi w/ gargling sound on auscultation. Trumpet reinserted & deep suctioned by RT. Moderate thick yellow secretions noted. Patient tolerating Aerosol at 30%. Patient O2Sat 96%. A-flutter on the monitor.
--- NOTE | 2017-06-20 00:15 | NUR ---
Re-checked body temp., patient remains febrile post treatment. Dr. Leana Daniel notified, received orders & carried out. Blood culture x2 was ordered STAT & patient require urine specimen for UA & C&S. Cooling measures provided. A-flutter 100bpm on the monitor
[2017-06-20] MEDS ORDERED: ACETAMINOPHEN 325 MG TABLET ONE (00:48)
[2017-06-20] MEDS: ACETAMINOPHEN 325 MG TABLET PO PRN (01:03)
[2017-06-20] MEDS: BLOOD SUGAR DIAGNOSTIC 1 EACH STRIP VI SCH ×4 (01:25→17:48)
[2017-06-20] MEDS: INSULIN REGULAR, HUMAN 300 UNIT/3 ML VIAL SQ PRN ×3 (01:27→17:51)
--- NOTE | 2017-06-20 01:30 | NUR ---
Anuric/incontinent. Straight cath done, obtained 40 ml francisco j-colored urine. Specimen sent to the lab. for UA, C & S test. Midnight accu check shows 208. Four (4) units Regulin insulin adm subcu.
[2017-06-20 01:31] LABS: *BLOOD, URINE 3+ (NEGATIVE); *CLARITY,URINE SLIGHTLY CLOUDY (CLEAR); *COLOR,URINE AMBER (YELLOW); *KETONES,URINE TRACE (NEGATIVE); *PROTEIN,URINE 1+ (NEGATIVE); *UROBILINOGEN,URINE 0.2 E.U./dl (NORMAL); LEUKOCYTE ESTERASE ,URINE NEGATIVE (NEGATIVE); NITRITE, URINE NEGATIVE (NEGATIVE); UGLUCOSE NEGATIVE (NEGATIVE)
[2017-06-20 01:57] LABS: *BILIRUBIN,URIN 2+ (NEGATIVE)
[2017-06-20 02:03] LABS: BACTERIA,URINE NONE SEEN /HPF (NONE SEEN); WBC,URINE 0-3 /HPF (0-3)
[2017-06-20 02:04] LABS: SQUAMOUS EPITHELIAL CELL,UR FEW /HPF (NONE SEEN); URINE AMORPHOUS URATE MODERATE /HPF
[2017-06-20 03:41] VITALS: BP 92/48
[2017-06-20] MEDS: DILTIAZEM HCL 30 MG TABLET PO SCH ×5 (06:00→23:45)
--- NOTE | 2017-06-20 06:00 | NUR ---
Afebrile at this time.
[2017-06-20] MEDS: SUCRALFATE 1 G/10 ML LIQUID UDC GT SCH ×3 (06:23→20:32)
[2017-06-20] MEDS: PANTOPRAZOLE ORAL SUSPENSION 40 MG SUSPDR.PKT GT SCH (06:23)
[2017-06-20] MEDS: METOCLOPRAMIDE HCL 10 MG/2 ML VIAL IV SCH ×3 (06:23→20:32)
[2017-06-20] MEDS: Z GUARD REMEDY PASTE 57 GM TUBE TOP SCH ×2 (06:23→17:06)
[2017-06-20] MEDS: NOVASOURCE RENAL 1000 ML LIQUID GT PRN (06:24)
--- NOTE | 2017-06-20 07:00 | NUR ---
Held morning BP meds due to low BP. Patient tolerated tube feeding at 50 ml/hr, 20 ml residual noted. Bed bath was given today, on hemodialysis as of this time. A-flutter on the monitor.
[2017-06-20 07:11] VITALS: BP 96/42
[2017-06-20] MEDS ORDERED: ALBUMIN HUMAN 25% 100 ML IV PRN (08:00)
[2017-06-20] MEDS: FOLIC ACID 1 MG TABLET PO SCH ×2 (09:00→17:05)
[2017-06-20] MEDS: MIRALAX 17 GM POWD.PACK PO SCH (09:00)
[2017-06-20] MEDS: CYCLOBENZAPRINE HCL 10 MG TABLET PO SCH (09:00)
[2017-06-20] MEDS: LACTOBACILLUS RHAMNOSUS GG 1 EACH CAPSULE PO SCH ×2 (09:00→20:32)
[2017-06-20] MEDS: DOCUSATE SODIUM 100 MG CAPSULE PO SCH (09:53)
[2017-06-20] MEDS: ALLOPURINOL 100 MG TABLET PO SCH (09:55)
[2017-06-20] MEDS: AMIODARONE HCL 200 MG TABLET PO SCH ×2 (09:55→20:32)
[2017-06-20] MEDS: CALCITRIOL 0.25 MCG CAPSULE PO SCH (09:55)
[2017-06-20] MEDS: CLOTRIMAZOLE 1% CREAM 30 GM TUBE TOP SCH ×2 (09:56→17:06)
--- NOTE | 2017-06-20 10:00 | NUR ---
md Castillo NOTIFIED OF PATIENTS DIALYSIS STATUS hr AND bp REQUESTED THAT DILTIZAM BE GIVEN NOW MEDICATION GIVEN PER maegan [id number] FAMILY AT BEDSIDE
[2017-06-20 10:13] LABS: ABG HCO3 23.4 mmol/L; ABG PCO2 37.9 mmHg (35.0-45.0); ABG PH 7.408 (7.350-7.450); ABG SITE RIGHT BRACHIAL; ABG TOTAL HEMOGLOBIN 12.8 G/dL (13.5-18.0); COHb 1.1 % (0.5-1.5); MetHb 0.1 % (0.0-1.5)
[2017-06-20 12:07] LABS: CARBON DIOXIDE 25 mmol/L (21-32); CHLORIDE 96 mmol/L (98-107); CREATININE 5.6 mg/dL (0.6-1.3); GLUCOSE 206 mg/dL (74-106); POTASSIUM 4.5 mmol/L (3.5-5.1); UREA NITROGEN, BLOOD 53 mg/dL (7-18)
[2017-06-20 12:42] LABS: BASOPHILS # (AUTO) 0.1 K/uL (0.0-8.0); BASOPHILS % (AUTO) 0.3 % (0.0-2.0); EOSINOPHILS # (AUTO) 0.3 K/uL (0.0-0.7); EOSINOPHILS % (AUTO) 1.3 % (0.0-7.0); HEMATOCRIT 36.5 % (36.7-47.1); HEMOGLOBIN 12.2 g/dL (12.5-16.3); LYMPHOCYTES # (AUTO) 0.8 K/uL (20.0-40.0); LYMPHOCYTES % (AUTO) 4.4 % (20.5-51.5); MEAN CORPUSCULAR HEMOGLOBIN 31.7 uug (23.8-33.4); MEAN CORPUSCULAR HGB CONC 33 g/dL (32.5-36.3); MONOCYTES # (AUTO) 1.2 K/uL (2.0-10.0); MONOCYTES % (AUTO) 6.2 % (0.0-11.0); NEUTROPHILS # (AUTO) 16.9 K/uL (1.8-8.9); NEUTROPHILS % (AUTO) 87.8 % (38.5-71.5); PLATELET COUNT (AUTO) 397 K/uL (152-348); RED BLOOD CELL COUNT(AUTO) 3.84 MIL/uL (4.06-5.63); WHITE BLOOD COUNT (AUTO) 19.2 K/uL (3.6-10.2)
[2017-06-20 15:08] VITALS: BP 84/38
[2017-06-20 15:13] LABS: BAND % (MANUAL) 5 % (0-10); EOSINOPHILS % (MANUAL) 1 % (0-8); LYMPHOCYTES % (MANUAL) 6 % (20-40); METAMYELOCYTES % 1 % (0-1); MONOCYTES % (MANUAL) 8 % (2-10); MYELOCYTES % 1 % (0-0); NEUTROPHILS % (MANUAL) 78 % (42-75)
[2017-06-20] MEDS ORDERED: ALBUMIN HUMAN 25% 100 ML IV ONE (15:15)
--- NOTE | 2017-06-20 15:24 | NUR ---
md NOTIFIED OF PATIENTS BP ORDER FOR 25% ALBUMIN IN 100 CC TAKEN AND GIVEN
[2017-06-20 16:18] VITALS: BP 92/47
[2017-06-20] MEDS ORDERED: MEROPENEM 500 MG in IV NORMAL SALINE 50 ML IV SCH (19:45)
--- NOTE | 2017-06-20 19:57 | NUR ---
CLINICAL PHARMACY NOTE:VANCOMYCIN DOSING Request to restart vancomycin dosing on 73/yo male 6'1" 268lbs for pneumonia Temp 99.6 BUN 53 Scr 5.6 (dialysis patient) WBC 19.2 band 5 last vancomycin level 16.6 on 06/17. Also on Merrem Start vancomycin 1500mg ivpb x 1. Will dose by levels.
[2017-06-20] MEDS: Z GUARD REMEDY PASTE 57 GM TUBE TOP PRN (20:31)
[2017-06-20] MEDS: DUTASTERIDE 0.5 MG CAPSULE PO SCH (20:32)
[2017-06-20] MEDS: ATORVASTATIN 10 MG TABLET PO SCH (20:32)
[2017-06-20] MEDS: PRIMIDONE 50 MG TABLET PO SCH (20:33)
[2017-06-20] MEDS: MEROPENEM 500 MG in IV NORMAL SALINE 50 ML IV SCH (20:40)
[2017-06-20 21:01] VITALS: BP 90/51
[2017-06-20] MEDS ORDERED: VANCOMYCIN IV 1,500 MG in IV NORMAL SALINE 500 ML IV ONE (22:00)
[2017-06-20] MEDS ORDERED: VANCOMYCIN IV 1,500 MG in IV DEXTROSE 5% 500 ML IV ONE (22:00)
--- NOTE | 2017-06-20 23:44 | NUR ---
Held continuos feeding for now, noted 250 ml residual.
[2017-06-21 00:10] VITALS: BP 90/55
[2017-06-21] MEDS: BLOOD SUGAR DIAGNOSTIC 1 EACH STRIP VI SCH ×4 (00:53→17:23)
[2017-06-21] MEDS: INSULIN REGULAR, HUMAN 300 UNIT/3 ML VIAL SQ PRN ×4 (00:57→17:18)
[2017-06-21 04:00] VITALS: BP 96/53
--- NOTE | 2017-06-21 04:00 | NUR ---
Resumed continuos feeding but flow rate decreased to 40 ml/hr.
[2017-06-21] MEDS: METOCLOPRAMIDE HCL 10 MG/2 ML VIAL IV SCH ×3 (05:25→21:57)
[2017-06-21] MEDS: SUCRALFATE 1 G/10 ML LIQUID UDC GT SCH ×3 (05:25→21:57)
[2017-06-21] MEDS: PANTOPRAZOLE ORAL SUSPENSION 40 MG SUSPDR.PKT GT SCH ×2 (05:25→05:30)
[2017-06-21] MEDS: DILTIAZEM HCL 30 MG TABLET PO SCH ×3 (05:26→17:22)
[2017-06-21] MEDS: Z GUARD REMEDY PASTE 57 GM TUBE TOP PRN (05:26)
[2017-06-21] MEDS: ACETAMINOPHEN 325 MG TABLET PO PRN (05:27)
--- NOTE | 2017-06-21 06:00 | NUR ---
Afebrile, assisted w/ all needs. Tube feeding clamped at this time, will turn it on again at 10AM. Patient tolerated 40 ml/hr continuos feeding, no residual. O2Sat 98 % on Aerosol 28% via mask. A-flutter on the monitor.
[2017-06-21 07:30] VITALS: BP 90/44
--- NOTE | 2017-06-21 07:30 | NUR ---
Lethargic, on moderate high back rest. O2 per aerosol with O2 sat of 99%. Secretions suctioned. NGT feedings off. Tele AF
[2017-06-21 07:42] LABS: BASOPHILS % (AUTO) 0.1 % (0.0-2.0); EOSINOPHILS # (AUTO) 0.4 K/uL (0.0-0.7); EOSINOPHILS % (AUTO) 1.4 % (0.0-7.0); HEMATOCRIT 33.8 % (40-50); HEMOGLOBIN 11.7 G/DL (14.0-18.0); LYMPHOCYTES # (AUTO) 1.3 K/UL (0.8-4.8); LYMPHOCYTES % (AUTO) 4.6 % (20.5-51.5); MEAN CORPUSCULAR HEMOGLOBIN 33.3 UUG (27.0-31.0); MEAN CORPUSCULAR HGB CONC 35 g/dL (32.0-37.0); MEAN CORPUSCULAR VOLUME 96.2 FL (82.0-92.0); MONOCYTES # (AUTO) 1.8 K/UL (0.1-1.30); MONOCYTES % (AUTO) 6.6 % (0.0-11.0); NEUTROPHILS # (AUTO) 24.4 K/UL (1.8-8.9); NEUTROPHILS % (AUTO) 87.3 % (38.5-71.5); PLATELET COUNT (AUTO) 371 K/UL (150-450); RED BLOOD CELL COUNT(AUTO) 3.52 MIL/UL (4.7-6.1); WHITE BLOOD COUNT (AUTO) 27.9 K/UL (4.0-11.2)
[2017-06-21 07:43] LABS: CARBON DIOXIDE 25 mmol/L (21-32); CHLORIDE 98 mmol/L (98-107); CREATININE 7.2 mg/dL (0.6-1.3); GLUCOSE 178 mg/dL (74-106); MAGNESIUM 2.3 mg/dL (1.8-2.4); PHOSPHOROUS 3.6 mg/dL (2.5-4.9); POTASSIUM 4.3 mmol/L (3.5-5.1)
[2017-06-21 07:46] LABS: UREA NITROGEN, BLOOD 83 mg/dL (7-18)
[2017-06-21 09:00] LABS: BAND % (MANUAL) 1 % (0-10); EOSINOPHILS % (MANUAL) 1 % (0-8); LYMPHOCYTES % (MANUAL) 7 % (20-40); METAMYELOCYTES % 1 % (0-1); MONOCYTES % (MANUAL) 6 % (2-10); MYELOCYTES % 1 % (0-0); NEUTROPHILS % (MANUAL) 83 % (42-75)
[2017-06-21] MEDS: LACTOBACILLUS RHAMNOSUS GG 1 EACH CAPSULE PO SCH ×2 (09:53→21:57)
[2017-06-21] MEDS: AMIODARONE HCL 200 MG TABLET PO SCH ×2 (09:53→21:56)
[2017-06-21] MEDS: FOLIC ACID 1 MG TABLET PO SCH ×2 (09:53→17:16)
[2017-06-21] MEDS: DOCUSATE SODIUM 100 MG CAPSULE PO SCH (09:53)
[2017-06-21] MEDS: CYCLOBENZAPRINE HCL 10 MG TABLET PO SCH (09:53)
[2017-06-21] MEDS: CALCITRIOL 0.25 MCG CAPSULE PO SCH (09:54)
[2017-06-21] MEDS: ALLOPURINOL 100 MG TABLET PO SCH (09:54)
[2017-06-21] MEDS: MIRALAX 17 GM POWD.PACK PO SCH (09:54)
[2017-06-21] MEDS: Z GUARD REMEDY PASTE 57 GM TUBE TOP SCH ×2 (09:55→17:16)
[2017-06-21] MEDS: CLOTRIMAZOLE 1% CREAM 30 GM TUBE TOP SCH ×2 (09:55→17:16)
[2017-06-21 11:01] VITALS: BP 94/40
--- NOTE | 2017-06-21 11:41 | NUR ---
CLINICAL PHARMACY NOTE:VANCOMYCIN DOSING Subjective To continue vancomycin dosing on this 72 y/o male 6'1" 227lbs for fever & leukocytosis Objective Temp 99 BUN 83 SCr 7.2 (on HD) WBC 27.9 Assessment/plan Patient is not dialyzed today . No dose shall be given today.Last dose of 1500mg IVPB x1 was given on 06/20 at 2122 Will continue to dose pre-HD level (ordered with am labs on 06/22). Will follow daily.
--- NOTE | 2017-06-21 12:00 | NUR ---
Secretions suctioned at interval. Opens eyes with name.
[2017-06-21 15:12] VITALS: BP 100/49
--- NOTE | 2017-06-21 18:00 | NUR ---
Secretions suctioned. O2 sat at 97%. Repositioned comfortably
--- NOTE | 2017-06-21 19:25 | NUR ---
Pt is noted alert, responsive but confused as report is received from the off going nurse , He is a full code with Aerosil 28% on Face Mask, crackles lung sound as he will be suction Nasopharyngeal PRN ,Atrial Flutter on the Tele monitor as he is Amiodarone and Cardizem PO .Pt is NPO with NG-TUBE in place as feeding is at 55ml/hr and Antibiotic therapy in progress. He will be turn, reposition and wound care will be done as ordered during the shift as his care continue while monitor for any s/s off distress.
[2017-06-21 20:10] VITALS: BP 84/48
[2017-06-21] MEDS: DUTASTERIDE 0.5 MG CAPSULE PO SCH (21:56)
[2017-06-21] MEDS: PRIMIDONE 50 MG TABLET PO SCH (21:56)
[2017-06-21] MEDS: MEROPENEM 500 MG in IV NORMAL SALINE 50 ML IV SCH (21:57)
[2017-06-21] MEDS: ATORVASTATIN 10 MG TABLET PO SCH (21:57)
[2017-06-22] VITALS: BP 110/62
[2017-06-22] MEDS: DILTIAZEM HCL 30 MG TABLET PO SCH ×4 (00:45→17:03)
--- NOTE | 2017-06-22 00:50 | NUR ---
Pt remain alert, responsive on confused as he is full code , suction as needed with Face Mask in place. Atrial Flutter on the Tele monitor and he is been turn and reposition Q2HRS for comfort. Pt care continue.
[2017-06-22] MEDS: INSULIN REGULAR, HUMAN 300 UNIT/3 ML VIAL SQ PRN ×4 (01:10→17:10)
[2017-06-22 04:00] VITALS: BP 105/53
[2017-06-22] MEDS: BLOOD SUGAR DIAGNOSTIC 1 EACH STRIP VI SCH ×4 (07:00→17:11)
[2017-06-22] MEDS: METOCLOPRAMIDE HCL 10 MG/2 ML VIAL IV SCH ×3 (07:00→21:41)
[2017-06-22] MEDS: PANTOPRAZOLE ORAL SUSPENSION 40 MG SUSPDR.PKT GT SCH (07:01)
[2017-06-22] MEDS: SUCRALFATE 1 G/10 ML LIQUID UDC GT SCH ×3 (07:01→21:40)
--- NOTE | 2017-06-22 07:20 | NUR ---
Pt remain nonverbal as he is Atrial Flutter on the Tele monitor with Mask Aerosil 28% as feeding is off as ordered and report is given to the receiving nurse.
[2017-06-22 07:28] VITALS: BP 100/34
[2017-06-22] MEDS ORDERED: ALBUMIN HUMAN 25% 100 ML IV ONE (07:30)
--- NOTE | 2017-06-22 08:00 | NUR ---
PT on 28%cool areosol. With sat of 93%. Plan of care discussed with PRIMER PRESS OPERATOR re: aspiration precaution, fall precaution PT hob elevate 45degrees. No residual noted. pt habving dialysis right now.
[2017-06-22] MEDS: CYCLOBENZAPRINE HCL 10 MG TABLET PO SCH (08:39)
[2017-06-22] MEDS: LACTOBACILLUS RHAMNOSUS GG 1 EACH CAPSULE PO SCH ×2 (08:39→21:40)
[2017-06-22] MEDS: AMIODARONE HCL 200 MG TABLET PO SCH ×2 (08:39→21:40)
[2017-06-22] MEDS: CALCITRIOL 0.25 MCG CAPSULE PO SCH (08:39)
[2017-06-22] MEDS: FOLIC ACID 1 MG TABLET PO SCH ×2 (08:40→17:03)
[2017-06-22] MEDS: DOCUSATE SODIUM 100 MG CAPSULE PO SCH (08:40)
[2017-06-22] MEDS: MIRALAX 17 GM POWD.PACK PO SCH (08:40)
[2017-06-22] MEDS: ALLOPURINOL 100 MG TABLET PO SCH (08:40)
[2017-06-22] MEDS: CLOTRIMAZOLE 1% CREAM 30 GM TUBE TOP SCH ×2 (08:41→17:04)
[2017-06-22] MEDS: Z GUARD REMEDY PASTE 57 GM TUBE TOP SCH ×2 (08:41→17:04)
[2017-06-22 10:57] LABS: BASOPHILS # (AUTO) 0.1 K/uL (0.0-8.0); BASOPHILS % (AUTO) 0.6 % (0.0-2.0); EOSINOPHILS # (AUTO) 0.4 K/uL (0.0-0.7); EOSINOPHILS % (AUTO) 1.8 % (0.0-7.0); HEMOGLOBIN 11.5 g/dL (12.5-16.3); LYMPHOCYTES # (AUTO) 1.4 K/uL (20.0-40.0); LYMPHOCYTES % (AUTO) 6.5 % (20.5-51.5); MEAN CORPUSCULAR HEMOGLOBIN 31.7 uug (23.8-33.4); MEAN CORPUSCULAR HGB CONC 33 g/dL (32.5-36.3); MEAN CORPUSCULAR VOLUME 96.7 fL (73.0-96.2); MONOCYTES # (AUTO) 1.6 K/uL (2.0-10.0); MONOCYTES % (AUTO) 7.7 % (0.0-11.0); NEUTROPHILS # (AUTO) 17.7 K/uL (1.8-8.9); NEUTROPHILS % (AUTO) 83.4 % (38.5-71.5); PLATELET COUNT (AUTO) 364 K/uL (152-348); RED BLOOD CELL COUNT(AUTO) 3.62 MIL/uL (4.06-5.63); WHITE BLOOD COUNT (AUTO) 21.2 K/uL (3.6-10.2)
[2017-06-22 11:17] LABS: CARBON DIOXIDE 21 mmol/L (21-32); CHLORIDE 96 mmol/L (98-107); GLUCOSE 253 mg/dL (74-106); POTASSIUM 4.5 mmol/L (3.5-5.1)
[2017-06-22 11:22] LABS: CREATININE 9.3 mg/dL (0.6-1.3); UREA NITROGEN, BLOOD 122 mg/dL (7-18)
[2017-06-22 11:25] LABS: BAND % (MANUAL) 1 % (0-10); LYMPHOCYTES % (MANUAL) 6 % (20-40); METAMYELOCYTES % 3 % (0-1); MONOCYTES % (MANUAL) 11 % (2-10); MYELOCYTES % 1 % (0-0); NEUTROPHILS % (MANUAL) 78 % (42-75)
[2017-06-22 11:27] VITALS: BP 87/42
--- NOTE | 2017-06-22 13:10 | NUR ---
CLINICAL PHARMACY NOTE:VANCOMYCIN DOSING Subjective To continue vancomycin dosing on this 72 y/o male 6'1" 227lbs for fever & leukocytosis Objective Temp 98.8 BUN 122 SCr 9.3 (on HD) WBC 21.2 Assessment/plan Patient was dialyzed today . Pre-HD level was 31.1. No dose shall be given today.Last dose of 1500mg IVPB x1 was given on 06/20 at 2122 Will continue to dose pre-HD level. Will follow daily.
[2017-06-22 15:04] VITALS: BP 101/44
[2017-06-22 20:00] VITALS: BP 93/45
[2017-06-22] MEDS: MEROPENEM 500 MG in IV NORMAL SALINE 50 ML IV SCH (21:32)
[2017-06-22] MEDS: ATORVASTATIN 10 MG TABLET PO SCH (21:40)
[2017-06-22] MEDS: PRIMIDONE 50 MG TABLET PO SCH (21:40)
[2017-06-22] MEDS: DUTASTERIDE 0.5 MG CAPSULE PO SCH (21:40)
[2017-06-22] MEDS: ACETAMINOPHEN 325 MG TABLET PO PRN (21:40)
[2017-06-23] VITALS (7 sets, daily range): BP systolic 90–120; BP diastolic 37–55
[2017-06-23] MEDS: INSULIN REGULAR, HUMAN 300 UNIT/3 ML VIAL SQ PRN ×5 (02:07→23:24)
[2017-06-23] MEDS: SUCRALFATE 1 G/10 ML LIQUID UDC GT SCH ×3 (06:40→19:49)
[2017-06-23] MEDS: DILTIAZEM HCL 30 MG TABLET PO SCH ×5 (06:41→23:36)
[2017-06-23] MEDS: BLOOD SUGAR DIAGNOSTIC 1 EACH STRIP VI SCH ×5 (06:42→23:19)
[2017-06-23] MEDS: ACETAMINOPHEN 325 MG TABLET PO PRN ×2 (06:46→19:47)
[2017-06-23] MEDS: METOCLOPRAMIDE HCL 10 MG/2 ML VIAL IV SCH ×3 (06:50→19:50)
[2017-06-23] MEDS: PANTOPRAZOLE ORAL SUSPENSION 40 MG SUSPDR.PKT GT SCH (07:37)
[2017-06-23 07:40] LABS: BASOPHILS # (AUTO) 0.1 K/uL (0.0-8.0); BASOPHILS % (AUTO) 0.6 % (0.0-2.0); EOSINOPHILS # (AUTO) 0.4 K/uL (0.0-0.7); EOSINOPHILS % (AUTO) 1.7 % (0.0-7.0); HEMATOCRIT 35.5 % (40-50); HEMOGLOBIN 11.4 G/DL (14.0-18.0); LYMPHOCYTES # (AUTO) 1.1 K/UL (0.8-4.8); LYMPHOCYTES % (AUTO) 4.8 % (20.5-51.5); MEAN CORPUSCULAR HEMOGLOBIN 30.5 UUG (27.0-31.0); MEAN CORPUSCULAR HGB CONC 32 g/dL (32.0-37.0); MONOCYTES # (AUTO) 1.3 K/UL (0.1-1.30); MONOCYTES % (AUTO) 5.4 % (0.0-11.0); NEUTROPHILS # (AUTO) 20.9 K/UL (1.8-8.9); NEUTROPHILS % (AUTO) 87.5 % (38.5-71.5); PLATELET COUNT (AUTO) 315 K/UL (150-450); RED BLOOD CELL COUNT(AUTO) 3.73 MIL/UL (4.7-6.1)
--- NOTE | 2017-06-23 08:00 | NUR ---
NO SIGNS OF DISTRESS WITH CURRENT SETTINGSA-FLUTTER ON MONITOR. AT BEDSIDE VERY SUPPORTIVE WITH CARE
[2017-06-23 08:01] LABS: ALANINE AMINOTRANSFERASE 16 U/L (16-63); ALKALINE PHOSPHATASE 257 U/L (50-136); ASPARTATE AMINOTRANSFERASE 31 U/L (15-37); BILIRUBIN,TOTAL 0.6 mg/dL (0.2-1.0); CARBON DIOXIDE 26 mmol/L (21-32); CHLORIDE 98 mmol/L (98-107); GLUCOSE 265 mg/dL (74-106); MAGNESIUM 2.4 mg/dL (1.8-2.4); PHOSPHOROUS 1.9 mg/dL (2.5-4.9); POTASSIUM 4.2 mmol/L (3.5-5.1); TOTAL PROTEIN, SERUM 9.2 g/dL (6.4-8.2)
[2017-06-23 08:02] LABS: WHITE BLOOD COUNT (AUTO) 23.8 K/UL (4.0-11.2)
[2017-06-23] MEDS: DOCUSATE SODIUM 100 MG CAPSULE PO SCH (08:18)
[2017-06-23] MEDS: LACTOBACILLUS RHAMNOSUS GG 1 EACH CAPSULE PO SCH ×2 (08:18→19:49)
[2017-06-23] MEDS: FOLIC ACID 1 MG TABLET PO SCH ×2 (08:18→17:24)
[2017-06-23] MEDS: CYCLOBENZAPRINE HCL 10 MG TABLET PO SCH (08:18)
[2017-06-23] MEDS: CALCITRIOL 0.25 MCG CAPSULE PO SCH (08:18)
[2017-06-23] MEDS: MIRALAX 17 GM POWD.PACK PO SCH (08:19)
[2017-06-23] MEDS: AMIODARONE HCL 200 MG TABLET PO SCH ×2 (08:19→19:49)
[2017-06-23] MEDS: Z GUARD REMEDY PASTE 57 GM TUBE TOP SCH ×2 (08:20→17:25)
[2017-06-23] MEDS: CLOTRIMAZOLE 1% CREAM 30 GM TUBE TOP SCH ×2 (08:21→17:24)
[2017-06-23] MEDS: ALLOPURINOL 100 MG TABLET PO SCH (08:22)
[2017-06-23 08:33] LABS: CREATININE 7.8 mg/dL (0.6-1.3); UREA NITROGEN, BLOOD 114 mg/dL (7-18)
[2017-06-23] MEDS ORDERED: SODIUM PHOSPHATE MM 15 MM in IV DEXTROSE 5% 250 ML IV ONE (10:00)
--- NOTE | 2017-06-23 12:00 | NUR ---
NO SIGNS OF DISTRESS REQUIRES FREQUENT SUCTIONING, WOUND CARE DONE ORDERED.
[2017-06-23 13:30] LABS: BAND % (MANUAL) 1 % (0-10); EOSINOPHILS % (MANUAL) 3 % (0-8); LYMPHOCYTES % (MANUAL) 5 % (20-40); METAMYELOCYTES % 2 % (0-1); MONOCYTES % (MANUAL) 6 % (2-10); MYELOCYTES % 1 % (0-0); NEUTROPHILS % (MANUAL) 82 % (42-75)
--- NOTE | 2017-06-23 15:03 | NUR ---
CLINICAL PHARMACY NOTE:VANCOMYCIN DOSING Subjective To continue vancomycin dosing on this 72 y/o male 6'1" 227lbs for fever & leukocytosis Objective Temp 99.9 BUN 114 SCr 7.8 (on HD) WBC 23.8 Assessment/plan No HD scheduled for today, therefore no dose shall be given today.Last dose of 1500mg IVPB x1 was given on 06/20 at 2 Will continue to dose pre-HD level. Will follow daily.
--- NOTE | 2017-06-23 18:25 | NUR ---
CONTINUE CURRENT TX PLAN SEE MD NOTES
[2017-06-23] MEDS: Z GUARD REMEDY PASTE 57 GM TUBE TOP PRN (19:47)
[2017-06-23] MEDS: ATORVASTATIN 10 MG TABLET PO SCH (19:49)
[2017-06-23] MEDS: PRIMIDONE 50 MG TABLET PO SCH (19:49)
[2017-06-23] MEDS: DUTASTERIDE 0.5 MG CAPSULE PO SCH (19:50)
[2017-06-23] MEDS: MEROPENEM 500 MG in IV NORMAL SALINE 50 ML IV SCH (19:51)
--- NOTE | 2017-06-23 20:30 | NUR ---
Received patient slightly lethargic, A-flutter on the monitor, O2Sat 98% tolerating Aerosol 28% via face mask. Right nasal trumpet in place. RT in room suctioning copious amount secretions. Kept head of bed elevated. NGT in place & patent, noted continuos feeding at 55ml/hr, checked for residual 20ml residual noted. Slightly swollen left knee, withdrawal from touch noted. Tylenol 650 mg given via NGT.
--- NOTE | 2017-06-23 22:55 | NUR ---
Repositioned in bed, patient remains anuric. No SOB, suctioned secretions PRN.
[2017-06-24] VITALS: BP 120/46
[2017-06-24] MEDS: ACETAMINOPHEN 325 MG TABLET PO PRN ×2 (03:19→20:48)
[2017-06-24] MEDS: DILTIAZEM HCL 30 MG TABLET PO SCH ×4 (06:00→23:22)
--- NOTE | 2017-06-24 06:00 | NUR ---
Had small soft formed BM, incontinence care done. Hair-shampoo & bed bath provided today, kept comfortable. Still lethargic BP in the low side, held morning BP medication today. Tolerated 28% cool aerosol O2Sat 95%. Continuos pulse ox at bed side. Suctioned secretions PRN, oral care performed. No acute distress, A-flutter on the monitor w/ HR 105.
[2017-06-24] MEDS: PANTOPRAZOLE ORAL SUSPENSION 40 MG SUSPDR.PKT GT SCH (06:12)
[2017-06-24] MEDS: SUCRALFATE 1 G/10 ML LIQUID UDC GT SCH ×3 (06:12→20:48)
[2017-06-24] MEDS: METOCLOPRAMIDE HCL 10 MG/2 ML VIAL IV SCH ×3 (06:12→20:48)
[2017-06-24] MEDS: BLOOD SUGAR DIAGNOSTIC 1 EACH STRIP VI SCH ×4 (06:13→23:26)
[2017-06-24] MEDS: Z GUARD REMEDY PASTE 57 GM TUBE TOP PRN ×2 (06:14→20:49)
[2017-06-24] MEDS: CLOTRIMAZOLE 1% CREAM 30 GM TUBE TOP SCH ×2 (06:15→17:46)
[2017-06-24] MEDS: NOVASOURCE RENAL 1000 ML LIQUID GT PRN (06:15)
[2017-06-24] MEDS: INSULIN REGULAR, HUMAN 300 UNIT/3 ML VIAL SQ PRN ×4 (06:22→23:29)
[2017-06-24 07:07] LABS: HEPATITIS A AB, IgM Negative (Negative); HEPATITIS B SURFACE AB Non Reactive (.)
[2017-06-24 07:49] VITALS: BP 94/26
[2017-06-24] MEDS: MIRALAX 17 GM POWD.PACK PO SCH (08:46)
[2017-06-24] MEDS: DOCUSATE SODIUM 100 MG CAPSULE PO SCH (08:47)
[2017-06-24] MEDS: CALCITRIOL 0.25 MCG CAPSULE PO SCH (08:47)
[2017-06-24] MEDS: ALLOPURINOL 100 MG TABLET PO SCH (08:48)
[2017-06-24] MEDS: LACTOBACILLUS RHAMNOSUS GG 1 EACH CAPSULE PO SCH ×2 (08:48→20:48)
[2017-06-24] MEDS: AMIODARONE HCL 200 MG TABLET PO SCH ×2 (08:49→20:48)
[2017-06-24] MEDS: CYCLOBENZAPRINE HCL 10 MG TABLET PO SCH (08:49)
[2017-06-24] MEDS: FOLIC ACID 1 MG TABLET PO SCH ×2 (08:49→17:44)
[2017-06-24] MEDS: Z GUARD REMEDY PASTE 57 GM TUBE TOP SCH ×2 (08:56→17:46)
--- NOTE | 2017-06-24 09:15 | NUR ---
SEEN BY DR KENDRICK, SPOKE WITH ABOUT PLAN OF CARE, WIORA ALSO SPOKE WITH HEEL SLUGGER ABOUT OPTION FOR HOSPICE
--- NOTE | 2017-06-24 09:30 | NUR ---
STARTED ON HEMODIALYSIS, NO SIGNS OF DISTRESS
[2017-06-24 10:26] LABS: ABG BASE EXCESS -6.2 mmol/L; ABG HCO3 19.4 mmol/L; ABG PH 7.315 (7.350-7.450); ABG PO2 70.6 mmHg (75.0-100.0); ABG SITE RIGHT RADIAL; ABG TOTAL HEMOGLOBIN 11.5 G/dL (13.5-18.0); COHb 1.2 % (0.5-1.5); MetHb 0.3 % (0.0-1.5); VENT MODE COOL AEROSOL
[2017-06-24] MEDS ORDERED: ALBUMIN HUMAN 25% 100 ML IV ONE (10:45)
[2017-06-24 12:02] VITALS: BP 81/33
--- NOTE | 2017-06-24 12:39 | NUR ---
HEMODIALYSIS COMPLETED, REMOVED 400 ML OF FLUID. LATEST BP 88/42, NO ACUTE DISTRESS, CONTINUE WITH SETTINGS
--- NOTE | 2017-06-24 13:39 | NUR ---
CLINICAL PHARMACY NOTE:VANCOMYCIN DOSING Subjective To continue vancomycin dosing on this 72 y/o male 6'1" 227lbs for fever & leukocytosis Objective Temp 97.6 BUN 114 (06/23) SCr 7.8(06/23) (on HD) WBC 23.8(06/23) Vancomycin pre-HD level 22. Assessment/plan Patient was dialyzed today. Since Vancomycin pre-HD level is over 20, no dose will be given today(last dose was on 06/20 at [id number]). Will continue to dose pre-HD level. Will follow daily.
[2017-06-24 15:41] VITALS: BP 88/36
--- NOTE | 2017-06-24 16:00 | NUR ---
SEEN BY RAILWAY STATION MANAGER FOR GI REGARDING PEG PLACEMENT WITH ORDERS, ALSO SPOKE WITH SEE NOTES.
--- NOTE | 2017-06-24 17:47 | NUR ---
SPOKE WITH Deonte ANDERSON ABOUT NEED FOR PULMONARY CLEARANCE AND SAID OK FOR PEG PLACEMENT
[2017-06-24 18:12] LABS: BASOPHILS # (AUTO) 0.1 K/uL (0.0-8.0); BASOPHILS % (AUTO) 0.3 % (0.0-2.0); EOSINOPHILS # (AUTO) 0.1 K/uL (0.0-0.7); EOSINOPHILS % (AUTO) 0.5 % (0.0-7.0); HEMATOCRIT 33.8 % (40-50); HEMOGLOBIN 11.3 G/DL (14.0-18.0); LYMPHOCYTES # (AUTO) 0.4 K/UL (0.8-4.8); LYMPHOCYTES % (AUTO) 1.5 % (20.5-51.5); MEAN CORPUSCULAR HEMOGLOBIN 31.8 UUG (27.0-31.0); MEAN CORPUSCULAR HGB CONC 33 g/dL (32.0-37.0); MEAN CORPUSCULAR VOLUME 95.4 FL (82.0-92.0); MONOCYTES # (AUTO) 0.5 K/UL (0.1-1.30); MONOCYTES % (AUTO) 1.7 % (0.0-11.0); NEUTROPHILS # (AUTO) 27.6 K/UL (1.8-8.9); PLATELET COUNT (AUTO) 265 K/UL (150-450); RED BLOOD CELL COUNT(AUTO) 3.55 MIL/UL (4.7-6.1)
[2017-06-24 18:19] LABS: WHITE BLOOD COUNT (AUTO) 28.7 K/UL (4.0-11.2)
[2017-06-24 18:37] LABS: BAND % (MANUAL) 3 % (0-10); LYMPHOCYTES % (MANUAL) 4 % (20-40); METAMYELOCYTES % 1 % (0-1); MONOCYTES % (MANUAL) 3 % (2-10); NEUTROPHILS % (MANUAL) 89 % (42-75)
[2017-06-24 20:00] VITALS: BP 95/34
--- NOTE | 2017-06-24 20:00 | NUR ---
Patient remains lethargic, not in distress tolerating Aerosol 28% via mask, right nasal trumpet in place, deep suctioned PRN. Patient continuos to release copious amount thick yellowish secretions. BP still in the low side. A-flutter on the monitor.
[2017-06-24] MEDS: MEROPENEM 500 MG in IV NORMAL SALINE 50 ML IV SCH (20:48)
[2017-06-24] MEDS: ATORVASTATIN 10 MG TABLET PO SCH (20:48)
[2017-06-24] MEDS: PRIMIDONE 50 MG TABLET PO SCH (20:48)
[2017-06-24] MEDS: DUTASTERIDE 0.5 MG CAPSULE PO SCH (20:49)
[2017-06-24 23:32] VITALS: BP 90/41
--- NOTE | 2017-06-25 01:00 | NUR ---
Sponge bath provided, clamped NGT for PEG placement today. No significant change. Afebrile.
[2017-06-25 04:00] VITALS: BP 89/49
[2017-06-25] MEDS: Z GUARD REMEDY PASTE 57 GM TUBE TOP PRN ×2 (04:12→21:10)
[2017-06-25] MEDS: SUCRALFATE 1 G/10 ML LIQUID UDC GT SCH ×4 (05:39→20:51)
[2017-06-25] MEDS: METOCLOPRAMIDE HCL 10 MG/2 ML VIAL IV SCH ×3 (05:40→20:52)
[2017-06-25] MEDS: ACETAMINOPHEN 325 MG TABLET PO PRN ×2 (05:40→20:52)
[2017-06-25] MEDS: PANTOPRAZOLE ORAL SUSPENSION 40 MG SUSPDR.PKT GT SCH (05:40)
[2017-06-25] MEDS: DILTIAZEM HCL 30 MG TABLET PO SCH ×3 (05:40→17:44)
[2017-06-25] MEDS: BLOOD SUGAR DIAGNOSTIC 1 EACH STRIP VI SCH ×3 (06:06→17:49)
[2017-06-25] MEDS: INSULIN REGULAR, HUMAN 300 UNIT/3 ML VIAL SQ PRN ×3 (06:07→17:51)
--- NOTE | 2017-06-25 06:30 | NUR ---
A-flutter on the monitor. No acute distress. Morning BP medication held due to low BP.
[2017-06-25 07:17] VITALS: BP 86/44
--- NOTE | 2017-06-25 08:00 | NUR ---
verbally unresponsive, responds only to painful stimuli, head of bed elevated, NGT in the left nostril- in place and patent, trumpet for suctioning on the left nostril, 0n aerosol 28% via mask, tube fdg off, for PEG placement today, to sign consent, tele aflutter 100's, repositioned to side with heels off loaded with pillows, heels red but no open areas, on first step mattress.
[2017-06-25] MEDS: AMIODARONE HCL 200 MG TABLET PO SCH ×2 (08:23→20:52)
[2017-06-25 08:33] LABS: BASOPHILS # (AUTO) 0.2 K/uL (0.0-8.0); BASOPHILS % (AUTO) 0.7 % (0.0-2.0); EOSINOPHILS # (AUTO) 0.4 K/uL (0.0-0.7); EOSINOPHILS % (AUTO) 1.5 % (0.0-7.0); HEMOGLOBIN 11.6 G/DL (14.0-18.0); MEAN CORPUSCULAR HEMOGLOBIN 31.5 UUG (27.0-31.0); MEAN CORPUSCULAR HGB CONC 33 g/dL (32.0-37.0); MEAN CORPUSCULAR VOLUME 95.1 FL (82.0-92.0); MONOCYTES # (AUTO) 1.4 K/UL (0.1-1.30); MONOCYTES % (AUTO) 5.6 % (0.0-11.0); NEUTROPHILS # (AUTO) 22.1 K/UL (1.8-8.9); NEUTROPHILS % (AUTO) 88.2 % (38.5-71.5); PLATELET COUNT (AUTO) 279 K/UL (150-450); RED BLOOD CELL COUNT(AUTO) 3.68 MIL/UL (4.7-6.1); WHITE BLOOD COUNT (AUTO) 25.1 K/UL (4.0-11.2)
[2017-06-25] MEDS: DOCUSATE SODIUM 100 MG CAPSULE PO SCH (08:38)
[2017-06-25] MEDS: FOLIC ACID 1 MG TABLET PO SCH ×2 (08:39→16:11)
[2017-06-25] MEDS: LACTOBACILLUS RHAMNOSUS GG 1 EACH CAPSULE PO SCH ×2 (08:39→20:52)
[2017-06-25] MEDS: MIRALAX 17 GM POWD.PACK PO SCH (08:39)
[2017-06-25] MEDS: CYCLOBENZAPRINE HCL 10 MG TABLET PO SCH (08:39)
[2017-06-25] MEDS: CALCITRIOL 0.25 MCG CAPSULE PO SCH ×2 (08:39→16:11)
[2017-06-25] MEDS: ALLOPURINOL 100 MG TABLET PO SCH ×2 (08:40→16:11)
[2017-06-25] MEDS: CLOTRIMAZOLE 1% CREAM 30 GM TUBE TOP SCH ×2 (08:41→16:28)
[2017-06-25] MEDS: Z GUARD REMEDY PASTE 57 GM TUBE TOP SCH ×2 (08:41→16:28)
[2017-06-25 08:59] LABS: ALANINE AMINOTRANSFERASE 24 U/L (16-63); ALKALINE PHOSPHATASE 180 U/L (50-136); ASPARTATE AMINOTRANSFERASE 32 U/L (15-37); BILIRUBIN,TOTAL 0.7 mg/dL (0.2-1.0); CARBON DIOXIDE 25 mmol/L (21-32); CHLORIDE 96 mmol/L (98-107); GLUCOSE 216 mg/dL (74-106); MAGNESIUM 2.7 mg/dL (1.8-2.4); PHOSPHOROUS 7.1 mg/dL (2.5-4.9); POTASSIUM 5.1 mmol/L (3.5-5.1); TOTAL PROTEIN, SERUM 9.2 g/dL (6.4-8.2)
[2017-06-25 09:06] LABS: UREA NITROGEN, BLOOD 128 mg/dL (7-18)
[2017-06-25 09:07] LABS: CREATININE 8.5 mg/dL (0.6-1.3)
--- NOTE | 2017-06-25 09:30 | NUR ---
anesthesiologist Dr. Jacobson here and spoke to on the phone re procedure
[2017-06-25 10:52] LABS: EOSINOPHILS % (MANUAL) 3 % (0-8); LYMPHOCYTES % (MANUAL) 2 % (20-40); MONOCYTES % (MANUAL) 5 % (2-10); NEUTROPHILS % (MANUAL) 90 % (42-75)
[2017-06-25 11:08] VITALS: BP 96/48
--- NOTE | 2017-06-25 11:36 | NUR ---
CLINICAL PHARMACY NOTE:VANCOMYCIN DOSING Subjective To continue vancomycin dosing on this 72 y/o male 6'1" 227lbs for fever & leukocytosis (per ID note; CXR with new RUL infiltrate) Objective Temp 98.8 BUN 114 (06/23) SCr 7.8 (06/23-on HD) WBC 23.8 (06/23) Assessment/plan No HD scheduled for today, therefore no dose shall be given today.Last dose of 1500mg IVPB x1 was given on 06/20 at 2 Will continue to dose pre-HD level. Will follow daily.
--- NOTE | 2017-06-25 11:44 | NUR ---
Nutritional Screening re-assessment Diagnosis CHF Pertinent Medical Hx/Surgical Hx CVA,CHF,PNA,COPD,GI BLEED,COLON POLYPS,UTI,GOUT,EDEMA,DM,ANXIETY,SUBSTANCE USE,ANEMIA,BOTH KNEE ARTHROPLASTIES Subjective Information Nutrition f/u on 72 y/o male admitted for tachyrhythmia, CHF, anemia.Pt was started on HD due to renal insufficiency, was on pressors, too lethargic to eat, poor nutrition for almost 3 weeks. Tf was started on 06/12- [facility] renal - goal rate 55 ccs x 22 hrs, had 800 ccs residuals, TF was kept on hold and restarted at a much lower rate (10 ccs)-when increased to 20 ccs, pt again had residuals, pt was started on Reglan on the 07/16- was tolerating TF after 3 dosage of Reglan per RN homer- Currently TF is on hold due to intolerance/residuals, condition has worsened per MD notes, very congested, remains unresponsive-PEG placement cancelled, is considering hospice- no decisions made yet. Will continue to monitor s/p hd yesterday Current Diet Order/Nutrition Support TF [facility] renal- TF on hold for now Patient /S.O Can't verbalize diet edu Pertinent Medications vancomycin, norepinephrine, cardizem, humulin, protonix, calcitriole, colace, folic acid, miralax, Lipitor,Reglan DNI:hold TF 1 hr before or after Protonix admin Pertinent Labs 06/25: WBC-25.1 (h), h/h-11.6/35.0 (l/l), BUN/Cr-128/8.5 (h/h), BG-216 (h), phos 7.1 (H) 06/18: wbc-15.2 (h), h/h-10.6/32.6 (l/l), BUN/Cr-102/8.4 (h/h), BG-131 (h), phos-6.2 (h) 06/02: wbc-18.5 (h), h/h-9.8/28.4 (l/l), Na-155 (h), BUN/Cr-107/5.8 (h/h), BG-142 (h), pghos-6.2 (h) 06/09:WBC-14.8 (h), h/h-10.1/31.0 (l/l, Na-155 (h), BUN/Cr-102/3.9 (h/h), BG-147 (h) 06/07: WBC 12.2H, H/H 9.2L/28.2L, Na 149H, BUN 98H, Creat 3.9H, alkphos 141H, Alb 2.1L 06/03:WBC-15.3 (h), h/h-9/27.8 (l/l), BUN/Cr-109/4.6 (h/h), phos-7.6 9h), Alk phos-215 (h) 05/31 WBC-9.8(IMPROVED),CO2-20(L),BUN/CR-117/4.5(H/H),GLUCOSE-156(H),PHOS-6.9(H), ALBUMIN-2.3(L) Height (Feet) 6 feet Height (Inches) 1.00 inches Patient Height 73 in Current Weight 230 lbs Patient Weight 230 lb Weight (Calculated Grams) 702700.246 Gm %IBW 123 Body Mass Index (BMI) 30.4 Weight Status Overweight Difficult in: Chewing Difficult in: Swallowing Food Allergies No Cultural/Ethnic/[employer] Belief unable to obtain Usual diet at home regular Skin Integrity/Comment: no open wounds, pressure injuries noted per chart Current %PO Negligible <25% Calories/Kcals/Kg 30-35 (IBW 84 kgs) Kcals Calculated 5967-7253 kcal/day Protein g/k.3-1.5 (ibw) Protein Calculated 109-126 Fluid: ml per MD Nutrition Problem #1 altered nutrition-related labs Signs/Symptoms #1 refer to labs Etiology #1 renal dysfunction Recommendations by RD Add supplement feedings Recommendations by RD Increase Calorie intake Comments NG-tube in place,on HD Increased protein and calorie needs Intervention: Recommended to start NG-tf when clinically feasible- [facility] renal at 20 ccs/hr x 20 hrs, and increase by 10 ccs Q 8 hrs to reach goal rate of 55 ccs x 20 hrs to provide 2200 kcal in 1100 ccs volume of formula,100 gms protein. Flush tube w/ 100 ccs water q 8 hrs to provide 300 ccs-additional fluid per MD Monitor: - Electrolytes,TF tolerance - BM f/u with plan of care Expected Outcomes/Goals - Meet at least 75% of estimated kcal/protein needs PO with acceptable tolerance and without metabolic complications - No GI symptoms - No significant weight changes during hospital stay -Improved labs Addendum: 06/27/17 at [address] Amended: Links added.
--- NOTE | 2017-06-25 12:12 | NUR ---
bs 207- not covered with sliding scale reg insulin- tube fdg off for PEG placement
--- NOTE | 2017-06-25 14:00 | NUR ---
Dr Pearson called and cancelled PEG placement- spoke to , informed her that we cn resume tube fdg and medications via NGT but expressed desire to talk first to DR Haines re hospice- placed call to Dr Haines
--- NOTE | 2017-06-25 14:15 | NUR ---
surgery called and informed of Dr Pearson's order to cancel surgery
[2017-06-25 15:04] VITALS: BP 88/40
--- NOTE | 2017-06-25 15:44 | NUR ---
GI SUBSCRIPTION CREW LEADER RONEL here and informed of surgery cancelled and 's desire for hospice and still awaiting for DR Haines to speak to her, case management informed
--- NOTE | 2017-06-25 15:54 | NUR ---
placed a call again to Dr Haines's office- to let him know
--- NOTE | 2017-06-25 15:55 | NUR ---
spoke to again re feeding and meds, this time agreed to resume
[2017-06-25] MEDS: NOVASOURCE RENAL 1000 ML LIQUID GT PRN (16:12)
--- NOTE | 2017-06-25 18:16 | NUR ---
condition guarded, suctioned as needed via trumpet of yellowish thick phlegm, NGT in place, tube fdg started at rate of 20ml/hr per 's request, no residual noted, kept head of bed elevated, still on aerosol 28% with sat of 97%, comfort measures provided, at bedside
[2017-06-25 20:00] VITALS: BP 89/29
--- NOTE | 2017-06-25 20:30 | NUR ---
Condition unchanged, verbally unresponsive but responds to painful stimuli. Tolerating Aerosol 28% via mask, deep suctioned via right nasal trumpet PRN. Left NGT in place, continuos feeding at 20 ml/hr tolerating. Current temp 100.1 F. Tylenol 650 mg adm via NGT, cooling measures applied. at bedside. A-flutter on the monitor w/ HR 101. Kept head of bed elevated . Will continue to monitor.
[2017-06-25] MEDS: DUTASTERIDE 0.5 MG CAPSULE PO SCH (20:51)
[2017-06-25] MEDS: PRIMIDONE 50 MG TABLET PO SCH (20:52)
[2017-06-25] MEDS: ATORVASTATIN 10 MG TABLET PO SCH (20:52)
[2017-06-25] MEDS: MEROPENEM 500 MG in IV NORMAL SALINE 50 ML IV SCH (20:53)
--- NOTE | 2017-06-26 | NUR ---
Temp. 99.0 F, cooling measures reinforced. Coughing productively, suctioned secretions PRN. Repositioned, aspiration precaution maintained. NGT feeding resumed at 20 ml/hr (per spouse request). Patient remains lethargic. A-flutter on the monitor.
[2017-06-26 00:12] VITALS: BP 87/47
[2017-06-26] MEDS: BLOOD SUGAR DIAGNOSTIC 1 EACH STRIP VI SCH ×4 (00:13→17:47)
[2017-06-26] MEDS: Z GUARD REMEDY PASTE 57 GM TUBE TOP PRN ×2 (00:14→04:06)
[2017-06-26] MEDS: INSULIN REGULAR, HUMAN 300 UNIT/3 ML VIAL SQ PRN ×3 (00:14→17:50)
[2017-06-26] MEDS: ACETAMINOPHEN 325 MG TABLET PO PRN ×2 (01:10→05:28)
[2017-06-26 04:00] VITALS: BP 83/44
[2017-06-26] MEDS: METOCLOPRAMIDE HCL 10 MG/2 ML VIAL IV SCH ×3 (05:27→21:25)
[2017-06-26] MEDS: PANTOPRAZOLE ORAL SUSPENSION 40 MG SUSPDR.PKT GT SCH (05:27)
[2017-06-26] MEDS: DILTIAZEM HCL 30 MG TABLET PO SCH ×4 (05:28→17:44)
[2017-06-26] MEDS: SUCRALFATE 1 G/10 ML LIQUID UDC GT SCH ×3 (05:28→21:24)
[2017-06-26 06:40] LABS: BASOPHILS # (AUTO) 0.1 K/uL (0.0-8.0); BASOPHILS % (AUTO) 0.6 % (0.0-2.0); EOSINOPHILS # (AUTO) 0.3 K/uL (0.0-0.7); EOSINOPHILS % (AUTO) 1.4 % (0.0-7.0); HEMATOCRIT 31.2 % (36.7-47.1); HEMOGLOBIN 10.3 g/dL (12.5-16.3); LYMPHOCYTES % (AUTO) 4.1 % (20.5-51.5); MEAN CORPUSCULAR HGB CONC 33 g/dL (32.5-36.3); MEAN CORPUSCULAR VOLUME 99.4 fL (73.0-96.2); MONOCYTES # (AUTO) 1.6 K/uL (2.0-10.0); MONOCYTES % (AUTO) 6.4 % (0.0-11.0); NEUTROPHILS # (AUTO) 21.4 K/uL (1.8-8.9); NEUTROPHILS % (AUTO) 87.5 % (38.5-71.5); PLATELET COUNT (AUTO) 244 K/uL (152-348); RED BLOOD CELL COUNT(AUTO) 3.13 MIL/uL (4.06-5.63); WHITE BLOOD COUNT (AUTO) 24.5 K/uL (3.6-10.2)
--- NOTE | 2017-06-26 06:45 | NUR ---
Afebrile at this time 98.5 F. Patient requires frequent suctioning. A-flutter on the monitor.
[2017-06-26 06:49] LABS: ALANINE AMINOTRANSFERASE 18 U/L (16-63); ALKALINE PHOSPHATASE 151 U/L (50-136); ASPARTATE AMINOTRANSFERASE 19 U/L (15-37); BILIRUBIN,TOTAL 0.7 mg/dL (0.2-1.0); CARBON DIOXIDE 23 mmol/L (21-32); CHLORIDE 96 mmol/L (98-107); GLUCOSE 211 mg/dL (74-106); MAGNESIUM 2.8 mg/dL (1.8-2.4); POTASSIUM 5.6 mmol/L (3.5-5.1); TOTAL PROTEIN, SERUM 8.6 g/dL (6.4-8.2)
[2017-06-26 06:53] LABS: CREATININE 9.8 mg/dL (0.6-1.3); UREA NITROGEN, BLOOD 162 mg/dL (7-18)
[2017-06-26 06:54] LABS: PHOSPHOROUS 9.2 mg/dL (2.5-4.9)
[2017-06-26 07:18] VITALS: BP 90/41
--- NOTE | 2017-06-26 07:30 | NUR ---
Lethargic, responsive to painful stimuli. O2 per aerosol mask at 28% FIO2 with O2 sat of 100%. On moderate high back rest. [facility] Renal per NGT.
[2017-06-26] MEDS: Z GUARD REMEDY PASTE 57 GM TUBE TOP SCH ×2 (09:14→17:44)
[2017-06-26] MEDS: CLOTRIMAZOLE 1% CREAM 30 GM TUBE TOP SCH ×2 (09:14→17:44)
[2017-06-26] MEDS: DOCUSATE SODIUM 100 MG CAPSULE PO SCH (09:17)
[2017-06-26] MEDS: AMIODARONE HCL 200 MG TABLET PO SCH ×2 (09:18→21:24)
[2017-06-26] MEDS: CALCITRIOL 0.25 MCG CAPSULE PO SCH (09:18)
[2017-06-26] MEDS: MIRALAX 17 GM POWD.PACK PO SCH (09:19)
[2017-06-26] MEDS: LACTOBACILLUS RHAMNOSUS GG 1 EACH CAPSULE PO SCH ×2 (09:19→21:24)
[2017-06-26] MEDS: CYCLOBENZAPRINE HCL 10 MG TABLET PO SCH (09:19)
[2017-06-26] MEDS: FOLIC ACID 1 MG TABLET PO SCH ×2 (09:19→17:43)
[2017-06-26] MEDS: ALLOPURINOL 100 MG TABLET PO SCH (09:20)
--- NOTE | 2017-06-26 09:31 | NUR ---
CLINICAL PHARMACY NOTE:VANCOMYCIN DOSING Subjective To continue vancomycin dosing on this 72 y/o male 6'1" 227lbs for fever & leukocytosis (per ID note; CXR with new RUL infiltrate) Objective Temp 98.7 BUN 162 SCr 9.8 (on HD) WBC 24.5 Vanco pre-HD level : 17.7 (with am labs) Assessment/plan HD has been scheduled for today. Since pre-HD level is between 15-20 mcg/ml , will give vanco 500mg IVPB x1 dose post HD today as per protocol. Will continue to dose pre-HD level. Will follow daily.
[2017-06-26 10:03] LABS: BAND % (MANUAL) 2 % (0-10); EOSINOPHILS % (MANUAL) 2 % (0-8); LYMPHOCYTES % (MANUAL) 4 % (20-40); MONOCYTES % (MANUAL) 3 % (2-10); NEUTROPHILS % (MANUAL) 89 % (42-75)
[2017-06-26 11:00] VITALS: BP 94/43
[2017-06-26] MEDS ORDERED: ALBUMIN HUMAN 25% 100 ML IV PRN (11:15)
--- NOTE | 2017-06-26 13:19 | NUR ---
Hemodialysis done with 1 L output. BP 88/27, HR 93
[2017-06-26 15:21] VITALS: BP 94/30
[2017-06-26] MEDS ORDERED: VANCOMYCIN IV 500 MG in IV DEXTROSE 5% 100 ML IV ONE (18:00)
--- NOTE | 2017-06-26 18:37 | NUR ---
Oral care done and secretions suctioned. Noted residual of 150, G tube feeding decreased to 30 ml/hr. Repositioned comfortably.
[2017-06-26 20:00] VITALS: BP 99/34
--- NOTE | 2017-06-26 20:00 | NUR ---
Tube feeding off at this time for high residual.
[2017-06-26] MEDS: ATORVASTATIN 10 MG TABLET PO SCH (21:24)
[2017-06-26] MEDS: PRIMIDONE 50 MG TABLET PO SCH (21:24)
[2017-06-26] MEDS: DUTASTERIDE 0.5 MG CAPSULE PO SCH (21:24)
[2017-06-26] MEDS: MEROPENEM 500 MG in IV NORMAL SALINE 50 ML IV SCH (21:28)
[2017-06-27] VITALS (36 sets, daily range): BP systolic 60–129; BP diastolic 26–65
[2017-06-27] MEDS: DILTIAZEM HCL 30 MG TABLET PO SCH ×5 (00:59→23:49)
[2017-06-27] MEDS: BLOOD SUGAR DIAGNOSTIC 1 EACH STRIP VI SCH ×5 (01:01→23:57)
[2017-06-27] MEDS: INSULIN REGULAR, HUMAN 300 UNIT/3 ML VIAL SQ PRN ×4 (01:04→17:32)
--- NOTE | 2017-06-27 01:04 | NUR ---
Held insulin for elevated glucose due to patient unable to tolerate tube feeding. Tube feeding on and off. Will reassess at 0600
[2017-06-27 01:56] LABS: *OCCULT BLOOD STOOL POSITIVE (NEGATIVE)
[2017-06-27] MEDS: SUCRALFATE 1 G/10 ML LIQUID UDC GT SCH ×3 (06:15→21:06)
[2017-06-27] MEDS: PANTOPRAZOLE ORAL SUSPENSION 40 MG SUSPDR.PKT GT SCH (06:15)
[2017-06-27] MEDS: METOCLOPRAMIDE HCL 10 MG/2 ML VIAL IV SCH ×3 (06:15→21:07)
[2017-06-27] MEDS: NOVASOURCE RENAL 1000 ML LIQUID GT PRN (06:22)
[2017-06-27 06:29] LABS: ALANINE AMINOTRANSFERASE 19 U/L (16-63); ALKALINE PHOSPHATASE 163 U/L (50-136); ASPARTATE AMINOTRANSFERASE 29 U/L (15-37); BILIRUBIN,TOTAL 0.7 mg/dL (0.2-1.0); CARBON DIOXIDE 25 mmol/L (21-32); CHLORIDE 94 mmol/L (98-107); CREATININE 6.9 mg/dL (0.6-1.3); GLUCOSE 194 mg/dL (74-106); MAGNESIUM 2.3 mg/dL (1.8-2.4); PHOSPHOROUS 7.4 mg/dL (2.5-4.9); POTASSIUM 4.5 mmol/L (3.5-5.1); TOTAL PROTEIN, SERUM 8.9 g/dL (6.4-8.2)
[2017-06-27 06:32] LABS: UREA NITROGEN, BLOOD 101 mg/dL (7-18)
[2017-06-27 06:47] LABS: EOSINOPHILS # (AUTO) 0.3 K/uL (0.0-0.7); EOSINOPHILS % (AUTO) 1.2 % (0.0-7.0); HEMATOCRIT 31.5 % (40-50); HEMOGLOBIN 11.2 G/DL (14.0-18.0); LYMPHOCYTES # (AUTO) 0.4 K/UL (0.8-4.8); MEAN CORPUSCULAR HEMOGLOBIN 35.3 UUG (27.0-31.0); MEAN CORPUSCULAR HGB CONC 36 g/dL (32.0-37.0); MEAN CORPUSCULAR VOLUME 99.2 FL (82.0-92.0); MONOCYTES % (AUTO) 4.6 % (0.0-11.0); NEUTROPHILS # (AUTO) 19.4 K/UL (1.8-8.9); NEUTROPHILS % (AUTO) 92.2 % (38.5-71.5); PLATELET COUNT (AUTO) 240 K/UL (150-450); RED BLOOD CELL COUNT(AUTO) 3.17 MIL/UL (4.7-6.1); WHITE BLOOD COUNT (AUTO) 21.1 K/UL (4.0-11.2)
--- NOTE | 2017-06-27 07:49 | NUR ---
NOTED WITH LOW BP DR RUIZ MADE AWARE WILL BOLUS NS 250 ML
[2017-06-27] MEDS ORDERED: IV NORMAL SALINE 250 ML IV ONE (08:00)
[2017-06-27] MEDS: MIRALAX 17 GM POWD.PACK PO SCH (08:35)
[2017-06-27] MEDS: CALCITRIOL 0.25 MCG CAPSULE PO SCH (08:36)
[2017-06-27] MEDS: AMIODARONE HCL 200 MG TABLET PO SCH ×2 (08:36→20:46)
[2017-06-27] MEDS: FOLIC ACID 1 MG TABLET PO SCH ×2 (08:36→16:12)
[2017-06-27] MEDS: LACTOBACILLUS RHAMNOSUS GG 1 EACH CAPSULE PO SCH ×2 (08:36→20:46)
[2017-06-27] MEDS: DOCUSATE SODIUM 100 MG CAPSULE PO SCH (08:38)
[2017-06-27] MEDS: CYCLOBENZAPRINE HCL 10 MG TABLET PO SCH (08:38)
[2017-06-27] MEDS: ALLOPURINOL 100 MG TABLET PO SCH (08:42)
[2017-06-27] MEDS: CLOTRIMAZOLE 1% CREAM 30 GM TUBE TOP SCH ×2 (08:43→16:13)
[2017-06-27] MEDS: Z GUARD REMEDY PASTE 57 GM TUBE TOP SCH ×2 (08:44→16:28)
[2017-06-27 10:32] LABS: LYMPHOCYTES % (MANUAL) 3 % (20-40); MONOCYTES % (MANUAL) 5 % (2-10); NEUTROPHILS % (MANUAL) 92 % (42-75)
--- NOTE | 2017-06-27 14:06 | NUR ---
CLINICAL PHARMACY NOTE:VANCOMYCIN DOSING Subjective To continue vancomycin dosing on this 72 y/o male 6'1" 227lbs for fever & leukocytosis (per ID note; CXR with new RUL infiltrate) Objective Temp 99 BUN 101 SCr 6.9 (on HD) WBC 21.1 Assessment/plan No HD scheduled for today, therefore no dose shall be given. Last dose of vanco 500mg IVPB x1 dose given 06/26. Will continue to dose pre-HD level. Will follow daily.
--- NOTE | 2017-06-27 15:07 | NUR ---
Patient noted with low blood pressure 60/30, No signs of distress, warm and dry, continue with frequent suctioning. Dr. Haines notified, awaiting call back
--- NOTE | 2017-06-27 15:23 | NUR ---
Dr. Haines called back, made aware of low blood pressure with orders to transfer to ICU. Nursing supervisor electronics inspection notified.
--- NOTE | 2017-06-27 16:15 | NUR ---
Pt reassignment and full SBAR report received by NINA Frost.
--- NOTE | 2017-06-27 16:20 | NUR ---
Tube feeding turned off. Pt noted to have gastric residual of 60ml.
[2017-06-27] MEDS: NOREPINEPHRINE BITARTRATE 16 MG in IV DEXTROSE 5% 500 ML IV PRN (16:32)
--- NOTE | 2017-06-27 16:32 | NUR ---
IV Levophed started as ordered.
--- NOTE | 2017-06-27 17:05 | NUR ---
Izzy (Infecious ) here to see pt at the beside. Full report given. New orders received.
[2017-06-27] MEDS ORDERED: FLUCONAZOLE 200 MG/NS 100ML IV 100 MG in PREMIXED 1 EACH IV SCH (17:15)
[2017-06-27] MEDS ORDERED: DOSING PER PHARMACY-AMIKACIN IV XX PRN (17:15)
--- NOTE | 2017-06-27 17:36 | NUR ---
Spoke with Dr. Haines on the telephone. stated that it was okay to put in PICC line for pt and okay to put in femoral PICC line if needed.
--- NOTE | 2017-06-27 17:38 | NUR ---
CLINICAL PHARMACY NOTE: AMIKACIN DOSING REQUEST FOR AMIKACIN DOSING ON 72 Y/O MALE 6'1" 216 LBS FOR DOCUMENTED INFECTION (DIALYSIS PATIENT0 TEMP 99F BUN 101 SCR 6.9 WBC 21.1 PATIENT ALSO ON MERREM AND VANCOMYCIN. GIVE AMIKACIN 715MG IVPB X 1. WILL DOSE BY LEVELS POST DIALYSIS
--- NOTE | 2017-06-27 17:47 | NUR ---
Spoke with Shlomo (PICC line RN) on the telephone regarding pt's need for PICC line insertion. RN stated that he will come by later duranight to put one in.
--- NOTE | 2017-06-27 17:50 | NUR ---
Left a message for Marisel () on the telephone regarding consent and pt's need for PICC line insertion. Awaiting return call.
[2017-06-27] MEDS ORDERED: DEXTROSE 5% IV ONE (18:00)
[2017-06-27] MEDS ORDERED: AMIKACIN IV ONE (18:00)
--- NOTE | 2017-06-27 19:00 | NUR ---
Pt transferred to CCU-2 with shift supervisor film processing RN and respiratory therapist.
--- NOTE | 2017-06-27 19:30 | NUR ---
received patient on cool aerosol mask on 28% fio2 and 6 liters 02.breathing deep and using accessory muscle . RR 25 SAT 97% .respiratory therapist at bedside ,suction patient and respiratory toileting done breathing treatment given by respiratory therapist .hob up .continue to monitor vital signs and breathing pattern . Addendum: 06/27/17 at 2029 by RONEL STANFORD RN Amended: Links added.
--- NOTE | 2017-06-27 20:00 | NUR ---
norepinephrine drip in progress to keep sbp >90 mm/hg and to keep map >60 continue to monitor vital signs q15 min and adjust accordingly . Addendum: 06/27/17 at 2038 by RONEL STANFORD RN Amended: Links added.
[2017-06-27] MEDS: MICAFUNGIN SODIUM 100 MG in IV NORMAL SALINE 100 ML IV SCH (20:40)
[2017-06-27] MEDS: MEROPENEM 500 MG in IV NORMAL SALINE 50 ML IV SCH (20:41)
[2017-06-27] MEDS: DUTASTERIDE 0.5 MG CAPSULE PO SCH (20:43)
[2017-06-27] MEDS: ATORVASTATIN 10 MG TABLET PO SCH (21:06)
[2017-06-27] MEDS: PRIMIDONE 50 MG TABLET PO SCH (21:06)
--- NOTE | 2017-06-27 21:16 | NUR ---
Avodart not given patient with NGT .as per medication instruction don not crush .
--- NOTE | 2017-06-27 22:00 | NUR ---
tube feedings on hold when received patient as endorsed patient with high residuals during the day.medication given to the ngt .crushed medication and flushed ngt .hob up aspiration precaution observed. Addendum: 06/27/17 at 2305 by RONEL STANFORD RN Amended: Links added.
--- NOTE | 2017-06-27 22:15 | NUR ---
as per picc line nurse ,unable to placed picc line .recommending central line , called : esteban and spoked with dr: venkata gallardo covering informed md picc line nurse unable to place piccline . and as per md ok to place central line .called patient explained procedure and explained central line importance telephone consent obtained witness by another nurse adreinne.
[2017-06-28] VITALS (95 sets, daily range): BP systolic 74–144; BP diastolic 16–108
--- NOTE | 2017-06-28 | NUR ---
turned and reposition patient, z guard offload back with pillow ,elevated upper and lower extremities with pillows ,heels off bed . scds used to BLE .on special mattress step 1. Addendum: 06/28/17 at 0241 by RONEL STANFORD RN Amended: Links added.
--- NOTE | 2017-06-28 00:07 | NUR ---
fingerstick done 211.insulin not given patient npo not tolerating tube feedings.
--- NOTE | 2017-06-28 04:30 | NUR ---
am care done .z guard applied to bilateral groin and sacral area . changed soiled and gown. oral care done . turn and reposition patient . elevated upper and lower extremities with pillows . scds used .
[2017-06-28 05:23] LABS: BASOPHILS # (AUTO) 0.4 K/uL (0.0-8.0); EOSINOPHILS # (AUTO) 0.3 K/uL (0.0-0.7); EOSINOPHILS % (AUTO) 1.4 % (0.0-7.0); HEMATOCRIT 31.9 % (40-50); HEMOGLOBIN 10.3 G/DL (14.0-18.0); LYMPHOCYTES # (AUTO) 0.6 K/UL (0.8-4.8); LYMPHOCYTES % (AUTO) 2.6 % (20.5-51.5); MEAN CORPUSCULAR HGB CONC 33 g/dL (32.0-37.0); MEAN CORPUSCULAR VOLUME 95.4 FL (82.0-92.0); MONOCYTES # (AUTO) 1.2 K/UL (0.1-1.30); MONOCYTES % (AUTO) 5.2 % (0.0-11.0); NEUTROPHILS # (AUTO) 19.6 K/UL (1.8-8.9); NEUTROPHILS % (AUTO) 88.8 % (38.5-71.5); PLATELET COUNT (AUTO) 285 K/UL (150-450); RED BLOOD CELL COUNT(AUTO) 3.34 MIL/UL (4.7-6.1); WHITE BLOOD COUNT (AUTO) 22.1 K/UL (4.0-11.2)
[2017-06-28 05:40] LABS: CARBON DIOXIDE 22 mmol/L (21-32); CHLORIDE 91 mmol/L (98-107); GLUCOSE 244 mg/dL (74-106); MAGNESIUM 2.4 mg/dL (1.8-2.4); POTASSIUM 4.7 mmol/L (3.5-5.1)
[2017-06-28 05:43] LABS: CREATININE 8.2 mg/dL (0.6-1.3); UREA NITROGEN, BLOOD 121 mg/dL (7-18)
[2017-06-28] MEDS: SUCRALFATE 1 G/10 ML LIQUID UDC GT SCH ×3 (05:43→20:41)
[2017-06-28] MEDS: METOCLOPRAMIDE HCL 10 MG/2 ML VIAL IV SCH ×3 (05:43→21:14)
[2017-06-28] MEDS: DILTIAZEM HCL 30 MG TABLET PO SCH ×3 (05:44→18:00)
[2017-06-28] MEDS: PANTOPRAZOLE ORAL SUSPENSION 40 MG SUSPDR.PKT GT SCH (06:02)
[2017-06-28] MEDS: INSULIN REGULAR, HUMAN 300 UNIT/3 ML VIAL SQ PRN ×4 (06:10→18:36)
[2017-06-28] MEDS: BLOOD SUGAR DIAGNOSTIC 1 EACH STRIP VI SCH ×3 (06:13→18:35)
--- NOTE | 2017-06-28 07:30 | NUR ---
RECIEVED PT IN BED, OBTUNDED, RESPONSIVE TO DEEP STIMULI AND SUCTIONING. COLOR IS GOOD AND SKIN IS WARM AND DRY TO TOUCH.
--- NOTE | 2017-06-28 08:00 | NUR ---
HR-ATRIAL FIB WITH RVR IN THE 110-120B/MIN. PT ON LEVOHED DRIP AT 16MCG/KG/MIN. VIA RIGHT FEMORAL LINE. SBP MAINTAINED ABOVE 90. MIDLINE ACCESS PRESENT ON THE RIGHT UPPER ARM WITH A TRIPLE LUMENT IN PLACE BUT NO BLOOD RETURN NOTED.
--- NOTE | 2017-06-28 08:15 | NUR ---
REPOSITION PT ON THE RIGHT SIDE. HEMODIALYSIS STARTED AT BEDSIDE. SUCTIONA SECRETIONS NASALLY WITH LARGE AMOUNT OF WHITISH SECRETIONS. LUNGS HAS SCATERRED RHONCHIS. O2SAT VARIES BET 94-99%.
[2017-06-28] MEDS: DOCUSATE SODIUM 100 MG CAPSULE PO SCH (09:00)
[2017-06-28] MEDS: MIRALAX 17 GM POWD.PACK PO SCH (09:00)
[2017-06-28] MEDS ORDERED: ALBUMIN HUMAN 25% 100 ML IV PRN (09:45)
--- NOTE | 2017-06-28 10:30 | NUR ---
SEEN AND EXAMINED BY DR BARRIOS WITH NEW ORDERS. PT TOLERATING HEMODIALYSIS AT THIS TIME. AT THE BEDSIDE.
--- NOTE | 2017-06-28 10:30 | NUR ---
SEEN AND EXAMINED BY DR ARELLANO. TALK WITH THE AT [facility] CONCERNING PT'S STATUS.
--- NOTE | 2017-06-28 10:53 | NUR ---
PT WAS PLACED ON BIPAP DUE TO SOB. TOLERATING BIPAP SETTINGS WELL AT THIS TIME. 15/ R15, 40% FIO2. FREQUENT SUCTIONING OF MODERATE AMOUNTS OF BLOODY THICK SECRETIONS. HAS SKIN TEAR ON BRIDGE OF NOSE. MEPILEX IN PLACE. RN AWARE. BVM AT BEDSIDE, BIPAP ALARMS ARE ON AND AUDIBLE. WILL CONTINUE TO MONITOR.
--- NOTE | 2017-06-28 11:00 | NUR ---
PT IS DESATTING IN THE 80'S. O2 ON 6L MASK CHANGED TO BIPAP AT 40%, RATE IS 15, I-15, E-5. SCAB ON THE NASAL BRIDGE IS PROTECTED WITH MEPELEX.
--- NOTE | 2017-06-28 11:20 | NUR ---
HEMODIALYSIS ENDED AND FINESHED. TOTAL FLUID OUT IS 1500ML. CONDITION IS UNCHANGED.
[2017-06-28] MEDS: NOREPINEPHRINE BITARTRATE 16 MG in IV DEXTROSE 5% 500 ML IV PRN (11:59)
[2017-06-28] MEDS: CYCLOBENZAPRINE HCL 10 MG TABLET PO SCH (12:24)
[2017-06-28] MEDS: ALLOPURINOL 100 MG TABLET PO SCH (12:25)
[2017-06-28] MEDS: AMIODARONE HCL 200 MG TABLET PO SCH ×2 (12:25→20:42)
[2017-06-28] MEDS: CALCITRIOL 0.25 MCG CAPSULE PO SCH (12:25)
[2017-06-28] MEDS: FOLIC ACID 1 MG TABLET PO SCH ×2 (12:25→16:39)
[2017-06-28] MEDS: LACTOBACILLUS RHAMNOSUS GG 1 EACH CAPSULE PO SCH ×2 (12:25→20:43)
[2017-06-28] MEDS: Z GUARD REMEDY PASTE 57 GM TUBE TOP SCH ×2 (12:26→16:39)
[2017-06-28] MEDS: CLOTRIMAZOLE 1% CREAM 30 GM TUBE TOP SCH ×2 (12:28→16:40)
--- NOTE | 2017-06-28 14:00 | NUR ---
PT'S SBP PERSISTENTLY DROPPED IN THE 80'S. INCREASED LEVOPHED UP TO 17MCK/KG/MIN. SBP IMPROVED.
--- NOTE | 2017-06-28 14:55 | NUR ---
CLINICAL PHARMACY NOTE:VANCOMYCIN/AMIKACIN DOSING Subjective To continue vancomycin and Amikacin dosing on this 72 y/o male 6'1" 227lbs for fever & leukocytosis (per ID note; CXR with new RUL infiltrate) Objective Temp 98.6 BUN 121 SCr 8.2(on HD) WBC 22.1 Vancomycin trough 19.9 Amikacin level pending(am sample was not stable enough to send-out per lab. Level had to be re-ordered on post HD). Assessment/plan Patient was dialyzed today. Will administer Vancomycin 500mg IV x1 today and continue to dose pre-HD level. Amikacin level is pending. Will follow the level for further dosing. Will follow HD schedule daily. Addendum: 06/28/17 at 1727 by SURESH MARLEY AMIKACIN POST HD LEVEL WAS 13.5. NO DOSE TODAY.
[2017-06-28] MEDS ORDERED: VANCOMYCIN IV 500 MG in IV DEXTROSE 5% 100 ML IV ONE (16:00)
--- NOTE | 2017-06-28 16:20 | NUR ---
DR RUIZ INFORMED ABOUT 'S CONSIDERATION FOR HOSPICE. ORDERED HOSPICE EVALUATION. SENT ALL PERTINENT INFORMATION TO [facility] TO THE ATTENTION OF BLANQUITA. NOTED TO HAVE RECIEVED.
--- NOTE | 2017-06-28 18:00 | NUR ---
PM CARE RENDERED. PT STILL NPO. NGT INTACT AND PATENT. TUBE FEEDING STILL ON HOLD. ANURIC.
--- NOTE | 2017-06-28 18:30 | NUR ---
NO RESIDUALS NOTED. STARTED ON TUBE FEEDING N[facility]OURCE AT 10ML/HR.
[2017-06-28] MEDS: NOVASOURCE RENAL 1000 ML LIQUID GT PRN (18:38)
--- NOTE | 2017-06-28 19:14 | NUR ---
Pt rec'd on BIPAP settings IPAP 15, EPAP 5, Set resp. rate 15 and FIO2-40%. No resp. distress noted. BVM at bedside. Pt to be monitored throughout the shift, PRN SX and adm'd resp. therapy as ordered by . Respironics V60 settings have been checked and remain audible.
[2017-06-28] MEDS: MICAFUNGIN SODIUM 100 MG in IV NORMAL SALINE 100 ML IV SCH (20:15)
[2017-06-28] MEDS: MEROPENEM 500 MG in IV NORMAL SALINE 50 ML IV SCH (20:41)
[2017-06-28] MEDS: ATORVASTATIN 10 MG TABLET PO SCH (20:43)
[2017-06-28] MEDS: DUTASTERIDE 0.5 MG CAPSULE PO SCH (20:43)
[2017-06-28] MEDS: PRIMIDONE 50 MG TABLET PO SCH (20:46)
[2017-06-29] VITALS (60 sets, daily range): BP systolic 80–127; BP diastolic 22–73
[2017-06-29] MEDS: BLOOD SUGAR DIAGNOSTIC 1 EACH STRIP VI SCH ×3 (00:01→12:14)
[2017-06-29] MEDS: DILTIAZEM HCL 30 MG TABLET PO SCH (00:01)
[2017-06-29] MEDS: INSULIN REGULAR, HUMAN 300 UNIT/3 ML VIAL SQ PRN ×3 (00:01→12:16)
[2017-06-29] MEDS: NOREPINEPHRINE BITARTRATE 16 MG in IV DEXTROSE 5% 500 ML IV PRN (02:08)
--- NOTE | 2017-06-29 05:11 | NUR ---
Pt remains on BIPAP at this time with no changes made to the settings. No resp. distress noted. Pt was suctioned every 2 hours and appeared to tolerate BIPAP settings well. Respironics V60 parameters have been checked and remain audible. BVM is at bedside.
[2017-06-29 05:31] LABS: BASOPHILS # (AUTO) 0.7 K/uL (0.0-8.0); BASOPHILS % (AUTO) 3.4 % (0.0-2.0); EOSINOPHILS # (AUTO) 0.2 K/uL (0.0-0.7); EOSINOPHILS % (AUTO) 0.9 % (0.0-7.0); HEMATOCRIT 31.4 % (40-50); HEMOGLOBIN 10.2 G/DL (14.0-18.0); LYMPHOCYTES # (AUTO) 0.6 K/UL (0.8-4.8); LYMPHOCYTES % (AUTO) 2.9 % (20.5-51.5); MEAN CORPUSCULAR HEMOGLOBIN 31.1 UUG (27.0-31.0); MEAN CORPUSCULAR HGB CONC 33 g/dL (32.0-37.0); MONOCYTES # (AUTO) 1.1 K/UL (0.1-1.30); MONOCYTES % (AUTO) 5.7 % (0.0-11.0); NEUTROPHILS # (AUTO) 16.5 K/UL (1.8-8.9); NEUTROPHILS % (AUTO) 87.1 % (38.5-71.5); PLATELET COUNT (AUTO) 279 K/UL (150-450); RED BLOOD CELL COUNT(AUTO) 3.27 MIL/UL (4.7-6.1); WHITE BLOOD COUNT (AUTO) 19.1 K/UL (4.0-11.2)
[2017-06-29 05:41] LABS: CARBON DIOXIDE 26 mmol/L (21-32); CHLORIDE 93 mmol/L (98-107); CREATININE 5.4 mg/dL (0.6-1.3); GLUCOSE 251 mg/dL (74-106); MAGNESIUM 2.2 mg/dL (1.8-2.4); PHOSPHOROUS 5.9 mg/dL (2.5-4.9); POTASSIUM 3.7 mmol/L (3.5-5.1); UREA NITROGEN, BLOOD 70 mg/dL (7-18)
--- NOTE | 2017-06-29 06:00 | NUR ---
Dr Billings at bedside.
[2017-06-29] MEDS: PANTOPRAZOLE ORAL SUSPENSION 40 MG SUSPDR.PKT GT SCH (06:13)
[2017-06-29] MEDS: METOCLOPRAMIDE HCL 10 MG/2 ML VIAL IV SCH (06:13)
[2017-06-29] MEDS: SUCRALFATE 1 G/10 ML LIQUID UDC GT SCH (06:15)
[2017-06-29 06:16] LABS: BAND % (MANUAL) 3 % (0-10); EOSINOPHILS % (MANUAL) 1 % (0-8); LYMPHOCYTES % (MANUAL) 2 % (20-40); MONOCYTES % (MANUAL) 5 % (2-10); NEUTROPHILS % (MANUAL) 89 % (42-75)
--- NOTE | 2017-06-29 07:30 | NUR ---
RECIEVED PT LYING IN BED, SLIGHTLY OBTUNDED BUT OPENS EYES TO PAINFUL STIMULI. SUCTION SECRETIONS NASALLY LARGE AMOUNT OF THICH WHITISH PHLEGM. RT AT THE BEDSIDE, ORAL CARE DONE. CPT DONE BY RT. PT PLACED ON SIMPLE MASK AT 6L TTEMPORARILY TO REST PT FROM BIPAP. TOLERATED WELL. SAT IS 98%.
--- NOTE | 2017-06-29 08:00 | NUR ---
HR-AFIB CONTROLLED. PT ON LEVOPHED DRIP AT 15MC/KG/MIN. SBP MAINTAINED.
[2017-06-29] MEDS: DOCUSATE SODIUM 100 MG CAPSULE PO SCH (08:44)
[2017-06-29] MEDS: MIRALAX 17 GM POWD.PACK PO SCH (08:45)
[2017-06-29] MEDS: ALLOPURINOL 100 MG TABLET PO SCH (08:45)
[2017-06-29] MEDS: LACTOBACILLUS RHAMNOSUS GG 1 EACH CAPSULE PO SCH (08:45)
[2017-06-29] MEDS: CALCITRIOL 0.25 MCG CAPSULE PO SCH (08:45)
[2017-06-29] MEDS: CYCLOBENZAPRINE HCL 10 MG TABLET PO SCH (08:46)
[2017-06-29] MEDS: Z GUARD REMEDY PASTE 57 GM TUBE TOP SCH (08:47)
[2017-06-29] MEDS: CLOTRIMAZOLE 1% CREAM 30 GM TUBE TOP SCH (08:48)
[2017-06-29] MEDS: AMIODARONE HCL 200 MG TABLET PO SCH (08:51)
[2017-06-29] MEDS: FOLIC ACID 1 MG TABLET PO SCH (08:53)
--- NOTE | 2017-06-29 10:00 | NUR ---
TUBE FEEDING STARTED AT 10ML/HR. TOLERATING WELL. NO RESIDUALS NOTED.
--- NOTE | 2017-06-29 11:30 | NUR ---
AT THE BEDSIDE. NIKI JUNIOR LEGAL SECRETARY IS WORKING ON HOSPICE EVALUATION. POSSIBLY BE TRANSFERRED TODAY.
--- NOTE | 2017-06-29 11:40 | NUR ---
CLINICAL PHARMACY NOTE:VANCOMYCIN/AMIKACIN DOSING Subjective To continue vancomycin and Amikacin dosing on this 72 y/o male 6'1" 227lbs for fever & leukocytosis (per ID note; CXR with new RUL infiltrate) Objective Temp 98.7 BUN 70 SCr 5.4(on HD) WBC 19.1 Assessment/plan No HD has been scheduled for today. No vanco or amikacin dose is due today. Will continue to dose pre-HD level. Will follow HD schedule daily
--- NOTE | 2017-06-29 12:30 | NUR ---
PT IS TACHYPNEIC, AND TACHYCARDIC. PLACED BACK ON BIPAP BY RT.
--- NOTE | 2017-06-29 13:30 | NUR ---
T.O. DISCHARGE ORDER BY DR RUIZ TO [facility]. IS AWARE.
--- NOTE | 2017-06-29 14:55 | NUR ---
REPORT GIVEN TO STU WOOD. ETA OF AMBULANCE 1430.
--- NOTE | 2017-06-29 15:30 | NUR ---
PT PLACED ON SIMPLE MASK AT 8L. PT IS GOING ON LEVOPHED DRIP DURING TRANSPORT ORDERED. TRANSPORT IS ALS, AMBULANCE HAS NO RN AVAILABLE, ENDED BEING WITH THE PATIENT WITH LEAD BURNER CONSENT.
--- NOTE | 2017-06-29 15:35 | NUR ---
PT IS DISCHARGED. ACCOMPANIED PT ON TRANSPORT, ARRIVED AT [facility] AT 4:30PM. PT IS SAFELY TRANSFERRED TO HIS PRIVATE ROOM. LEVOPHED DRIP IS DISCONTINUED ORDERED. REPORT ENDORSED TO SHAWN WOOD. TRAVEL TIME IS 2HRS AND 20MIN. BACK AND FORTH. BACK TO [facility] AT 18:15.
[2017-06-30] MEDS ORDERED: EPOETIN ALFA 10,000 UNITS/ML VIAL SQ ONE (08:15)
== END 2017-06-29 15:30 | disposition hospice, home (50) | DRG 870 ==
LOC: TELE 16:32 → TELE-TD 19:23 → CCU 05-27 11:43 → TELE-TD 06-09 16:02 → CCU 06-12 13:42 → TELE-TD 06-15 20:20 → CCU 06-27 19:08
PROVIDERS: ADMIT Internal Medicine; ATTEND Internal Medicine
PROC: 30233N1 Transfusion of Nonautologous Red Blood Cells into Peripheral Vein, Percutaneous Approach (ICD-10-PCS; 2017-05-24)
PROC: 5A1955Z Respiratory Ventilation, Greater than 96 Consecutive Hours (ICD-10-PCS; 2017-05-27)
PROC: 0BH18EZ Insertion of Endotracheal Airway into Trachea, Via Natural or Artificial Opening Endoscopic (ICD-10-PCS; 2017-05-27)
PROC: 5A2204Z Restoration of Cardiac Rhythm, Single (ICD-10-PCS; principal; 2017-05-27 08:15)
PROC: 05H633Z Insertion of Infusion Device into Left Subclavian Vein, Percutaneous Approach (ICD-10-PCS; 2017-06-11)
PROC: B547ZZA Ultrasonography of Left Subclavian Vein, Guidance (ICD-10-PCS; 2017-06-11)
PROC: 5A1D70Z Performance of Urinary Filtration, Intermittent, Less than 6 Hours Per Day (ICD-10-PCS; 2017-06-11)
PROC: 06HM33Z Insertion of Infusion Device into Right Femoral Vein, Percutaneous Approach (ICD-10-PCS; 2017-06-27)
PROC: B54BZZA Ultrasonography of Right Lower Extremity Veins, Guidance (ICD-10-PCS; 2017-06-27)
PROC: 5A09457 Assistance with Respiratory Ventilation, 24-96 Consecutive Hours, Continuous Positive Airway Pressure (ICD-10-PCS; 2017-06-28)
DX: A41.9 Sepsis, unspecified organism (principal); J69.0 Pneumonitis due to inhalation of food and vomit; N17.0 Acute kidney failure with tubular necrosis; R65.21 Severe sepsis with septic shock; G93.40 Encephalopathy, unspecified; J96.02 Acute respiratory failure with hypercapnia; J96.01 Acute respiratory failure with hypoxia; J90 Pleural effusion, not elsewhere classified; I13.2 Hypertensive heart and chronic kidney disease with heart failure and with stage 5 chronic kidney disease, or end stage renal disease; E46 Unspecified protein-calorie malnutrition; I50.33 Acute on chronic diastolic (congestive) heart failure; N18.6 End stage renal disease; E87.0 Hyperosmolality and hypernatremia; I48.1 Persistent atrial fibrillation; I48.4 Atypical atrial flutter; J98.11 Atelectasis; K92.2 Gastrointestinal hemorrhage, unspecified; E87.1 Hypo-osmolality and hyponatremia; E11.22 Type 2 diabetes mellitus with diabetic chronic kidney disease; I27.20 Pulmonary hypertension, unspecified; D50.0 Iron deficiency anemia secondary to blood loss (chronic); E66.9 Obesity, unspecified; I25.10 Atherosclerotic heart disease of native coronary artery without angina pectoris; I44.0 Atrioventricular block, first degree; I48.2 Chronic atrial fibrillation; Z66 Do not resuscitate; Z79.01 Long term (current) use of anticoagulants; J44.9 Chronic obstructive pulmonary disease, unspecified; Z86.73 Personal history of transient ischemic attack (TIA), and cerebral infarction without residual deficits; Z87.891 Personal history of nicotine dependence; Z88.0 Allergy status to penicillin; Z68.31 Body mass index [BMI] 31.0-31.9, adult; K29.70 Gastritis, unspecified, without bleeding; G47.33 Obstructive sleep apnea (adult) (pediatric); R13.10 Dysphagia, unspecified; M10.9 Gout, unspecified
CPT/HCPCS: 36415; 36569; 36600; 70030-TC; 71010; 74000; 76604; 83735; 84100; 84443; 85025; 85730; 86704; 86705; 86706; 86709; 86803; 86850; 86900; 86901; 86920; 87040; 87070; 87086; 90937; 92523; 92526; 92610; 93005; 93307; 94002; 94003; 94640; 94660; 97110; A4217; A4663; C1751; J0278; J0282; J0330; J0885; J1160; J1644; J1815; J2185; J2248; J2250; J2370; J2405; J2765; J3010; J3370; J3475; J3490; J7030; J7040; J7050; J7060; J7070; P9016-BL; P9021; P9047